=== PATIENT | female | born 1950 | race Caucasian/White ===

== ENCOUNTER → 2016-11-11 | Outpatient (REF) | payer MEDICARE, MEDICAID ==
[~2016-11-11] MED LIST: /AMIO20TA PO; /ESCI10TA; /ESCI10TA OR; /ESCI20TA PO; /ESOM40CA; /ESOM40CA OR; /INSULEV SUBQ; /IPRA3SP INH; /ONDA4TA OR; /TIOT18INH; ACET500C PO; ACET65TA; ACET65TA OR; ADV250INH INH; ALBU17IN INH; ALBU83IN; ALBU83IN IN; ALBU83IN INH; ALBUTEROL; AMILORIDE; AMILORIDE HCL PO; AMIT100T; AMIT10TA2 OR; AMIT50TA2 OR; AMLO10TA2 PO; ARIC10TA OR; ARIC5TAB OR; ASPI325T OR; ASPI32ECTA PO; ASPI81TA83 OR; ATIV0.5T OR; ATOR1TAB19 PO; ATOR40TA PO; ATROVENT; ATROVENT0.02%; BABY81CH; BACT2CRE TOP; BACT800T; BENA25TA4 PO; BUDESONIDE INH; CALC12502 OR; CALC1CAP31 PO; CALC1TAB30 PO; CALC250T PO; CALC600T21 PO; CALCCHW12 OR; CALCIUM/VIT D; CARDIZEM CD; CARTIA XT PO; CARV25TA PO; CEFD1CAP8 PO; CEFD300CAP PO; CEFT500T; CEFU12SS; CIPR500T4; CLEO300C OR; COLA100C PO; COLA100C2; COLA100C2 OR; COMMENT; CYPROHEPTADINE; DAILY-VITE PO; DARBEPOETIN SC; DEMA100T; DEMA100T OR; DEMA20TA; DIFL150T; DILT120C3; DILT180C3 OR; DOXY10CA PO; DRIS50002 PO; DULCOLAX PR; DUONSOL IN; DUONSOL INH; ECOT325T5; EPLERENONE; EPLERENONE PO; FERR325T OR; FLEEENE4 PR; FOLI1TAB OR; FOLI1TAB2 PO; FURO20TA2 PO; FURO40TA2 OR; HEPARIN SQ; HUMUINJ; HYDR50TA8; INSUH10VL INJ; INSUH10VL SC; INSUH10VL SQ; INSULANT; INSULANT SC; INSULIN LANTUS; INSULIN REG; INSULIN REGULAR; INSULIN SQ; IPRATROPIUM BROMIDE; JANUVIA OR; KEPP1000 PO; KEPP500T6 PO; KEPPRA; KEPPRA PO; LACT10SO8; LACT10SO8 OR; LANTINJ4 SC; LEVA250T PO; LEVA500T PO; LEVETIRACETAM PO; LEXAPRO OR; LIPI20TA; LIPI20TA OR; LOPR50TA OR; MAGN1TAB25 PO; METO-346 PO; METO25TA2; METO25TA74 PO; METO50TA4 OR; METOPROLOL PO; MILKSUS; MILKSUS OR; MULTIVIT PO; NAPR500T2 PO; NITR0.1S SL; NITR0.4S; NITR4TASL SL; NITRO10CA PO; NITROQUICK; NOVOINJ3 SC; NOVOLOG100 MG/ML SC; NOVOLOG100 MG/ML SQ; NYSTATIN; NYSTATIN ORAL; NYSTATIN TOP; OCEA0.654; OMEP40CA2 PO; OXYB5TA PO; OYSCO PO; PERC5TAB8; PERC5TAB8 OR; PERC7.5T8; PLAV75TA2; PLAV75TA2 OR; POTA1TAB14 PO; POTA20TA OR; POTA20TA2; POTA20TA2 OR; POTASSIUM CHLORIDE C; PRED10TA PO; PRED1TABL PO; PREDPOW10 PO; PREG100CA OR; PREG50CA OR; PREG50CA PO; PULM0.25 IN; RENA800T; ROXI1TAB2 PO; THERGRAN; TOPAMAX; TOPI100T OR; TOPI1TAB31 PO; TOPI200T OR; TOPI50TA; TOPI50TA OR; TOPI50TA4 PO; TOPIPOW3 PO; TORSEMIDE; TOUJ1.2I SC; TRAM50TA2 OR; TRAZ100T4 PO; TRAZ50TA4 PO; TYLE325T5 PO; VIBR100C OR; VIST50CA; VIT D 2000 PO; VITA50003 PO; VITA500046 PO; VITA500C OR; XOPENEX; ZARO2.5T; ZEBE5TAB; ZYLO100T; [UNRECOGNIZED DRUG - CODE] PO; [UNRECOGNIZED DRUG - OTHER]; [UNRECOGNIZED DRUG - OTHER] PO; amiodarone PO; aspirin PO; benadryl PO; ergocalciferol PO; lipitor PO; potassium PO; vicodin PO
[2016-11-11 16:36] LABS: ALBUMIN 3.3 GM/DL (3.2-5.2); ALBUMIN/GLOBULIN RATIO 1.03 (1.00-1.93); BILIRUBIN,TOTAL 0.3 MG/DL (0.2-1.0); CALCIUM LEVEL 8.5 MG/DL (8.8-10.2); CREATININE FOR GFR 2.18 MG/DL (0.55-1.02); GLOMERULAR FILTRATION RATE 24.1 (>45); POTASSIUM SERUM 3.2 MEQ/L (3.5-5.1); TOTAL PROTEIN 6.5 GM/DL (6.4-8.2)
[2016-11-11 17:11] LABS: MEAN CORPUSCULAR HGB CONC 31.8 g/dl (32.0-36.5); RED CELL DISTRIBUTION WIDTH 15.5 % (11.5-14.5)
== END ==
LOC: M SFHCSACK 11-09 10:23
PROVIDERS: ATTEND Physician Assistant
DX: D69.6 Thrombocytopenia, unspecified (principal); I10 Essential (primary) hypertension; E11.21 Type 2 diabetes mellitus with diabetic nephropathy; E55.9 Vitamin D deficiency, unspecified

== ENCOUNTER 2016-11-19 00:17 | Inpatient (IN) | payer MEDICARE, OTHER ==
[~2016-11-19] VITALS: Ht 154.9 cm; Wt 78.0 kg
[2016-11-19] VITALS (10 sets, daily range): BP systolic 130–148; BP diastolic 61–67; O2SAT 95–96
[~2016-11-19 00:17] MED LIST changes: -DOXY10CA PO
[2016-11-19] MEDS ORDERED: IPRATROPIUM 0.5MG/ALBUTEROL 2.5MG INH SOL UD 3ML (DUONEB)(J7620) As Ordered ONE ×2 (00:31→08:21)
[2016-11-19] MEDS ORDERED: ONDANSETRON 4MG/2ML VIAL (J2405) As Ordered ONE (00:49)
[2016-11-19] MEDS ORDERED: FUROSEMIDE 20 MG/2 ML VIAL (J1940) As Ordered ONE (00:56)
[2016-11-19] MEDS ORDERED: dexameTHASONE 4 MG/ML 1ML VIAL (J1100) As Ordered ONE ×2 (00:56→00:57)
[2016-11-19] MEDS ORDERED: NITROGLYCERIN 2% OINT 1 GM *U/D* PKT As Ordered ONE (00:56)
[2016-11-19] MEDS ORDERED: FUROSEMIDE 40 MG/4 ML VIAL (J1940) As Ordered ONE ×2 (00:57→09:23)
[2016-11-19 01:04] LABS: ABG BASE EXCESS -2.7 (-2.0-2.0); ABG DEVICE NASAL CANN; ABG PARTIAL PRESSURE CO2 57.4 mmHg (35.0-45.0); ABG PARTIAL PRESSURE O2 168.2 mmHg (75.0-100.0); ABG STANDARD HCO3 22.2 MEQ/L (22.0-26.0); ABG TOTAL CO2 26.8 MEQ/L (23.0-31.0); ABG pH (ARTERIAL) 7.257 UNITS (7.350-7.450)
[2016-11-19 01:20] LABS: BASO % 0.4 % (0.0-1.0); EOS # 0.1 K/mm3 (0.0-0.50); EOS % 2.1 % (0.0-3.0); LARGE UNSTAINED CELL # 0.2 K/mm3 (0.0-0.4); LARGE UNSTAINED CELL % 2.6 % (0.0-4.0); LYMPH # 0.7 K/mm3 (1.5-4.5); LYMPH % 11.1 % (24.0-44.0); MEAN CORPUSCULAR HEMOGLOBIN 27.2 pg (27.0-33.0); MEAN CORPUSCULAR HGB CONC 30.7 g/dl (32.0-36.5); MEAN CORPUSCULAR VOLUME 88.7 fl (80.0-96.0); MONO # 0.5 K/mm3 (0.0-0.8); NEUTROPHILS # 4.9 K/mm3 (1.8-7.7); NEUTROPHILS % 76.8 % (36.0-66.0); RED CELL DISTRIBUTION WIDTH 14.7 % (11.5-14.5); WHITE BLOOD COUNT 6.4 K/mm3 (4.0-10.0)
[2016-11-19 01:23] LABS: ANION GAP 7 MEQ/L (8-16); BLOOD UREA NITROGEN 36 MG/DL (7-18); CALCIUM LEVEL 8.7 MG/DL (8.8-10.2); CARBON DIOXIDE LEVEL 31 MEQ/L (21-32); CHLORIDE LEVEL 108 MEQ/L (98-107); CREATININE FOR GFR 2.42 MG/DL (0.55-1.02); GLOMERULAR FILTRATION RATE 21.4 (>45); GLUCOSE, FASTING 79 MG/DL (80-110); POTASSIUM SERUM 3.6 MEQ/L (3.5-5.1); SODIUM LEVEL 146 MEQ/L (136-145)
[2016-11-19 01:36] LABS: PLATELET COUNT, AUTOMATED 77 k/mm3 (150-450)
[2016-11-19] MEDS ORDERED: TRAZ100T4 PO (03:56)
[2016-11-19] MEDS ORDERED: GLUCAGON FOR INJ 1 MG VIAL (J1610) SC PRN (04:00)
[2016-11-19] MEDS ORDERED: GLUCOSE 4 GM CHEW TABLET PO PRN (04:00)
[2016-11-19] MEDS ORDERED: HEPARIN SOD (PORCINE) 5000 UNITS/ML VIAL SC SCH (04:00)
[2016-11-19] MEDS ORDERED: ACETAMINOPHEN TAB 650MG DOSE (2X325MG) PO PRN (04:00)
[2016-11-19] MEDS ORDERED: ONDANSETRON 4 MG TAB (S0181) PO PRN (04:00)
[2016-11-19] MEDS ORDERED: ONDANSETRON 4MG/2ML VIAL (J2405) IV PRN (04:00)
[2016-11-19] MEDS ORDERED: DEXTROSE 50% 50 ML SYRINGE IV PRN (04:00)
[2016-11-19] MEDS ORDERED: IPRATROPIUM 0.5MG/ALBUTEROL 2.5MG INH SOL UD 3ML (DUONEB)(J7620) NEB PRN (05:00)
[2016-11-19 05:12] LABS: ABG BASE EXCESS -1.4 (-2.0-2.0); ABG HCO3 27.7 MEQ/L (22.0-26.0); ABG PARTIAL PRESSURE O2 98.7 mmHg (75.0-100.0); ABG STANDARD HCO3 23.3 MEQ/L (22.0-26.0); ABG TOTAL CO2 29.9 MEQ/L (23.0-31.0)
[2016-11-19 05:15] LABS: ABG pH (ARTERIAL) 7.208 UNITS (7.350-7.450)
[2016-11-19 05:16] LABS: ABG PARTIAL PRESSURE CO2 71.3 mmHg (35.0-45.0)
--- NOTE | 2016-11-19 05:30 | HPEPDOC ---
General Date of Admission 11/19/16 Chief Complaint The patient is a 66-year-old female admitted with a reason for visit of Diff Breathing. History of Present Illness Tess Booker is a 66 year old female with a pertinent history of 3 vessel CABG, COPD, IDDM, stage 4 CKD, HTN, tobacco abuse, and BRANDON managed by 2L CPAP at night, presenting with progressively worsening shortness of breath over 1 week. 2 days ago, pt was seen at [place] ED because of shortness of breath on exertion and chest pressure. Pt reports getting IV furosemide and being discharged to home. Last night, the pt felt acute onset of dizziness and shortness of breath and was brought in by ambulance to [facility] ED. She can typically go to the bathroom or do the dishes without any dyspnea but is now experiencing dyspnea while speaking. She also has an associated productive cough over the last week that produces yellow phlegm. Pt also reports chest discomfort prior to calling the ambulance and describes it as a knot under the sternum that does not radiate. She vomited once last night and has not experienced N/V since. Pt has orthopnea. Pt denies any fever, chills, change in vision, h/a, dysuria, urinary frequency or urgency, or melena. ED course: After arrival to the ED, pt received Furosemide 60mg IV, ondansetron 4mg IV, nebulizer treatments, and Dexamethasone 15 mg. Pt reports feeling much better after ED treatment. Home Medications Scheduled (Evelyn Zhang) 300 Unit/Ml Inj 18 UNIT SC BID (Reported) Amlodipine Besylate (Amlodipine Besylate) 10 Mg Tab 20 MG PO QHS (Reported) Aspirin (Aspirin EC) 325 Mg Tabec 325 MG PO DAILY (Reported) Atorvastatin Calcium (Atorvastatin Calcium) 40 Mg Tab 40 MG PO DAILY (Reported ) Carvedilol (Carvedilol) 25 Mg Tab 25 MG PO BID (Reported) Ergocalciferol (Vitamin D) 50,000 Unit Cap 50,000 UNIT PO MTHLY (Reported) takes in the beginning of each month Folic Acid (Folic Acid) 1 Mg Tab 1 MG PO DAILY (Reported) Furosemide (Furosemide) 20 Mg Tab 20 MG PO BID (Reported) Insulin Aspart (Novolog) 100 U/Ml Inj 1 DOSE SC ACHS (Reported) PER HOME SLIDING SCALE Levetiracetam (Keppra) 1,000 Mg Tab 1,000 MG PO BID (Reported) Omeprazole (Omeprazole) 40 Mg Cap 40 MG PO DAILY (Reported) Oxybutynin Chloride (Oxybutynin Chloride) 5 Mg Tab 5 MG PO DAILY (Reported) Pregabalin (Lyrica) 50 Mg Cap 50 MG PO BID (Reported) Salmeterol/Fluticasone (Advair Diskus 250-50 Mcg/Dose) 14 Puff/Inhaler Aerp 1 PUFF INH BID (Reported) Trazodone HCl (Trazodone HCl) 100 Mg Tab 100 MG PO QHS (Reported) Scheduled PRN Albuterol Sulfate (Ventolin Hfa) 200 Puff/8 Gm Aers 2 PUFF INH Q4H PRN PRN SHORTNESS OF BREATH (Reported) Albuterol Sulfate (Albuterol Sulfate) 2.5 Mg/3 Ml Nebu 2.5 MG INH Q4H PRN PRN SOB/WHEEZING (Reported) Nitroglycerin (Nitrostat) 0.4 Mg Subl 0.4 MG SL NITRO PRN PRN ANGINA (Reported) Allergies Coded Allergies: Streptokinase (Unverified Allergy, Severe, BLOOD CLOTS, 01/20/16) Amiloride (Verified Allergy, Intermediate, RASH/GENERAL ITCHING, 01/28/13) RASH/GENERAL ITCHING Guaifenesin & Derivatives (Unverified Allergy, Intermediate, FACE SWELLING , 01/20/16) Shellfish Allergy (Verified Allergy, Intermediate, RASH, 01/28/13) Spironolactone (Unverified Allergy, Intermediate, RASH, 01/28/13) Vancomycin (Unverified Allergy, Intermediate, HIVES,SWELLING,RASH, 01/28/13) Gabapentin (Verified Adverse Reaction, Severe, SUICIDAL IDEATIONS, 01/28/13) Past Medical History Medical History 3 vessel CABG post NM 2011, COPD, IDDM, dyslipidemia, CKD stage 4, HTN, BRANDON Surgical History , Appendectomy, Tonsillectomy, CABG, Cardiac stents, hysterectomy, back fusion, carpal tunnel release on left, b/l ankle surgery, left hip surgery , left leg open reduction and internal fixation Family History Significant Family History: Noncontributory Social History * Smoker: current smoker (1/2PPD) Alcohol: denies Drugs: denies Recent Travel/Sick Contacts: Denies: Recent sick contacts, Recent travel Psychosocial History: No pertinent psych hx Review of Symptoms Constitutional: Reports: Chills (states she always gets chills), Night Sweats ( has had night sweats for 6mo-1year), Weakness, Denies: Fever Eyes: Reports: Vision change (blurry vision over the past month but no acute change), Denies: Pain ENT: Denies: Dysphagia, Head Aches Skin: Denies: Lesions, Rash Pulmonary: Reports: Cough (productive of yellow phelgm), Dyspnea Cardiovascular: Reports: Chest Pain, Lt Headedness, Orthopnea, Denies: Palpitations Gastrointestinal: Reports: Vomiting (Once last night), Denies: Abdominal Pain, Constipation, Diarrhea, Nausea Genitourinary: Denies: Dysuria, Frequency, Incontinence Psych: Reports: Mood Normal Physical Examination General Exam: Positive: Alert, Cooperative, Moderate Distress Eye Exam: Positive: Conjunctiva & lids normal, EOMI, PERRLA, Negative: Sclera icteric ENT Exam: Positive: Atraumatic, Mucous membr. moist/pink, Pharynx Normal Neck Exam: Positive: Supple, Negative: JVD, thyromegaly Chest Exam: Positive: Diminished, Other (Crackles heard throughout all lung pryor), Rhonchi, Wheezing Heart Exam: Positive: Normal S1, Normal S2, Rate Normal, Regular Rhythm, Negative: Murmurs, Rubs Abdomen Exam: Positive: Hepatospenomegaly (Liver edge palpated approx. 3 cm below ribs.), Normal bowel sounds, Soft, Negative: Mass, Tenderness Extremity Exam: Positive: Normal pulses, Negative: Clubbing, Cyanosis, Edema Skin Exam: Positive: Nl turgor and temperature Vital Signs BP 135/63, P 69 RR 22 97.6F 93% R/A Height (in): 61 Weight (kg): 63.5 Laboratory Data Labs 24H Laboratory Tests 2 11/19/16 00:31: Anion Gap 7L, B-Type Natriuretic Peptide 2210H, White Blood Count 6.4, Red Blood Count 4.09, Hemoglobin 11.1L, Hematocrit 36.3, Mean Corpuscular Volume 88.7, Mean Corpuscular Hemoglobin 27.2, Mean Corpuscular Hemoglobin Concent 30.7L, Red Cell Distribution Width 14.7H, Platelet Count 77L, Neutrophils (%) ( Auto) 76.8H, Lymphocytes (%) (Auto) 11.1L, Monocytes (%) (Auto) 7.0H, Eosinophils (%) (Auto) 2.1, Basophils (%) (Auto) 0.4, Neutrophils # (Auto) 4.9, Lymphocytes # (Auto) 0.7L, Monocytes # (Auto) 0.5, Eosinophils # (Auto) 0.1, Basophils # (Auto) 0.0, Blood Urea Nitrogen 36H, Creatinine 2.42H, Sodium Level 146H, Potassium Level 3.6, Chloride Level 108H, Carbon Dioxide Level 31, Calcium Level 8.7L, Total Creatine Kinase 91, Creatine Kinase MB 2.2, Creatine Kinase MB Relative Index 2.41, Glomerular Filtration Rate 21.4L, Lactic Acid Level 0.4, Large Unclassified Cells # 0.2, Large Unclassified Cells % 2.6, Troponin I < 0.02 11/19/16 00:45: Arterial Blood pH 7.257L, Arterial Blood Partial Pressure CO2 57.4H, Arterial Blood Partial Pressure O2 168.2H, Arterial Blood Total CO2 26.8, Arterial Blood HCO3 25.0, Arterial Blood Base Excess -2.7L, Arterial Blood Oxygen Saturation 99.0, Blood Gas Bicarbonate Standard 22.2, Oxygen Delivery Device NASAL AFSHAN CBC/BMP Laboratory Tests 11/19/16 00:31 Calcium Level 8.7 L, Total Creatine Kinase 91, Red Blood Count 4.09, Mean Corpuscular Volume 88.7, Mean Corpuscular Hemoglobin 27.2, Mean Corpuscular Hemoglobin Concent 30.7 L, Red Cell Distribution Width 14.7 H, Neutrophils (%) ( Auto) 76.8 H, Lymphocytes (%) (Auto) 11.1 L, Monocytes (%) (Auto) 7.0 H, Eosinophils (%) (Auto) 2.1, Basophils (%) (Auto) 0.4, Neutrophils # (Auto) 4.9, Lymphocytes # (Auto) 0.7 L, Monocytes # (Auto) 0.5, Eosinophils # (Auto) 0.1, Basophils # (Auto) 0.0 Microbiology Microbiology 11/19/16 Blood Culture, Received Pending (1) COPD exacerbation Status: Acute Assessment & Plan: Pt has dyspnea at rest, crackles throughout lung pryor, and chest discomfort. Pt has a CXR that shows bilateral interstitial infiltrates and Carlos B lines. Suspect COPD exacerbation is secondary to exacerbation of CHF. Although pt has a productive cough over the past week, it is less likely the etiology of her COPD exacerbation is due to infection because her WBC is not elevated and pt is currently afebrile. However, due to the pt's extensive history of COPD, we will start systemic steroids, nebulizer treatments, and levaquin. Although pt has stage 4 CKD, she is currently on 20mg furosemide PO BID at home. Will give furosemide 40mg IV BID. Will monitor BMP daily. Pt's O2 saturation dropped to 85% after she fell asleep despite having her home nasal CPAP machine on 15L of oxygen. Repeat ABG worsened, we will place her on BiPAP and we have already spoken to Dr. Muñoz who will manage. Plan to keep pt's O2 saturation between 88-92%. B/C is pending. Patient appears to be a mouth breather and will need a full face CPAP mask, as opposed to the nasal pillows she has been using. (2) Acute on chronic diastolic CHF (congestive heart failure) Status: Acute Assessment & Plan: Pt has an extensive cardiac history with 3 vessel CABG s/p NM in 2011, HTN, and IDDM, and is presenting with dyspnea at rest and chest discomfort for several days. Pt had a PAOLA last year which showed a LVEF of 50-55 %, but suggested potential diastolic heart failure and pulmonary HTN. Furthermore, there is evidence that her home CPAP has not been working as intended. This in combination with pt's current BNP of 2210 and physical exam findings is concerning for an acute exacerbation of CHF. At this time, we will get an ECG, trend cardiac markers Q8, diurese her with furosemide IV 40mg BID and reevaluate in the AM. Will also repeat an echocardiogram, last one performed December 2015. (3) Chronic kidney disease (CKD) stage G4/A1, severely decreased glomerular filtration rate (GFR) between 15-29 mL/min/1.73 square meter and albuminuria creatinine ratio less than 30 mg/g Status: Chronic Assessment & Plan: Pt's baseline creatinine is between 2-3. Pt is currently at 2.42. We are concerned about the potential effects of increasing her diuretic dose but feel it is necessary because of her severe dyspnea. Because we do not suspect she currently has an ASMITA as the pt's creatinine is well within her baseline, we will continue to monitor BMP in AM. It is possible creatinine will improve after diuresis due to improved hemodynamics. (4) Insulin dependent diabetes mellitus Status: Chronic Assessment & Plan: Pt reports home glucose readings of 100-127. Will place pt on sliding scale insulin. (5) Obstructive sleep apnea Status: Chronic Assessment & Plan: Pt brought in CPAP from home. Respiratory observed that pt' s home CPAP was not effective, as she is a mouth breather and has been using nasal pillows. O2 sat on home CPAP was only 85% and her ABG worsened. Will bipap patient and keep O2 saturation at 88-92%. (6) Thrombocytopenia Status: Chronic Assessment & Plan: Pt has a platelet count of 77 today. However, after reviewing the pt's laboratory history, it appears she is chronically thrombocytopenic. Will continue to monitor platelets daily and transfuse if count drops below 20. (7) Cirrhosis of liver Status: Chronic Assessment & Plan: continue current management (8) Gastroesophageal reflux disease Status: Chronic Assessment & Plan: Continue current PPI (9) History of seizures Status: Chronic Assessment & Plan: Continue current management (10) Dyslipidemia Status: Chronic Assessment & Plan: continue current management (11) DVT prophylaxis Status: Acute Assessment & Plan: she will receive TEDs and SEQs due to her low platelet count Plan / VTE VTE Prophylaxis Ordered?: Yes (TEDs & Seqs) GME ATTESTATION GME ATTESTATION My preceptor for this patient encounter was physically present in the building during the encounter and was fully available. As needed, all aspects of the patient interview, examination, medical decision making process, and medical care plan development were reviewed and approved by the preceptor. Preceptor is aware and concurs with the plan as stated in the body of this note and will attest to such by his/her cosignature. ATTENDING NOTE I, Lakeisha London, have seen and examined the above patient and agree with the assessment and plan as documented by Dr. Melo. The patient will be admitted as an inpatient on the service of Dr. Graham. CHRISTIANNE MELO DO Nov 19, 2016 04:41 LAKEISHA LONDON Nov 19, 2016 06:53
[2016-11-19] MEDS: methylPREDNISolone INJ 125 MG/2 ML VIAL (J2930) IV SCH ×3 (06:00→21:20)
[2016-11-19] MEDS ORDERED: LevoFLOXacin 500 MG in APPROPRIATE DILUENT 1 EA IV SCH (06:00)
[2016-11-19 06:27] LABS: ABG BASE EXCESS -2.8 (-2.0-2.0); ABG DEVICE NASAL CANN; ABG HCO3 26.1 MEQ/L (22.0-26.0); ABG PARTIAL PRESSURE O2 84.9 mmHg (75.0-100.0); ABG STANDARD HCO3 22.1 MEQ/L (22.0-26.0); ABG TOTAL CO2 28.1 MEQ/L (23.0-31.0)
[2016-11-19 06:30] LABS: ABG PARTIAL PRESSURE CO2 66.2 mmHg (35.0-45.0); ABG pH (ARTERIAL) 7.213 UNITS (7.350-7.450)
[2016-11-19] MEDS: HumaLOG INSULIN (NovoLOG) PER UNIT SC SCH ×4 (07:30→21:28)
[2016-11-19] MEDS ORDERED: LevoFLOXacin(LEVAQUIN)500 MG/100 ML BAG (J1956) As Ordered ONE (07:44)
[2016-11-19] MEDS ORDERED: methylPREDNISolone INJ 125 MG/2 ML VIAL (J2930) As Ordered ONE (07:45)
[2016-11-19] MEDS: IPRATROPIUM 0.5MG/ALBUTEROL 2.5MG INH SOL UD 3ML (DUONEB)(J7620) NEB SCH ×3 (08:51→20:00)
[2016-11-19] MEDS: ADVAIR DISKUS 250/50 INH PWD INH SCH ×2 (08:53→20:37)
[2016-11-19] MEDS: oxyBUTYnin 5 MG TAB PO SCH (09:00)
[2016-11-19] MEDS: CARVedilol 12.5 MG TAB PO SCH ×2 (09:00→21:22)
[2016-11-19] MEDS: LEVEMIR (INSULIN DETEMIR) 1 UNITS/0.01ML SC SCH ×2 (09:00→21:28)
[2016-11-19] MEDS: levETIRAcetam 250MG TABLET (KEPPRA) PO SCH ×2 (09:00→21:21)
[2016-11-19] MEDS: ASPIRIN ENTERIC 325 MG TAB PO SCH (09:00)
[2016-11-19] MEDS: PREGABALIN 50 MG CAP (LYRICA) PO SCH ×2 (09:00→22:13)
[2016-11-19] MEDS: OMEPRAZOLE 20 MG CAP PO SCH (09:00)
[2016-11-19] MEDS: FOLIC ACID 1 MG TAB PO SCH (09:00)
[2016-11-19] MEDS: FUROSEMIDE 40 MG/4 ML VIAL (J1940) IV SCH ×2 (09:00→17:00)
[2016-11-19] MEDS: ATORVASTATIN 20 MG TAB PO SCH (09:00)
[2016-11-19 10:15] LABS: ABG BASE EXCESS -4.2 (-2.0-2.0); ABG HCO3 23.3 MEQ/L (22.0-26.0); ABG PARTIAL PRESSURE O2 79.7 mmHg (75.0-100.0); ABG STANDARD HCO3 20.9 MEQ/L (22.0-26.0); ABG pH (ARTERIAL) 7.253 UNITS (7.350-7.450)
--- NOTE | 2016-11-19 11:37 | EDDOCDS ---
Physician Documentation [facility] Name: eTss Booker Age: 66 yrs Sex: Female : 1950 Arrival Date: 11/19/2016 Time: 00:17 Bed Admit Hold Private MD: Phyllis Mcgovern P Disposition: 11/19/16 02:20 Hospitalization ordered by aLkeisha London for Inpatient Admission. Preliminary diagnosis are Chronic combined systolic (congestive) and diastolic (congestive) heart failure, Chronic obstructive pulmonary disease with (acute) exacerbation. - Bed requested for M ICU. - Status is Inpatient Admission. kc3 - Condition is Stable. - Problem is chronic. - Symptoms have improved. Historical: - Allergies: GABAPENTIN; Spironolactone; Vancomycin; Streptokinase; Mucinex; - Home Meds: 1. Advair Diskus 250-50 mcg/dose Inhl dsdv 1 puff 2 times per day 2. albuterol sulfate 1.25 mg/3 mL Inhl nebu 3 mL 3-4 times daily 3. amlodipine 10 mg Oral tab 1 tab once daily 4. aspirin 325 mg Oral tab 1 tab once daily 5. atorvastatin 40 mg oral tab 1 tab once daily 6. calcium carbonate 650 mg calcium (1,625 mg) Oral tab daily 7. carvedilol 25 mg oral tab 1 tab 2 times per day 8. Drisdol 50,000 unit Oral cap 1 cap monthly 9. folic acid 1 mg Oral tab 1 tab once daily 10. Lasix 20 mg Oral tab 1 tab 2 times per day 11. levetiracetam 1,000 mg oral tab 1 tab every 12 hours 12. nitroglycerin 0.6 mg SL subl 1 tab every 5 minutes 13. Novolog 100 unit/mL Sub-Q soln sliding scale 14. omeprazole 40 mg Oral cpDR 1 cap once daily 15. oxybutynin chloride 5 mg Oral tab 1 tab daily 16. Toujeo SoloStar 300 unit/mL (1.5 mL) subcutaneous inpn 16 units BID 17. Prolia 60 mg/mL subcutaneous syrg 1 mL every 2 years 18. oxycodone 5 mg Oral tab 1 tab every 4 hours 19. trazodone 100 mg Oral tab three times a day 20. pregabalin 50 mg Oral cap 1 cap twice a day - PMHx: CAD; COPD; Diabetes - IDDM: controlled; Hypercholesterolemia; Hypertension; Kidney stones; DC; Renal Failure w/o Dialysis; Sleep Apnea w/ BiPap; vitreous hemorrhage; CHF; chronic kidney disease; - PSHx: triple bypass; ; Ankle Arthroplasty, Left; Appendectomy; Hysterectomy; Carpal Tunnel Repair- Bilateral; - Social history: Smoking status: Patient/guardian denies using alcohol, street drugs, No barriers to communication noted, The patient speaks fluent Beninese, states quit smoking yesterday. - Family history: Not pertinent. - : The pt / caregiver states he / she is not on anticoagulants. Home medication list is obtained from the patient. - Exposure Risk Screening:: None identified. Vital Signs: 11/19 00:38 BP 125 / 59; Pulse 70; Resp 22; Temp 97.6(O); Pulse Ox 98% on R/A; Weight 63.5 kg / jp6 139.99 lbs; Height 5 ft. 1 in. (154.94 cm); Pain 4/10; 00:45 BP 132 / 59 (auto/); jp6 00:46 Pulse 70 MON; Pulse Ox 96% ; jp6 01:00 BP 125 / 62 (auto/); jp6 01:01 Pulse 71 MON; Pulse Ox 100% ; jp6 01:15 BP 128 / 59 (auto/); jp6 01:16 Pulse 72 MON; Pulse Ox 100% ; jp6 01:30 BP 148 / 65 (auto/); jp6 01:31 Pulse 68 MON; Pulse Ox 100% ; jp6 01:47 BP 135 / 63 (auto/); jp6 01:47 Pulse 69 MON; Pulse Ox 93% ; jp6 02:00 BP 127 / 60 (auto/); jp6 02:01 Pulse 68 MON; Pulse Ox 93% ; jp6 02:15 BP 137 / 65 (auto/); jp6 02:16 Pulse 70 MON; Pulse Ox 93% ; jp6 02:30 BP 127 / 61 (auto/); jp6 02:31 Pulse 69 MON; Pulse Ox 93% ; jp6 02:45 BP 129 / 74 (auto/); jp6 02:46 Pulse 70 MON; Pulse Ox 91% ; jp6 03:00 BP 124 / 61 (auto/); jp6 03:01 Pulse 71 MON; Pulse Ox 91% ; jp6 03:15 BP 124 / 65 (auto/); jp6 03:16 Pulse 70 MON; Pulse Ox 92% ; jp6 03:30 BP 124 / 65 (auto/); jp6 03:31 Pulse 70 MON; Pulse Ox 86% ; jp6 03:45 BP 123 / 64 (auto/); jp6 03:46 Pulse 68 MON; Pulse Ox 88% ; jp6 03:53 Pulse 69 MON; Pulse Ox 98% ; jp6 03:58 Pulse 68 MON; Pulse Ox 98% ; jp6 04:00 BP 124 / 64 (auto/); jp6 04:01 Pulse 68 MON; Pulse Ox 99% ; jp6 04:15 BP 122 / 65 (auto/); jp6 04:16 Pulse 68 MON; Pulse Ox 99% ; jp6 04:30 BP 136 / 69 (auto/); jp6 04:31 Pulse 70 MON; Pulse Ox 99% ; jp6 04:45 BP 131 / 67 (auto/); jp6 04:46 Pulse 70 MON; Pulse Ox 99% ; jp6 05:00 BP 131 / 67 (auto/); jp6 05:01 Pulse 70 MON; Pulse Ox 99% ; jp6 05:15 BP 134 / 66 (auto/); jp6 05:16 Pulse 71 MON; Pulse Ox 98% ; jp6 05:30 BP 135 / 70 (auto/); jp6 05:31 Pulse 70 MON; Pulse Ox 96% ; jp6 05:45 BP 132 / 72 (auto/); jp6 05:46 Pulse 69 MON; Pulse Ox 94% ; jp6 06:00 BP 131 / 73 (auto/); jp6 06:01 Pulse 68 MON; Pulse Ox 93% ; jp6 06:15 BP 134 / 68 (auto/); jp6 06:16 Pulse 66 MON; Pulse Ox 95% ; jp6 06:26 Temp 97(T); jp6 06:30 BP 138 / 73 (auto/); jp6 06:31 Pulse 67 MON; Pulse Ox 94% ; jp6 06:45 BP 132 / 69 (auto/); jp6 06:46 Pulse 65 MON; Pulse Ox 94% ; jp6 07:00 BP 130 / 71 (auto/); kc3 07:00 Pulse 66 MON; Pulse Ox 94% ; kc3 07:15 BP 147 / 78 (auto/); kc3 07:16 Pulse 70 MON; Pulse Ox 97% ; kc3 07:30 BP 136 / 70 (auto/); kc3 07:31 Pulse 70 MON; Pulse Ox 93% ; kc3 07:45 BP 136 / 68 (auto/); kc3 07:45 Pulse 70 MON; Pulse Ox 93% ; kc3 08:00 BP 133 / 68 (auto/); kc3 08:00 Pulse 70 MON; Pulse Ox 95% ; kc3 08:15 BP 130 / 68 (auto/); kc3 08:15 Pulse 68 MON; Pulse Ox 96% ; kc3 08:30 BP 135 / 71 (auto/); kc3 08:30 Pulse 69 MON; Pulse Ox 96% ; kc3 08:45 BP 130 / 67 (auto/); kc3 08:45 Pulse 69 MON; Pulse Ox 95% ; kc3 09:00 BP 138 / 68 (auto/); kc3 09:01 Pulse 69 MON; Pulse Ox 96% ; kc3 09:15 BP 135 / 68 (auto/); kc3 09:16 Pulse 69 MON; Pulse Ox 94% ; kc3 09:30 BP 148 / 99 (auto/); kc3 09:31 Pulse 73 MON; Pulse Ox 95% ; kc3 09:45 BP 146 / 71 (auto/); kc3 09:45 Pulse 71 MON; Pulse Ox 93% ; kc3 10:00 BP 136 / 77 (auto/); kc3 10:00 Pulse 69 MON; Pulse Ox 94% ; kc3 10:15 BP 141 / 71 (auto/); kc3 10:15 Pulse 70 MON; Resp 22; Temp 99.4(TE); Pulse Ox 93% ; kc3 10:30 BP 143 / 70 (auto/); kc3 10:31 Pulse 72 MON; Pulse Ox 95% ; kc3 10:45 BP 157 / 76 (auto/); kc3 10:46 Pulse 74 MON; Pulse Ox 95% ; kc3 11:00 BP 146 / 70 (auto/); kc3 11:01 Pulse 70 MON; Pulse Ox 96% ; kc3 11:15 BP 128 / 59 (auto/); kc3 11:16 Pulse 74 MON; Pulse Ox 96% ; kc3 11:30 BP 146 / 70 (auto/); kc3 11:30 Pulse 69 MON; Resp 24; Temp 98.8(TE); Pulse Ox 98% ; kc3 00:38 Body Mass Index 26.45 (63.50 kg, 154.94 cm) jp6 10:15 pt on bipap kc3 11:30 pt on bipap kc3 MDM: 00:42 Call Respiratory ordered. cs11 00:42 -Blood Culture (Adults Only), peripheral from different site, or from device/port/PICC cs11 etc. if present ordered. 00:42 IV Saline Lock ordered. cs11 00:42 Dexamethasone 15 mg IV at bolus once ordered. cs11 00:42 Nitro-Bid Ointment 2 % 0.5 inches Transdermal once ordered. cs11 00:43 Furosemide 60 mg IVP once ordered. cs11 00:44 Chest, 1 View Ordered. EDMS 00:44 ECG WITH READING ER PHYS+CARDIAG ordered. EDMS 00:44 -Arterial Blood Gas Ordered. EDMS 00:44 Lactic Acid (Raines tube on ice) Ordered. EDMS 00:44 CBC with Diff Ordered. EDMS 00:44 MED Profile Ordered. EDMS 00:44 Cardiac Marker Panel Ordered. EDMS 00:44 BNP Ordered. EDMS 00:44 -Blood Culture Ordered. EDMS 00:54 Call Respiratory complete. jp6 00:54 Ondansetron 4 mg IVP once ordered. jp6 01:11 -Arterial Blood Gas Reviewed. cs11 01:16 -Blood Culture (Adults Only), peripheral from different site, or from device/port/PICC jp6 etc. if present complete. 01:26 MED Profile Reviewed. cs11 01:26 Lactic Acid (Raines tube on ice) Reviewed. cs11 01:26 Cardiac Marker Panel Reviewed. cs11 01:38 BED REQUEST+ADM ordered. EDMS 01:48 Financial registration complete. hs2 02:02 [facility] Payment Agreement was scanned into [employer] and attached to record. hs2 02:16 Albuterol-Ipratropium 1 neb Nebulizer every 20 minutes x3 ordered. cs11 02:16 Call Respiratory ordered. cs11 02:16 CBC with Diff Reviewed. cs11 02:16 BNP Reviewed. cs11 02:22 Call Respiratory complete. jlm 04:01 Admission / Observation Status ordered. EDMS 04:01 ECHOCARD,DOPPLER/COLOR FLOW ordered. EDMS 04:01 NO ADDED SALT DIET ordered. EDMS 04:01 CARDIAC MARKER PANEL Ordered. EDMS 04:01 CARDIAC MARKER PANEL Ordered. EDMS 04:01 CARDIAC MARKER PANEL Ordered. EDMS 04:02 ARTERIAL BLOOD GAS Ordered. EDMS 04:02 BIPAP INPATIENT ordered. EDMS 05:23 Admission / Observation Status ordered. EDMS 06:16 -Arterial Blood Gas Ordered. EDMS 07:45 ARTERIAL BLOOD GAS Ordered. EDMS 08:06 Written Provider Order was scanned into Le[employer] and attached to record. deg 08:09 Fingerstick Blood Sugar Ordered. EDMS 09:02 T-Sheet-- Draft Copy was scanned into Leik[employer] and attached to record. [facility] 10:32 MRSA SCREEN Ordered. EDMS Administered Medications: 00:35 Drug: Albuterol-Ipratropium 1 neb [ipratropium-albuterol 0.5 mg-3 mg(2.5 mg base)/3 mL jc3 nebulization soln (1 neb)] Route: Nebulizer; 00:45 Drug: Albuterol-Ipratropium 1 neb [ipratropium-albuterol 0.5 mg-3 mg(2.5 mg base)/3 mL jc3 nebulization soln (1 neb)] Route: Nebulizer; 00:54 Drug: Ondansetron 4 mg [ondansetron HCl 2 mg/mL intravenous solution (2 mL)] Route: jp6 IVP; Site: left forearm; 00:55 Drug: Albuterol-Ipratropium 1 neb [ipratropium-albuterol 0.5 mg-3 mg(2.5 mg base)/3 mL jc3 nebulization soln (1 neb)] Route: Nebulizer; 01:15 Drug: Furosemide 60 mg [furosemide 10 mg/mL injection solution (6 mL)] Route: IVP; jp6 Site: left forearm; 01:16 Drug: Dexamethasone 15 mg [dexamethasone 4 mg/mL injection solution] Route: IV; Rate: jp6 bolus; Site: left forearm; 01:16 Drug: Nitro-Bid 0.5 inches [Nitro-Bid 2 % transdermal ointment (0.5 inches)] Route: jp6 Transdermal; Site: anterior chest wall; Signatures: Dispatcher [employer] EDMS Sulma Cornell, Contact [employer] deg Cindy Llamas RN RN dls Schiff, Craig, DO DO cs11 Betsy Holliday, Contact [employer] jlHollie Smith,RN RN kc3 Luz Marina Concepcion, Reg Reg hs2 Suellen Bourgeois,RN RN jp6 Isa Ramesh Joseph jc3 The chart was reviewed and I authenticate all verbal orders and agree with the evaluation and treatment provided.Attachments: 02:02 [facility] Payment Agreement hs2 08:06 Written Provider Order deg 09:02 T-Sheet-- Draft Copy [facility] MTDD
--- NOTE | 2016-11-19 11:37 | EDDOCDS ---
Nurse's Notes [facility] Name: Tess Booker Age: 66 yrs Sex: Female : 1950 Arrival Date: 11/19/2016 Time: 00:17 Bed Admit Hold Private MD: Phyllis Mcgovern P Diagnosis: Chronic combined systolic (congestive) and diastolic (congestive) heart failure;Chronic obstructive pulmonary disease with (acute) exacerbation Presentation: 11/19 00:29 Presenting complaint: Patient states: Over the last 3 days breathing has gotten jp6 worse-,back pain and productive cough yellow sputum.Denies fever/chills. Adult Sepsis Screening: The patient does not have new or worsening altered mentation. Patient has a respiratory rate of greater than or equal to 22 (1 point). Systolic blood pressure is greater than 100. Patient has a qSOFA score of 1- Negative Sepsis Screen. Suicide/Homicide risk assessment- the patient denies having any suicidal and/or homicidal ideations and does not present with any other emotional, behavioral or mental health complaints. Status: Patient is not a cooler servicer or dependent. Transition of care: patient was not received from another setting of care. 00:29 Acuity: ANANTH Level 2 6 00:29 Method Of Arrival: Ambulance jp6 Triage Assessment: 00:38 General: Appears distressed, ill, uncomfortable, Behavior is appropriate for age, jp6 cooperative. Pain: Location: chest Pain currently is 4 out of 10 on a pain scale. Quality of pain is described as aching. The patient is triaged at the bedside. See Assessment in Nurses Notes section of ED record. Neurological: Level of Consciousness is awake, alert, Oriented to person, place, time. EENT: No deficits noted. Cardiovascular: Capillary refill < 3 seconds Rhythm is sinus rhythm. Respiratory: Onset: The symptoms/episode began/occurred 3 days, Airway is patent Respiratory effort is labored, shallow, Respiratory pattern is regular, Breath sounds are coarse inspiratory expiratory bilaterally. Breath sounds with rales Breath sounds with rhonchi. GI: No deficits noted. : No deficits noted. Derm: Skin is pink, warm & dry. Musculoskeletal: No deficits noted. Injury Description: No known injury. Historical: - Allergies: GABAPENTIN; Spironolactone; Vancomycin; Streptokinase; Mucinex; - Home Meds: 1. Advair Diskus 250-50 mcg/dose Inhl dsdv 1 puff 2 times per day 2. albuterol sulfate 1.25 mg/3 mL Inhl nebu 3 mL 3-4 times daily 3. amlodipine 10 mg Oral tab 1 tab once daily 4. aspirin 325 mg Oral tab 1 tab once daily 5. atorvastatin 40 mg oral tab 1 tab once daily 6. calcium carbonate 650 mg calcium (1,625 mg) Oral tab daily 7. carvedilol 25 mg oral tab 1 tab 2 times per day 8. Drisdol 50,000 unit Oral cap 1 cap monthly 9. folic acid 1 mg Oral tab 1 tab once daily 10. Lasix 20 mg Oral tab 1 tab 2 times per day 11. levetiracetam 1,000 mg oral tab 1 tab every 12 hours 12. nitroglycerin 0.6 mg SL subl 1 tab every 5 minutes 13. Novolog 100 unit/mL Sub-Q soln sliding scale 14. omeprazole 40 mg Oral cpDR 1 cap once daily 15. oxybutynin chloride 5 mg Oral tab 1 tab daily 16. Toujeo SoloStar 300 unit/mL (1.5 mL) subcutaneous inpn 16 units BID 17. Prolia 60 mg/mL subcutaneous syrg 1 mL every 2 years 18. oxycodone 5 mg Oral tab 1 tab every 4 hours 19. trazodone 100 mg Oral tab three times a day 20. pregabalin 50 mg Oral cap 1 cap twice a day - PMHx: CAD; COPD; Diabetes - IDDM: controlled; Hypercholesterolemia; Hypertension; Kidney stones; [place]; Renal Failure w/o Dialysis; Sleep Apnea w/ BiPap; vitreous hemorrhage; CHF; chronic kidney disease; - PSHx: triple bypass; ; Ankle Arthroplasty, Left; Appendectomy; Hysterectomy; Carpal Tunnel Repair- Bilateral; - Social history: Smoking status: Patient/guardian denies using alcohol, street drugs, No barriers to communication noted, The patient speaks fluent Martiniquais, states quit smoking yesterday. - Family history: Not pertinent. - : The pt / caregiver states he / she is not on anticoagulants. Home medication list is obtained from the patient. - Exposure Risk Screening:: None identified. Screenin:45 Screening information is obtained from the patient. Fall risk: At risk due to age. jp6 Assistance ADL's: requires no assistance with activities of daily living. Abuse/DV Screen: The patient / caregiver reports he/she is: not in a situation that causes fear, pain or injury. Nutritional screening: No deficits noted. Advance Directives: Currently, there is no health care proxy. There is an active DNR order but there is no copy available at this time. There is no living will. home support is adequate. Assessment: 00:45 General: see triage assessment. jp6 01:44 Reassessment: pt states breathing is a little better.. Cardiovascular: No deficits jp6 noted. Rhythm is regular. Respiratory: Airway is patent Respiratory effort is even, labored, Respiratory pattern is regular, symmetrical, Breath sounds are coarse Breath sounds with rhonchi inspiratory expiratory Breath sounds with wheezes. 01:44 Respiratory: Reports wears bipap w/ O2 at night. jp6 02:45 Reassessment: Patient denies pain at this time. General: Appears ill, Behavior is jp6 appropriate for age, cooperative, pleasant. Pain: Denies pain. Neurological: No deficits noted. Level of Consciousness is awake, alert, Oriented to person, place, time. Cardiovascular: No deficits noted. Rhythm is regular. Respiratory: Airway is patent Respiratory effort is even, unlabored. GI: No deficits noted. : No deficits noted. Derm: Skin is pink, warm & dry. Musculoskeletal: No deficits noted. 03:57 Reassessment: Patient appears in no apparent distress at this time. General: Appears in jp6 no apparent distress, to be sleeping. Behavior is appropriate for age, cooperative. Pain: Denies pain. Neurological: No deficits noted. Level of Consciousness is obeys commands, Oriented to person, place, time. EENT: No deficits noted. Cardiovascular: No deficits noted. Rhythm is sinus rhythm No ectopy. Respiratory: Airway is patent Respiratory effort is even, unlabored, Respiratory pattern is regular, symmetrical, pt has a history of sleep apnea-sats dropped into 70's with cpap on. Respiratory in and put non rebreather back on and sat's came up to 98%. GI: No deficits noted. : No deficits noted. Derm: Skin is pink, warm & dry. Musculoskeletal: No deficits noted. 05:01 Reassessment: Patient appears in no apparent distress at this time. Patient denies pain jp6 at this time. Neurological: No deficits noted. Level of Consciousness is awake, alert, Oriented to person, place, time. Cardiovascular: No deficits noted. Rhythm is regular. Respiratory: Airway is patent Respiratory effort is even, unlabored. Derm: Skin is pink, warm & dry. 05:58 Reassessment: Patient appears in no apparent distress at this time. pt is sleeping jp6 comfortably with bipap on. VS are stable at 132/72 HR-68 O2 sat-94%.. 07:15 General: First assessment of this patient. Patient unable to answer questions at this hs1 time. Patient vital signs are stable. MAR received at this time and medications administered.. Pain: Unable to use pain scale. patient not able to wake long enough for conversation at this time. Patient appears extremely fatigued. Respiratory: Airway is patent Patient on BiPAP at present. Oxygen Sats maintained and patient is being monitored by respiratory. Derm: Skin is pink, warm & dry. 07:45 Reassessment: Patient appears in no apparent distress at this time. no change in hs1 patient status. Santos HEIN aware of FS and order received to hold insulin at present. Order also received to hold PO medications until patient is more awake. . 08:33 General: Appears in no apparent distress, Patient appears to be sleeping at present, hs1 however continues to be not wakeful for long periods of time for conversation. Pt extremely fatigued. . 09:35 General: Appears ill, Behavior is appropriate for age, cooperative, drowsy. kc3 Neurological: Level of Consciousness is lethargic, Oriented to person, place, time, Pt wakes to name but is not wakeful for long periods of time. Pt almost immediately falls back asleep. . Cardiovascular: Rhythm is sinus rhythm. Respiratory: Airway is patent Respiratory effort is even, unlabored, Pt remains on bipap machine. Oxygen sats maintained and patient is being monitored by respiratory. Derm: Skin is pink, warm & dry. 10:20 General: Appears ill, Behavior is appropriate for age, cooperative, drowsy. kc3 Neurological: Level of Consciousness is lethargic, Pt continues to wake to name but does not maintain wakefulness for any length of time. Pt assisted to comfortable position in bed. . Cardiovascular: Rhythm is sinus rhythm No ectopy. Respiratory: Respiratory effort is even, unlabored, Bi-pap machine in place with respiratory monitoring. Derm: Skin is pink, warm & dry. 11:30 General: Appears ill, Behavior is appropriate for age, cooperative, drowsy. General: Pt kc3 assisted with bedpan and back to comfortable position in bed. . Pain: Location: back. Neurological: Level of Consciousness is awake, lethargic, Oriented to person, place. Cardiovascular: Rhythm is sinus rhythm. Respiratory: Airway is patent Respiratory effort is even, unlabored, Bipap in place. Pt maintaining oxygen sats. Derm: Skin is pink, warm & dry. Vital Signs: 00:38 BP 125 / 59; Pulse 70; Resp 22; Temp 97.6(O); Pulse Ox 98% on R/A; Weight 63.5 kg; jp6 Height 5 ft. 1 in. (154.94 cm); Pain 4/10; 00:45 BP 132 / 59 (auto/); jp6 00:46 Pulse 70 MON; Pulse Ox 96% ; jp6 01:00 BP 125 / 62 (auto/); jp6 01:01 Pulse 71 MON; Pulse Ox 100% ; jp6 01:15 BP 128 / 59 (auto/); jp6 01:16 Pulse 72 MON; Pulse Ox 100% ; jp6 01:30 BP 148 / 65 (auto/); jp6 01:31 Pulse 68 MON; Pulse Ox 100% ; jp6 01:47 BP 135 / 63 (auto/); jp6 01:47 Pulse 69 MON; Pulse Ox 93% ; jp6 02:00 BP 127 / 60 (auto/); jp6 02:01 Pulse 68 MON; Pulse Ox 93% ; jp6 02:15 BP 137 / 65 (auto/); jp6 02:16 Pulse 70 MON; Pulse Ox 93% ; jp6 02:30 BP 127 / 61 (auto/); jp6 02:31 Pulse 69 MON; Pulse Ox 93% ; jp6 02:45 BP 129 / 74 (auto/); jp6 02:46 Pulse 70 MON; Pulse Ox 91% ; jp6 03:00 BP 124 / 61 (auto/); jp6 03:01 Pulse 71 MON; Pulse Ox 91% ; jp6 03:15 BP 124 / 65 (auto/); jp6 03:16 Pulse 70 MON; Pulse Ox 92% ; jp6 03:30 BP 124 / 65 (auto/); jp6 03:31 Pulse 70 MON; Pulse Ox 86% ; jp6 03:45 BP 123 / 64 (auto/); jp6 03:46 Pulse 68 MON; Pulse Ox 88% ; jp6 03:53 Pulse 69 MON; Pulse Ox 98% ; jp6 03:58 Pulse 68 MON; Pulse Ox 98% ; jp6 04:00 BP 124 / 64 (auto/); jp6 04:01 Pulse 68 MON; Pulse Ox 99% ; jp6 04:15 BP 122 / 65 (auto/); jp6 04:16 Pulse 68 MON; Pulse Ox 99% ; jp6 04:30 BP 136 / 69 (auto/); jp6 04:31 Pulse 70 MON; Pulse Ox 99% ; jp6 04:45 BP 131 / 67 (auto/); jp6 04:46 Pulse 70 MON; Pulse Ox 99% ; jp6 05:00 BP 131 / 67 (auto/); jp6 05:01 Pulse 70 MON; Pulse Ox 99% ; jp6 05:15 BP 134 / 66 (auto/); jp6 05:16 Pulse 71 MON; Pulse Ox 98% ; jp6 05:30 BP 135 / 70 (auto/); jp6 05:31 Pulse 70 MON; Pulse Ox 96% ; jp6 05:45 BP 132 / 72 (auto/); jp6 05:46 Pulse 69 MON; Pulse Ox 94% ; jp6 06:00 BP 131 / 73 (auto/); jp6 06:01 Pulse 68 MON; Pulse Ox 93% ; jp6 06:15 BP 134 / 68 (auto/); jp6 06:16 Pulse 66 MON; Pulse Ox 95% ; jp6 06:26 Temp 97(T); jp6 06:30 BP 138 / 73 (auto/); jp6 06:31 Pulse 67 MON; Pulse Ox 94% ; jp6 06:45 BP 132 / 69 (auto/); jp6 06:46 Pulse 65 MON; Pulse Ox 94% ; jp6 07:00 BP 130 / 71 (auto/); kc3 07:00 Pulse 66 MON; Pulse Ox 94% ; kc3 07:15 BP 147 / 78 (auto/); kc3 07:16 Pulse 70 MON; Pulse Ox 97% ; kc3 07:30 BP 136 / 70 (auto/); kc3 07:31 Pulse 70 MON; Pulse Ox 93% ; kc3 07:45 BP 136 / 68 (auto/); kc3 07:45 Pulse 70 MON; Pulse Ox 93% ; kc3 08:00 BP 133 / 68 (auto/); kc3 08:00 Pulse 70 MON; Pulse Ox 95% ; kc3 08:15 BP 130 / 68 (auto/); kc3 08:15 Pulse 68 MON; Pulse Ox 96% ; kc3 08:30 BP 135 / 71 (auto/); kc3 08:30 Pulse 69 MON; Pulse Ox 96% ; kc3 08:45 BP 130 / 67 (auto/); kc3 08:45 Pulse 69 MON; Pulse Ox 95% ; kc3 09:00 BP 138 / 68 (auto/); kc3 09:01 Pulse 69 MON; Pulse Ox 96% ; kc3 09:15 BP 135 / 68 (auto/); kc3 09:16 Pulse 69 MON; Pulse Ox 94% ; kc3 09:30 BP 148 / 99 (auto/); kc3 09:31 Pulse 73 MON; Pulse Ox 95% ; kc3 09:45 BP 146 / 71 (auto/); kc3 09:45 Pulse 71 MON; Pulse Ox 93% ; kc3 10:00 BP 136 / 77 (auto/); kc3 10:00 Pulse 69 MON; Pulse Ox 94% ; kc3 10:15 BP 141 / 71 (auto/); kc3 10:15 Pulse 70 MON; Resp 22; Temp 99.4(TE); Pulse Ox 93% ; kc3 10:30 BP 143 / 70 (auto/); kc3 10:31 Pulse 72 MON; Pulse Ox 95% ; kc3 10:45 BP 157 / 76 (auto/); kc3 10:46 Pulse 74 MON; Pulse Ox 95% ; kc3 11:00 BP 146 / 70 (auto/); kc3 11:01 Pulse 70 MON; Pulse Ox 96% ; kc3 11:15 BP 128 / 59 (auto/); kc3 11:16 Pulse 74 MON; Pulse Ox 96% ; kc3 11:30 BP 146 / 70 (auto/); kc3 11:30 Pulse 69 MON; Resp 24; Temp 98.8(TE); Pulse Ox 98% ; kc3 00:38 Body Mass Index 26.45 (63.50 kg, 154.94 cm) jp6 10:15 pt on bipap kc3 11:30 pt on bipap kc3 Vitals: 00:38 Log In Time N/A - ambulance arrival. jp6 ED Course: 00:18 Patient visited by Betsy Holliday, Flavorer. jlm 00:18 Phyllis Mcgovern is Private Physician. jlm 00:18 Smooth Nielsen DO is Attending Physician. cs11 00:18 Patient visited by Smooth Nielsen DO. cs11 00:18 [facility]29 Suellen Bourgeois,RN is Primary Nurse. jp6 00:31 Triage Initiated jp6 00:45 The patient / caregiver is instructed regarding the plan of care and ED course. Cardiac jp6 monitor on. Pulse ox on. NIBP on. 00:45 Maintain field IV. Dressing intact. Good blood return noted. Site clean & dry. Gauge & jp6 site: 18 gauge left forearm. IV is patent, is intact, is free of redness or swelling. No procedures done that require assistance. Labs/Blood culture drawn. 00:47 -Arterial Blood Gas Sent. jc3 00:47 O2 via non-rebreather \T\ 15L/min. jp6 01:05 Patient visited by Vini King PCA. jmv 01:05 EKG done. (by ED staff). Reviewed by Smooth Nielsen DO. jmv 01:16 -Blood Culture Sent. jp6 01:47 O2 via nasal cannula \T\ 4L/min. jp6 02:02 [facility] Payment Agreement was scanned into [email or web address] and attached to record. hs2 02:10 Patient visited by Suellen Bourgeois RN. jp6 02:20 Lakeisha London is Hospitalizing Provider. cs11 03:00 Patient placed on CPAP sat's not staying up on Cpap. jp6 05:09 ARTERIAL BLOOD GAS Sent. jc3 06:20 -Arterial Blood Gas Sent. jc3 06:26 BIPAP: Full face fask. jp6 06:37 Patient moved to Admit Hold kmg1 08:06 Written Provider Order was scanned into [email or web address] and attached to record. deg 08:27 Primary Nurse role handed off by Suellen Bourgeois,RN jjr 09:02 T-Sheet-- Draft Copy was scanned into [email or web address] and attached to record. seh Administered Medications: 00:35 Drug: Albuterol-Ipratropium 1 neb [ipratropium-albuterol 0.5 mg-3 mg(2.5 mg base)/3 mL jc3 nebulization soln (1 neb)] Route: Nebulizer; 00:45 Drug: Albuterol-Ipratropium 1 neb [ipratropium-albuterol 0.5 mg-3 mg(2.5 mg base)/3 mL jc3 nebulization soln (1 neb)] Route: Nebulizer; 00:54 Drug: Ondansetron 4 mg [ondansetron HCl 2 mg/mL intravenous solution (2 mL)] Route: jp6 IVP; Site: left forearm; 00:55 Drug: Albuterol-Ipratropium 1 neb [ipratropium-albuterol 0.5 mg-3 mg(2.5 mg base)/3 mL jc3 nebulization soln (1 neb)] Route: Nebulizer; 01:15 Drug: Furosemide 60 mg [furosemide 10 mg/mL injection solution (6 mL)] Route: IVP; jp6 Site: left forearm; 01:16 Drug: Dexamethasone 15 mg [dexamethasone 4 mg/mL injection solution] Route: IV; Rate: jp6 bolus; Site: left forearm; 01:16 Drug: Nitro-Bid 0.5 inches [Nitro-Bid 2 % transdermal ointment (0.5 inches)] Route: jp6 Transdermal; Site: anterior chest wall; Output: 06:26 Urine: 0.00ml; Total: 0.00ml. jp6 RT: 00:35 Initial Med Neb Given as ordered. O2 via non-rebreather \T\ 15L/min. Respiratory: Airway jc3 is patent Respiratory effort is labored, Use of accessory muscles noted. Respiratory pattern is tachypnea Breath sounds are diminished bilaterally. Breath sounds with wheezes at expiration. 00:41 ABG's drawn from right radial artery pressure held for 5 minutes no bleeding noted jc3 pressure bandage applied specimen sent pt. tolerated well. 00:54 Subsequent Med Neb Given as ordered Patient tolerated procedure well without adverse jc3 effect. O2 via Pre ABG, Patient on Room Air. SpO2 - 97%. Oxygen is room air. 00:59 Subsequent Med Neb Given as ordered Patient tolerated procedure well without adverse jc3 effect. Respiratory: Breath sounds are coarse Breath sounds are diminished bilaterally. Breath sounds with wheezes at expiration. 03:49 O2 via non-rebreather \T\ 15L/min. jc3 03:49 O2 via Patient placed on her own CPAP with O2. SpO2 would not go above 86% with 15L O2 jc3 inline. Put patient on Non-rebreather. 05:09 ABG's drawn from right brachial artery pressure held for 5 minutes no bleeding noted jc3 pressure bandage applied specimen sent pt. tolerated well. O2 via non-rebreather \T\ 15L/min. 05:11 O2 via Venturi mask \T\ 15L/min - 50%. jc3 05:32 BIPAP: Inspiratory Pressure: 16, Expiratory Pressure: 8, Backup Rate: 8, FiO2: 40%, jc3 Full face fask. 06:20 ABG's drawn from left radial artery pressure held for 5 minutes no bleeding noted jc3 pressure bandage applied specimen sent pt. tolerated well. Order Results: Lab Order: -Arterial Blood Gas; SPEC'M 11/19/16 00:45 Test: ABG pH (ARTERIAL); Value: 7.257; Range: 7.350-7.450; Abnormal: Below low normal; Units: UNITS; Status: F Test: ABG PARTIAL PRESSURE CO2; Value: 57.4; Range: 35.0-45.0; Abnormal: Above high normal; Units: mmHg; Status: F Test: ABG PARTIAL PRESSURE O2; Value: 168.2; Range: 75.0-100.0; Abnormal: Above high normal; Units: mmHg; Status: F Test: ABG TOTAL CO2; Value: 26.8; Range: 23.0-31.0; Units: MEQ/L; Status: F Test: ABG HCO3; Value: 25.0; Range: 22.0-26.0; Units: MEQ/L; Status: F Test: ABG BASE EXCESS; Value: -2.7; Range: -2.0-2.0; Abnormal: Below low normal; Status: F Test: ABG STANDARD HCO3; Value: 22.2; Range: 22.0-26.0; Units: MEQ/L; Status: F Test: ABG O2 SATURATION; Value: 99.0; Range: 95.0-99.0; Units: %; Status: F Test: ABG DEVICE; Value: NASAL AFSHAN; Status: F Lab Order: Lactic Acid (Raines tube on ice); SPEC'M 11/19/16 00:31 Test: LACTIC ACID LEVEL, LACTATE; Value: 0.4; Range: 0.4-2.0; Units: MMOL/L; Status: F Lab Order: CBC with Diff; SPEC'M 11/19/16 00:31 Test: WHITE BLOOD COUNT; Value: 6.4; Range: 4.0-10.0; Units: K/mm3; Status: F Test: RED BLOOD COUNT; Value: 4.09; Range: 4.00-5.40; Units: M/mm3; Status: F Test: HEMOGLOBIN; Value: 11.1; Range: 12.0-16.0; Abnormal: Below low normal; Units: g/dl; Status: F Test: HEMATOCRIT; Value: 36.3; Range: 36.0-47.0; Units: %; Status: F Test: MEAN CORPUSCULAR VOLUME; Value: 88.7; Range: 80.0-96.0; Units: fl; Status: F Test: MEAN CORPUSCULAR HEMOGLOBIN; Value: 27.2; Range: 27.0-33.0; Units: pg; Status: F Test: MEAN CORPUSCULAR HGB CONC; Value: 30.7; Range: 32.0-36.5; Abnormal: Below low normal; Units: g/dl; Status: F Test: RED CELL DISTRIBUTION WIDTH; Value: 14.7; Range: 11.5-14.5; Abnormal: Above high normal; Units: %; Status: F Test: PLATELET COUNT, AUTOMATED; Value: 77; Range: 150-450; Abnormal: Below low normal; Units: k/mm3; Status: F Test: NEUTROPHILS %; Value: 76.8; Range: 36.0-66.0; Abnormal: Above high normal; Units: %; Status: F Test: LYMPH %; Value: 11.1; Range: 24.0-44.0; Abnormal: Below low normal; Units: %; Status: F Test: MONO %; Value: 7.0; Range: 0.0-5.0; Abnormal: Above high normal; Units: %; Status: F Test: EOS %; Value: 2.1; Range: 0.0-3.0; Units: %; Status: F Test: BASO %; Value: 0.4; Range: 0.0-1.0; Units: %; Status: F Test: LARGE UNSTAINED CELL %; Value: 2.6; Range: 0.0-4.0; Units: %; Status: F Test: NEUTROPHILS #; Value: 4.9; Range: 1.8-7.7; Units: K/mm3; Status: F Test: LYMPH #; Value: 0.7; Range: 1.5-4.5; Abnormal: Below low normal; Units: K/mm3; Status: F Test: MONO #; Value: 0.5; Range: 0.0-0.8; Units: K/mm3; Status: F Test: EOS #; Value: 0.1; Range: 0.0-0.50; Units: K/mm3; Status: F Test: BASO #; Value: 0.0; Range: 0.0-0.2; Units: K/mm3; Status: F Test: LARGE UNSTAINED CELL #; Value: 0.2; Range: 0.0-0.4; Units: K/mm3; Status: F Lab Order: MED Profile; [facility] 11/19/16 00:31 Test: GLUCOSE, FASTING; Value: 79; Range: 80-110; Abnormal: Below low normal; Units: MG/DL; Status: F Test: BLOOD UREA NITROGEN; Value: 36; Range: 7-18; Abnormal: Above high normal; Units: MG/DL; Status: F Test: CREATININE FOR GFR; Value: 2.42; Range: 0.55-1.02; Abnormal: Above high normal; Units: MG/DL; Status: F Test: GLOMERULAR FILTRATION RATE; Value: 21.4; Range: >45; Abnormal: Below low normal; Status: F Test: SODIUM LEVEL; Value: 146; Range: 136-145; Abnormal: Above high normal; Units: MEQ/L; Status: F Test: POTASSIUM SERUM; Value: 3.6; Range: 3.5-5.1; Units: MEQ/L; Status: F Test: CHLORIDE LEVEL; Value: 108; Range: 98-107; Abnormal: Above high normal; Units: MEQ/L; Status: F Test: CARBON DIOXIDE LEVEL; Value: 31; Range: 21-32; Units: MEQ/L; Status: F Test: ANION GAP; Value: 7; Range: 8-16; Abnormal: Below low normal; Units: MEQ/L; Status: F Test: CALCIUM LEVEL; Value: 8.7; Range: 8.8-10.2; Abnormal: Below low normal; Units: MG/DL; Status: F Test Note: ; Units are mL/min/1.73 m2 Chronic Kidney Disease Staging per NKF: Stage I & II GFR >=60 Normal to Mildly Decreased Stage III GFR 30-59 Moderately Decreased Stage IV GFR 15-29 Severely Decreased Stage V GFR <15 Very Little GFR Left ESRD GFR <15 on TELEPHONE STATION REPAIRER Lab Order: Cardiac Marker Panel; SPEC' 11/19/16 00:31 Test: CPK CREATINE PHOSPHOKINASE; Value: 91; Range: 26-192; Units: U/L; Status: F Test: CK-MB VALUE MASS; Value: 2.2; Range: 0.0-3.6; Units: NG/ML; Status: F Test: MB/CK RELATIVE INDEX; Value: 2.41; Range: < OR =4; Status: F Test: TROPONIN I; Value: < 0.02; Range: < 0.10; Units: NG/ML; Status: F Test Note: ; DIAGNOSIS CRITERIA MMB ng/ml Relative Index (RI) NON-AMI < or = 5 N/A RAINES ZONE > 5 < or = 4 AMI > 5 > 4 Lab Order: BNP; [facility]' 11/19/16 00:31 Test: BRAIN NATRIURETIC PEPTIDE; Value: 2210; Range: <100; Abnormal: Above high normal; Units: PG/ML; Status: F Lab Order: CARDIAC MARKER PANEL; SPEC' 11/19/16 06:16 Test: CPK CREATINE PHOSPHOKINASE; Value: 76; Range: 26-192; Units: U/L; Status: F Test: CK-MB VALUE MASS; Value: 1.7; Range: 0.0-3.6; Units: NG/ML; Status: F Test: MB/CK RELATIVE INDEX; Value: 2.23; Range: < OR =4; Status: F Test: TROPONIN I; Value: < 0.02; Range: < 0.10; Units: NG/ML; Status: F Test Note: ; DIAGNOSIS CRITERIA MMB ng/ml Relative Index (RI) NON-AMI < or = 5 N/A RAINES ZONE > 5 < or = 4 AMI > 5 > 4 Lab Order: ARTERIAL BLOOD GAS; [facility]' 11/19/16 04:55 Test: ABG pH (ARTERIAL); Value: 7.208; Range: 7.350-7.450; Abnormal: Critical Low; Units: UNITS; Status: F Test: ABG PARTIAL PRESSURE CO2; Value: 71.3; Range: 35.0-45.0; Abnormal: Above upper panic limits; Units: mmHg; Status: F Test: ABG PARTIAL PRESSURE O2; Value: 98.7; Range: 75.0-100.0; Units: mmHg; Status: F Test: ABG TOTAL CO2; Value: 29.9; Range: 23.0-31.0; Units: MEQ/L; Status: F Test: ABG HCO3; Value: 27.7; Range: 22.0-26.0; Abnormal: Above high normal; Units: MEQ/L; Status: F Test: ABG BASE EXCESS; Value: -1.4; Range: -2.0-2.0; Status: F Test: ABG STANDARD HCO3; Value: 23.3; Range: 22.0-26.0; Units: MEQ/L; Status: F Test: ABG O2 SATURATION; Value: 96.5; Range: 95.0-99.0; Units: %; Status: F Lab Order: -Arterial Blood Gas; [facility]' 11/19/16 06:20 Test: ABG pH (ARTERIAL); Value: 7.213; Range: 7.350-7.450; Abnormal: Critical Low; Units: UNITS; Status: F Test: ABG PARTIAL PRESSURE CO2; Value: 66.2; Range: 35.0-45.0; Abnormal: Above upper panic limits; Units: mmHg; Status: F Test: ABG PARTIAL PRESSURE O2; Value: 84.9; Range: 75.0-100.0; Units: mmHg; Status: F Test: ABG TOTAL CO2; Value: 28.1; Range: 23.0-31.0; Units: MEQ/L; Status: F Test: ABG HCO3; Value: 26.1; Range: 22.0-26.0; Abnormal: Above high normal; Units: MEQ/L; Status: F Test: ABG BASE EXCESS; Value: -2.8; Range: -2.0-2.0; Abnormal: Below low normal; Status: F Test: ABG STANDARD HCO3; Value: 22.1; Range: 22.0-26.0; Units: MEQ/L; Status: F Test: ABG O2 SATURATION; Value: 94.8; Range: 95.0-99.0; Abnormal: Below low normal; Units: %; Status: F Test: ABG DEVICE; Value: NASAL AFSHAN; Status: F Lab Order: ARTERIAL BLOOD GAS; SPEC'M 11/19/16 10:02 Test: ABG pH (ARTERIAL); Value: 7.253; Range: 7.350-7.450; Abnormal: Below low normal; Units: UNITS; Status: F Test: ABG PARTIAL PRESSURE CO2; Value: 54.0; Range: 35.0-45.0; Abnormal: Above high normal; Units: mmHg; Status: F Test: ABG PARTIAL PRESSURE O2; Value: 79.7; Range: 75.0-100.0; Units: mmHg; Status: F Test: ABG TOTAL CO2; Value: 25.0; Range: 23.0-31.0; Units: MEQ/L; Status: F Test: ABG HCO3; Value: 23.3; Range: 22.0-26.0; Units: MEQ/L; Status: F Test: ABG BASE EXCESS; Value: -4.2; Range: -2.0-2.0; Abnormal: Below low normal; Status: F Test: ABG STANDARD HCO3; Value: 20.9; Range: 22.0-26.0; Abnormal: Below low normal; Units: MEQ/L; Status: F Test: ABG O2 SATURATION; Value: 94.8; Range: 95.0-99.0; Abnormal: Below low normal; Units: %; Status: F Lab Order: Fingerstick Blood Sugar; SPEC'M 11/19/16 07:50 Test: BEDSIDE GLUCOSE; Value: 125; Range: 80-115; Abnormal: Above high normal; Units: MG/DL; Status: F Test Note: ; Insulin Coverage Ord RN Notified Outcome: 02:20 Decision to Hospitalize by Provider. [email or web address] 10:24 No special radiology studies were completed. kc3 11:32 Discharge Assessment: patient administered narcotics - no. The following High Risk 3 Discharge criteria are identified: None. Admitted to ICU accompanied by nurse, accompanied by tech, via stretcher, with oxygen, on monitor, with chart. critical. Admission hand-off: Report called to Bar STUDENT FINANCIAL AID MANAGER. Property :Personal belongings accompany Pt. 11:35 Patient left the ED. 3 Signatures: Sulma Cornell, Flavorer Unit deg Vielka Briseno, RN RN kmg1 Suellen Newton, RN RN Scot Cornelius jc3 Malina Patterson, RN RN hs1 Smooth Nielsen, DO cs11 Betsy Holliday, Flavorer Unit jlHollie Smith,RN RN kc3 Luz Marina Concepcion, Reg Reg hs2 Suellen Bourgeois,RN RN jp6 Isa Ramesh Jose, DENIA FREELANCE DIGITAL PROJECT MANAGER jmv MTDIesha
[2016-11-19 18:11] LABS: ABG BASE EXCESS -0.9 (-2.0-2.0); ABG HCO3 25.9 MEQ/L (22.0-26.0); ABG PARTIAL PRESSURE CO2 53.5 mmHg (35.0-45.0); ABG PARTIAL PRESSURE O2 76.3 mmHg (75.0-100.0); ABG STANDARD HCO3 23.7 MEQ/L (22.0-26.0); ABG TOTAL CO2 27.6 MEQ/L (23.0-31.0); ABG pH (ARTERIAL) 7.303 UNITS (7.350-7.450)
[2016-11-19] MEDS ORDERED: traZODone 100 MG TAB PO SCH (21:00)
[2016-11-19] MEDS: amLODIPine 10 MG TAB PO SCH (21:21)
[2016-11-20] VITALS (14 sets, daily range): BP systolic 139–151; BP diastolic 67–72; O2SAT 91–97
[2016-11-20] MEDS: IPRATROPIUM 0.5MG/ALBUTEROL 2.5MG INH SOL UD 3ML (DUONEB)(J7620) NEB SCH ×4 (01:07→20:00)
[2016-11-20 05:09] LABS: CALCIUM LEVEL 8.1 MG/DL (8.8-10.2); CREATININE FOR GFR 2.89 MG/DL (0.55-1.02); GLOMERULAR FILTRATION RATE 17.4 (>45); MAGNESIUM LEVEL 2.1 MG/DL (1.8-2.4); POTASSIUM SERUM 4.3 MEQ/L (3.5-5.1)
[2016-11-20 05:28] LABS: BASO % 0.8 % (0.0-1.0); EOS % 0.3 % (0.0-3.0); LARGE UNSTAINED CELL % 1.3 % (0.0-4.0); LYMPH # 0.4 K/mm3 (1.5-4.5); LYMPH % 10.5 % (24.0-44.0); MEAN CORPUSCULAR HEMOGLOBIN 26.9 pg (27.0-33.0); MEAN CORPUSCULAR HGB CONC 30.9 g/dl (32.0-36.5); MEAN CORPUSCULAR VOLUME 87.1 fl (80.0-96.0); MONO # 0.2 K/mm3 (0.0-0.8); MONO % 5.4 % (0.0-5.0); NEUTROPHILS # 2.6 K/mm3 (1.8-7.7); NEUTROPHILS % 81.8 % (36.0-66.0); RED CELL DISTRIBUTION WIDTH 15.6 % (11.5-14.5); WHITE BLOOD COUNT 3.2 K/mm3 (4.0-10.0)
[2016-11-20 05:35] LABS: PLATELET COUNT, AUTOMATED 67 k/mm3 (150-450)
[2016-11-20] MEDS: methylPREDNISolone INJ 125 MG/2 ML VIAL (J2930) IV SCH (05:45)
[2016-11-20 05:50] LABS: ABG BASE EXCESS -0.7 (-2.0-2.0); ABG HCO3 25.8 MEQ/L (22.0-26.0); ABG PARTIAL PRESSURE CO2 51.2 mmHg (35.0-45.0); ABG PARTIAL PRESSURE O2 92.6 mmHg (75.0-100.0); ABG STANDARD HCO3 23.9 MEQ/L (22.0-26.0); ABG TOTAL CO2 27.4 MEQ/L (23.0-31.0); ABG pH (ARTERIAL) 7.321 UNITS (7.350-7.450)
[2016-11-20] MEDS: HumaLOG INSULIN (NovoLOG) PER UNIT SC SCH ×4 (07:30→20:13)
[2016-11-20] MEDS: ADVAIR DISKUS 250/50 INH PWD INH SCH ×2 (07:56→20:24)
[2016-11-20] MEDS: CARVedilol 12.5 MG TAB PO SCH ×2 (09:00→20:12)
[2016-11-20] MEDS: ATORVASTATIN 20 MG TAB PO SCH (09:00)
[2016-11-20] MEDS: ASPIRIN ENTERIC 325 MG TAB PO SCH (09:00)
[2016-11-20] MEDS: FUROSEMIDE 20 MG TAB PO SCH ×3 (09:00→20:30)
[2016-11-20] MEDS: predniSONE 20 MG TAB PO SCH (09:00)
[2016-11-20] MEDS: oxyBUTYnin 5 MG TAB PO SCH (09:00)
[2016-11-20] MEDS: LEVEMIR (INSULIN DETEMIR) 1 UNITS/0.01ML SC SCH ×2 (09:00→20:13)
[2016-11-20] MEDS: FOLIC ACID 1 MG TAB PO SCH (09:00)
[2016-11-20] MEDS: PREGABALIN 50 MG CAP (LYRICA) PO SCH ×2 (09:00→20:12)
[2016-11-20] MEDS: OMEPRAZOLE 20 MG CAP PO SCH (09:00)
[2016-11-20] MEDS: levETIRAcetam 250MG TABLET (KEPPRA) PO SCH ×2 (09:00→20:10)
--- NOTE | 2016-11-20 11:05 | IPNPDOC ---
Assessment/Plan Date Seen The patient was seen on 11/20/16. Problems Problems: (1) Acute on chronic diastolic CHF (congestive heart failure) Status: Acute Problem Text: Pt has an extensive cardiac history with 3 vessel CABG s/p [place] in 2011 [place] last year revealed a LVEF of 50-55%, with diastolic heart failure and pulmonary HTN. Cont ASA, Coreg, Statin Repeat echocardiogram pending IV Lasix transitioned to PO Lasix Patient states that her respiratory status has improved Daily weights Strict I/O's Will continue to monitor (2) COPD exacerbation Status: Acute Problem Text: ABG noted to be improved since admission She has been receiving BiPAP therapy overnight Cont Advair, Nebs Steroids transitioned to PO Prednisone Will continue to monitor respiratory status (3) Chronic kidney disease (CKD) stage G4/A1, severely decreased glomerular filtration rate (GFR) between 15-29 mL/min/1.73 square meter and albuminuria creatinine ratio less than 30 mg/g Status: Chronic Response to Treatment: Stable Problem Text: Pt's baseline creatinine is between 2-3. Cont Lasix therapy as prescribed (4) Insulin dependent diabetes mellitus Status: Chronic Problem Text: Cont current Insulin regimen (5) Obstructive sleep apnea Status: Chronic Problem Text: Pt on CPAP at home. She has been requiring BiPAP therapy here for hypercarbic respiratory failure 2/ 2 CHF exacerbation (6) Thrombocytopenia Status: Chronic Problem Text: It appears she is chronically thrombocytopenic. Will continue to monitor platelets daily and transfuse if count drops below 20. (7) Cirrhosis of liver Status: Chronic Problem Text: continue current management (8) Gastroesophageal reflux disease Status: Chronic Problem Text: Continue current PPI (9) History of seizures Status: Chronic Problem Text: Continue current management (10) Dyslipidemia Status: Chronic Problem Text: continue current management (11) DVT prophylaxis Status: Acute Problem Text: she will receive TEDs and SEQs due to her low platelet count Plan / VTE VTE Prophylaxis Ordered?: Yes (TEDs & Seqs) Subjective Review of Systems CC/HPI The patient is a 66-year-old female admitted with a reason for visit of A/C Resp Failure; A On C Diastolic Chf. General: Denies: Chills, Night Sweats Constitutional: Denies: Chills, Fever Eyes: Denies: Pain, Vision change ENT: Denies: Ear Pain, Head Aches Skin: Denies: Lesions, Rash Pulmonary: Reports: Cough, Dyspnea Cardiovascular: Denies: Chest Pain, Palpitations Gastrointestinal: Denies: Nausea, Vomiting Genitourinary: Denies: Dysuria, Frequency Hematologic: Denies: Bleeding Excessively, Bruising Objective Physical Examination General Exam: Positive: Alert, Cooperative, Moderate Distress Eye Exam: Positive: Conjunctiva & lids normal, EOMI, PERRLA, Negative: Sclera icteric ENT Exam: Positive: Atraumatic, Mucous membr. moist/pink, Pharynx Normal Neck Exam: Positive: Supple, Negative: JVD, thyromegaly Chest Exam: Positive: Diminished, Other (Crackles heard throughout all lung pryor), Rhonchi, Wheezing Heart Exam: Positive: Normal S1, Normal S2, Rate Normal, Regular Rhythm, Negative: Murmurs, Rubs Abdomen Exam: Positive: Hepatospenomegaly (Liver edge palpated approx. 3 cm below ribs.), Normal bowel sounds, Soft, Negative: Mass, Tenderness Extremity Exam: Positive: Normal pulses, Negative: Clubbing, Cyanosis, Edema Skin Exam: Positive: Nl turgor and temperature Vital Signs/I&O Vital Signs Date Time Temp Pulse Resp B/P Pulse Ox O2 Delivery O2 Flow Rate FiO2 11/20/16 09:00 69 11/20/16 08:00 BIPAP/CPAP 40 11/20/16 06:00 21 141/71 97 11/20/16 04:00 96.9 11/19/16 21:00 5.0 I&O- Last 24 Hours up to 6 AM 11/20/16 06:00 Intake Total 420 ml Output Total 525 ml Balance -105 ml Laboratory Data Labs 24H Laboratory Tests 2 11/19/16 14:12: Creatine Kinase MB 1.3, Creatine Kinase MB Relative Index 1.96, Total Creatine Kinase 66, Troponin I < 0.02 11/19/16 17:32: Bedside Glucose (Misc Panel) 322H 11/19/16 17:56: Arterial Blood pH 7.303L, Arterial Blood Partial Pressure CO2 53.5H, Arterial Blood Partial Pressure O2 76.3, Arterial Blood Total CO2 27.6, Arterial Blood HCO3 25.9, Arterial Blood Base Excess -0.9, Arterial Blood Oxygen Saturation 94.2L, Blood Gas Bicarbonate Standard 23.7 11/19/16 20:21: Bedside Glucose (Misc Panel) 327H 11/19/16 21:55: Creatine Kinase MB 1.4, Creatine Kinase MB Relative Index 2.41, Total Creatine Kinase 58, Troponin I < 0.02 11/20/16 04:16: Anion Gap 6L, White Blood Count 3.2L, Red Blood Count 3.69L, Hemoglobin 9.9L, Hematocrit 32.1L, Mean Corpuscular Volume 87.1, Mean Corpuscular Hemoglobin 26.9L, Mean Corpuscular Hemoglobin Concent 30.9L, Red Cell Distribution Width 15.6H, Platelet Count 67L, Neutrophils (%) (Auto) 81.8H, Lymphocytes (%) (Auto) 10.5L, Monocytes (%) (Auto) 5.4H, Eosinophils (%) (Auto) 0.3, Basophils (%) ( Auto) 0.8, Neutrophils # (Auto) 2.6, Lymphocytes # (Auto) 0.4L, Monocytes # ( Auto) 0.2, Eosinophils # (Auto) 0.0, Basophils # (Auto) 0.0, Blood Urea Nitrogen 53H, Creatinine 2.89H, Sodium Level 137#, Potassium Level 4.3, Chloride Level 100, Carbon Dioxide Level 31, Calcium Level 8.1L, Glomerular Filtration Rate 17.4L, Large Unclassified Cells # 0.0, Large Unclassified Cells % 1.3, Magnesium Level 2.1 11/20/16 05:37: Arterial Blood pH 7.321L, Arterial Blood Partial Pressure CO2 51.2H, Arterial Blood Partial Pressure O2 92.6, Arterial Blood Total CO2 27.4, Arterial Blood HCO3 25.8, Arterial Blood Base Excess -0.7, Arterial Blood Oxygen Saturation 96.6, Blood Gas Bicarbonate Standard 23.9 CBC/BMP Laboratory Tests 11/20/16 04:16 Calcium Level 8.1 L, Red Blood Count 3.69 L, Mean Corpuscular Volume 87.1, Mean Corpuscular Hemoglobin 26.9 L, Mean Corpuscular Hemoglobin Concent 30.9 L, Red Cell Distribution Width 15.6 H, Neutrophils (%) (Auto) 81.8 H, Lymphocytes (%) ( Auto) 10.5 L, Monocytes (%) (Auto) 5.4 H, Eosinophils (%) (Auto) 0.3, Basophils (%) (Auto) 0.8, Neutrophils # (Auto) 2.6, Lymphocytes # (Auto) 0.4 L, Monocytes # (Auto) 0.2, Eosinophils # (Auto) 0.0, Basophils # (Auto) 0.0 FSBS Laboratory Tests Test 11/19/16 17:32 11/19/16 20:21 Range/Units Bedside Glucose (Misc Panel) 322 327 80-115 MG/DL Microbiology Microbiology 11/19/16 Blood Culture - Preliminary, Resulted No growth after 24 hours . All specim... 11/19/16 MRSA Screen - Final, Complete Staph.aureus Methicillin Resis MAURILIO LOPEZ MD Nov 20, 2016 11:05
--- NOTE | 2016-11-20 15:32 | ECGEPIP ---
Stationary ECG Study [facility] - ED Test Date: 2016-11-19 Pat Name: KYARA JEAN Department: Room: [place] [address] Gender: F Lopper: abdoul : 1950 Requested By: MANDEEP GUTIERRES Order Number: [id number] Reading MD: Isa Delarosa Measurements Intervals [place] Rate: 69 P: 38 DC: 162 QRS: 15 QRSD: 125 T: 128 QT: 445 QTc: 477 Interpretive Statements SINUS RHYTHM WITH OCCASIONAL VENTRICULAR PREMATURE COMPLEXES LATERAL MYOCARDIAL INFARCTION, OF INDETERMINATE AGE INFERIOR MYOCARDIAL INFARCTION, PROBABLY OLD SIMILAR 09/03/16 Electronically Signed On 11-20-2016 15:32:14 EST by Isa Delarosa
[2016-11-20] MEDS: PERCOCET 5MG/325MG TAB PO PRN (19:26)
[2016-11-20] MEDS: amLODIPine 10 MG TAB PO SCH (20:11)
[2016-11-21] VITALS (8 sets, daily range): BP systolic 145–166; BP diastolic 65–72; O2SAT 98
[2016-11-21] MEDS: IPRATROPIUM 0.5MG/ALBUTEROL 2.5MG INH SOL UD 3ML (DUONEB)(J7620) NEB SCH ×4 (01:44→20:00)
[2016-11-21] MEDS ORDERED: LevoFLOXacin 250 MG in APPROPRIATE DILUENT 1 EA IV SCH (05:00)
[2016-11-21 05:01] LABS: LARGE UNSTAINED CELL # 0.1 K/mm3 (0.0-0.4); LARGE UNSTAINED CELL % 1.9 % (0.0-4.0); LYMPH # 0.5 K/mm3 (1.5-4.5); LYMPH % 9.8 % (24.0-44.0); MEAN CORPUSCULAR HEMOGLOBIN 26.9 pg (27.0-33.0); MEAN CORPUSCULAR HGB CONC 31.1 g/dl (32.0-36.5); MEAN CORPUSCULAR VOLUME 86.5 fl (80.0-96.0); MONO # 0.3 K/mm3 (0.0-0.8); MONO % 6.6 % (0.0-5.0); NEUTROPHILS # 4.2 K/mm3 (1.8-7.7); NEUTROPHILS % 81.7 % (36.0-66.0); RED CELL DISTRIBUTION WIDTH 14.6 % (11.5-14.5); WHITE BLOOD COUNT 5.2 K/mm3 (4.0-10.0)
[2016-11-21 05:07] LABS: PLATELET COUNT, AUTOMATED 81 k/mm3 (150-450)
[2016-11-21 05:15] LABS: CALCIUM LEVEL 8.3 MG/DL (8.8-10.2); CREATININE FOR GFR 2.8 MG/DL (0.55-1.02); GLOMERULAR FILTRATION RATE 18.1 (>45); MAGNESIUM LEVEL 2.2 MG/DL (1.8-2.4); POTASSIUM SERUM 3.8 MEQ/L (3.5-5.1)
[2016-11-21] MEDS ORDERED: diphenhydrAMINE 25 MG CAP PO PRN (06:00)
[2016-11-21] MEDS: ADVAIR DISKUS 250/50 INH PWD INH SCH ×2 (07:39→20:36)
[2016-11-21] MEDS: HumaLOG INSULIN (NovoLOG) PER UNIT SC SCH ×4 (07:47→20:42)
[2016-11-21] MEDS: levETIRAcetam 250MG TABLET (KEPPRA) PO SCH ×2 (08:27→20:40)
[2016-11-21] MEDS: PREGABALIN 50 MG CAP (LYRICA) PO SCH ×2 (08:27→20:40)
[2016-11-21] MEDS: ASPIRIN ENTERIC 325 MG TAB PO SCH (08:27)
[2016-11-21] MEDS: OMEPRAZOLE 20 MG CAP PO SCH (08:28)
[2016-11-21] MEDS: ATORVASTATIN 20 MG TAB PO SCH (08:28)
[2016-11-21] MEDS: FUROSEMIDE 20 MG TAB PO SCH (08:28)
[2016-11-21] MEDS: predniSONE 20 MG TAB PO SCH (08:28)
[2016-11-21] MEDS: FOLIC ACID 1 MG TAB PO SCH (08:28)
[2016-11-21] MEDS: CARVedilol 12.5 MG TAB PO SCH ×2 (08:29→20:41)
--- NOTE | 2016-11-21 08:29 | REP ---
Portable chest, 11/19/2016, 12:57 a.m., single frontal view, patient sitting: Comparison is 09/03/2016. Sternotomy wires and cardiomegaly are again noted, unchanged. The lung pryor are clear. The komal, mediastinum, and bony thorax are unremarkable. Impression: Chronic cardiomegaly. No acute cardiopulmonary findings. Signed by Javed Galvez MD 11/19/2016 08:06 A
[2016-11-21] MEDS: LEVEMIR (INSULIN DETEMIR) 1 UNITS/0.01ML SC SCH ×2 (08:30→20:42)
--- NOTE | 2016-11-21 08:33 | ECHO ---
DATE OF PROCEDURE: 11/19/2016 DATE OF : 1950 AGE: 66 REFERRING PROVIDER: Dr. Lakeisha London. PATIENT LOCATION: Room 3204. REASON FOR ECHOCARDIOGRAM: Shortness of breath. 2D MEASUREMENTS: IVS: 1.0 cm LV: cm LVPW: 1.0 cm LA: 5.2 cm Aorta: 3.3 cm IVC: 2.0 cm DOPPLER MEASUREMENTS: Mitral E: 1.7 Mitral A: 1.9 Ratio less than 1.0. Maximum tricuspid valve velocity: 3.0 m/s 2D COMMENTS: 1. Normal left ventricular size and systolic function. Subjectively, left ventricular wall thickness appeared to be normal. The estimated global left ventricular systolic ejection fraction is 60% to 65%. 2. Moderately enlarged left atrium. Normal right atrium and right ventricle. 3. The atrial septum appeared to be normal without evidence of defect or shunt. 4. Normal aortic root. 5. Trace pericardial effusion noted, no evidence of cardiac tamponade. 6. Mildly calcified aortic valve with normal leaflet excursion. Mildly calcified mitral annulus with normal anterior mitral valve leaflet motion. Normal tricuspid valve. The pulmonic valve and proximal pulmonary artery branches were not well visualized. DOPPLER: It detects moderate to severe mitral regurgitation and mild to moderate tricuspid regurgitation. The calculated pulmonary artery systolic pressure varies between 40 to 50 mmHg. Abnormal relaxation pattern was noted across the mitral valve leaflets as well as the mitral valve annulus consistent with grade 1 left ventricular diastolic dysfunction. IMPRESSION: 1. Normal global left ventricular systolic function. There are some features of left ventricular diastolic dysfunction, grade 1. 2. Aortic valve sclerosis without stenosis or aortic regurgitation. 3. Moderately enlarged left atrium with mitral annulus calcification and moderate to severe mitral regurgitation. 4. Mild to moderate tricuspid regurgitation with moderate pulmonary hypertension. The right heart chambers, however, appear to be normal. 5. Trace pericardial effusion noted, no evidence of cardiac tamponade.
[2016-11-21] MEDS ORDERED: guaiFENesin ER 600 MG TAB PO SCH (09:00)
[2016-11-21] MEDS: DOXYCYCLINE HYCLATE 100 MG TAB PO SCH ×2 (09:52→20:41)
[2016-11-21] MEDS: oxyBUTYnin 5 MG TAB PO SCH (09:52)
[2016-11-21] MEDS: PERCOCET 5MG/325MG TAB PO PRN (10:48)
--- NOTE | 2016-11-21 11:44 | IPNPDOC ---
Assessment/Plan Date Seen The patient was seen on 11/21/16. Problems Problems: (1) Acute on chronic diastolic CHF (congestive heart failure) Status: Acute Response to Treatment: Improving Problem Text: Pt has an extensive cardiac history with 3 vessel CABG s/p ID in 2011 [place] last year revealed a LVEF of 50-55%, with diastolic heart failure and pulmonary HTN. Cont ASA, Coreg, Statin Repeat echocardiogram notable for preserved EF, Stage 1 DD, mod-severe MR, mod pulm htn IV Lasix transitioned to PO Lasix Patient states that her respiratory status has improved Daily weights Strict I/O's Will continue to monitor (2) COPD exacerbation Status: Acute Response to Treatment: Improving Problem Text: ABG noted to be improved since admission She has been receiving BiPAP therapy overnight Cont Advair, Nebs Steroids transitioned to PO Prednisone Will continue to monitor respiratory status Pulmonary on board BiPAP therapy as per Pulmonary (3) Chronic kidney disease (CKD) stage G4/A1, severely decreased glomerular filtration rate (GFR) between 15-29 mL/min/1.73 square meter and albuminuria creatinine ratio less than 30 mg/g Status: Chronic Response to Treatment: Stable Problem Text: Pt's baseline creatinine is between 2-3. Cont Lasix therapy as prescribed (4) Insulin dependent diabetes mellitus Status: Chronic Problem Text: Cont current Insulin regimen (5) Obstructive sleep apnea Status: Chronic Problem Text: Pt on CPAP at home. She has been requiring BiPAP therapy here for hypercarbic respiratory failure 2/ 2 CHF exacerbation (6) Thrombocytopenia Status: Chronic Problem Text: It appears she is chronically thrombocytopenic. Will continue to monitor platelets daily and transfuse if count drops below 20. (7) Cirrhosis of liver Status: Chronic Problem Text: continue current management (8) Gastroesophageal reflux disease Status: Chronic Problem Text: Continue current PPI (9) History of seizures Status: Chronic Problem Text: Continue current management (10) Dyslipidemia Status: Chronic Problem Text: continue current management (11) DVT prophylaxis Status: Acute Problem Text: she will receive TEDs and SEQs due to her low platelet count Plan / VTE VTE Prophylaxis Ordered?: Yes (TEDs & Seqs) Disposition Pending Clinical Improvement. PT eval. Will continue to down titrate oxygen requirement as tolerated, optimize respiratory status Subjective Review of Systems CC/HPI The patient is a 66-year-old female admitted with a reason for visit of A/C Resp Failure; A On C Diastolic Chf. General: Denies: Chills, Night Sweats Constitutional: Denies: Chills, Fever Eyes: Denies: Pain, Vision change ENT: Denies: Ear Pain, Head Aches Skin: Denies: Lesions, Rash Pulmonary: Reports: Cough, Dyspnea Cardiovascular: Denies: Chest Pain, Palpitations Gastrointestinal: Denies: Nausea, Vomiting Hematologic: Denies: Bleeding Excessively, Bruising Musculoskeletal: Denies: Back Pain, Neck Pain Objective Physical Examination General Exam: Positive: Alert, Cooperative, Moderate Distress Eye Exam: Positive: Conjunctiva & lids normal, EOMI, PERRLA, Negative: Sclera icteric ENT Exam: Positive: Atraumatic, Mucous membr. moist/pink, Pharynx Normal Neck Exam: Positive: Supple, Negative: JVD, thyromegaly Chest Exam: Positive: Diminished, Other (Crackles heard throughout all lung pryor), Rhonchi, Wheezing Heart Exam: Positive: Normal S1, Normal S2, Rate Normal, Regular Rhythm, Negative: Murmurs, Rubs Abdomen Exam: Positive: Hepatospenomegaly (Liver edge palpated approx. 3 cm below ribs.), Normal bowel sounds, Soft, Negative: Mass, Tenderness Extremity Exam: Positive: Normal pulses, Negative: Clubbing, Cyanosis, Edema Skin Exam: Positive: Nl turgor and temperature Vital Signs/I&O Vital Signs Date Time Temp Pulse Resp B/P Pulse Ox O2 Delivery O2 Flow Rate FiO2 11/21/16 10:48 25 93 11/21/16 08:29 149/70 11/21/16 08:00 96.3 65 Nasal Cannula 2.0 11/21/16 04:37 40 I&O- Last 24 Hours up to 6 AM 11/21/16 06:00 Intake Total 1960 ml Output Total 1725 ml Balance 235 ml Laboratory Data Labs 24H Laboratory Tests 2 11/20/16 12:18: Bedside Glucose (Misc Panel) 355H 11/20/16 17:30: Bedside Glucose (Misc Panel) 170H 11/20/16 20:05: Bedside Glucose (Misc Panel) 201H 11/21/16 04:21: Anion Gap 7L, White Blood Count 5.2, Red Blood Count 3.85L, Hemoglobin 10.3L, Hematocrit 33.3L, Mean Corpuscular Volume 86.5, Mean Corpuscular Hemoglobin 26.9L, Mean Corpuscular Hemoglobin Concent 31.1L, Red Cell Distribution Width 14.6H, Platelet Count 81L, Neutrophils (%) (Auto) 81.7H, Lymphocytes (%) (Auto) 9.8L, Monocytes (%) (Auto) 6.6H, Eosinophils (%) (Auto) 0.0, Basophils (%) (Auto ) 0.0, Neutrophils # (Auto) 4.2, Lymphocytes # (Auto) 0.5L, Monocytes # (Auto) 0.3, Eosinophils # (Auto) 0.0, Basophils # (Auto) 0.0, Blood Urea Nitrogen 73H, Creatinine 2.80H, Sodium Level 140, Potassium Level 3.8, Chloride Level 103, Carbon Dioxide Level 30, Calcium Level 8.3L, Glomerular Filtration Rate 18.1L, Large Unclassified Cells # 0.1, Large Unclassified Cells % 1.9, Magnesium Level 2.2 11/21/16 07:20: Bedside Glucose (Misc Panel) 178H CBC/BMP Laboratory Tests 11/21/16 04:21 Calcium Level 8.3 L, Red Blood Count 3.85 L, Mean Corpuscular Volume 86.5, Mean Corpuscular Hemoglobin 26.9 L, Mean Corpuscular Hemoglobin Concent 31.1 L, Red Cell Distribution Width 14.6 H, Neutrophils (%) (Auto) 81.7 H, Lymphocytes (%) ( Auto) 9.8 L, Monocytes (%) (Auto) 6.6 H, Eosinophils (%) (Auto) 0.0, Basophils ( %) (Auto) 0.0, Neutrophils # (Auto) 4.2, Lymphocytes # (Auto) 0.5 L, Monocytes # (Auto) 0.3, Eosinophils # (Auto) 0.0, Basophils # (Auto) 0.0 FSBS Laboratory Tests Test 11/20/16 12:18 11/20/16 17:30 11/20/16 20:05 11/21/16 07:20 Range/Units Bedside Glucose (Misc Panel) 355 170 201 178 80-115 MG/DL Microbiology Microbiology 11/19/16 Blood Culture - Preliminary, Resulted No Growth after 48 hours. All Specime... 11/19/16 MRSA Screen - Final, Complete Staph.aureus Methicillin Resis MAURILIO LOPEZ MD Nov 21, 2016 11:44
--- NOTE | 2016-11-21 12:36 | EDDOCDS ---
Nurse's Notes [facility] Name: Tess Booker Age: 66 yrs Sex: Female : 1950 Arrival Date: 11/19/2016 Time: 00:17 Bed Admit Hold Private MD: Phyllis Mcgovern P Diagnosis: Chronic combined systolic (congestive) and diastolic (congestive) heart failure;Chronic obstructive pulmonary disease with (acute) exacerbation Presentation: 11/19 00:29 Presenting complaint: Patient states: Over the last 3 days breathing has gotten jp6 worse-,back pain and productive cough yellow sputum.Denies fever/chills. Adult Sepsis Screening: The patient does not have new or worsening altered mentation. Patient has a respiratory rate of greater than or equal to 22 (1 point). Systolic blood pressure is greater than 100. Patient has a qSOFA score of 1- Negative Sepsis Screen. Suicide/Homicide risk assessment- the patient denies having any suicidal and/or homicidal ideations and does not present with any other emotional, behavioral or mental health complaints. Status: Patient is not a branch sales and service representative or dependent. Transition of care: patient was not received from another setting of care. 00:29 Acuity: ANANTH Level 2 6 00:29 Method Of Arrival: Ambulance jp6 Triage Assessment: 00:38 General: Appears distressed, ill, uncomfortable, Behavior is appropriate for age, jp6 cooperative. Pain: Location: chest Pain currently is 4 out of 10 on a pain scale. Quality of pain is described as aching. The patient is triaged at the bedside. See Assessment in Nurses Notes section of ED record. Neurological: Level of Consciousness is awake, alert, Oriented to person, place, time. EENT: No deficits noted. Cardiovascular: Capillary refill < 3 seconds Rhythm is sinus rhythm. Respiratory: Onset: The symptoms/episode began/occurred 3 days, Airway is patent Respiratory effort is labored, shallow, Respiratory pattern is regular, Breath sounds are coarse inspiratory expiratory bilaterally. Breath sounds with rales Breath sounds with rhonchi. GI: No deficits noted. : No deficits noted. Derm: Skin is pink, warm & dry. Musculoskeletal: No deficits noted. Injury Description: No known injury. Historical: - Allergies: GABAPENTIN; Spironolactone; Vancomycin; Streptokinase; Mucinex; - Home Meds: 1. Advair Diskus 250-50 mcg/dose Inhl dsdv 1 puff 2 times per day 2. albuterol sulfate 1.25 mg/3 mL Inhl nebu 3 mL 3-4 times daily 3. amlodipine 10 mg Oral tab 1 tab once daily 4. aspirin 325 mg Oral tab 1 tab once daily 5. atorvastatin 40 mg oral tab 1 tab once daily 6. calcium carbonate 650 mg calcium (1,625 mg) Oral tab daily 7. carvedilol 25 mg oral tab 1 tab 2 times per day 8. Drisdol 50,000 unit Oral cap 1 cap monthly 9. folic acid 1 mg Oral tab 1 tab once daily 10. Lasix 20 mg Oral tab 1 tab 2 times per day 11. levetiracetam 1,000 mg oral tab 1 tab every 12 hours 12. nitroglycerin 0.6 mg SL subl 1 tab every 5 minutes 13. Novolog 100 unit/mL Sub-Q soln sliding scale 14. omeprazole 40 mg Oral cpDR 1 cap once daily 15. oxybutynin chloride 5 mg Oral tab 1 tab daily 16. Toujeo SoloStar 300 unit/mL (1.5 mL) subcutaneous inpn 16 units BID 17. Prolia 60 mg/mL subcutaneous syrg 1 mL every 2 years 18. oxycodone 5 mg Oral tab 1 tab every 4 hours 19. trazodone 100 mg Oral tab three times a day 20. pregabalin 50 mg Oral cap 1 cap twice a day - PMHx: CAD; COPD; Diabetes - IDDM: controlled; Hypercholesterolemia; Hypertension; Kidney stones; [place]; Renal Failure w/o Dialysis; Sleep Apnea w/ BiPap; vitreous hemorrhage; CHF; chronic kidney disease; - PSHx: triple bypass; ; Ankle Arthroplasty, Left; Appendectomy; Hysterectomy; Carpal Tunnel Repair- Bilateral; - Social history: Smoking status: Patient/guardian denies using alcohol, street drugs, No barriers to communication noted, The patient speaks fluent Wallisian, states quit smoking yesterday. - Family history: Not pertinent. - : The pt / caregiver states he / she is not on anticoagulants. Home medication list is obtained from the patient. - Exposure Risk Screening:: None identified. Screenin:45 Screening information is obtained from the patient. Fall risk: At risk due to age. jp6 Assistance ADL's: requires no assistance with activities of daily living. Abuse/DV Screen: The patient / caregiver reports he/she is: not in a situation that causes fear, pain or injury. Nutritional screening: No deficits noted. Advance Directives: Currently, there is no health care proxy. There is an active DNR order but there is no copy available at this time. There is no living will. home support is adequate. Assessment: 00:45 General: see triage assessment. jp6 01:44 Reassessment: pt states breathing is a little better.. Cardiovascular: No deficits jp6 noted. Rhythm is regular. Respiratory: Airway is patent Respiratory effort is even, labored, Respiratory pattern is regular, symmetrical, Breath sounds are coarse Breath sounds with rhonchi inspiratory expiratory Breath sounds with wheezes. 01:44 Respiratory: Reports wears bipap w/ O2 at night. jp6 02:45 Reassessment: Patient denies pain at this time. General: Appears ill, Behavior is jp6 appropriate for age, cooperative, pleasant. Pain: Denies pain. Neurological: No deficits noted. Level of Consciousness is awake, alert, Oriented to person, place, time. Cardiovascular: No deficits noted. Rhythm is regular. Respiratory: Airway is patent Respiratory effort is even, unlabored. GI: No deficits noted. : No deficits noted. Derm: Skin is pink, warm & dry. Musculoskeletal: No deficits noted. 03:57 Reassessment: Patient appears in no apparent distress at this time. General: Appears in jp6 no apparent distress, to be sleeping. Behavior is appropriate for age, cooperative. Pain: Denies pain. Neurological: No deficits noted. Level of Consciousness is obeys commands, Oriented to person, place, time. EENT: No deficits noted. Cardiovascular: No deficits noted. Rhythm is sinus rhythm No ectopy. Respiratory: Airway is patent Respiratory effort is even, unlabored, Respiratory pattern is regular, symmetrical, pt has a history of sleep apnea-sats dropped into 70's with cpap on. Respiratory in and put non rebreather back on and sat's came up to 98%. GI: No deficits noted. : No deficits noted. Derm: Skin is pink, warm & dry. Musculoskeletal: No deficits noted. 05:01 Reassessment: Patient appears in no apparent distress at this time. Patient denies pain jp6 at this time. Neurological: No deficits noted. Level of Consciousness is awake, alert, Oriented to person, place, time. Cardiovascular: No deficits noted. Rhythm is regular. Respiratory: Airway is patent Respiratory effort is even, unlabored. Derm: Skin is pink, warm & dry. 05:58 Reassessment: Patient appears in no apparent distress at this time. pt is sleeping jp6 comfortably with bipap on. VS are stable at 132/72 HR-68 O2 sat-94%.. 07:15 General: First assessment of this patient. Patient unable to answer questions at this hs1 time. Patient vital signs are stable. MAR received at this time and medications administered.. Pain: Unable to use pain scale. patient not able to wake long enough for conversation at this time. Patient appears extremely fatigued. Respiratory: Airway is patent Patient on BiPAP at present. Oxygen Sats maintained and patient is being monitored by respiratory. Derm: Skin is pink, warm & dry. 07:45 Reassessment: Patient appears in no apparent distress at this time. no change in hs1 patient status. Santos HEIN aware of FS and order received to hold insulin at present. Order also received to hold PO medications until patient is more awake. . 08:33 General: Appears in no apparent distress, Patient appears to be sleeping at present, hs1 however continues to be not wakeful for long periods of time for conversation. Pt extremely fatigued. . 09:35 General: Appears ill, Behavior is appropriate for age, cooperative, drowsy. kc3 Neurological: Level of Consciousness is lethargic, Oriented to person, place, time, Pt wakes to name but is not wakeful for long periods of time. Pt almost immediately falls back asleep. . Cardiovascular: Rhythm is sinus rhythm. Respiratory: Airway is patent Respiratory effort is even, unlabored, Pt remains on bipap machine. Oxygen sats maintained and patient is being monitored by respiratory. Derm: Skin is pink, warm & dry. 10:20 General: Appears ill, Behavior is appropriate for age, cooperative, drowsy. kc3 Neurological: Level of Consciousness is lethargic, Pt continues to wake to name but does not maintain wakefulness for any length of time. Pt assisted to comfortable position in bed. . Cardiovascular: Rhythm is sinus rhythm No ectopy. Respiratory: Respiratory effort is even, unlabored, Bi-pap machine in place with respiratory monitoring. Derm: Skin is pink, warm & dry. 11:30 General: Appears ill, Behavior is appropriate for age, cooperative, drowsy. General: Pt kc3 assisted with bedpan and back to comfortable position in bed. . Pain: Location: back. Neurological: Level of Consciousness is awake, lethargic, Oriented to person, place. Cardiovascular: Rhythm is sinus rhythm. Respiratory: Airway is patent Respiratory effort is even, unlabored, Bipap in place. Pt maintaining oxygen sats. Derm: Skin is pink, warm & dry. Vital Signs: 00:38 BP 125 / 59; Pulse 70; Resp 22; Temp 97.6(O); Pulse Ox 98% on R/A; Weight 63.5 kg; jp6 Height 5 ft. 1 in. (154.94 cm); Pain 4/10; 00:45 BP 132 / 59 (auto/); jp6 00:46 Pulse 70 MON; Pulse Ox 96% ; jp6 01:00 BP 125 / 62 (auto/); jp6 01:01 Pulse 71 MON; Pulse Ox 100% ; jp6 01:15 BP 128 / 59 (auto/); jp6 01:16 Pulse 72 MON; Pulse Ox 100% ; jp6 01:30 BP 148 / 65 (auto/); jp6 01:31 Pulse 68 MON; Pulse Ox 100% ; jp6 01:47 BP 135 / 63 (auto/); jp6 01:47 Pulse 69 MON; Pulse Ox 93% ; jp6 02:00 BP 127 / 60 (auto/); jp6 02:01 Pulse 68 MON; Pulse Ox 93% ; jp6 02:15 BP 137 / 65 (auto/); jp6 02:16 Pulse 70 MON; Pulse Ox 93% ; jp6 02:30 BP 127 / 61 (auto/); jp6 02:31 Pulse 69 MON; Pulse Ox 93% ; jp6 02:45 BP 129 / 74 (auto/); jp6 02:46 Pulse 70 MON; Pulse Ox 91% ; jp6 03:00 BP 124 / 61 (auto/); jp6 03:01 Pulse 71 MON; Pulse Ox 91% ; jp6 03:15 BP 124 / 65 (auto/); jp6 03:16 Pulse 70 MON; Pulse Ox 92% ; jp6 03:30 BP 124 / 65 (auto/); jp6 03:31 Pulse 70 MON; Pulse Ox 86% ; jp6 03:45 BP 123 / 64 (auto/); jp6 03:46 Pulse 68 MON; Pulse Ox 88% ; jp6 03:53 Pulse 69 MON; Pulse Ox 98% ; jp6 03:58 Pulse 68 MON; Pulse Ox 98% ; jp6 04:00 BP 124 / 64 (auto/); jp6 04:01 Pulse 68 MON; Pulse Ox 99% ; jp6 04:15 BP 122 / 65 (auto/); jp6 04:16 Pulse 68 MON; Pulse Ox 99% ; jp6 04:30 BP 136 / 69 (auto/); jp6 04:31 Pulse 70 MON; Pulse Ox 99% ; jp6 04:45 BP 131 / 67 (auto/); jp6 04:46 Pulse 70 MON; Pulse Ox 99% ; jp6 05:00 BP 131 / 67 (auto/); jp6 05:01 Pulse 70 MON; Pulse Ox 99% ; jp6 05:15 BP 134 / 66 (auto/); jp6 05:16 Pulse 71 MON; Pulse Ox 98% ; jp6 05:30 BP 135 / 70 (auto/); jp6 05:31 Pulse 70 MON; Pulse Ox 96% ; jp6 05:45 BP 132 / 72 (auto/); jp6 05:46 Pulse 69 MON; Pulse Ox 94% ; jp6 06:00 BP 131 / 73 (auto/); jp6 06:01 Pulse 68 MON; Pulse Ox 93% ; jp6 06:15 BP 134 / 68 (auto/); jp6 06:16 Pulse 66 MON; Pulse Ox 95% ; jp6 06:26 Temp 97(T); jp6 06:30 BP 138 / 73 (auto/); jp6 06:31 Pulse 67 MON; Pulse Ox 94% ; jp6 06:45 BP 132 / 69 (auto/); jp6 06:46 Pulse 65 MON; Pulse Ox 94% ; jp6 07:00 BP 130 / 71 (auto/); kc3 07:00 Pulse 66 MON; Pulse Ox 94% ; kc3 07:15 BP 147 / 78 (auto/); kc3 07:16 Pulse 70 MON; Pulse Ox 97% ; kc3 07:30 BP 136 / 70 (auto/); kc3 07:31 Pulse 70 MON; Pulse Ox 93% ; kc3 07:45 BP 136 / 68 (auto/); kc3 07:45 Pulse 70 MON; Pulse Ox 93% ; kc3 08:00 BP 133 / 68 (auto/); kc3 08:00 Pulse 70 MON; Pulse Ox 95% ; kc3 08:15 BP 130 / 68 (auto/); kc3 08:15 Pulse 68 MON; Pulse Ox 96% ; kc3 08:30 BP 135 / 71 (auto/); kc3 08:30 Pulse 69 MON; Pulse Ox 96% ; kc3 08:45 BP 130 / 67 (auto/); kc3 08:45 Pulse 69 MON; Pulse Ox 95% ; kc3 09:00 BP 138 / 68 (auto/); kc3 09:01 Pulse 69 MON; Pulse Ox 96% ; kc3 09:15 BP 135 / 68 (auto/); kc3 09:16 Pulse 69 MON; Pulse Ox 94% ; kc3 09:30 BP 148 / 99 (auto/); kc3 09:31 Pulse 73 MON; Pulse Ox 95% ; kc3 09:45 BP 146 / 71 (auto/); kc3 09:45 Pulse 71 MON; Pulse Ox 93% ; kc3 10:00 BP 136 / 77 (auto/); kc3 10:00 Pulse 69 MON; Pulse Ox 94% ; kc3 10:15 BP 141 / 71 (auto/); kc3 10:15 Pulse 70 MON; Resp 22; Temp 99.4(TE); Pulse Ox 93% ; kc3 10:30 BP 143 / 70 (auto/); kc3 10:31 Pulse 72 MON; Pulse Ox 95% ; kc3 10:45 BP 157 / 76 (auto/); kc3 10:46 Pulse 74 MON; Pulse Ox 95% ; kc3 11:00 BP 146 / 70 (auto/); kc3 11:01 Pulse 70 MON; Pulse Ox 96% ; kc3 11:15 BP 128 / 59 (auto/); kc3 11:16 Pulse 74 MON; Pulse Ox 96% ; kc3 11:30 BP 146 / 70 (auto/); kc3 11:30 Pulse 69 MON; Resp 24; Temp 98.8(TE); Pulse Ox 98% ; kc3 00:38 Body Mass Index 26.45 (63.50 kg, 154.94 cm) jp6 10:15 pt on bipap kc3 11:30 pt on bipap kc3 Vitals: 00:38 Log In Time N/A - ambulance arrival. jp6 ED Course: 00:18 Patient visited by Betsy Holliday, Slitter Scorer. jlm 00:18 Phyllis Mcgovern is Private Physician. jlm 00:18 Smooth Nielsen DO is Attending Physician. cs11 00:18 Patient visited by Smooth Nielsen DO. cs11 00:18 Patient moved to [facility] 00:29 Suellen Bourgeois,RN is Primary Nurse. jp6 00:31 Triage Initiated jp6 00:45 The patient / caregiver is instructed regarding the plan of care and ED course. Cardiac jp6 monitor on. Pulse ox on. NIBP on. 00:45 Maintain field IV. Dressing intact. Good blood return noted. Site clean & dry. Gauge & jp6 site: 18 gauge left forearm. IV is patent, is intact, is free of redness or swelling. No procedures done that require assistance. Labs/Blood culture drawn. 00:47 -Arterial Blood Gas Sent. jc3 00:47 O2 via non-rebreather \T\ 15L/min. jp6 01:05 Patient visited by Vini King PCA. jmv 01:05 EKG done. (by ED staff). Reviewed by Smooth Nielsen DO. jmv 01:16 -Blood Culture Sent. jp6 01:47 O2 via nasal cannula \T\ 4L/min. jp6 02:02 [facility] Payment Agreement was scanned into [employer] and attached to record. hs2 02:10 Patient visited by Suellen Bourgeois RN. jp6 02:20 Lakeisha London is Hospitalizing Provider. cs11 03:00 Patient placed on CPAP sat's not staying up on Cpap. jp6 05:09 ARTERIAL BLOOD GAS Sent. jc3 06:20 -Arterial Blood Gas Sent. jc3 06:26 BIPAP: Full face fask. jp6 06:37 Patient moved to Admit Hold kmg1 08:06 Written Provider Order was scanned into TipRanks and attached to record. deg 08:27 Primary Nurse role handed off by Suellne Bourgeois,RN jjr 09:02 T-Sheet-- Draft Copy was scanned into TipRanks and attached to record. [facility] 11/20 17:42 ECG/EKG was scanned into [employer]anks and attached to record. kf3 Administered Medications: 11/19 00:35 Drug: Albuterol-Ipratropium 1 neb [ipratropium-albuterol 0.5 mg-3 mg(2.5 mg base)/3 mL jc3 nebulization soln (1 neb)] Route: Nebulizer; 00:45 Drug: Albuterol-Ipratropium 1 neb [ipratropium-albuterol 0.5 mg-3 mg(2.5 mg base)/3 mL jc3 nebulization soln (1 neb)] Route: Nebulizer; 00:54 Drug: Ondansetron 4 mg [ondansetron HCl 2 mg/mL intravenous solution (2 mL)] Route: jp6 IVP; Site: left forearm; 00:55 Drug: Albuterol-Ipratropium 1 neb [ipratropium-albuterol 0.5 mg-3 mg(2.5 mg base)/3 mL jc3 nebulization soln (1 neb)] Route: Nebulizer; 01:15 Drug: Furosemide 60 mg [furosemide 10 mg/mL injection solution (6 mL)] Route: IVP; jp6 Site: left forearm; 01:16 Drug: Dexamethasone 15 mg [dexamethasone 4 mg/mL injection solution] Route: IV; Rate: jp6 bolus; Site: left forearm; 01:16 Drug: Nitro-Bid 0.5 inches [Nitro-Bid 2 % transdermal ointment (0.5 inches)] Route: jp6 Transdermal; Site: anterior chest wall; Output: 06:26 Urine: 0.00ml; Total: 0.00ml. jp6 RT: 00:35 Initial Med Neb Given as ordered. O2 via non-rebreather \T\ 15L/min. Respiratory: Airway jc3 is patent Respiratory effort is labored, Use of accessory muscles noted. Respiratory pattern is tachypnea Breath sounds are diminished bilaterally. Breath sounds with wheezes at expiration. 00:41 ABG's drawn from right radial artery pressure held for 5 minutes no bleeding noted jc3 pressure bandage applied specimen sent pt. tolerated well. 00:54 Subsequent Med Neb Given as ordered Patient tolerated procedure well without adverse jc3 effect. O2 via Pre ABG, Patient on Room Air. SpO2 - 97%. Oxygen is room air. 00:59 Subsequent Med Neb Given as ordered Patient tolerated procedure well without adverse jc3 effect. Respiratory: Breath sounds are coarse Breath sounds are diminished bilaterally. Breath sounds with wheezes at expiration. 03:49 O2 via non-rebreather \T\ 15L/min. jc3 03:49 O2 via Patient placed on her own CPAP with O2. SpO2 would not go above 86% with 15L O2 jc3 inline. Put patient on Non-rebreather. 05:09 ABG's drawn from right brachial artery pressure held for 5 minutes no bleeding noted jc3 pressure bandage applied specimen sent pt. tolerated well. O2 via non-rebreather \T\ 15L/min. 05:11 O2 via Venturi mask \T\ 15L/min - 50%. jc3 05:32 BIPAP: Inspiratory Pressure: 16, Expiratory Pressure: 8, Backup Rate: 8, FiO2: 40%, jc3 Full face fask. 06:20 ABG's drawn from left radial artery pressure held for 5 minutes no bleeding noted jc3 pressure bandage applied specimen sent pt. tolerated well. Order Results: Lab Order: -Arterial Blood Gas; SPEC'M 11/19/16 00:45 Test: ABG pH (ARTERIAL); Value: 7.257; Range: 7.350-7.450; Abnormal: Below low normal; Units: UNITS; Status: F Test: ABG PARTIAL PRESSURE CO2; Value: 57.4; Range: 35.0-45.0; Abnormal: Above high normal; Units: mmHg; Status: F Test: ABG PARTIAL PRESSURE O2; Value: 168.2; Range: 75.0-100.0; Abnormal: Above high normal; Units: mmHg; Status: F Test: ABG TOTAL CO2; Value: 26.8; Range: 23.0-31.0; Units: MEQ/L; Status: F Test: ABG HCO3; Value: 25.0; Range: 22.0-26.0; Units: MEQ/L; Status: F Test: ABG BASE EXCESS; Value: -2.7; Range: -2.0-2.0; Abnormal: Below low normal; Status: F Test: ABG STANDARD HCO3; Value: 22.2; Range: 22.0-26.0; Units: MEQ/L; Status: F Test: ABG O2 SATURATION; Value: 99.0; Range: 95.0-99.0; Units: %; Status: F Test: ABG DEVICE; Value: NASAL AFSHAN; Status: F Lab Order: Lactic Acid (Raines tube on ice); SPEC'M 11/19/16 00:31 Test: LACTIC ACID LEVEL, LACTATE; Value: 0.4; Range: 0.4-2.0; Units: MMOL/L; Status: F Lab Order: CBC with Diff; SPEC11/19/16 00:31 Test: WHITE BLOOD COUNT; Value: 6.4; Range: 4.0-10.0; Units: K/mm3; Status: F Test: RED BLOOD COUNT; Value: 4.09; Range: 4.00-5.40; Units: M/mm3; Status: F Test: HEMOGLOBIN; Value: 11.1; Range: 12.0-16.0; Abnormal: Below low normal; Units: g/dl; Status: F Test: HEMATOCRIT; Value: 36.3; Range: 36.0-47.0; Units: %; Status: F Test: MEAN CORPUSCULAR VOLUME; Value: 88.7; Range: 80.0-96.0; Units: fl; Status: F Test: MEAN CORPUSCULAR HEMOGLOBIN; Value: 27.2; Range: 27.0-33.0; Units: pg; Status: F Test: MEAN CORPUSCULAR HGB CONC; Value: 30.7; Range: 32.0-36.5; Abnormal: Below low normal; Units: g/dl; Status: F Test: RED CELL DISTRIBUTION WIDTH; Value: 14.7; Range: 11.5-14.5; Abnormal: Above high normal; Units: %; Status: F Test: PLATELET COUNT, AUTOMATED; Value: 77; Range: 150-450; Abnormal: Below low normal; Units: k/mm3; Status: F Test: NEUTROPHILS %; Value: 76.8; Range: 36.0-66.0; Abnormal: Above high normal; Units: %; Status: F Test: LYMPH %; Value: 11.1; Range: 24.0-44.0; Abnormal: Below low normal; Units: %; Status: F Test: MONO %; Value: 7.0; Range: 0.0-5.0; Abnormal: Above high normal; Units: %; Status: F Test: EOS %; Value: 2.1; Range: 0.0-3.0; Units: %; Status: F Test: BASO %; Value: 0.4; Range: 0.0-1.0; Units: %; Status: F Test: LARGE UNSTAINED CELL %; Value: 2.6; Range: 0.0-4.0; Units: %; Status: F Test: NEUTROPHILS #; Value: 4.9; Range: 1.8-7.7; Units: K/mm3; Status: F Test: LYMPH #; Value: 0.7; Range: 1.5-4.5; Abnormal: Below low normal; Units: K/mm3; Status: F Test: MONO #; Value: 0.5; Range: 0.0-0.8; Units: K/mm3; Status: F Test: EOS #; Value: 0.1; Range: 0.0-0.50; Units: K/mm3; Status: F Test: BASO #; Value: 0.0; Range: 0.0-0.2; Units: K/mm3; Status: F Test: LARGE UNSTAINED CELL #; Value: 0.2; Range: 0.0-0.4; Units: K/mm3; Status: F Lab Order: [facility] Profile; [facility]'M 11/19/16 00:31 Test: GLUCOSE, FASTING; Value: 79; Range: 80-110; Abnormal: Below low normal; Units: MG/DL; Status: F Test: BLOOD UREA NITROGEN; Value: 36; Range: 7-18; Abnormal: Above high normal; Units: MG/DL; Status: F Test: CREATININE FOR GFR; Value: 2.42; Range: 0.55-1.02; Abnormal: Above high normal; Units: MG/DL; Status: F Test: GLOMERULAR FILTRATION RATE; Value: 21.4; Range: >45; Abnormal: Below low normal; Status: F Test: SODIUM LEVEL; Value: 146; Range: 136-145; Abnormal: Above high normal; Units: MEQ/L; Status: F Test: POTASSIUM SERUM; Value: 3.6; Range: 3.5-5.1; Units: MEQ/L; Status: F Test: CHLORIDE LEVEL; Value: 108; Range: 98-107; Abnormal: Above high normal; Units: MEQ/L; Status: F Test: CARBON DIOXIDE LEVEL; Value: 31; Range: 21-32; Units: MEQ/L; Status: F Test: ANION GAP; Value: 7; Range: 8-16; Abnormal: Below low normal; Units: MEQ/L; Status: F Test: CALCIUM LEVEL; Value: 8.7; Range: 8.8-10.2; Abnormal: Below low normal; Units: MG/DL; Status: F Test Note: ; Units are mL/min/1.73 m2 Chronic Kidney Disease Staging per NKF: Stage I & II GFR >=60 Normal to Mildly Decreased Stage III GFR 30-59 Moderately Decreased Stage IV GFR 15-29 Severely Decreased Stage V GFR <15 Very Little GFR Left ESRD GFR <15 on DRAFTER [employer]LECT[employer] Lab Order: Cardiac Marker Panel; [facility] 11/19/16 00:31 Test: CPK CREATINE PHOSPHOKINASE; Value: 91; Range: 26-192; Units: U/L; Status: F Test: CK-MB VALUE MASS; Value: 2.2; Range: 0.0-3.6; Units: NG/ML; Status: F Test: MB/CK RELATIVE INDEX; Value: 2.41; Range: < OR =4; Status: F Test: TROPONIN I; Value: < 0.02; Range: < 0.10; Units: NG/ML; Status: F Test Note: ; DIAGNOSIS CRITERIA MMB ng/ml Relative Index (RI) NON-AMI < or = 5 N/A RAINES ZONE > 5 < or = 4 AMI > 5 > 4 Lab Order: BNP; [facility]:31 Test: BRAIN NATRIURETIC PEPTIDE; Value: 2210; Range: <100; Abnormal: Above high normal; Units: PG/ML; Status: F Lab Order: CARDIAC MARKER PANEL; [facility] 11/19/16 06:16 Test: CPK CREATINE PHOSPHOKINASE; Value: 76; Range: 26-192; Units: U/L; Status: F Test: CK-MB VALUE MASS; Value: 1.7; Range: 0.0-3.6; Units: NG/ML; Status: F Test: MB/CK RELATIVE INDEX; Value: 2.23; Range: < OR =4; Status: F Test: TROPONIN I; Value: < 0.02; Range: < 0.10; Units: NG/ML; Status: F Test Note: ; DIAGNOSIS CRITERIA MMB ng/ml Relative Index (RI) NON-AMI < or = 5 N/A RAINES ZONE > 5 < or = 4 AMI > 5 > 4 Lab Order: ARTERIAL BLOOD GAS; [facility]' 11/19/16 04:55 Test: ABG pH (ARTERIAL); Value: 7.208; Range: 7.350-7.450; Abnormal: Critical Low; Units: UNITS; Status: F Test: ABG PARTIAL PRESSURE CO2; Value: 71.3; Range: 35.0-45.0; Abnormal: Above upper panic limits; Units: mmHg; Status: F Test: ABG PARTIAL PRESSURE O2; Value: 98.7; Range: 75.0-100.0; Units: mmHg; Status: F Test: ABG TOTAL CO2; Value: 29.9; Range: 23.0-31.0; Units: MEQ/L; Status: F Test: ABG HCO3; Value: 27.7; Range: 22.0-26.0; Abnormal: Above high normal; Units: MEQ/L; Status: F Test: ABG BASE EXCESS; Value: -1.4; Range: -2.0-2.0; Status: F Test: ABG STANDARD HCO3; Value: 23.3; Range: 22.0-26.0; Units: MEQ/L; Status: F Test: ABG O2 SATURATION; Value: 96.5; Range: 95.0-99.0; Units: %; Status: F Lab Order: -Arterial Blood Gas; [facility]' 11/19/16 06:20 Test: ABG pH (ARTERIAL); Value: 7.213; Range: 7.350-7.450; Abnormal: Critical Low; Units: UNITS; Status: F Test: ABG PARTIAL PRESSURE CO2; Value: 66.2; Range: 35.0-45.0; Abnormal: Above upper panic limits; Units: mmHg; Status: F Test: ABG PARTIAL PRESSURE O2; Value: 84.9; Range: 75.0-100.0; Units: mmHg; Status: F Test: ABG TOTAL CO2; Value: 28.1; Range: 23.0-31.0; Units: MEQ/L; Status: F Test: ABG HCO3; Value: 26.1; Range: 22.0-26.0; Abnormal: Above high normal; Units: MEQ/L; Status: F Test: ABG BASE EXCESS; Value: -2.8; Range: -2.0-2.0; Abnormal: Below low normal; Status: F Test: ABG STANDARD HCO3; Value: 22.1; Range: 22.0-26.0; Units: MEQ/L; Status: F Test: ABG O2 SATURATION; Value: 94.8; Range: 95.0-99.0; Abnormal: Below low normal; Units: %; Status: F Test: ABG DEVICE; Value: NASAL AFSHAN; Status: F Lab Order: ARTERIAL BLOOD GAS; SPEC'11/19/16 10:02 Test: ABG pH (ARTERIAL); Value: 7.253; Range: 7.350-7.450; Abnormal: Below low normal; Units: UNITS; Status: F Test: ABG PARTIAL PRESSURE CO2; Value: 54.0; Range: 35.0-45.0; Abnormal: Above high normal; Units: mmHg; Status: F Test: ABG PARTIAL PRESSURE O2; Value: 79.7; Range: 75.0-100.0; Units: mmHg; Status: F Test: ABG TOTAL CO2; Value: 25.0; Range: 23.0-31.0; Units: MEQ/L; Status: F Test: ABG HCO3; Value: 23.3; Range: 22.0-26.0; Units: MEQ/L; Status: F Test: ABG BASE EXCESS; Value: -4.2; Range: -2.0-2.0; Abnormal: Below low normal; Status: F Test: ABG STANDARD HCO3; Value: 20.9; Range: 22.0-26.0; Abnormal: Below low normal; Units: MEQ/L; Status: F Test: ABG O2 SATURATION; Value: 94.8; Range: 95.0-99.0; Abnormal: Below low normal; Units: %; Status: F Lab Order: Fingerstick Blood Sugar; SPEC'11/19/16 07:50 Test: BEDSIDE GLUCOSE; Value: 125; Range: 80-115; Abnormal: Above high normal; Units: MG/DL; Status: F Test Note: ; Insulin Coverage Ord RN Notified Outcome: 02:20 Decision to Hospitalize by Provider. cs11 10:24 No special radiology studies were completed. 3 11:32 Discharge Assessment: patient administered narcotics - no. The following High Risk [facility] Discharge criteria are identified: None. Admitted to ICU accompanied by nurse, accompanied by tech, via stretcher, with oxygen, on monitor, with chart. critical. Admission hand-off: Report called to Bar, HIGH SCHOOL ACADEMIC COACH. Property :Personal belongings accompany Pt. 11:35 Patient left the ED. [facility] Signatures: Sulma Cornell, Slitter Scorer Unit deg Vielka Briseno, RN RN kmg1 Odell Degroot, Reg Reg kf3 Suellen Newton, RN RN Scot Cornelius jc3 Malina Patterson, BR[place]ON RN hs1 Smooth Nielsen, DO DO cs11 Betsy Holliday, Slitter Scorer Unit Hollie Balderrama,RN RN kc3 Luz Marina Concepcion, Reg Reg hs2 Suellen Bourgeois,RN RN jp6 Isa Ramesh Jose, DENIA FOOD SAFETY SCIENTIST jmv Chart Complete MTDD
--- NOTE | 2016-11-21 12:36 | EDDOCDS ---
Physician Documentation [facility] Name: Tess Booker Age: 66 yrs Sex: Female : 1950 Arrival Date: 11/19/2016 Time: 00:17 Bed Admit Hold Private MD: Phyllis Mcgovern P Disposition: 11/19/16 02:20 Hospitalization ordered by Lakeisha London for Inpatient Admission. Preliminary diagnosis are Chronic combined systolic (congestive) and diastolic (congestive) heart failure, Chronic obstructive pulmonary disease with (acute) exacerbation. - Bed requested for M ICU. - Status is Inpatient Admission. kc3 - Condition is Stable. - Problem is chronic. - Symptoms have improved. Historical: - Allergies: GABAPENTIN; Spironolactone; Vancomycin; Streptokinase; Mucinex; - Home Meds: 1. Advair Diskus 250-50 mcg/dose Inhl dsdv 1 puff 2 times per day 2. albuterol sulfate 1.25 mg/3 mL Inhl nebu 3 mL 3-4 times daily 3. amlodipine 10 mg Oral tab 1 tab once daily 4. aspirin 325 mg Oral tab 1 tab once daily 5. atorvastatin 40 mg oral tab 1 tab once daily 6. calcium carbonate 650 mg calcium (1,625 mg) Oral tab daily 7. carvedilol 25 mg oral tab 1 tab 2 times per day 8. Drisdol 50,000 unit Oral cap 1 cap monthly 9. folic acid 1 mg Oral tab 1 tab once daily 10. Lasix 20 mg Oral tab 1 tab 2 times per day 11. levetiracetam 1,000 mg oral tab 1 tab every 12 hours 12. nitroglycerin 0.6 mg SL subl 1 tab every 5 minutes 13. Novolog 100 unit/mL Sub-Q soln sliding scale 14. omeprazole 40 mg Oral cpDR 1 cap once daily 15. oxybutynin chloride 5 mg Oral tab 1 tab daily 16. Toujeo SoloStar 300 unit/mL (1.5 mL) subcutaneous inpn 16 units BID 17. Prolia 60 mg/mL subcutaneous syrg 1 mL every 2 years 18. oxycodone 5 mg Oral tab 1 tab every 4 hours 19. trazodone 100 mg Oral tab three times a day 20. pregabalin 50 mg Oral cap 1 cap twice a day - PMHx: CAD; COPD; Diabetes - IDDM: controlled; Hypercholesterolemia; Hypertension; Kidney stones; IN; Renal Failure w/o Dialysis; Sleep Apnea w/ BiPap; vitreous hemorrhage; CHF; chronic kidney disease; - PSHx: triple bypass; ; Ankle Arthroplasty, Left; Appendectomy; Hysterectomy; Carpal Tunnel Repair- Bilateral; - Social history: Smoking status: Patient/guardian denies using alcohol, street drugs, No barriers to communication noted, The patient speaks fluent Bel[place]an, states quit smoking yesterday. - Family history: Not pertinent. - : The pt / caregiver states he / she is not on anticoagulants. Home medication list is obtained from the patient. - Exposure Risk Screening:: None identified. Vital Signs: 11/19 00:38 BP 125 / 59; Pulse 70; Resp 22; Temp 97.6(O); Pulse Ox 98% on R/A; Weight 63.5 kg / jp6 139.99 lbs; Height 5 ft. 1 in. (154.94 cm); Pain 4/10; 00:45 BP 132 / 59 (auto/); jp6 00:46 Pulse 70 MON; Pulse Ox 96% ; jp6 01:00 BP 125 / 62 (auto/); jp6 01:01 Pulse 71 MON; Pulse Ox 100% ; jp6 01:15 BP 128 / 59 (auto/); jp6 01:16 Pulse 72 MON; Pulse Ox 100% ; jp6 01:30 BP 148 / 65 (auto/); jp6 01:31 Pulse 68 MON; Pulse Ox 100% ; jp6 01:47 BP 135 / 63 (auto/); jp6 01:47 Pulse 69 MON; Pulse Ox 93% ; jp6 02:00 BP 127 / 60 (auto/); jp6 02:01 Pulse 68 MON; Pulse Ox 93% ; jp6 02:15 BP 137 / 65 (auto/); jp6 02:16 Pulse 70 MON; Pulse Ox 93% ; jp6 02:30 BP 127 / 61 (auto/); jp6 02:31 Pulse 69 MON; Pulse Ox 93% ; jp6 02:45 BP 129 / 74 (auto/); jp6 02:46 Pulse 70 MON; Pulse Ox 91% ; jp6 03:00 BP 124 / 61 (auto/); jp6 03:01 Pulse 71 MON; Pulse Ox 91% ; jp6 03:15 BP 124 / 65 (auto/); jp6 03:16 Pulse 70 MON; Pulse Ox 92% ; jp6 03:30 BP 124 / 65 (auto/); jp6 03:31 Pulse 70 MON; Pulse Ox 86% ; jp6 03:45 BP 123 / 64 (auto/); jp6 03:46 Pulse 68 MON; Pulse Ox 88% ; jp6 03:53 Pulse 69 MON; Pulse Ox 98% ; jp6 03:58 Pulse 68 MON; Pulse Ox 98% ; jp6 04:00 BP 124 / 64 (auto/); jp6 04:01 Pulse 68 MON; Pulse Ox 99% ; jp6 04:15 BP 122 / 65 (auto/); jp6 04:16 Pulse 68 MON; Pulse Ox 99% ; jp6 04:30 BP 136 / 69 (auto/); jp6 04:31 Pulse 70 MON; Pulse Ox 99% ; jp6 04:45 BP 131 / 67 (auto/); jp6 04:46 Pulse 70 MON; Pulse Ox 99% ; jp6 05:00 BP 131 / 67 (auto/); jp6 05:01 Pulse 70 MON; Pulse Ox 99% ; jp6 05:15 BP 134 / 66 (auto/); jp6 05:16 Pulse 71 MON; Pulse Ox 98% ; jp6 05:30 BP 135 / 70 (auto/); jp6 05:31 Pulse 70 MON; Pulse Ox 96% ; jp6 05:45 BP 132 / 72 (auto/); jp6 05:46 Pulse 69 MON; Pulse Ox 94% ; jp6 06:00 BP 131 / 73 (auto/); jp6 06:01 Pulse 68 MON; Pulse Ox 93% ; jp6 06:15 BP 134 / 68 (auto/); jp6 06:16 Pulse 66 MON; Pulse Ox 95% ; jp6 06:26 Temp 97(T); jp6 06:30 BP 138 / 73 (auto/); jp6 06:31 Pulse 67 MON; Pulse Ox 94% ; jp6 06:45 BP 132 / 69 (auto/); jp6 06:46 Pulse 65 MON; Pulse Ox 94% ; jp6 07:00 BP 130 / 71 (auto/); kc3 07:00 Pulse 66 MON; Pulse Ox 94% ; kc3 07:15 BP 147 / 78 (auto/); kc3 07:16 Pulse 70 MON; Pulse Ox 97% ; kc3 07:30 BP 136 / 70 (auto/); kc3 07:31 Pulse 70 MON; Pulse Ox 93% ; kc3 07:45 BP 136 / 68 (auto/); kc3 07:45 Pulse 70 MON; Pulse Ox 93% ; kc3 08:00 BP 133 / 68 (auto/); kc3 08:00 Pulse 70 MON; Pulse Ox 95% ; kc3 08:15 BP 130 / 68 (auto/); kc3 08:15 Pulse 68 MON; Pulse Ox 96% ; kc3 08:30 BP 135 / 71 (auto/); kc3 08:30 Pulse 69 MON; Pulse Ox 96% ; kc3 08:45 BP 130 / 67 (auto/); kc3 08:45 Pulse 69 MON; Pulse Ox 95% ; kc3 09:00 BP 138 / 68 (auto/); kc3 09:01 Pulse 69 MON; Pulse Ox 96% ; kc3 09:15 BP 135 / 68 (auto/); kc3 09:16 Pulse 69 MON; Pulse Ox 94% ; kc3 09:30 BP 148 / 99 (auto/); kc3 09:31 Pulse 73 MON; Pulse Ox 95% ; kc3 09:45 BP 146 / 71 (auto/); kc3 09:45 Pulse 71 MON; Pulse Ox 93% ; kc3 10:00 BP 136 / 77 (auto/); kc3 10:00 Pulse 69 MON; Pulse Ox 94% ; kc3 10:15 BP 141 / 71 (auto/); kc3 10:15 Pulse 70 MON; Resp 22; Temp 99.4(TE); Pulse Ox 93% ; kc3 10:30 BP 143 / 70 (auto/); kc3 10:31 Pulse 72 MON; Pulse Ox 95% ; kc3 10:45 BP 157 / 76 (auto/); kc3 10:46 Pulse 74 MON; Pulse Ox 95% ; kc3 11:00 BP 146 / 70 (auto/); kc3 11:01 Pulse 70 MON; Pulse Ox 96% ; kc3 11:15 BP 128 / 59 (auto/); kc3 11:16 Pulse 74 MON; Pulse Ox 96% ; kc3 11:30 BP 146 / 70 (auto/); kc3 11:30 Pulse 69 MON; Resp 24; Temp 98.8(TE); Pulse Ox 98% ; kc3 00:38 Body Mass Index 26.45 (63.50 kg, 154.94 cm) jp6 10:15 pt on bipap kc3 11:30 pt on bipap kc3 MDM: 00:42 Call Respiratory ordered. cs11 00:42 -Blood Culture (Adults Only), peripheral from different site, or from device/port/PICC cs11 etc. if present ordered. 00:42 IV Saline Lock ordered. cs11 00:42 Dexamethasone 15 mg IV at bolus once ordered. cs11 00:42 Nitro-Bid Ointment 2 % 0.5 inches Transdermal once ordered. cs11 00:43 Furosemide 60 mg IVP once ordered. cs11 00:44 Chest, 1 View Ordered. EDMS 00:44 ECG WITH READING ER PHYS+CARDIAG ordered. EDMS 00:44 -Arterial Blood Gas Ordered. EDMS 00:44 Lactic Acid (Raines tube on ice) Ordered. EDMS 00:44 CBC with Diff Ordered. EDMS 00:44 MED Profile Ordered. EDMS 00:44 Cardiac Marker Panel Ordered. EDMS 00:44 BNP Ordered. EDMS 00:44 -Blood Culture Ordered. EDMS 00:54 Call Respiratory complete. jp6 00:54 Ondansetron 4 mg IVP once ordered. jp6 01:11 -Arterial Blood Gas Reviewed. cs11 01:16 -Blood Culture (Adults Only), peripheral from different site, or from device/port/PICC jp6 etc. if present complete. 01:26 MED Profile Reviewed. cs11 01:26 Lactic Acid (Raines tube on ice) Reviewed. cs11 01:26 Cardiac Marker Panel Reviewed. cs11 01:38 BED REQUEST+ADM ordered. EDMS 01:48 Financial registration complete. hs2 02:02 [facility] Payment Agreement was scanned into [employer] and attached to record. hs2 02:16 Albuterol-Ipratropium 1 neb Nebulizer every 20 minutes x3 ordered. cs11 02:16 Call Respiratory ordered. cs11 02:16 CBC with Diff Reviewed. cs11 02:16 BNP Reviewed. cs11 02:22 Call Respiratory complete. jlm 04:01 Admission / Observation Status ordered. EDMS 04:01 ECHOCARD,DOPPLER/COLOR FLOW ordered. EDMS 04:01 NO ADDED SALT DIET ordered. EDMS 04:01 CARDIAC MARKER PANEL Ordered. EDMS 04:01 CARDIAC MARKER PANEL Ordered. EDMS 04:01 CARDIAC MARKER PANEL Ordered. EDMS 04:02 ARTERIAL BLOOD GAS Ordered. EDMS 04:02 BIPAP INPATIENT ordered. EDMS 05:23 Admission / Observation Status ordered. EDMS 06:16 -Arterial Blood Gas Ordered. EDMS 07:45 ARTERIAL BLOOD GAS Ordered. EDMS 08:06 Written Provider Order was scanned into [employer] and attached to record. deg 08:09 Fingerstick Blood Sugar Ordered. EDMS 09:02 T-Sheet-- Draft Copy was scanned into [employer] and attached to record. se 10:32 MRSA SCREEN Ordered. EDMS 11/20 17:42 ECG/EKG was scanned into [employer] and attached to record. kf3 Administered Medications: 11/19 00:35 Drug: Albuterol-Ipratropium 1 neb [ipratropium-albuterol 0.5 mg-3 mg(2.5 mg base)/3 mL jc3 nebulization soln (1 neb)] Route: Nebulizer; 00:45 Drug: Albuterol-Ipratropium 1 neb [ipratropium-albuterol 0.5 mg-3 mg(2.5 mg base)/3 mL jc3 nebulization soln (1 neb)] Route: Nebulizer; 00:54 Drug: Ondansetron 4 mg [ondansetron HCl 2 mg/mL intravenous solution (2 mL)] Route: jp6 IVP; Site: left forearm; 00:55 Drug: Albuterol-Ipratropium 1 neb [ipratropium-albuterol 0.5 mg-3 mg(2.5 mg base)/3 mL jc3 nebulization soln (1 neb)] Route: Nebulizer; 01:15 Drug: Furosemide 60 mg [furosemide 10 mg/mL injection solution (6 mL)] Route: IVP; jp6 Site: left forearm; 01:16 Drug: Dexamethasone 15 mg [dexamethasone 4 mg/mL injection solution] Route: IV; Rate: jp6 bolus; Site: left forearm; 01:16 Drug: Nitro-Bid 0.5 inches [Nitro-Bid 2 % transdermal ointment (0.5 inches)] Route: jp6 Transdermal; Site: anterior chest wall; Signatures: Dispatcher [employer] EDMS Sulma Cornell, Business Objects Developer Unit deg Cindy Llamas RN RN dls Odell Degroot, Reg Reg kf3 Smooth Nielsen, DO cs11 Betsy Holliday, Business Objects Developer Unit jlm Hollie De La Cruz,BR[place]ON RN kc3 Luz Marina Concepcion, Reg Reg hs2 Suellen Bourgeois RN RN jp6 Isa Ramesh Joseph 3 The chart was reviewed and I authenticate all verbal orders and agree with the evaluation and treatment provided.Attachments: 02:02 [facility] Payment Agreement hs2 08:06 Written Provider Order deg 09:02 T-Sheet-- Draft Copy [facility] 11/20 17:42 ECG/EKG kf3 Chart Complete MTDD
[2016-11-21] MEDS: NYSTATIN 100,000 UNITS/GM TOPICAL PWD 15 GM TOP SCH (20:39)
[2016-11-21] MEDS: amLODIPine 10 MG TAB PO SCH (20:41)
[2016-11-22] VITALS (8 sets, daily range): BP systolic 141–166; BP diastolic 66–77; O2SAT 96
[2016-11-22] MEDS: IPRATROPIUM 0.5MG/ALBUTEROL 2.5MG INH SOL UD 3ML (DUONEB)(J7620) NEB SCH ×4 (02:31→20:00)
[2016-11-22 05:26] LABS: CALCIUM LEVEL 8.1 MG/DL (8.8-10.2); CREATININE FOR GFR 2.61 MG/DL (0.55-1.02); GLOMERULAR FILTRATION RATE 19.6 (>45); MAGNESIUM LEVEL 2.2 MG/DL (1.8-2.4); POTASSIUM SERUM 3.6 MEQ/L (3.5-5.1)
[2016-11-22 05:29] LABS: BASO % 0.7 % (0.0-1.0); EOS % 0.2 % (0.0-3.0); LARGE UNSTAINED CELL # 0.1 K/mm3 (0.0-0.4); LARGE UNSTAINED CELL % 1.7 % (0.0-4.0); LYMPH # 0.7 K/mm3 (1.5-4.5); LYMPH % 12.8 % (24.0-44.0); MEAN CORPUSCULAR HEMOGLOBIN 26.7 pg (27.0-33.0); MEAN CORPUSCULAR VOLUME 86.2 fl (80.0-96.0); MONO # 0.3 K/mm3 (0.0-0.8); MONO % 6.8 % (0.0-5.0); NEUTROPHILS # 3.7 K/mm3 (1.8-7.7); NEUTROPHILS % 77.8 % (36.0-66.0); RED CELL DISTRIBUTION WIDTH 15.8 % (11.5-14.5); WHITE BLOOD COUNT 4.8 K/mm3 (4.0-10.0)
[2016-11-22 05:39] LABS: PLATELET COUNT, AUTOMATED 87 k/mm3 (150-450)
[2016-11-22] MEDS: ADVAIR DISKUS 250/50 INH PWD INH SCH ×2 (08:49→20:40)
[2016-11-22] MEDS: HumaLOG INSULIN (NovoLOG) PER UNIT SC SCH ×4 (09:13→20:46)
[2016-11-22] MEDS: LEVEMIR (INSULIN DETEMIR) 1 UNITS/0.01ML SC SCH ×2 (09:24→20:45)
[2016-11-22] MEDS: levETIRAcetam 250MG TABLET (KEPPRA) PO SCH ×2 (09:24→20:46)
[2016-11-22] MEDS: ATORVASTATIN 20 MG TAB PO SCH (09:24)
[2016-11-22] MEDS: FOLIC ACID 1 MG TAB PO SCH (09:25)
[2016-11-22] MEDS: predniSONE 20 MG TAB PO SCH (09:25)
[2016-11-22] MEDS: oxyBUTYnin 5 MG TAB PO SCH (09:25)
[2016-11-22] MEDS: ASPIRIN ENTERIC 325 MG TAB PO SCH (09:25)
[2016-11-22] MEDS: OMEPRAZOLE 20 MG CAP PO SCH (09:25)
[2016-11-22] MEDS: DOXYCYCLINE HYCLATE 100 MG TAB PO SCH ×2 (09:26→20:47)
[2016-11-22] MEDS: FUROSEMIDE 20 MG TAB PO SCH (09:26)
[2016-11-22] MEDS: PREGABALIN 50 MG CAP (LYRICA) PO SCH ×2 (09:26→20:47)
[2016-11-22] MEDS: CARVedilol 12.5 MG TAB PO SCH ×2 (09:27→20:47)
[2016-11-22] MEDS: PERCOCET 5MG/325MG TAB PO PRN (09:27)
[2016-11-22] MEDS: NYSTATIN 100,000 UNITS/GM TOPICAL PWD 15 GM TOP SCH ×2 (09:28→20:47)
--- NOTE | 2016-11-22 12:21 | IPN ---
DATE OF SERVICE: 11/22/2016 A 66-year-old female seen at bedside. No overnight issues reported. She continues use the table top bilevel positive airway pressure (BiPAP) and feels her breathing is minimally improved today. She has a nonproductive cough. No fevers, chills. No nausea or vomiting. OBJECTIVE: Temperature 97.2, pulse 64, respiratory rate is 22, blood pressure 155/75, SpO2 98% on 2 liters. HEENT: Head is atraumatic, normocephalic. Eyes: Pupils equal, round, reactive to light and accommodation. Throat clear. Mucous membranes moist. NECK: Unable to determine jugular venous distention (JVD) due to body habitus. LUNGS: Crackles throughout. Expiratory wheeze noted. Decreased bibasilar breath sounds. HEART: Regular rate and rhythm. ABDOMEN: Obese, soft. EXTREMITIES: Some mild edema. No calf tenderness. LABORATORY DATA: White count 4.8, hemoglobin 10.3 and platelets 87,000. Sodium 142, potassium 3.6, chloride 104, bicarbonate 30, anion gap 8, BUN is 2.61, glucose 184, magnesium 2.2. ASSESSMENT AND PLAN: 1. Acute on chronic diastolic congestive heart failure with extensive cardiac history. Three-vessel disease status post coronary artery bypass graft (CABG) procedure in 2011 after an myocardial infarction (GA). Last transesophageal echocardiogram (PAOLA) showed a left ventricular ejection fraction (LVEF) of 50%-55% with diastolic failure and pulmonary hypertension. I did request Dr. Velázquez to see the patient on consult to be sure that we have her maximized with diuretic. She continues with daily weights, strict intake and output (I and O) and Lasix daily. Continue aspirin, Coreg and statin. 2. History of obstructive sleep apnea (BRANDON). Appreciate Dr. Muñoz's assistance with her bilevel positive airway pressure (BiPAP) therapy. She is currently on her home setting and we will go ahead and plan on downgrading her to progressive care unit (PCU). 3. Chronic kidney disease (CKD) stage IV. Creatinine appears to be at baseline. I will continue Lasix. 4. Insulin-dependent diabetes. Chronic. Will continue with insulin regimen, fingersticks before meals and at bedtime and sliding-scale coverage. 5. Thrombocytopenia. This is chronic in nature. We will monitor her platelets. Will continue with thromboembolitic deterrents (TEDs) and sequentials in place of heparin products for deep venous thrombosis (DVT) prophylaxis. 6. History of cirrhosis. This is chronic. Continue with current management. She does not shown any signs of bleeding. No signs of metabolic cephalopathy 7. Gastroesophageal reflux disease (GERD). Stable on proton pump inhibitor (PPI). 8. History of seizures. Chronic. Continue current medications. 9. Dyslipidemia. Continue statin therapy. 10. Deep venous thrombosis (DVT) prophylaxis. Thromboembolitic deterrents (TEDs) and sequentials. HISTORY Seizures chronic continue current meds. 11. Venous thromboembolism (VTE) prophylaxis. Thromboembolitic deterrents (TEDs) and sequentials. DISPOSITION: Continue with physical therapy. We will continue to try to titrate her oxygen requirements down. Appreciate Dr. Muñoz's input and request that Dr. Velázquez to see the patient regarding her congestive heart failure as well as volume status.
[2016-11-22] MEDS ORDERED: FUROSEMIDE 40 MG/4 ML VIAL (J1940) IV ONE (20:00)
[2016-11-22] MEDS: amLODIPine 10 MG TAB PO SCH (20:47)
[2016-11-23] VITALS (8 sets, daily range): BP systolic 159–167; BP diastolic 68–76; O2SAT 94–96
[2016-11-23] MEDS: IPRATROPIUM 0.5MG/ALBUTEROL 2.5MG INH SOL UD 3ML (DUONEB)(J7620) NEB SCH ×4 (02:11→20:00)
[2016-11-23 05:31] LABS: EOS % 0.2 % (0.0-3.0); LARGE UNSTAINED CELL # 0.1 K/mm3 (0.0-0.4); LARGE UNSTAINED CELL % 1.8 % (0.0-4.0); LYMPH # 0.4 K/mm3 (1.5-4.5); LYMPH % 11.8 % (24.0-44.0); MEAN CORPUSCULAR HGB CONC 30.8 g/dl (32.0-36.5); MEAN CORPUSCULAR VOLUME 87.5 fl (80.0-96.0); MONO # 0.3 K/mm3 (0.0-0.8); MONO % 7.2 % (0.0-5.0); NEUTROPHILS # 2.8 K/mm3 (1.8-7.7); RED CELL DISTRIBUTION WIDTH 14.4 % (11.5-14.5); WHITE BLOOD COUNT 3.5 K/mm3 (4.0-10.0)
[2016-11-23 05:33] LABS: PLATELET COUNT, AUTOMATED 82 k/mm3 (150-450)
[2016-11-23 05:42] LABS: CALCIUM LEVEL 7.9 MG/DL (8.8-10.2); CREATININE FOR GFR 2.53 MG/DL (0.55-1.02); GLOMERULAR FILTRATION RATE 20.3 (>45); MAGNESIUM LEVEL 1.9 MG/DL (1.8-2.4); POTASSIUM SERUM 3.2 MEQ/L (3.5-5.1)
[2016-11-23] MEDS ORDERED: FUROSEMIDE 100 MG/10 ML VIAL (J1940) IV ONE (07:45)
[2016-11-23] MEDS ORDERED: POTASSIUM CHLORIDE 10 MEQ SR TABLET PO ONE (07:45)
--- NOTE | 2016-11-23 08:14 | IPN ---
DATE: 11/23/2016 Mrs. Booker had a relatively uneventful night. She tells me that she was able to sleep without major difficulty with her CPAP on. This morning, she still feels she is short of breath even at rest, but she feels that overall there has been improvement. Blood pressure 167/76. Heart rate is in 60s and 70s sinus rhythm. She does have episodes of frequent ventricular ectopy, including brief runs of idioventricular rhythm. Saturation is in the mid 90s on 30% FiO2 on her BiPAP. Her jugular venous pulse (JVP) is very difficult to administrative judge. It does not appear grossly elevated on my exam, but in people with lung disease, it is often challenging. Lungs sound though remarkably clear. I do not appreciate any crackle, wheezing or rhonchi. Air movement is fair. Heart exam regular rhythm, somewhat muffled heart sounds. I do not appreciate any gallop, rub or murmur. Abdomen is soft. No shifting dullness. There is no significant peripheral edema. Neurologically, she is intact. LABORATORY DATA: Basic metabolic panel: Potassium 3.2, BUN 81, creatinine 2.5 for GFR of 20, and glucose 375. CBC reveals hemoglobin of 10.2 hematocrit 33 and platelet count is 82,000. ASSESSMENT AND PLAN: Mrs. Booker is a 66-year-old lady who came in with respiratory failure. Even though I do not see truly convincing evidence for volume overload by physical exam, by history and by chest x-ray, it most likely does have a strong component of congestive heart failure. Management is further complicated by underlying stage IV renal insufficiency. Yesterday after receiving single high dose of furosemide, she developed negative balance and I am going to give her an additional dose today. Simultaneously her renal function stayed about the same or actually slightly improved. We will have to reevaluate her on a daily basis in this respect. Potassium will be supplemented. Otherwise, her remaining issues have been stable. The ventricular ectopy should not be surprising in this situation.
[2016-11-23] MEDS: HumaLOG INSULIN (NovoLOG) PER UNIT SC SCH ×4 (08:28→21:15)
[2016-11-23] MEDS: ADVAIR DISKUS 250/50 INH PWD INH SCH ×2 (08:48→20:52)
[2016-11-23] MEDS: PREGABALIN 50 MG CAP (LYRICA) PO SCH ×2 (09:00→21:05)
[2016-11-23] MEDS: NYSTATIN 100,000 UNITS/GM TOPICAL PWD 15 GM TOP SCH ×2 (09:19→21:05)
[2016-11-23] MEDS: ATORVASTATIN 20 MG TAB PO SCH (09:19)
[2016-11-23] MEDS: oxyBUTYnin 5 MG TAB PO SCH (09:20)
[2016-11-23] MEDS: ASPIRIN ENTERIC 325 MG TAB PO SCH (09:20)
[2016-11-23] MEDS: OMEPRAZOLE 20 MG CAP PO SCH (09:20)
[2016-11-23] MEDS: FOLIC ACID 1 MG TAB PO SCH (09:20)
[2016-11-23] MEDS: DOXYCYCLINE HYCLATE 100 MG TAB PO SCH ×2 (09:20→21:05)
[2016-11-23] MEDS: predniSONE 20 MG TAB PO SCH (09:20)
[2016-11-23] MEDS: CARVedilol 12.5 MG TAB PO SCH ×2 (09:21→21:06)
[2016-11-23] MEDS: levETIRAcetam 250MG TABLET (KEPPRA) PO SCH ×2 (09:21→21:06)
[2016-11-23] MEDS: LEVEMIR (INSULIN DETEMIR) 1 UNITS/0.01ML SC SCH ×2 (09:22→21:04)
[2016-11-23] MEDS: amLODIPine 10 MG TAB PO SCH (21:06)
[2016-11-24] VITALS: BP 161/72
[2016-11-24] MEDS: IPRATROPIUM 0.5MG/ALBUTEROL 2.5MG INH SOL UD 3ML (DUONEB)(J7620) NEB SCH ×4 (01:53→20:00)
[2016-11-24 05:15] LABS: BASO % 0.2 % (0.0-1.0); EOS % 0.2 % (0.0-3.0); LARGE UNSTAINED CELL # 0.1 K/mm3 (0.0-0.4); LARGE UNSTAINED CELL % 1.8 % (0.0-4.0); LYMPH # 0.5 K/mm3 (1.5-4.5); LYMPH % 11.9 % (24.0-44.0); MEAN CORPUSCULAR HEMOGLOBIN 26.4 pg (27.0-33.0); MEAN CORPUSCULAR HGB CONC 30.8 g/dl (32.0-36.5); MEAN CORPUSCULAR VOLUME 85.6 fl (80.0-96.0); MONO # 0.2 K/mm3 (0.0-0.8); MONO % 5.4 % (0.0-5.0); NEUTROPHILS # 3.4 K/mm3 (1.8-7.7); NEUTROPHILS % 80.5 % (36.0-66.0); RED CELL DISTRIBUTION WIDTH 14.5 % (11.5-14.5); WHITE BLOOD COUNT 4.2 K/mm3 (4.0-10.0)
[2016-11-24 05:16] LABS: PLATELET COUNT, AUTOMATED 88 k/mm3 (150-450)
[2016-11-24 05:20] LABS: CALCIUM LEVEL 8.3 MG/DL (8.8-10.2); CREATININE FOR GFR 2.43 MG/DL (0.55-1.02); GLOMERULAR FILTRATION RATE 21.3 (>45); POTASSIUM SERUM 3.2 MEQ/L (3.5-5.1)
[2016-11-24 08:00] VITALS: BP 128/61
[2016-11-24] MEDS: ADVAIR DISKUS 250/50 INH PWD INH SCH ×2 (08:04→20:09)
[2016-11-24] MEDS: HumaLOG INSULIN (NovoLOG) PER UNIT SC SCH ×4 (08:28→21:00)
[2016-11-24] MEDS: PREGABALIN 50 MG CAP (LYRICA) PO SCH ×2 (09:00→21:00)
[2016-11-24] MEDS: LEVEMIR (INSULIN DETEMIR) 1 UNITS/0.01ML SC SCH ×2 (09:02→21:24)
[2016-11-24] MEDS: OMEPRAZOLE 20 MG CAP PO SCH (09:02)
[2016-11-24] MEDS: levETIRAcetam 250MG TABLET (KEPPRA) PO SCH ×2 (09:02→21:22)
[2016-11-24] MEDS: DOXYCYCLINE HYCLATE 100 MG TAB PO SCH ×2 (09:03→21:23)
[2016-11-24] MEDS: ATORVASTATIN 20 MG TAB PO SCH (09:03)
[2016-11-24] MEDS: CARVedilol 12.5 MG TAB PO SCH ×2 (09:04→21:23)
[2016-11-24] MEDS: ASPIRIN ENTERIC 325 MG TAB PO SCH (09:04)
[2016-11-24] MEDS: predniSONE 20 MG TAB PO SCH (09:04)
[2016-11-24] MEDS: FOLIC ACID 1 MG TAB PO SCH (09:04)
[2016-11-24] MEDS: oxyBUTYnin 5 MG TAB PO SCH (09:04)
[2016-11-24] MEDS: NYSTATIN 100,000 UNITS/GM TOPICAL PWD 15 GM TOP SCH ×2 (09:05→21:26)
--- NOTE | 2016-11-24 09:46 | IPNPDOC ---
[facility] Cardiology Progress Note Date of Service/Time The patient was seen on 11/24/16 at 09:24. Cardiology Progress Note SUBJECTIVE: The patient states that she feels better today, she had just taken her CPAP off and was resting comfortably in bed, sitting upright and watching television. She denied any CP, SOB or palpitations. OBJECTIVE: 66 y/o female of stated age sitting upright in her hospital bed, non distressed and non labored. Comfortable, watching television. PHYSICAL EXAMINATION: VITAL SIGNS: Please see below. GENERAL APPEARANCE: Patient appears comfortable, not labored, resting in bed sitting upright. HEENT: NCAT, EOMI, nares patent bilaterally, tongue midline, moist mucous membranes. LUNGS: Improved breath sounds bilaterally, no crackles, rales, rhonchi appreciated. Good air expansion bilaterally HEART: Normal S1, S2, no murmurs, rubs, gallops appreciated with rate in the 60s to 70s. ABDOMEN: Soft and nondistended SKIN: Intact EXTREMITIES: No clubbing, cyanosis, edema NEUROLOGICAL: No focal deficits appreciated PSYCHIATRIC: Affect is appropriate LABORATORY WORK: Please see below. ASSESSMENT AND PLAN: Miss Booker seems to be doing well this morning, she had no active complaints and stated that she was not short of breath. She denied chest pain or palpitations. When examined at bedside this morning she was off of her CPAP therapy which had just been removed and she seemed to be tolerating this well. She was able to converse with us without shortness of breath. She states that she feels that she is back to her baseline level of health. Her creatinine went from 2.53 down to 2.43, will administer another 120 mg of Lasix today, note that she was -875 mL over the past 24 hours. We will give diuretic therapy after supplementing her potassium which was 3.2 today. She has a follow-up appointment with nephrology next week. On physical exam her lungs sounded clear , no crackles were appreciated, she also did not have appreciable JVD. No further recommendations at this time Vital Signs/I&O VS/I&O Vital Signs Date Time Temp Pulse Resp B/P Pulse Ox O2 Delivery O2 Flow Rate FiO2 11/24/16 09:04 62 128/61 11/24/16 04:00 BIPAP/CPAP 2.0 11/24/16 00:00 98.0 20 95 11/23/16 06:16 30 I&O- Last 24 Hours up to 6 AM 11/24/16 06:00 Intake Total 720 ml Output Total 2150 ml Balance -1430 ml Laboratory Data 24H LABS Laboratory Tests 2 11/23/16 11:37: Bedside Glucose (Misc Panel) 251H 11/23/16 17:29: Bedside Glucose (Misc Panel) 242H 11/23/16 21:03: Bedside Glucose (Misc Panel) 356H 11/24/16 04:56: Anion Gap 8, White Blood Count 4.2, Red Blood Count 4.07, Hemoglobin 10.7L, Hematocrit 34.9L, Mean Corpuscular Volume 85.6, Mean Corpuscular Hemoglobin 26.4L, Mean Corpuscular Hemoglobin Concent 30.8L, Red Cell Distribution Width 14.5, Platelet Count 88L, Neutrophils (%) (Auto) 80.5H, Lymphocytes (%) (Auto) 11.9L, Monocytes (%) (Auto) 5.4H, Eosinophils (%) (Auto) 0.2, Basophils (%) ( Auto) 0.2, Neutrophils # (Auto) 3.4, Lymphocytes # (Auto) 0.5L, Monocytes # ( Auto) 0.2, Eosinophils # (Auto) 0.0, Basophils # (Auto) 0.0, Blood Urea Nitrogen 81H, Creatinine 2.43H, Sodium Level 140, Potassium Level 3.2L, Chloride Level 102, Carbon Dioxide Level 30, Calcium Level 8.3L, Glomerular Filtration Rate 21.3L, Large Unclassified Cells # 0.1, Large Unclassified Cells % 1.8, Magnesium Level 2.0 CBC/BMP Laboratory Tests 11/24/16 04:56 Calcium Level 8.3 L, Red Blood Count 4.07, Mean Corpuscular Volume 85.6, Mean Corpuscular Hemoglobin 26.4 L, Mean Corpuscular Hemoglobin Concent 30.8 L, Red Cell Distribution Width 14.5, Neutrophils (%) (Auto) 80.5 H, Lymphocytes (%) ( Auto) 11.9 L, Monocytes (%) (Auto) 5.4 H, Eosinophils (%) (Auto) 0.2, Basophils (%) (Auto) 0.2, Neutrophils # (Auto) 3.4, Lymphocytes # (Auto) 0.5 L, Monocytes # (Auto) 0.2, Eosinophils # (Auto) 0.0, Basophils # (Auto) 0.0 FSBS Laboratory Tests Test 11/23/16 11:37 11/23/16 17:29 11/23/16 21:03 Range/Units Bedside Glucose (Misc Panel) 251 242 356 80-115 MG/DL Microbiology Microbiology 11/19/16 Blood Culture - Final, Complete NO GROWTH AFTER 5 DAYS 11/19/16 MRSA Screen - Final, Complete Staph.aureus Methicillin Resis GME ATTESTATION GME ATTESTATION My preceptor for this patient encounter was physically present in the building during the encounter and was fully available. As needed, all aspects of the patient interview, examination, medical decision making process, and medical care plan development were reviewed and approved by the preceptor. Preceptor is aware and concurs with the plan as stated in the body of this note and will attest to such by his/her cosignature. SHANNAN ROA DO Nov 24, 2016 09:45
[2016-11-24] MEDS ORDERED: POTASSIUM CHLORIDE 10 MEQ SR TABLET PO ONE ×2 (10:00→14:00)
[2016-11-24] MEDS ORDERED: FUROSEMIDE 40 MG/4 ML VIAL (J1940) IV ONE (11:45)
[2016-11-24 12:00] VITALS: BP 147/70
--- NOTE | 2016-11-24 14:17 | IPN ---
DATE: 11/23/2016 66-year-old female seen at bedside. No overnight issues. Feels like she is breathing slightly better today and will try to wean her on her oxygen requirements. OBJECTIVE: Temperature is 96.2, pulse 71, respiratory rate 22, blood pressure 164/68, sPO2 is 91% on 2 liters nasal cannula. General: The patient appears in no acute distress. She is alert. HEENT is atraumatic, normocephalic. Eyes: Pupils equal, round, reactive to light and accommodation. Jugular venous distention difficult to estimate due to body habitus. Lungs: Diminished bibasilar breath sounds. No wheeze. No crackles. Heart: Regular rate and rhythm. Abdomen is obese, soft. Extremities: Some mild edema distally. No calf tenderness. LABORATORY DATA: White count is 3.5, hemoglobin 10.2, platelets are 82,000. Sodium 140, potassium 3.2, which we will supplement, chloride 101, bicarb 29, anion gap 10, BUN is 81, creatinine 2.53, glucose is 375, magnesium 1.9. ASSESSMENT/PLAN: 1. Acute on chronic diastolic congestive heart failure with extensive cardiac history. Appreciate Dr. Velázquez's assistance with maximizing diuretics. She does have a previous echo with an LV ejection fraction of 50 to 55%. We will plan on continuing with aspirin, Coreg statin and again appreciate Dr. Velázquez's assistance with the diuretics. Continue with daily weights, strict Is and Os. 2. History of obstructive sleep apnea (BRANDON). She does use bilevel positive airway pressure at night. Will continue to monitor. 3. Chronic kidney disease (CKD), stage IV: Creatinine at baseline. Continue Lasix. 4. Diabetes insulin dependent: Continue with fingersticks in the morning and at bedtime sliding scale coverage as well as consistent carbohydrate diet. 5. Thrombocytopenia, stable. Will monitor platelets. Continue with TEDS and sequentials for deep venous thrombosis prophylaxis. 6. History of cirrhosis: No change in current management. No signs of metabolic encephalopathy 7. Gastroesophageal reflux disease: Stable on proton pump inhibitor (PPI). 8. History of seizures chronic: Continue current medicines. 9. Dyslipidemia. Continue statin. 10. Deep venous thrombosis: TEDS and SCDs. DISPOSITION: Will continue with physical therapy. Try to titrate her oxygen requirements. Appreciate Dr. Velázquez's input.
--- NOTE | 2016-11-24 14:53 | IPN ---
DATE: 11/24/2016 66-year-old female seen at bedside resting comfortably. She is visiting with her family. She feels that her breathing is much improved and states that Dr. Velázquez is anticipating that we will be ready to discharge her tomorrow. She has diuresed well. No chest pain. No productive sputum cough. No nausea or vomiting. OBJECTIVE: Temperature is 98.0, pulse 61, respiratory rate is 18, blood pressure 147/70, SpO2 is 94% on 2 liters. GENERAL: The patient appears to be in no acute distress, is alert and oriented. HEENT: Head is atraumatic, normocephalic. Eyes pupils equal, round and reactive to light and accommodation. Throat clear. LUNGS: Diminished bibasilar breath sounds, occasional wheeze clears with cough. HEART: Regular rate and rhythm. ABDOMEN: Soft, obese. EXTREMITIES: No edema. No calf tenderness. LABORATORY DATA: White count is 140, potassium 3.2, which was supplemented by cardiology today. Chloride is 102, bicarb 30, anion gap 8, BUN is 81, creatinine 2.43, glucose is 253. ASSESSMENT/PLAN: 1. Acute on chronic diastolic congestive heart failure with an EF 50-55%. She is diuresing well. Appreciate Dr. Velázquez's input. Will continue with aspirin, Coreg and statin. Will anticipate discharging her tomorrow if she continues to do well. 2. History of obstructive sleep apnea. She has home BiPAP and doing well. 3. Chronic kidney disease, stage IV. Appears to be at baseline. 4. Insulin. Continue with insulin regimen. Fingersticks before meals and at bedtime. 5. Thrombocytopenia as previously indicated. Will continue to follow her platelets. They do appear to be stable. 6. Cirrhosis. Chronic. Continue with current management. 7. Gastroesophageal reflux disease (GERD). Stable on proton pump inhibitor (PPI). 8. History of seizures. No change in medications. 9. Dyslipidemia. Continue statin therapy. 10. Deep vein thrombosis (DVT) prophylaxis. Continue with thromboembolic deterrent stockings (TEDS) and sequential compression devices (SCD). DISPOSITION: Will anticipate home discharge tomorrow. Will work with patient and family services (PFS) to see if there are any barriers to her discharge. WARNER
[2016-11-24 16:00] VITALS: BP 146/70
[2016-11-24 20:00] VITALS: BP 152/81
[2016-11-24] MEDS: amLODIPine 10 MG TAB PO SCH (21:23)
[2016-11-25] VITALS: BP 169/80
[2016-11-25] MEDS: IPRATROPIUM 0.5MG/ALBUTEROL 2.5MG INH SOL UD 3ML (DUONEB)(J7620) NEB SCH ×2 (02:00→07:57)
[2016-11-25 04:00] VITALS: BP 147/71
[2016-11-25 05:20] LABS: BASO % 0.1 % (0.0-1.0); EOS % 0.1 % (0.0-3.0); LARGE UNSTAINED CELL # 0.1 K/mm3 (0.0-0.4); LARGE UNSTAINED CELL % 2.1 % (0.0-4.0); LYMPH # 0.5 K/mm3 (1.5-4.5); LYMPH % 14.3 % (24.0-44.0); MEAN CORPUSCULAR HEMOGLOBIN 26.6 pg (27.0-33.0); MEAN CORPUSCULAR HGB CONC 31.3 g/dl (32.0-36.5); MEAN CORPUSCULAR VOLUME 84.9 fl (80.0-96.0); MONO # 0.2 K/mm3 (0.0-0.8); MONO % 6.6 % (0.0-5.0); NEUTROPHILS # 2.7 K/mm3 (1.8-7.7); NEUTROPHILS % 76.8 % (36.0-66.0); RED CELL DISTRIBUTION WIDTH 14.7 % (11.5-14.5); WHITE BLOOD COUNT 3.5 K/mm3 (4.0-10.0)
[2016-11-25 05:22] LABS: PLATELET COUNT, AUTOMATED 94 k/mm3 (150-450)
[2016-11-25 05:26] LABS: CALCIUM LEVEL 8.8 MG/DL (8.8-10.2); CREATININE FOR GFR 2.34 MG/DL (0.55-1.02); GLOMERULAR FILTRATION RATE 22.2 (>45); MAGNESIUM LEVEL 1.9 MG/DL (1.8-2.4); POTASSIUM SERUM 3.7 MEQ/L (3.5-5.1)
[2016-11-25] MEDS: HumaLOG INSULIN (NovoLOG) PER UNIT SC SCH (07:37)
[2016-11-25] MEDS ORDERED: DOXY10CA PO (07:50)
[2016-11-25] MEDS: ADVAIR DISKUS 250/50 INH PWD INH SCH (07:57)
[2016-11-25 08:00] VITALS: BP 137/61
--- NOTE | 2016-11-25 08:11 | IPN ---
DATE: 11/25/2016 Mrs. Booker tells me that she is feeling much better and she would like to go home. She slept well with her BiPap. She was able to ambulate around intensive care unit (ICU) in her room and also outside of the room without difficulty with the help of her walker. She tells me that she feels much better compared to prior to coming to the hospital. Vital signs: Blood pressure 147/71, heart rate is in 60s. Saturation is in the mid 90s on room air. Fluid balance yesterday was documented about half a liter negative. Weight is not documented as yet this morning. She is alert and oriented and appropriate. Her jugular venous pressure does not appear elevated on my exam. Lungs are clear to auscultation with much improved air movement. Heart exam reveals regular rhythm. I do not appreciate any gallop. There is faint murmur at the base. Abdomen is soft. No tenderness. No peripheral edema. Neurologically, she is intact. LABORATORY: Hemoglobin 11, hematocrit 35, platelet count 94,000. Basic metabolic panel: Potassium 3.7, BUN 86, creatinine 2.3 for GFR 22 and glucose 227. ASSESSMENT/PLAN: Mrs. Booker is a 66-year-old female who came with respiratory failure that was principally a consequence of acute on chronic diastolic congestive heart failure in the setting of stage IV renal insufficiency and underlying liver cirrhosis. She did improve with use of noninvasive supportive ventilation and diuresis. At this point, I believe she can be discharged home in accordance with her desires. She was at her baseline on 80 mg of torsemide administered in a twice a day fashion. I believe that she needs a little more diuretics going home, and I would probably give her 100 mg of torsemide daily with supplemental potassium 40 mEq daily. I had a discussion with her about necessity to stay away from salt as much as possible, and she tells me that she will obtain a scale and will weigh herself on a daily basis. 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
[2016-11-25] MEDS: oxyBUTYnin 5 MG TAB PO SCH (09:11)
[2016-11-25] MEDS: OMEPRAZOLE 20 MG CAP PO SCH (09:11)
[2016-11-25] MEDS: LEVEMIR (INSULIN DETEMIR) 1 UNITS/0.01ML SC SCH (09:11)
[2016-11-25] MEDS: DOXYCYCLINE HYCLATE 100 MG TAB PO SCH (09:11)
[2016-11-25 09:12] VITALS: BP 137/61
[2016-11-25] MEDS: PREGABALIN 50 MG CAP (LYRICA) PO SCH (09:12)
[2016-11-25] MEDS: ATORVASTATIN 20 MG TAB PO SCH (09:12)
[2016-11-25] MEDS: predniSONE 20 MG TAB PO SCH (09:12)
[2016-11-25] MEDS: ASPIRIN ENTERIC 325 MG TAB PO SCH (09:12)
[2016-11-25] MEDS: CARVedilol 12.5 MG TAB PO SCH (09:12)
[2016-11-25] MEDS: FOLIC ACID 1 MG TAB PO SCH (09:12)
[2016-11-25] MEDS: NYSTATIN 100,000 UNITS/GM TOPICAL PWD 15 GM TOP SCH (09:13)
[2016-11-25] MEDS: levETIRAcetam 250MG TABLET (KEPPRA) PO SCH (09:13)
--- NOTE | 2016-11-25 10:18 | DSES ---
DATE OF ADMISSION: 11/19/2016 DATE OF DISCHARGE: 11/25/2016 PRIMARY CARE PROVIDER: Lakeisha Pinto NP CONSULTANTS. Dr. Velázquez PROCEDURES PERFORMED: COMPLICATIONS: None. ADMISSION/DISCHARGE DIAGNOSES: 1. Acute shortness of breath with Acute Hypercarbnic Respiratory Failure on admission. 2. Acute on chronic diastolic heart failure with decompensation 3. Chronic obstructive pulmonary disease (COPD) exacerbation. 4. Chronic kidney disease (CKD) stage IV, at baseline. 5. Diabetes. 6. Obstructive sleep apnea. 7. Chronic thrombocytopenia. 8. Liver cirrhosis. 9. Gastroesophageal reflux disease (GERD). 10. History of seizures. BRIEF HOSPITAL COURSE: Ms. Booker is a pleasant, 66-year-old female who presented to the emergency department on 11/11/2016 with increasing difficulty with breathing, increasing shortness of breath for approximately a week. Had been seen at [place] emergency department with increasing chest pressure and dyspnea on exertion. Was given a dose of Lasix. [place] that she was safe to discharge home. However, she had deteriorated at home during the night and brought to the emergency department by ambulance. She did have a one-time episode of vomiting in the emergency department. While there, she had respiratory rate of 29, SPO2 in the 70's and abg showed pH 7.208 with pCO2 71.3; indicating acute hypercarbnic respiratory failure. Also, she was felt to be volume overloaded as well as COPD exacerbation. Was given Lasix, Zofran, nebulizer treatment, started on dexamethasone and did feel somewhat better, but felt that she would be better admitted and further evaluated by the hospitalist group. Her labs did indicate a brain natriuretic peptide (BNP) of greater than 2000. White count was 6.4. Chemistry showed a sodium 146, potassium 3.6, chloride 108, bicarbonate 31. Her BUN was 36, creatinine 2.42. At any rate, she was admitted to the intensive care unit (ICU). She did require some bilevel positive airway pressure (BiPAP) for assistance, further aggressive diuresis and Dr. Muñoz was consulted briefly , who did not feel that she needed any further pulmonary intervention. She is on BiPAP at home. What was required in the ICU matched her home settings for BiPAP , and Dr. Velázquez was consulted and felt that the patient needed to be diuresed further to assist with her exacerbation of her CHF. At any rate, she did gradually improve. On day of discharge, she was felt to be back to her baseline and appropriate for home discharge with close followup with her primary care provider. For further information regarding intake, physical, labs, diagnostics , please refer to the history and physical and refer to Dr. Velázquez and Dr. Muñoz' s consult notes. PHYSICAL EXAMINATION: Today, temperature is 90.2, pulse 61, respiratory rate is 20, blood pressure (BP ) is 137/61, SpO2 is 90% on room air. HEENT: Unremarkable. Unable to determine jugular venous distention (JVD) due to body habitus. Lungs: Diminished bibasilar breath sounds, occasional wheeze clears with cough. Heart: Regular rate and rhythm. Abdomen is soft, obese, nontender. Extremities: No edema. No calf tenderness. LABORATORY DATA: White count 3.5, hemoglobin is 11, platelets are 94,000. Sodium is 141, potassium 3.7, chloride 104, bicarbonate 29, anion gap 8, BUN is 86, creatinine 2.34, glucose is 227, calcium 8.8, and magnesium 1.9. Discharge condition is good. DISPOSITION: Discharge to home with appropriate followup. [facility] was placed. DISCHARGE MEDICATIONS: - doxycycline 100 mg twice a day - albuterol inhaler as directed - albuterol nebulizer as directed - Norvasc 10 mg daily - aspirin 325 mg daily - Lipitor 40 mg daily - Carvedilol 25 mg twice a day - vitamin D 50,000 units monthly - folic acid 1 mg daily - Lasix 20 mg twice a day - NovoLog sliding scale before meals and nightly Keppra 1000 mg twice a day - sublingual nitroglycerin 0.4 mg sublingually every 5 minutes as needed - omeprazole 40 mg daily - oxybutynin 5 mg daily - Lyrica 50 mg twice a day - Advair Diskus 250/50 inhaler one inhalation twice a day - Toujeo SoloStar 18 units twice a day - trazodone 100 mg nightly DISCHARGE INSTRUCTIONS: Discharged home. Followup with Lakeisha Pinto NP in a week. Activity as tolerated. Consistent carbohydrate diet. 1800 mL fluid restriction. She is encouraged to return the emergency department if symptoms should worsen or progress. She voices understanding. Discharge took 35 minutes. WARNER
== END 2016-11-25 11:21 | disposition home health service (06) | DRG 291 ==
LOC: M ED 00:17 → M ED INP 03:54 → M ICU 11:40
PROVIDERS: ADMIT Hospitalist; ATTEND Internal Medicine
PROC: 5A09457 Assistance with Respiratory Ventilation, 24-96 Consecutive Hours, Continuous Positive Airway Pressure (ICD-10-PCS; principal; 2016-11-19)
DX: I13.0 Hypertensive heart and chronic kidney disease with heart failure and stage 1 through stage 4 chronic kidney disease, or unspecified chronic kidney disease (principal); I50.33 Acute on chronic diastolic (congestive) heart failure; J96.02 Acute respiratory failure with hypercapnia; N18.4 Chronic kidney disease, stage 4 (severe); J44.1 Chronic obstructive pulmonary disease with (acute) exacerbation; E11.9 Type 2 diabetes mellitus without complications; G47.33 Obstructive sleep apnea (adult) (pediatric); K21.9 Gastro-esophageal reflux disease without esophagitis; D69.6 Thrombocytopenia, unspecified; F17.210 Nicotine dependence, cigarettes, uncomplicated; E78.5 Hyperlipidemia, unspecified; K74.60 Unspecified cirrhosis of liver; Z79.4 Long term (current) use of insulin; Z79.899 Other long term (current) drug therapy; Z98.61 Coronary angioplasty status; Z99.89 Dependence on other enabling machines and devices; Z91.013 Allergy to seafood; Z88.8 Allergy status to other drugs, medicaments and biological substances; Z88.1 Allergy status to other antibiotic agents; I25.2 Old myocardial infarction; Z90.710 Acquired absence of both cervix and uterus

== ENCOUNTER → 2016-12-02 | Outpatient (REF) | payer MEDICARE, OTHER, MEDICAID ==
[~2016-12-02] MED LIST changes: +AMMO12CR4 TOP; +AUGM875T27 PO; +DOXY-278 PO; +DOXY10CA PO; +POTA10CA PO; +PRED10TA FT; +TORS100T PO
[2016-12-02 16:33] LABS: CALCIUM LEVEL 8.7 MG/DL (8.8-10.2); CREATININE FOR GFR 2.36 MG/DL (0.55-1.02); POTASSIUM SERUM 3.9 MEQ/L (3.5-5.1)
== END ==
LOC: M LABDRWSH 15:33
PROVIDERS: ATTEND Internal Medicine Cardiovascular Disease
DX: I50.9 Heart failure, unspecified (principal)

== ENCOUNTER 2016-12-20 12:59 | Inpatient (IN) | payer OTHER, MEDICAID ==
[~2016-12-20] VITALS: Ht 154.9 cm; Wt 77.8 kg
[~2016-12-20 12:59] MED LIST changes: -AMMO12CR4 TOP; -AUGM875T27 PO; -DOXY-278 PO; -POTA10CA PO; -PRED10TA FT; -TORS100T PO
[2016-12-20] MEDS: IPRATROPIUM 0.5MG/ALBUTEROL 2.5MG INH SOL UD 3ML (DUONEB)(J7620) NEB PRN ×2 (13:58→14:24)
[2016-12-20] MEDS ORDERED: methylPREDNISolone INJ 125 MG/2 ML VIAL (J2930) IV ONE (14:00)
[2016-12-20 14:57] LABS: DIFF SLIDE NUMBER 265; MEAN CORPUSCULAR HEMOGLOBIN 26.5 pg (27.0-33.0); MEAN CORPUSCULAR HGB CONC 30.7 g/dl (32.0-36.5); MEAN CORPUSCULAR VOLUME 86.3 fl (80.0-96.0); RED CELL DISTRIBUTION WIDTH 15.4 % (11.5-14.5); WHITE BLOOD COUNT 4.8 K/mm3 (4.0-10.0)
--- NOTE | 2016-12-20 15:13 | REP ---
REASON: Dyspnea and cough. COMPARISON: Multiple, the latest 11/19/2016, a portable exam. The technique utilized in obtaining the radiograph has magnified the cardiac silhouette and accentuated the interstitial markings. The cardiomediastinal silhouette is unchanged. There is mild cardiomegaly. Note is again made of a previous median sternotomy. No acute patchy parenchymal opacities or pleural effusions have developed. There is no significant change of the appearance of the lung pryor. There is no change in the osseous structures. IMPRESSION: Stable appearing chronic changes without evidence of acute cardiopulmonary disease. Signed by Jacob Wihlelm DO 12/20/2016 03:49 P
[2016-12-20 15:16] LABS: PLATELET COUNT, AUTOMATED 79 k/mm3 (150-450)
[2016-12-20 15:21] LABS: HYPOCHROMASIA 1+
[2016-12-20 15:43] LABS: ANION GAP 8 MEQ/L (8-16); BLOOD UREA NITROGEN 38 MG/DL (7-18); CALCIUM LEVEL 8.5 MG/DL (8.8-10.2); CARBON DIOXIDE LEVEL 26 MEQ/L (21-32); CHLORIDE LEVEL 108 MEQ/L (98-107); CREATININE FOR GFR 2.53 MG/DL (0.55-1.02); GLOMERULAR FILTRATION RATE 20.3 (>45); GLUCOSE, FASTING 201 MG/DL (80-110); POTASSIUM SERUM 4.5 MEQ/L (3.5-5.1); SODIUM LEVEL 142 MEQ/L (136-145)
[2016-12-20] MEDS ORDERED: FUROSEMIDE 20 MG/2 ML VIAL (J1940) IV ONE (16:15)
[2016-12-20] MEDS ORDERED: DOXYCYCLINE HYCLATE 100 MG in D5W MINI-BAG PLUS 100 ML IV ONE (16:15)
[2016-12-20] MEDS ORDERED: ONDANSETRON 4MG/2ML VIAL (J2405) IV PRN (17:15)
[2016-12-20] MEDS ORDERED: ACETAMINOPHEN TAB 650MG DOSE (2X325MG) PO PRN (17:15)
[2016-12-20] MEDS ORDERED: TORS100T PO (17:24)
[2016-12-20] MEDS ORDERED: POTA10CA PO (17:24)
[2016-12-20] MEDS ORDERED: TOPI50TA4 PO (17:24)
[2016-12-20] MEDS ORDERED: AMMO12CR4 TOP (17:24)
[2016-12-20 17:27] LABS: ABG BASE EXCESS -2.1 (-2.0-2.0); ABG HCO3 24.6 MEQ/L (22.0-26.0); ABG PARTIAL PRESSURE CO2 50.7 mmHg (35.0-45.0); ABG PARTIAL PRESSURE O2 70.7 mmHg (75.0-100.0); ABG STANDARD HCO3 22.6 MEQ/L (22.0-26.0); ABG TOTAL CO2 26.2 MEQ/L (23.0-31.0); ABG pH (ARTERIAL) 7.304 UNITS (7.350-7.450)
[2016-12-20] MEDS ORDERED: ALBUTEROL SULFATE 2.5 MG/0.5 ML INH NEB SOLN INH PRN (17:30)
[2016-12-20] MEDS ORDERED: NITROGLYCERIN 0.4 MG SUBL TABLET SL PRN (17:45)
--- NOTE | 2016-12-20 20:00 | HPE ---
DATE OF ADMISSION: 12/20/2016 PRIMARY CARE PROVIDER: AVTAR Christensen of the [facility] DATA SPECIALIST: Dr. Mcgvoern FUR DRESSING SUPERVISOR: Dr. Muñoz BACTERIOLOGY TECHNICIAN: Dr. Velázquez DETENTION WORKER: Dr. Diez CHIEF COMPLAINT: "They made me come in." SUMMARY OF PRESENTATION: This is a 66-year-old who was feeling well until yesterday. [place] a little short of breath on the day prior to presentation and threw out her cigarettes, she decided to quit smoking. She went to bed and she woke up three to four times overnight, which is the normal amount to go to the bathroom. She developed cough productive of dark sputum and experienced sharp pain that went to the back and to the arms. She does experience this type of chest pain and pain in her arms on nearly a daily basis. She says that in order to make it go away she just rests, although is not particularly brought on by any specific activity. She has chills and night sweats. Sitting up does make it easier to breathe, but also does ease her chronic back pain. Her diet at home is less than 2 liters of fluid a day, low sodium. She has lost 40 pounds in four months. She is not complaining of any swelling in her legs. She has been feeling quite sleepy. PAST MEDICAL HISTORY: Notable for: 1. Coronary artery disease with coronary artery bypass graft (CABG) in 2011. 2. Chronic obstructive pulmonary disease (COPD). 3. Diabetes on insulin. 4. Dyslipidemia. 5. Chronic kidney disease stage III. 6. Hypertension. 7. Obstructive sleep apnea, for which she uses bilevel positive airway pressure (BIPAP). 8. Cirrhosis related to her diabetes, as well as splenomegaly. 9. CHF with diastolic dysfunction PAST SURGICAL HISTORY: Notable for: 1. section times three. 2. Appendectomy. 3. Tonsillectomy. 4. Three-vessel CABG. 5. Hysterectomy done with her last section. 6. Some sort of back fusion surgery. 7. Bilateral carpal tunnel surgery. 8. Left ankle surgery, which has left her with an uneven gait and has limited her ability to ambulate. 9. Left hip surgery. 10. Right shoulder surgery. 11. Bilateral cataract extraction and laser treatment thereafter. FAMILY HISTORY: Unremarkable due to comorbid illness. SOCIAL HISTORY: The patient continues to smoke on and off, but quit yesterday. Does not use any alcohol. She lives in [place] in the [facility] [address]. She mainly uses a wheelchair. Cannot walk any distance. REVIEW OF SYSTEMS: Notable for no headache. No visual changes. No neck pain. No sick contacts. She has cough productive of sputum. No current chest pain, although she did have chest pain this morning. No abdominal pain. She did feel like she was going to have a bowel movement last night but was unable to. She has noticed no difference in her bowel or bladder patterns. No focal weakness. Otherwise, unremarkable. ALLERGIES: She has listed allergies to AMILORIDE, NEURONTIN, GUAIFENESIN, SHELLFISH, SPIRONOLACTONE, STREPTOKINASE, VANCOMYCIN. HOME MEDICATIONS: Listed as: - albuterol - Norvasc 10 mg two tablets by mouth at night - aspirin 325 mg daily - atorvastatin 40 mg by mouth at night - Coreg 25 mg by mouth twice a day - vitamin D supplement monthly - folic acid 1 mg daily - NovoLog before meals - Keppra 1000 mg by mouth twice a day - sublingual nitroglycerin as needed - omeprazole 40 mg daily - oxybutynin 5 mg by mouth daily - potassium chloride 10 mEq twice a day - Lyrica 50 mg by mouth twice a day - Advair 250/50 inhaled twice a day - Topamax 50 mg by mouth twice a day - torsemide 100 mg by mouth daily - trazodone 100 mg by mouth at night - ammonium lactate topically - Toujeo ASSESSMENT: This is a 66-year-old who presented with increasing shortness of breath with possible chronic obstructive pulmonary disease (COPD) exacerbation or perhaps concomitant or more likely decompensated heart failure. The patient will require at least a two midnight hospital stay in telemetry monitoring. PLAN: 1. The patient has shortness of breath and sputum production and history of recent positive methicillin resistant Staphylococcus aureus (MRSA) screen. The patient is started on steroids and Teflaro empirically for bronchitis and/or COPD exacerbation. We will continue with aggressive pulmonary toilet. We will give an Acapella device. The patient can use her home BiPAP, which is at bedside, for her obstructive sleep apnea. We will also treat for decompensated congestive heart failure (CHF) with Lasix, which I believe will be useful in her recovery. The patient will be fluid restricted. 2. The patient has dehydration on chronic kidney disease and is being followed by nephrology. Continue with diuresis. May benefit from nephrology consultation as clinically warranted. 3. The patient has known coronary artery disease. We will continue her home medications and aspirin. Patient has chronic diastolic dysfunction. 4. The patient has type 2 diabetes and will be placed on a sliding scale. May require basal coverage, depending on how fast steroids can be weaned. We do not have Toujeo in the hospital, would need to use Levemir. 5. The patient has a history of seizure. Continue on home antiepileptic drugs. 6. The patient has appropriate deep vein thrombosis (DVT) prophylaxis. MTDD
[2016-12-20 20:26] VITALS: BP 168/82
[2016-12-20] MEDS ORDERED: GLUCAGON FOR INJ 1 MG VIAL (J1610) SC PRN (20:45)
[2016-12-20] MEDS ORDERED: GLUCOSE 4 GM CHEW TABLET PO PRN (20:45)
[2016-12-20] MEDS ORDERED: CEFTAROLINE FOSAMIL 600 MG in D5W MINI-BAG PLUS 50 ML IV ONE (21:00)
[2016-12-20] MEDS: IPRATROPIUM 0.5MG/ALBUTEROL 2.5MG INH SOL UD 3ML (DUONEB)(J7620) NEB SCH (21:14)
[2016-12-20] MEDS: ASPIRIN ENTERIC 325 MG TAB PO SCH (21:18)
[2016-12-20] MEDS: oxyBUTYnin 5 MG TAB PO SCH (21:18)
[2016-12-20] MEDS: FUROSEMIDE 40 MG/4 ML VIAL (J1940) IV SCH (21:19)
[2016-12-20] MEDS: OMEPRAZOLE 20 MG CAP PO SCH (21:19)
[2016-12-20] MEDS: FOLIC ACID 1 MG TAB PO SCH (21:19)
[2016-12-20] MEDS: methylPREDNISolone INJ 125 MG/2 ML VIAL (J2930) IV SCH (21:36)
[2016-12-20] MEDS: CARVedilol 12.5 MG TAB PO SCH (21:36)
[2016-12-20] MEDS: ATORVASTATIN 20 MG TAB PO SCH (21:36)
[2016-12-20] MEDS: levETIRAcetam 250MG TABLET (KEPPRA) PO SCH (21:37)
[2016-12-20] MEDS: TOPIRAMATE (TopAMAX) 25 MG TAB PO SCH (21:37)
[2016-12-20] MEDS: amLODIPine 10 MG TAB PO SCH (21:37)
[2016-12-20] MEDS: PREGABALIN 50 MG CAP (LYRICA) PO SCH (21:37)
[2016-12-20] MEDS: HumaLOG INSULIN (NovoLOG) PER UNIT SC SCH (21:38)
[2016-12-20] MEDS: HEPARIN SOD (PORCINE) 5000 UNITS/ML VIAL SC SCH (21:51)
[2016-12-21] VITALS (7 sets, daily range): BP systolic 142–162; BP diastolic 70–86
[2016-12-21] MEDS ORDERED: FUROSEMIDE 40 MG/4 ML VIAL (J1940) IV SCH
[2016-12-21] MEDS: FUROSEMIDE 40 MG/4 ML VIAL (J1940) IV SCH ×4 (00:38→17:29)
[2016-12-21 01:27] LABS: ABG BASE EXCESS -3.2 (-2.0-2.0); ABG HCO3 22.6 MEQ/L (22.0-26.0); ABG PARTIAL PRESSURE CO2 43.6 mmHg (35.0-45.0); ABG PARTIAL PRESSURE O2 66.4 mmHg (75.0-100.0); ABG STANDARD HCO3 21.7 MEQ/L (22.0-26.0); ABG TOTAL CO2 23.9 MEQ/L (23.0-31.0); ABG pH (ARTERIAL) 7.332 UNITS (7.350-7.450)
[2016-12-21] MEDS ORDERED: SLF 3 ML SYR IV PRN (03:30)
[2016-12-21] MEDS: methylPREDNISolone INJ 125 MG/2 ML VIAL (J2930) IV SCH ×3 (05:12→21:46)
[2016-12-21] MEDS: SLF 3 ML SYR IV SCH ×3 (05:12→21:46)
[2016-12-21 05:52] LABS: MEAN CORPUSCULAR HEMOGLOBIN 25.8 pg (27.0-33.0); MEAN CORPUSCULAR HGB CONC 30.5 g/dl (32.0-36.5); MEAN CORPUSCULAR VOLUME 84.9 fl (80.0-96.0); RED CELL DISTRIBUTION WIDTH 15.5 % (11.5-14.5)
[2016-12-21 06:10] LABS: ANION GAP 11 MEQ/L (8-16); BLOOD UREA NITROGEN 44 MG/DL (7-18); CALCIUM LEVEL 8.6 MG/DL (8.8-10.2); CARBON DIOXIDE LEVEL 24 MEQ/L (21-32); CHLORIDE LEVEL 105 MEQ/L (98-107); GLOMERULAR FILTRATION RATE 20.6 (>45); GLUCOSE, FASTING 290 MG/DL (80-110); MAGNESIUM LEVEL 2.1 MG/DL (1.8-2.4); POTASSIUM SERUM 4.3 MEQ/L (3.5-5.1); SODIUM LEVEL 140 MEQ/L (136-145)
[2016-12-21] MEDS: IPRATROPIUM 0.5MG/ALBUTEROL 2.5MG INH SOL UD 3ML (DUONEB)(J7620) NEB SCH ×4 (08:26→20:45)
[2016-12-21] MEDS: HEPARIN SOD (PORCINE) 5000 UNITS/ML VIAL SC SCH (09:00)
[2016-12-21] MEDS: HumaLOG INSULIN (NovoLOG) PER UNIT SC SCH ×4 (09:01→21:45)
[2016-12-21] MEDS: CARVedilol 12.5 MG TAB PO SCH ×2 (09:02→21:43)
[2016-12-21] MEDS: levETIRAcetam 250MG TABLET (KEPPRA) PO SCH ×2 (09:02→21:44)
[2016-12-21] MEDS: OMEPRAZOLE 20 MG CAP PO SCH (09:02)
[2016-12-21] MEDS: PREGABALIN 50 MG CAP (LYRICA) PO SCH ×2 (09:03→21:43)
[2016-12-21] MEDS: TOPIRAMATE (TopAMAX) 25 MG TAB PO SCH ×2 (09:03→21:44)
[2016-12-21] MEDS: oxyBUTYnin 5 MG TAB PO SCH (09:03)
[2016-12-21] MEDS: FOLIC ACID 1 MG TAB PO SCH (09:03)
[2016-12-21] MEDS: ASPIRIN ENTERIC 325 MG TAB PO SCH (09:04)
[2016-12-21] MEDS: CEFTAROLINE FOSAMIL 300 MG in D5W 50 ML IV SCH ×2 (09:18→21:46)
--- NOTE | 2016-12-21 10:38 | ECGEPIP ---
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
--- NOTE | 2016-12-21 14:52 | IPNPDOC ---
Text Note Date of Service The patient was seen on 12/21/16. NOTE Subjective: Patient is a 66 year old female with a PMHx CAD s/p CABG, COPD, IDDM2 , DLP, CKD3, HTN, BRANDON on BIPAP, Cirrhosis (2/2 DM2) who presented to the ER because of productive cough, chest pain and dyspnea. Patient was admitted for COPD exacerbation. Patient was seen and examined at the bedside. She was very upset with her experience at the hospital. Clinically she is doing well without any complaints. Objective: Vitals (See below) General: Lying in bed, no acute distress, comfortable, AAOx3 HEENT: NC, AT CVS: RRR, +S1S2 Lungs: Fair air entry b/l, -w/r/r Abdomen: Soft, ND, NT, +BSx4 Extremities: +PPx4, - Edema, - Calf tenderness Assessment and plan: 1. Dyspnea - likely 2/2 acute COPD exacerbation, less likely 2/2 decompensated diastolic CHF exacerbation - Presented with productive cough, chest pain and SOB - Presented with wheezing - which revealed improvement today - CXR no acute cardiopulmonary process - c/w BIPAP from Home and Acapella - c/w Ceftaroline, Solumedrol, Duoneb 2. Normocytic anemia - HG at baseline 3. CKD3 - Cr at baseline - Will follow for now 4. CAD - c/w ASA and Atorvastatin 5. IDDM2 - c/w ISS and Levemir 6. Seizure disorder - c/w topiramate 7. DLP - c/w atorvastatin 8. HTN - BP well controlled - c/w home medications 9. BRANDON on BIPAP 10. Cirrhosis (2/2 DM2) 11. GERD - c/w omeprazole 12. DVT prophylaxis - c/w Heparin VS,Fishbone, I+O VS, Fishbone, I+O Laboratory Tests 12/20/16 14:55 Calcium Level 8.5 L, Total Creatine Kinase 63 12/21/16 05:30 Calcium Level 8.6 L, Total Creatine Kinase 38, Red Blood Count 3.96 L, Mean Corpuscular Volume 84.9, Mean Corpuscular Hemoglobin 25.8 L, Mean Corpuscular Hemoglobin Concent 30.5 L, Red Cell Distribution Width 15.5 H Vital Signs Date Time Temp Pulse Resp B/P Pulse Ox O2 Delivery O2 Flow Rate FiO2 12/21/16 12:00 96.7 75 22 142/70 97 Room Air 12/21/16 07:53 4.0 I&O- Last 24 Hours up to 6 AM 12/21/16 06:00 Output Total 300 ml Balance -300 ml BILL SPEARS MD Dec 21, 2016 14:52
[2016-12-21] MEDS: amLODIPine 10 MG TAB PO SCH (21:42)
[2016-12-21] MEDS: ATORVASTATIN 20 MG TAB PO SCH (21:43)
[2016-12-22] MEDS: FUROSEMIDE 40 MG/4 ML VIAL (J1940) IV SCH ×2 (00:58→05:46)
[2016-12-22 04:00] VITALS: BP 162/74
[2016-12-22] MEDS: SLF 3 ML SYR IV SCH (05:47)
[2016-12-22] MEDS: methylPREDNISolone INJ 125 MG/2 ML VIAL (J2930) IV SCH (05:47)
[2016-12-22 05:55] LABS: MEAN CORPUSCULAR HEMOGLOBIN 27.1 pg (27.0-33.0); MEAN CORPUSCULAR HGB CONC 32.5 g/dl (32.0-36.5); MEAN CORPUSCULAR VOLUME 83.4 fl (80.0-96.0); RED CELL DISTRIBUTION WIDTH 15.8 % (11.5-14.5); WHITE BLOOD COUNT 4.1 K/mm3 (4.0-10.0)
[2016-12-22 06:09] LABS: CALCIUM LEVEL 8.2 MG/DL (8.8-10.2); CREATININE FOR GFR 2.63 MG/DL (0.55-1.02); GLOMERULAR FILTRATION RATE 19.4 (>45); POTASSIUM SERUM 3.7 MEQ/L (3.5-5.1)
[2016-12-22] MEDS: IPRATROPIUM 0.5MG/ALBUTEROL 2.5MG INH SOL UD 3ML (DUONEB)(J7620) NEB SCH ×2 (07:22→11:25)
[2016-12-22 07:30] VITALS: BP 166/90
[2016-12-22] MEDS: FOLIC ACID 1 MG TAB PO SCH (08:20)
[2016-12-22] MEDS: oxyBUTYnin 5 MG TAB PO SCH (08:20)
[2016-12-22] MEDS: ASPIRIN ENTERIC 325 MG TAB PO SCH (08:20)
[2016-12-22] MEDS: TOPIRAMATE (TopAMAX) 25 MG TAB PO SCH (08:20)
[2016-12-22] MEDS: PREGABALIN 50 MG CAP (LYRICA) PO SCH (08:20)
[2016-12-22] MEDS: HumaLOG INSULIN (NovoLOG) PER UNIT SC SCH (08:20)
[2016-12-22] MEDS: OMEPRAZOLE 20 MG CAP PO SCH (08:20)
[2016-12-22] MEDS: levETIRAcetam 250MG TABLET (KEPPRA) PO SCH (08:20)
[2016-12-22] MEDS: CEFTAROLINE FOSAMIL 300 MG in D5W 50 ML IV SCH (08:21)
[2016-12-22 08:23] VITALS: BP 166/90
[2016-12-22] MEDS: CARVedilol 12.5 MG TAB PO SCH (08:23)
[2016-12-22] MEDS ORDERED: AUGM875T27 PO (10:04)
[2016-12-22] MEDS ORDERED: PRED10TA FT (10:04)
[2016-12-22] MEDS ORDERED: DOXY-278 PO (10:04)
--- NOTE | 2016-12-22 14:42 | DSES ---
DATE OF ADMISSION: 12/20/2016 DATE OF DISCHARGE: 12/22/2016 ATTENDING PHYSICIAN: Liliana Mensah MD PRIMARY CARE PHYSICIAN: Lakeisha Pinto PA-C REFERRING PHYSICIAN: None. CONSULTING PHYSICIANS: None. CONDITION ON DISCHARGE: Stable. FINAL DIAGNOSIS: Community acquired pneumonia and chronic obstructive pulmonary disease (COPD) exacerbation. PROCEDURES: None. HISTORY OF PRESENT ILLNESS: Patient is a 66-year-old female with a past medical history of coronary artery disease status post coronary artery bypass grafting (CABG), chronic obstructive pulmonary disease (COPD), insulin dependent diabetes mellitus type 2, dyslipidemia, chronic kidney disease III, hypertension, obstructive sleep apnea (BRANDON) on BiPAP, cirrhosis secondary to diabetes mellitus type 2, who presented to the emergency room because of productive, chest pain and dyspnea. The patient was admitted for COPD exacerbation and possible community acquired pneumonia. The patient was seen and examined at the bedside. HOSPITAL COURSE: 1. Acute COPD exacerbation less likely decompensated diastolic CHF. Presented with productive cough, chest pain and shortness of breath. Presented with wheezing, which has improved. Chest x-ray revealed no acute cardiopulmonary process. Continued with BiPAP from home and Acapella. Continue with ceftaroline, Solu-Medrol and DuoNeb upon discharge. She is being discharged home with doxycycline and Augmentin as well as a tapering dose of prednisone. 2. Normocytic anemia. Hemoglobin is at baseline. 3. Chronic kidney disease III. Currently at baseline. 4. Coronary artery disease. Continue with aspirin and atorvastatin. 5. Insulin dependent diabetes mellitus type 2. Continue with insulin sliding scale and Levemir. 6. Seizure disorder. Continue with topiramate. 7. Dyslipidemia. Continue with atorvastatin. 8. Hypertension. Blood pressure well controlled. Continue with home medications. 9. Obstructive sleep apnea (BRANDON). Continue with BiPAP. 10. Cirrhosis secondary to diabetes mellitus type 2. 11. Gastroesophageal reflux disease (GERD). Continue with omeprazole. 12. Deep vein thrombosis (DVT) prophylaxis. Continue with heparin. DISCHARGE MEDICATIONS: The patient is being discharged home with the following medication list: - albuterol inhaled two puffs inhaled every 4 hours as needed shortness of breath - amlodipine 20 mg by mouth at bedtime - aspirin 325 mg by mouth daily - atorvastatin 40 mg by mouth at bedtime - carvedilol 25 mg by mouth twice a day - vitamin D 50,000 units by mouth monthly - folic acid 1 mg by mouth daily - insulin aspart to be taken as directed - Keppra 1000 mg by mouth twice a day - nitroglycerin 0.4 mg sublingual as needed angina - omeprazole 40 mg by mouth daily - oxybutynin 5 mg by mouth daily - potassium chloride 10 mEq by mouth twice a day - Lyrica 50 mg by mouth twice a day - Advair Diskus 250/50 one puff inhaled twice a day - topiramate 50 mg by mouth twice a day - torsemide 100 mg by mouth daily - Toujeo 18 units subcutaneous twice a day - trazodone 100 mg by mouth at bedtime New medications prescribed include: - Augmentin 875/125 by mouth twice a day for 10 tablets - doxycycline 100 mg by mouth twice a day for 10 tablets - prednisone to be taken as directed on tapering basis DISCHARGE INSTRUCTIONS: The patient will be discharged with instructions to followup with her primary care provider and family consultant within the next seven days. She has been advised to remain compliant with her treatment plan and medications and return to the emergency room if she experiences any problems. Time spent on discharge is 35 minutes.
== END 2016-12-22 11:55 | disposition home health service (06) | DRG 140 ==
LOC: EDBD 12:59 → M ED 13:51 → M ED INP 17:12 → M PCU 20:08
PROVIDERS: ADMIT Internal Medicine; ATTEND Internal Medicine
DX: J44.1 Chronic obstructive pulmonary disease with (acute) exacerbation (principal); N17.9 Acute kidney failure, unspecified; J18.9 Pneumonia, unspecified organism; I50.32 Chronic diastolic (congestive) heart failure; E11.9 Type 2 diabetes mellitus without complications; I12.9 Hypertensive chronic kidney disease with stage 1 through stage 4 chronic kidney disease, or unspecified chronic kidney disease; D64.9 Anemia, unspecified; K74.60 Unspecified cirrhosis of liver; N18.3 Chronic kidney disease, stage 3 (moderate); R16.1 Splenomegaly, not elsewhere classified; I25.10 Atherosclerotic heart disease of native coronary artery without angina pectoris; F17.210 Nicotine dependence, cigarettes, uncomplicated; E78.5 Hyperlipidemia, unspecified; G47.33 Obstructive sleep apnea (adult) (pediatric); G40.909 Epilepsy, unspecified, not intractable, without status epilepticus; K21.9 Gastro-esophageal reflux disease without esophagitis; Z79.899 Other long term (current) drug therapy; Z79.4 Long term (current) use of insulin; Z99.89 Dependence on other enabling machines and devices; Z98.61 Coronary angioplasty status; Z90.710 Acquired absence of both cervix and uterus; Z91.013 Allergy to seafood; Z88.1 Allergy status to other antibiotic agents; Z88.8 Allergy status to other drugs, medicaments and biological substances

== ENCOUNTER → 2017-01-16 | Outpatient (CLI) | payer MEDICARE ==
[~2017-01-16] MED LIST changes: +AMMO12CR4 TOP; +AUGM875T27 PO; +DOXY-278 PO; +POTA10CA PO; +PRED10TA FT; +TORS100T PO
--- NOTE | 2017-01-16 14:29 | REP ---
Clinical: Bilateral lower extremity pain and swelling. Technique: Raines scale and color Doppler evaluation using linear high frequency transducer. Findings: Ultrasound examination of the right and left lower extremity deep venous structures from the common femoral vein to the popliteal vein demonstrates normal compressibility flow and wave patterns in response to respiration and augmentation. There is no evidence for deep venous thrombosis. Right popliteal fossa demonstrates 3.4 x 0.6 x 2.2 cm Ramirez's cyst. Impression: No evidence for deep venous thrombosis. Right Ramirez's cyst. Signed by Clyde Moore MD 01/16/2017 02:20 P
== END ==
LOC: M RAD 12:42
PROVIDERS: ATTEND Internal Medicine Cardiovascular Disease
DX: R60.0 Localized edema (principal); M71.21 Synovial cyst of popliteal space [Baker], right knee

== ENCOUNTER 2017-01-18 01:51 | Emergency (ER) | payer MEDICARE, MEDICAID ==
[~2017-01-18] VITALS: Ht 154.9 cm; Wt 63.5 kg
[~2017-01-18 01:51] MED LIST changes: -COLA100C PO; +COLA100C3 PO
[2017-01-18 04:12] VITALS: BP 141/65
== END 2017-01-18 04:44 | disposition left against medical advice (07) ==
LOC: EDBD 01:51 → M ED 02:47
DX: R06.02 Shortness of breath (principal); Z53.29 Procedure and treatment not carried out because of patient's decision for other reasons

== ENCOUNTER 2017-01-24 05:03 | Observation (INO) | payer MEDICAID, MEDICARE ==
[~2017-01-24] VITALS: Ht 154.9 cm; Wt 79.9 kg
[2017-01-24] MEDS ORDERED: dexameTHASONE 20 MG/5 ML VIAL (J1100) IV ONE (05:30)
[2017-01-24 05:34] LABS: ABG BASE EXCESS -1.2 (-2.0-2.0); ABG HCO3 25.6 MEQ/L (22.0-26.0); ABG PARTIAL PRESSURE CO2 53.2 mmHg (35.0-45.0); ABG PARTIAL PRESSURE O2 190.1 mmHg (75.0-100.0); ABG STANDARD HCO3 23.5 MEQ/L (22.0-26.0); ABG TOTAL CO2 27.3 MEQ/L (23.0-31.0); ABG pH (ARTERIAL) 7.301 UNITS (7.350-7.450)
[2017-01-24 05:35] LABS: BASO % 0.3 % (0.0-1.0); EOS # 0.1 K/mm3 (0.0-0.50); EOS % 2.4 % (0.0-3.0); LARGE UNSTAINED CELL # 0.1 K/mm3 (0.0-0.4); LARGE UNSTAINED CELL % 2.6 % (0.0-4.0); LYMPH # 0.7 K/mm3 (1.5-4.5); MEAN CORPUSCULAR HEMOGLOBIN 25.3 pg (27.0-33.0); MEAN CORPUSCULAR HGB CONC 29.7 g/dl (32.0-36.5); MEAN CORPUSCULAR VOLUME 85.1 fl (80.0-96.0); MONO # 0.5 K/mm3 (0.0-0.8); MONO % 10.2 % (0.0-5.0); NEUTROPHILS # 3.4 K/mm3 (1.8-7.7); NEUTROPHILS % 71.5 % (36.0-66.0); RED CELL DISTRIBUTION WIDTH 16.7 % (11.5-14.5); WHITE BLOOD COUNT 4.7 K/mm3 (4.0-10.0)
[2017-01-24 05:36] LABS: PLATELET COUNT, AUTOMATED 97 k/mm3 (150-450)
[2017-01-24 05:38] LABS: CREATININE FOR GFR 2.03 MG/DL (0.55-1.02); GLOMERULAR FILTRATION RATE 26.2 (>45); POTASSIUM SERUM 4.5 MEQ/L (3.5-5.1)
[2017-01-24] MEDS ORDERED: CALC1TAB30 PO (06:25)
[2017-01-24] MEDS ORDERED: CRAN400T3 PO (06:25)
[2017-01-24] MEDS ORDERED: BACITAB3 PO (06:25)
[2017-01-24] MEDS ORDERED: HEPARIN SOD (PORCINE) 5000 UNITS/ML VIAL SC SCH (06:30)
[2017-01-24] MEDS ORDERED: ACETAMINOPHEN TAB 650MG DOSE (2X325MG) PO PRN (06:30)
[2017-01-24] MEDS ORDERED: NITROGLYCERIN 0.4 MG SUBL TABLET SL PRN (06:45)
[2017-01-24] MEDS ORDERED: ALBUTEROL SULFATE 2.5 MG/0.5 ML INH NEB SOLN NEB PRN (06:45)
[2017-01-24] MEDS ORDERED: GLUCAGON FOR INJ 1 MG VIAL (J1610) SC PRN (07:00)
[2017-01-24] MEDS ORDERED: DEXTROSE 50% 50 ML SYRINGE IV PRN (07:00)
[2017-01-24] MEDS: FUROSEMIDE 100 MG/10 ML VIAL (J1940) IV SCH ×4 (07:23→23:58)
[2017-01-24] MEDS: HumaLOG INSULIN (NovoLOG) PER UNIT SC SCH ×4 (07:32→21:55)
--- NOTE | 2017-01-24 08:05 | REP ---
Portable chest, single AP view, patient sitting: Comparison is 12/20/2016. There is focal slightly increased radiodensity inferiorly in the right lung as an interval change. This could be artifact from portable positioning and superimposed right breast or could represent a right lower lobe infiltrate. There are no effusions. Sternotomy wires and cardiomegaly are again noted, unchanged. The komal, mediastinum, and bony thorax are normal. Signed by Javed Galvez MD 01/24/2017 07:56 A
[2017-01-24 08:15] VITALS: BP 147/70
[2017-01-24] MEDS: LACTOBACILLUS ACIDOPHILUS CAP (BACID) PO SCH ×3 (08:52→21:54)
[2017-01-24] MEDS: OMEPRAZOLE 20 MG CAP PO SCH (08:52)
[2017-01-24] MEDS: PREGABALIN 50 MG CAP (LYRICA) PO SCH ×2 (08:53→21:53)
[2017-01-24] MEDS: CARVedilol 12.5 MG TAB PO SCH ×2 (08:53→21:53)
[2017-01-24] MEDS: ASPIRIN ENTERIC 325 MG TAB PO SCH (08:53)
[2017-01-24] MEDS: FOLIC ACID 1 MG TAB PO SCH (08:53)
[2017-01-24] MEDS: amLODIPine 10 MG TAB PO SCH (08:54)
[2017-01-24] MEDS: POTASSIUM CHLORIDE 10 MEQ SR TABLET PO SCH ×2 (08:55→21:54)
[2017-01-24] MEDS: levETIRAcetam 250MG TABLET (KEPPRA) PO SCH ×2 (08:55→21:54)
[2017-01-24] MEDS: LEVEMIR (INSULIN DETEMIR) 1 UNITS/0.01ML SC SCH ×2 (08:56→21:55)
[2017-01-24] MEDS ORDERED: amLODIPine 10 MG TAB PO SCH (09:00)
[2017-01-24] MEDS: ADVAIR DISKUS 250/50 INH PWD INH SCH ×2 (10:05→20:15)
--- NOTE | 2017-01-24 10:18 | REP ---
CT of the chest without IV contrast to evaluate for infiltrate. Comparison is the portable plain film study performed earlier today. There is also a comparison CT dated 10/22/2015. There are no infiltrates. However, there are moderate bilateral pleural effusions. There is ascites in the visualized upper abdomen. The margin of the liver is nodular compatible with cirrhosis. The spleen appears enlarged. There is minor atelectasis in the lower lung lobes adjacent to the effusions. A small volume of effusion has insinuated into the minor fissure on the right. A small volume of opaque ingested material is noted in the distal esophagus and the gastric fundus. There is an enlarged paratracheal node measuring 9 mm in diameter. This is unchanged. The azygos node is upper normal size, unchanged. There is no other mediastinal lymph node enlargement. In the absence of IV contrast the study is insensitive for hilar lymph node enlargement. There is no axillary lymph node enlargement. The thoracic aorta is unremarkable. Cardiac size is upper normal. There is no pericardial effusion. Impression: Moderate bilateral pleural effusions as described. Atelectasis in the lower lobes adjacent to the effusions. A small volume of effusion has insinuated into the minor fissure. Abdominal ascites, cirrhosis, splenomegaly. Enlarged paratracheal node, unchanged. Borderline enlarged azygos node, unchanged. Cardiac size is borderline. Signed by Javed Galvez MD 01/24/2017 10:10 A
--- NOTE | 2017-01-24 10:39 | HPE ---
DATE OF ADMISSION: 01/24/2017 PRIMARY CARE PROVIDER: Latasha Fitzpatrick in [place], [place] PROCESS ENG: Dr. Muñoz SPECIAL SYSTEMS TECHNICIAN: Dr. Mcgovern CHIEF COMPLAINT: Worsening shortness of breath. HISTORY OF PRESENT ILLNESS: This patient is a 66-year-old female with significant history for coronary artery disease, status post coronary artery bypass graft (CABG), chronic obstructive pulmonary disease (COPD), type 2 diabetes, dyslipidemia, chronic kidney disease stage III, hypertension, obstructive sleep apnea on bilevel positive airway pressure (BIPAP), congestive heart failure (CHF), who presented to [facility] on 01/24/2017 for worsening shortness of breath. The patient stated that for the past few days she has experienced worsening of breathing and it has become very severe in the last 24 hours, therefore, the patient had to come to the hospital for further treatment. The patient has a history of frequent hospital visits. The patient's last admissions were in August 2016, November 2016 and December 2016. Mostly, the patient came here for COPD exacerbation or CHF exacerbations. Per the patient, the patient denies any worsening cough. Denies any sputum production; however, the patient cannot lie flat at all because of the shortness of breath. ALLERGIES: GABAPENTIN, AMILORIDE, SPIRONOLACTONE, VANCOMYCIN, STREPTOKINASE. PAST MEDICAL HISTORY: 1. Coronary artery disease, status post coronary artery bypass graft (CABG). 2. Myocardial infarction in 2011. 3. COPD exacerbation. 4. Type 2 diabetes. 5. Dyslipidemia. 6. Chronic kidney disease stage III. 7. Hypertension. 8. Obstructive sleep apnea on BiPAP. 9. Diastolic congestive heart failure. 10. Cirrhosis. PAST SURGICAL HISTORY: 1. section times three. 2. Appendectomy. 3. Tonsillectomy. 4. Three vessel CABG 5. Hysterectomy. 6. Back fusion surgery. 7. Bilateral carpal tunnel surgery. 8. Left ankle surgery. 9. Left hip surgery. 10. Right shoulder surgery. 11. Bilateral cataract extractions. SOCIAL HISTORY: Patient has been smoking one pack daily since 17 years old. The patient quit intermittently. She states that her last cigarette was 2 weeks ago. Denies alcohol use. Denies any recreational drug use. The patient is FULL CODE. The patient is wheelchair bound. REVIEW OF SYSTEMS: GENERAL: No fever. No chills. HEENT: No vision changes, no auditory changes. CARDIOVASCULAR: No chest pain. No palpitations. The patient does have a history of coronary artery disease, status post CABG The patient also has diastolic congestive heart failure. RESPIRATORY: Frequent COPD exacerbations. Currently, the patient has increased shortness of breath. Denies any increased cough. Denies any increased sputum production. Denies any significant wheezes. GASTROINTESTINAL: Diarrhea for the past month. No abdominal pain. No nausea, no vomiting. MUSCULOSKELETAL: Multiple surgeries in the past that resulted in decreased motor function. Chronic joint pain. NEUROLOGICAL: Decreased sensation in the left lower extremity that results from the previous surgery. OBJECTIVE: VITAL SIGNS: Temperature is 96.2, pulse is 69, blood pressure is 153/70, pulse oximetry is 94% on room air. GENERAL: Mild to moderate distress secondary to difficulty breathing. The patient is alert and oriented times three. HEENT: Positive jugular venous distention (JVD). Normocephalic, atraumatic. Extraocular motors are grossly intact. CARDIOVASCULAR: Positive S1, S2. Regular rate. Distant heart sounds. LUNGS: Poor respiratory effort. I cannot appreciate any significant wheezes; however, there are some mild crackles. ABDOMEN: Soft, nontender, nondistended. Bowel sounds are present. No rebound or guarding. MUSCULOSKELETAL: Positive bilateral pitting edema. No sign of cyanosis. NEUROLOGIC: Sensation to fine touch is decreased of the left distal lower extremity. Muscle strength is difficult to be assessed due to right shoulder pain and lower extremity joint pain, but in general, the patient's muscle strength is approximately 4/5 throughout. LABORATORY DATA: WBC 4.7, hemoglobin 9.6, hematocrit 32.4, platelet count is 97. Sodium is 143, potassium 4.5, chloride is 109, carbon dioxide 29, BUN 27, creatinine 2.03, GFR is 26.2, fasting glucose 143, calcium is 8, BNP is 2220. ABG showed pH of 7.3, PCO2 is 53.2, PO2 is 190, HDL3 is 25.6. Microbiology: Blood cultures are pending times two. IMAGING STUDIES: Chest x-ray: Official report pending; however, I cannot appreciate any consolidation. There could be vascular congestion. ASSESSMENT AND PLAN: 1. Acute on chronic respiratory failure. The patient will be admitted to the progressive care unit (PCU) under observation status. The patient has a history of frequent COPD and CHF exacerbations. Physical examination and the patient's history, it seems that the patient currently has a CHF exacerbation. We will give the patient IV Lasix. The patient will be on 2 liters of fluid restriction. We will try to achieve negative output. We will monitor daily weights. The patient still requires an elevated amount of oxygen support. When the patient first arrived in the emergency room, the patient was on aerosol mask and now the patient's oxygen saturation is being maintained with nasal cannula. We will try to maintain oxygen saturations between 88 and 92%. The patient's ABG showed that there is CO2 retention. When the patient is at rest, the patient has to use her BiPAP and the patient is on obstructive sleep apnea protocol. 2. Diastolic congestive heart failure (CHF). The patient is on IV Lasix. At baseline, the patient is using torsemide. 3. COPD. Currently, I do not feel that the patient has an exacerbation. The patient already received one dose of dexamethasone in the emergency room. 4. Obstructive sleep apnea, on BiPAP. BRANDON protocol. 5. Type 2 diabetes. Continue Levemir 80 units twice a day. The patient will be on sliding scale. The patient is on consistent carbohydrate diet. We will check A1/c. 6. Dyslipidemia. Continue home medications. 7. Questionable seizure history. Continue home medications. 8. Acute on chronic kidney failure. The patient has baseline stage III. Currently, the patient has prerenal azotemia, possibly due to fluid overload. The patient is on Lasix. We will follow renal functions. 9. Hypertension. Continue home medications. 10. Gastroesophageal reflux disease (GERD). Continue Protonix. 11. Deep vein thrombosis (DVT) prophylaxis. THe patient is on heparin.
[2017-01-24 12:00] VITALS: BP 162/80
[2017-01-24] MEDS: TOPIRAMATE (TopAMAX) 25 MG TAB PO SCH ×2 (12:31→21:54)
[2017-01-24] MEDS ORDERED: SLF 3 ML SYR IV PRN (15:45)
[2017-01-24 16:00] VITALS: BP 139/66
[2017-01-24 20:00] VITALS: BP 136/61
[2017-01-24] MEDS: ATORVASTATIN 20 MG TAB PO SCH (21:52)
[2017-01-24] MEDS: traZODone 100 MG TAB PO SCH (21:53)
[2017-01-24] MEDS: SLF 3 ML SYR IV SCH (21:56)
[2017-01-25] VITALS: BP 156/74
[2017-01-25 04:00] VITALS: BP 151/69
[2017-01-25 05:08] LABS: MEAN CORPUSCULAR HEMOGLOBIN 25.8 pg (27.0-33.0); MEAN CORPUSCULAR HGB CONC 30.8 g/dl (32.0-36.5); MEAN CORPUSCULAR VOLUME 83.7 fl (80.0-96.0); RED CELL DISTRIBUTION WIDTH 16.9 % (11.5-14.5); WHITE BLOOD COUNT 4.1 K/mm3 (4.0-10.0)
[2017-01-25 05:16] LABS: CALCIUM LEVEL 7.8 MG/DL (8.8-10.2); CREATININE FOR GFR 2.06 MG/DL (0.55-1.02); GLOMERULAR FILTRATION RATE 25.7 (>45); POTASSIUM SERUM 3.7 MEQ/L (3.5-5.1)
[2017-01-25] MEDS: FUROSEMIDE 100 MG/10 ML VIAL (J1940) IV SCH (06:05)
[2017-01-25] MEDS: SLF 3 ML SYR IV SCH ×3 (06:05→21:17)
[2017-01-25] MEDS: ADVAIR DISKUS 250/50 INH PWD INH SCH ×2 (07:33→20:01)
[2017-01-25] MEDS: HumaLOG INSULIN (NovoLOG) PER UNIT SC SCH ×4 (08:32→21:16)
[2017-01-25] MEDS: LEVEMIR (INSULIN DETEMIR) 1 UNITS/0.01ML SC SCH ×2 (09:00→21:15)
[2017-01-25] MEDS: OMEPRAZOLE 20 MG CAP PO SCH (09:39)
[2017-01-25] MEDS: TORSEMIDE 100 MG TAB PO SCH (09:40)
[2017-01-25] MEDS: CARVedilol 12.5 MG TAB PO SCH ×2 (09:41→21:13)
[2017-01-25] MEDS: LACTOBACILLUS ACIDOPHILUS CAP (BACID) PO SCH ×3 (09:42→21:14)
[2017-01-25] MEDS: levETIRAcetam 250MG TABLET (KEPPRA) PO SCH ×2 (09:42→21:15)
[2017-01-25] MEDS: POTASSIUM CHLORIDE 10 MEQ SR TABLET PO SCH ×2 (09:42→21:13)
[2017-01-25] MEDS: ASPIRIN ENTERIC 325 MG TAB PO SCH (09:43)
[2017-01-25] MEDS: TOPIRAMATE (TopAMAX) 25 MG TAB PO SCH ×2 (09:43→21:14)
[2017-01-25] MEDS: PREGABALIN 50 MG CAP (LYRICA) PO SCH ×2 (09:43→21:13)
[2017-01-25] MEDS: FOLIC ACID 1 MG TAB PO SCH (09:43)
[2017-01-25] MEDS: amLODIPine 10 MG TAB PO SCH (09:44)
[2017-01-25 10:25] VITALS: BP 149/72
[2017-01-25 12:00] VITALS: BP 139/67
--- NOTE | 2017-01-25 14:56 | IPNPDOC ---
Text Note Date of Service The patient was seen on 01/25/17. NOTE Subjective: Pt states she feels much better. Denies shortness of breath/chest pain/palpitations. Objective: Vitals: (see below) General: No acute distress, laying comfortably in bed. HEENT: Moist mucous membranes. Neck: No JVD or lymphadenopathy Cardiac: RRR, No murmurs Pulm: Coarse crackles bilateral bases b/l. No wheezing, rhonchi Abd: NT/ND + BS Ext: Trace edema bilateral lower extremities. No cyanosis. Labs (see below) Images: CT Chest 01/24/17 Impression: Moderate bilateral pleural effusions as described. Atelectasis in the lower lobes adjacent to the effusions. A small volume of effusion has insinuated into the minor fissure. Abdominal ascites, cirrhosis, splenomegaly. Enlarged paratracheal node, unchanged. Borderline enlarged azygos node, unchanged. Cardiac size is borderline. Assessment/Plan 1. Acute decompensated diastolic heart failure- diuresed well. Now off of oxygen. Will change Lasix to torsemide. Monitor daily weights. Fluid resection. Patient does have obstructive sleep apnea continues to use her CPAP at night. Echocardiogram pending. 2. COPD-stable. Continue nebs 3. Diabetes mellitus- Levemir and sliding scale insulin 4. Hyperlipidemia- continue meds 5. History of seizures- continue home meds 6. Chronic kidney disease stage 3-4. Appears to be patient's baseline. Avoid nephrotoxins. 7. Hypertension- continue home meds 8. GERD- continue PPI DVT prophy: Heparin subcutaneous Plan to discharge in the next 24-48 hours. VS,Fishbone, I+O VS, Fishbone, I+O Laboratory Tests 01/25/17 04:48 Calcium Level 7.8 L, Red Blood Count 3.54 L, Mean Corpuscular Volume 83.7, Mean Corpuscular Hemoglobin 25.8 L, Mean Corpuscular Hemoglobin Concent 30.8 L, Red Cell Distribution Width 16.9 H Vital Signs Date Time Temp Pulse Resp B/P Pulse Ox O2 Delivery O2 Flow Rate FiO2 01/25/17 12:00 98.7 66 22 139/67 92 Room Air 01/25/17 04:00 3.0 I&O- Last 24 Hours up to 6 AM 4/5/17 06:00 Intake Total 905 ml Output Total 2800 ml Balance -1895 ml MARQUEZ BURNHAM MD Jan 25, 2017 14:56
[2017-01-25 15:28] VITALS: BP 143/97
[2017-01-25 20:00] VITALS: BP 135/61
[2017-01-25] MEDS: traZODone 100 MG TAB PO SCH (21:13)
[2017-01-25] MEDS: ATORVASTATIN 20 MG TAB PO SCH (21:14)
--- NOTE | 2017-01-25 21:26 | ECGEPIP ---
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
--- NOTE | 2017-01-25 21:34 | ECHO ---
DATE OF PROCEDURE: 01/25/2017 REFERRING PHYSICIAN: Jeancarlos Jones MD PATIENT LOCATION: Room 3208 REASON FOR ECHOCARDIOGRAM: Heart failure, unspecified. 2D MEASUREMENTS: IVS: 1.3 cm LV: 5.5 cm LVPW: 1.2 cm LA: 4.9 cm Aorta: 3.5 cm IVC: 1.6 cm DOPPLER MEASUREMENTS: Peak velocity across the aortic valve: 1.3 m/s Peak velocity across the LVOT: 1.2 m/s Mitral E: 1.1, Mitral A: 0.96, with a ratio of 1.2 Maximum tricuspid valve velocity: 3.2 m/s 2D COMMENTS: 1. Normal left ventricular size with mildly increased left ventricular wall thickness. Left ventricular systolic function is normal estimated at 60 to 65%. 2. Mildly enlarged left atrium. Normal right atrium and right ventricle. 3. The atrial septum appeared to be normal without evidence of defect or shunt. 4. Normal aortic root. 5. No pericardial effusion seen, but bilateral pleural effusion was noted. 6. Mildly calcified aortic valve with normal leaflet excursion. Mildly calcified mitral annulus with normal anterior mitral valve leaflet motion. Normal tricuspid valve. The pulmonic valve and proximal pulmonary artery branches were not well visualized. 7. The inferior vena cava was normal in size, central venous pressure is most likely normal. DOPPLER: It detects moderately severe mitral regurgitation and mild tricuspid regurgitation. The calculated pulmonary artery systolic pressure varies between 40 to 50 mmHg. Assessment of the left ventricular diastolic function appeared to be normal. Trace to mild pulmonic regurgitation also detected. IMPRESSION: 1. Normal global left ventricular systolic function with mild concentric left ventricular hypertrophy. Left ventricular systolic function appeared to be normal. 2. Aortic valve sclerosis without stenosis or significant aortic regurgitation. 3. Mitral annulus calcification with mildly enlarged left atrium and moderately severe mitral regurgitation. 4. Mild tricuspid regurgitation with probably moderate pulmonary hypertension. 5. Bilateral pleural effusion was noted. No pericardial effusion seen.
[2017-01-26] VITALS: BP 151/72
[2017-01-26 04:00] VITALS: BP 159/69
[2017-01-26 05:19] LABS: MEAN CORPUSCULAR HEMOGLOBIN 25.8 pg (27.0-33.0); MEAN CORPUSCULAR HGB CONC 30.9 g/dl (32.0-36.5); MEAN CORPUSCULAR VOLUME 83.3 fl (80.0-96.0); RED CELL DISTRIBUTION WIDTH 17.1 % (11.5-14.5)
[2017-01-26 05:30] LABS: CALCIUM LEVEL 7.7 MG/DL (8.8-10.2); CREATININE FOR GFR 2.12 MG/DL (0.55-1.02); GLOMERULAR FILTRATION RATE 24.9 (>45); POTASSIUM SERUM 3.4 MEQ/L (3.5-5.1)
[2017-01-26] MEDS: SLF 3 ML SYR IV SCH (05:53)
[2017-01-26] MEDS: HumaLOG INSULIN (NovoLOG) PER UNIT SC SCH ×2 (07:30→12:04)
[2017-01-26 08:00] VITALS: BP 149/70
[2017-01-26] MEDS: GLUCOSE 4 GM CHEW TABLET PO PRN ×2 (08:38→09:04)
[2017-01-26] MEDS: ADVAIR DISKUS 250/50 INH PWD INH SCH (08:57)
[2017-01-26] MEDS: LEVEMIR (INSULIN DETEMIR) 1 UNITS/0.01ML SC SCH (09:00)
[2017-01-26] MEDS: CARVedilol 12.5 MG TAB PO SCH (09:00)
[2017-01-26] MEDS ORDERED: POTASSIUM CHLORIDE 10 MEQ SR TABLET PO SCH (09:00)
[2017-01-26] MEDS: LACTOBACILLUS ACIDOPHILUS CAP (BACID) PO SCH (09:51)
[2017-01-26] MEDS: PREGABALIN 50 MG CAP (LYRICA) PO SCH (09:52)
[2017-01-26] MEDS: TOPIRAMATE (TopAMAX) 25 MG TAB PO SCH (09:52)
[2017-01-26 09:53] VITALS: BP 130/58
[2017-01-26] MEDS: ASPIRIN ENTERIC 325 MG TAB PO SCH (09:53)
[2017-01-26] MEDS: amLODIPine 10 MG TAB PO SCH (09:53)
[2017-01-26] MEDS: levETIRAcetam 250MG TABLET (KEPPRA) PO SCH (09:54)
[2017-01-26] MEDS: TORSEMIDE 100 MG TAB PO SCH (09:55)
[2017-01-26] MEDS: FOLIC ACID 1 MG TAB PO SCH (09:55)
[2017-01-26] MEDS: OMEPRAZOLE 20 MG CAP PO SCH (10:01)
[2017-01-26] MEDS ORDERED: AMLO10TA2 PO (11:34)
[2017-01-26 12:00] VITALS: BP 130/63
--- NOTE | 2017-01-26 15:38 | DS.PDOC ---
Discharge Summary General Date of Admission Jan 24, 2017 at 06:17 Date of Discharge Jan 26, 2017 at 13:01 Primary Care Physician: Lakeisha Pinto PA-C, LAC Attending Physician: MARQUEZ BURNHAM MD Discharge Summary PROCEDURES PERFORMED DURING STAY: None. ADMITTING/DISCHARGE DIAGNOSES: 1. Acute decompensated diastolic heart failure 2. Severe mitral regurg/moderate pulmonary hypertension 3. Obstructive sleep apnea 4. COPD 5. Diabetes mellitus 6. History of seizures 7. CKD stage III- 4 8. Hypertension 9. GERD 10. Cirrhosis COMPLICATIONS/CHIEF COMPLAINT: Acute Respiratory Failure With Hypoxia. HISTORY OF PRESENT ILLNESS/HOSPITAL COURSE: . This is a CT 6-year-old female past medical history of cirrhosis, diastolic heart failure, obstructive sleep apnea, diabetes presents complaining of dyspnea on exertion. Patient was found to be volume overloaded and was initially started on [id number] Lasix IV. Patient was transitioned to her torsemide by mouth. Patient was diuresed well and tolerated therapy well. Patient is wheelchair/walker bound and did have physical therapy evaluate her with good results for home safety. Abdomen patient did have an episode of hypoglycemia, however did receive juice and her blood sugars now back to her baseline. Patient was educated on checking her blood sugars at home however she does state that she almost never has hypoglycemic episodes. The patient will be following up with Dr. Velázquez and her primary care physician on discharge. DISCHARGE MEDICATIONS: Please see below. ALLERGIES: Please see below. PHYSICAL EXAMINATION ON DISCHARGE: VITAL SIGNS: Please see below. General: No acute distress, laying comfortably in bed. HEENT: Moist mucous membranes. Neck: No JVD or lymphadenopathy Cardiac: RRR, No murmurs Pulm: Coarse crackles bilateral bases b/l. No wheezing, rhonchi Abd: NT/ND + BS Ext: Trace edema bilateral lower extremities. No cyanosis. LABORATORY DATA: Please see below. IMAGING: CT Chest 01/24/17 Impression: Moderate bilateral pleural effusions as described. Atelectasis in the lower lobes adjacent to the effusions. A small volume of effusion has insinuated into the minor fissure. Abdominal ascites, cirrhosis, splenomegaly. Enlarged paratracheal node, unchanged. Borderline enlarged azygos node, unchanged. Cardiac size is borderline. PROGNOSIS: Fair ACTIVITY: As tolerated. DIET: Low-sodium DISCHARGE PLAN: Home with home services DISPOSITION: Home Health Service. DISCHARGE INSTRUCTIONS: 1. Follow-up with PCP and Dr. Farrell in 1-2 weeks DISCHARGE CONDITION: Stable. TIME SPENT ON DISCHARGE: Greater than 30 minutes. Vital Signs/I&Os Vital Signs Date Time Temp Pulse Resp B/P Pulse Ox O2 Delivery O2 Flow Rate FiO2 01/26/17 12:00 97.8 64 18 130/63 90 Room Air 01/26/17 08:00 2.0 I&O- Last 24 Hours up to 6 AM 01/26/17 06:00 Intake Total 1265 ml Output Total 2301 ml Balance -1036 ml Laboratory Data Labs 24H Laboratory Tests 2 01/25/17 17:16: Bedside Glucose (Misc Panel) 228H 01/25/17 21:04: Bedside Glucose (Misc Panel) 181H 01/26/17 04:57: Anion Gap 5L, Blood Urea Nitrogen 36H, Creatinine 2.12H, Sodium Level 146H, Potassium Level 3.4L, Chloride Level 109H, Carbon Dioxide Level 32, Calcium Level 7.7L, Glomerular Filtration Rate 24.9L 01/26/17 08:38: Bedside Glucose (Misc Panel) 38*L 01/26/17 09:04: Bedside Glucose (Misc Panel) 47L CBC/BMP Laboratory Tests 01/26/17 04:57 Calcium Level 7.7 L, Red Blood Count 3.59 L, Mean Corpuscular Volume 83.3, Mean Corpuscular Hemoglobin 25.8 L, Mean Corpuscular Hemoglobin Concent 30.9 L, Red Cell Distribution Width 17.1 H FSBS Laboratory Tests Test 01/25/17 17:16 01/25/17 21:04 01/26/17 08:38 01/26/17 09:04 Range/Units Bedside Glucose (Misc Panel) 228 181 38 47 80-115 MG/DL Microbiology Microbiology 01/25/17 Blood Culture - Preliminary, Resulted No growth after 24 hours . All specim... 01/25/17 Blood Culture, Received Pending 01/24/17 Blood Culture - Preliminary, Resulted No Growth after 48 hours. All Specime... 01/24/17 Blood Culture - Preliminary, Resulted No Growth after 48 hours. All Specime... Discharge Medications Scheduled (Touroverto Solostar) 300 Unit/Ml Inj 18 UNIT SC BID (Reported) (Calcium 500+D 500-200 mg-Unit) 1 Tab Tab 1 TAB PO BID (Reported) Amlodipine Besylate (Amlodipine Besylate) 10 Mg Tab 10 MG PO DAILY Aspirin (Aspirin EC) 325 Mg Tabec 325 MG PO DAILY (Reported) Atorvastatin Calcium (Atorvastatin Calcium) 40 Mg Tab 40 MG PO QHS (Reported) Carvedilol (Carvedilol) 25 Mg Tab 25 MG PO BID (Reported) Ergocalciferol (Vitamin D) 50,000 Unit Cap 50,000 UNIT PO MTHLY (Reported) takes in the beginning of each month Folic Acid (Folic Acid) 1 Mg Tab 1 MG PO DAILY (Reported) Insulin Aspart (Novolog) 100 U/Ml Inj 1 DOSE SC AC (Reported) PER HOME SLIDING SCALE Lactobacillus Acidophilus (Bacid) 1 Tab Tab 1 TAB PO BID (Reported) Levetiracetam (Keppra) 1,000 Mg Tab 1,000 MG PO BID (Reported) Omeprazole (Omeprazole) 40 Mg Cap 40 MG PO DAILY (Reported) Potassium Chloride (Klor-Con M10) 10 Meq Tabcr 20 MEQ PO BID (Reported) Pregabalin (Lyrica) 50 Mg Cap 50 MG PO BID (Reported) Salmeterol/Fluticasone (Advair Diskus 250-50 Mcg/Dose) 14 Puff/Inhaler Aerp 1 PUFF INH BID (Reported) Topiramate (Topiramate) 50 Mg Tab 50 MG PO BID (Reported) Torsemide (Torsemide) 100 Mg Tab 100 MG PO DAILY (Reported) Trazodone HCl (Trazodone HCl) 100 Mg Tab 100 MG PO QHS (Reported) Scheduled PRN (Ammonium Lactate) 12 % Cre 1 DOSE TOP BID PRN PRN DRY FEET (Reported) Albuterol Sulfate (Ventolin Hfa) 200 Puff/8 Gm Aers 2 PUFF INH Q4H PRN PRN SHORTNESS OF BREATH (Reported) Albuterol Sulfate (Albuterol Sulfate) 2.5 Mg/3 Ml Nebu 2.5 MG INH QID PRN PRN SOB/WHEEZING (Reported) Nitroglycerin (Nitrostat) 0.4 Mg Subl 0.4 MG SL NITRO PRN PRN ANGINA (Reported) Allergies Coded Allergies: Streptokinase (Unverified Allergy, Severe, BLOOD CLOTS, 01/20/16) Amiloride (Verified Allergy, Intermediate, RASH/GENERAL ITCHING, 01/28/13) RASH/GENERAL ITCHING Guaifenesin & Derivatives (Unverified Allergy, Intermediate, FACE SWELLING , 01/20/16) Shellfish Allergy (Verified Allergy, Intermediate, RASH, 01/28/13) Spironolactone (Unverified Allergy, Intermediate, RASH, 01/28/13) Vancomycin (Unverified Allergy, Intermediate, HIVES,SWELLING,RASH, 01/28/13) Gabapentin (Verified Adverse Reaction, Severe, SUICIDAL IDEATIONS, 01/28/13) MARQUEZ BURNHAM MD Jan 26, 2017 15:38
== END 2017-01-26 13:01 | disposition home health service (06) ==
LOC: EDBD 05:03 → M ED 06:04 → M ED INP 06:17 → M ICU 08:14
PROVIDERS: ADMIT Internal Medicine; ATTEND Internal Medicine
DX: J96.01 Acute respiratory failure with hypoxia (principal); I50.31 Acute diastolic (congestive) heart failure; I34.0 Nonrheumatic mitral (valve) insufficiency; I27.89 Other specified pulmonary heart diseases; G47.33 Obstructive sleep apnea (adult) (pediatric); J44.9 Chronic obstructive pulmonary disease, unspecified; E11.9 Type 2 diabetes mellitus without complications; N18.4 Chronic kidney disease, stage 4 (severe); K21.9 Gastro-esophageal reflux disease without esophagitis; K74.69 Other cirrhosis of liver; I25.10 Atherosclerotic heart disease of native coronary artery without angina pectoris; I10 Essential (primary) hypertension; Z79.82 Long term (current) use of aspirin; Z79.4 Long term (current) use of insulin; Z79.899 Other long term (current) drug therapy; Z95.1 Presence of aortocoronary bypass graft; E78.5 Hyperlipidemia, unspecified; I25.2 Old myocardial infarction; F17.210 Nicotine dependence, cigarettes, uncomplicated
CPT/HCPCS: 36415; 36600; 71010; 71250; 80048; 82803; 83036; 83735; 83880; 85025; 85027; 87040; 93005; 93041; 93306; 94760; 96376; 97161; 99285; G0378; J1100; J1940

== ENCOUNTER → 2017-02-03 | Outpatient (CLI) | payer MEDICARE, MEDICAID ==
[~2017-02-03] MED LIST changes: +BACITAB3 PO; +CRAN400T3 PO
--- NOTE | 2017-02-03 16:33 | REP ---
RIGHT LOWER EXTREMITY DOPPLER VENOUS ULTRASOUND: 02/03/2017. Clinical history: Right lower extremity swelling. Evaluate for DVT. No Ramirez's cyst. Comparison: 01/16/2017, 02/08/2012. Technique: The deep venous system of the right lower extremity is evaluated with mccord scale imaging, compression ultrasound, color imaging and duplex Doppler interrogation. Examination from the groin through the popliteal fossa into the proximal calf. Findings: There is full compressibility from the common femoral vein in the inguinal region through the popliteal vein. Color imaging confirms patency throughout the course of the deep venous system. There is respiratory variation and augmented flow at all levels. Incidentally noted is a popliteal fossa cyst 3.7 x 2.2 x 0.5 cm. Impression: 1. No Doppler venous ultrasound evidence of DVT in the right lower extremity. 2. Popliteal fossa cyst, unchanged. Signed by Dewayne Allison MD 02/03/2017 04:25 P
== END ==
LOC: M RAD 15:49
PROVIDERS: ATTEND Internal Medicine Nephrology
DX: I82.401 Acute embolism and thrombosis of unspecified deep veins of right lower extremity (principal)

== ENCOUNTER 2017-02-15 08:02 | Emergency (ER) | payer MEDICARE, MEDICAID ==
[~2017-02-15] VITALS: Ht 154.9 cm; Wt 62.6 kg
[2017-02-15] MEDS ORDERED: TORS100T PO (08:18)
[2017-02-15] MEDS ORDERED: ONDANSETRON 4MG/2ML VIAL (J2405) IV ONE ×2 (08:45→17:00)
[2017-02-15] MEDS: MORPHINE 2 MG/ML 1ML SYRINGE IV PRN ×3 (09:10→14:13)
--- NOTE | 2017-02-15 09:22 | REP ---
Acute abdominal series three views including PA chest and supine upright abdomen: PA chest: Comparison is 01/24/2017. Lung pryor are clear. Cardiac size is borderline enlarged. There are sternotomy wires, unchanged. The komal, mediastinum, and bony thorax are unremarkable. There is no free subdiaphragmatic air. Impression: Borderline cardiac size. Sternotomy wires. Lung pryor are clear. Abdomen, supine upright views: The bowel gas pattern is normal. There is degenerative disc disease in the lumbar spine. There is a left hip arthroplasty partially excluded at the inferior film margin. No unusual calcifications. Impression: Normal bowel gas pattern. Signed by Javed Galvez MD 02/15/2017 09:13 A
[2017-02-15 09:34] LABS: BASO % 0.5 % (0.0-1.0); EOS # 0.2 K/mm3 (0.0-0.50); LARGE UNSTAINED CELL # 0.1 K/mm3 (0.0-0.4); LARGE UNSTAINED CELL % 3.3 % (0.0-4.0); LYMPH # 0.7 K/mm3 (1.5-4.5); LYMPH % 19.1 % (24.0-44.0); MEAN CORPUSCULAR HEMOGLOBIN 27.1 pg (27.0-33.0); MEAN CORPUSCULAR HGB CONC 32.2 g/dl (32.0-36.5); MONO # 0.3 K/mm3 (0.0-0.8); MONO % 7.4 % (0.0-5.0); NEUTROPHILS # 2.5 K/mm3 (1.8-7.7); NEUTROPHILS % 65.7 % (36.0-66.0); RED CELL DISTRIBUTION WIDTH 17.4 % (11.5-14.5); WHITE BLOOD COUNT 3.8 K/mm3 (4.0-10.0)
[2017-02-15 09:35] LABS: PLATELET COUNT, AUTOMATED 81 k/mm3 (150-450)
[2017-02-15 09:48] LABS: ALBUMIN 2.9 GM/DL (3.2-5.2); ALBUMIN/GLOBULIN RATIO 0.78 (1.00-1.93); BILIRUBIN,DIRECT 0.1 MG/DL (0.0-0.2); BILIRUBIN,TOTAL 0.3 MG/DL (0.2-1.0); CALCIUM LEVEL 8.4 MG/DL (8.8-10.2); CREATININE FOR GFR 2.05 MG/DL (0.55-1.02); GLOMERULAR FILTRATION RATE 25.9 (>45); POTASSIUM SERUM 3.1 MEQ/L (3.5-5.1); TOTAL PROTEIN 6.6 GM/DL (6.4-8.2)
[2017-02-15] MEDS ORDERED: DEXTROSE 50% 50 ML SYRINGE IV STA (10:29)
[2017-02-15] MEDS ORDERED: POTASSIUM CHLORIDE 10 MEQ SR TABLET PO ONE (10:30)
[2017-02-15] MEDS ORDERED: GASTROGRAFIN SOLUTION 30ML (Q9963) PO SCH (10:45)
[2017-02-15] MEDS ORDERED: GASTROGRAFIN SOLUTION 30ML PO ONE (11:00)
[2017-02-15] MEDS ORDERED: GASTROGRAFIN SOLUTION 30ML (Q9963) PO ONE (11:30)
--- NOTE | 2017-02-15 13:07 | REP ---
CT abdomen and pelvis without IV or bowel contrast: Comparison is 2016. The visualized lung pryor are unremarkable. The hepatic margin has a nodular appearance, unchanged, compatible with cirrhosis. There is ascites surrounding the liver and spleen extending in the colic gutters and in the pelvis, as previously. The pancreas is unremarkable. There is splenomegaly as previously. There is a small right adrenal adenoma, unchanged. Left adrenal is unremarkable. There is vascular atheroma in the kidneys. The kidneys are mildly atrophic, unchanged. Otherwise unremarkable. The abdominal aorta is unremarkable except for calcified atheroma. The abdominal aorta is unremarkable except for calcified atheroma. There is no bowel distension. Pelvis: There is a left hip arthroplasty with beam-hardening artifact obscuring visualization of the pelvis. Unable to visualize the uterus or adnexa. The bladder is grossly unremarkable. There is any circumferential edema in the subcutaneous fat compatible with anasarca. Impression: Abdominal ascites. Nodular hepatic surface compatible with cirrhosis. Splenomegaly. Right adrenal adenoma, unchanged. Edema in the subcutaneous fat compatible with anasarca. No bowel distension or obstruction. Vascular atheroma. Signed by Javed Galvez MD 02/15/2017 01:00 P
[2017-02-15 15:04] LABS: INR 1.24
--- NOTE | 2017-02-15 17:18 | REP ---
ULTRASOUND-GUIDED PARACENTESIS: The procedure was performed under the direct supervision of Dr. Raines. The risks and benefits of the procedure were explained to the patient and informed consent was obtained. The largest pocket of fluid was localized in the right flank using ultrasound guidance. The skin was prepped and draped in a sterile fashion. 1% Lidocaine was used as a local anesthetic. Using ultrasound guidance, an #8-Malaysian [id number] catheter was inserted using trocar technique. 3400 mL of red-colored fluid was withdrawn and discarded. The patient tolerated the procedure well and there were no immediate complications. Reviewed by SAM Kwok 02/16/2017 04:42 PEdited and Signed by Javed Raines MD 02/16/2017 04:59 P
[2017-02-15 18:13] VITALS: BP 135/63
== END 2017-02-15 18:23 | disposition home or self-care (01) ==
LOC: M ED 10:20
DX: R18.8 Other ascites (principal); K74.60 Unspecified cirrhosis of liver; E87.6 Hypokalemia; N18.4 Chronic kidney disease, stage 4 (severe); D63.1 Anemia in chronic kidney disease; E11.22 Type 2 diabetes mellitus with diabetic chronic kidney disease; I10 Essential (primary) hypertension; J44.9 Chronic obstructive pulmonary disease, unspecified; E78.5 Hyperlipidemia, unspecified; I25.10 Atherosclerotic heart disease of native coronary artery without angina pectoris; Z79.899 Other long term (current) drug therapy; Z79.82 Long term (current) use of aspirin; Z88.8 Allergy status to other drugs, medicaments and biological substances; Z87.891 Personal history of nicotine dependence

== ENCOUNTER 2017-02-18 18:29 | Inpatient (IN) | payer MEDICARE, MEDICAID ==
[~2017-02-18] VITALS: Ht 154.9 cm; Wt 85.1 kg
[2017-02-18] MEDS: ADVAIR DISKUS 250/50 INH PWD INH SCH (07:58)
[2017-02-18] MEDS ORDERED: MORPHINE 4 MG/ML 1ML SYRINGE IV ONE ×2 (19:15→22:45)
[2017-02-18 19:30] LABS: BASO % 0.7 % (0.0-1.0); EOS # 0.2 K/mm3 (0.0-0.50); EOS % 3.9 % (0.0-3.0); LARGE UNSTAINED CELL # 0.1 K/mm3 (0.0-0.4); LARGE UNSTAINED CELL % 3.1 % (0.0-4.0); LYMPH # 0.7 K/mm3 (1.5-4.5); LYMPH % 15.9 % (24.0-44.0); MEAN CORPUSCULAR HEMOGLOBIN 25.7 pg (27.0-33.0); MEAN CORPUSCULAR HGB CONC 30.2 g/dl (32.0-36.5); MEAN CORPUSCULAR VOLUME 85.2 fl (80.0-96.0); MONO # 0.3 K/mm3 (0.0-0.8); MONO % 8.1 % (0.0-5.0); NEUTROPHILS # 2.9 K/mm3 (1.8-7.7); NEUTROPHILS % 68.2 % (36.0-66.0); PLATELET COUNT, AUTOMATED 105 k/mm3 (150-450); RED CELL DISTRIBUTION WIDTH 17.4 % (11.5-14.5); WHITE BLOOD COUNT 4.2 K/mm3 (4.0-10.0)
[2017-02-18 19:39] LABS: ALBUMIN 2.8 GM/DL (3.2-5.2); ALBUMIN/GLOBULIN RATIO 0.74 (1.00-1.93); BILIRUBIN,DIRECT 0.1 MG/DL (0.0-0.2); BILIRUBIN,TOTAL 0.2 MG/DL (0.2-1.0); CALCIUM LEVEL 7.8 MG/DL (8.8-10.2); CREATININE FOR GFR 2.7 MG/DL (0.55-1.02); GLOMERULAR FILTRATION RATE 18.8 (>45); POTASSIUM SERUM 3.8 MEQ/L (3.5-5.1); TOTAL PROTEIN 6.6 GM/DL (6.4-8.2)
[2017-02-18] MEDS ORDERED: GASTROGRAFIN SOLUTION 30ML PO ONE (20:00)
[2017-02-18] MEDS ORDERED: cefTRIAXone SOD 1 GM in D5W MINI-BAG PLUS 50 ML IV ONE (20:15)
[2017-02-18] MEDS ORDERED: GASTROGRAFIN SOLUTION 30ML (Q9963) PO ONE (20:30)
[2017-02-18] MEDS: SENOKOT S TAB PO SCH (21:00)
[2017-02-18] MEDS ORDERED: POTA20TA PO (21:37)
[2017-02-18] MEDS ORDERED: TORS100T PO (21:37)
[2017-02-18] MEDS ORDERED: NYST10OI TOP (21:40)
--- NOTE | 2017-02-18 22:50 | REPUSA ---
CLINICAL HISTORY: Low abdominal pain, rectal pain. TECHNIQUE: Multiple axial CT images were obtained through the abdomen and pelvis after administratio n of oral contrast material only. COMMENTS: Comparison is made with the prior study dated 02/15/2017. Overall, no significant interval change. The liver is enlarged, markedly lobulated compatible with cirrhosis. There is diffuse anasarca prese nt. There is no intra or extrahepatic biliary ductal dilatation. The spleen is normal. The gallbla dder is not identified. Correlate with surgical status. The pancreas is of normal contour and atten uation characteristics. There is no evidence of adrenal mass. Both kidneys are markedly lobulated and atrophic. No evidence of renal mass. There is no hydrourete r or hydronephrosis. There are bilateral renal vascular calcifications noted. There is no evidence for appendicitis. There is evidence of severe circumference wall thickening inv olving small bowel loops compatible with panenteritis. This may be related to hypoalbuminemia rather than intrinsic small bowel pathology. Clinical correlation is recommended. No evidence for small o r large bowel obstruction. There is no evidence of abdominal lymphadenopathy. There is no evidence of intrinsic or extrinsic bladder mass. The uterus and ovaries are not well seen. Correlate with surgical status. Images of the lung bases show no evidence of pleural or parenchymal mass. There are no pleural effus ions. The bony structures are free of lytic or blastic lesions. Multilevel degenerative changes are seen i nvolving the thoracolumbar spine. Status post total left hip replacement. Scattered calcifications are seen involving the aorta and major branches compatible with atherosclero sis. Small hiatal hernia is seen. The heart is enlarged. Large amount of abdominal and pelvis ascites is noted. Edgar catheter is in place. Air is present in the urinary bladder. Small fat containing umbilical hernia is present. IMPRESSION: 1. Evidence of cirrhosis and portal hypertension. 2. Massive amount of abdominal and pelvis ascites. 3. Small bowel wall thickening as discussed above. 4. Additional findings as above. Thank you for your kind referral of this patient. We appreciate the opportunity to participate in thi s patient's care.
[2017-02-18 23:09] LABS: INR 1.15
[2017-02-19] VITALS (7 sets, daily range): BP systolic 142–169; BP diastolic 70–78
[2017-02-19] MEDS ORDERED: ALBUTEROL 90 MCG/ACT 8GM HFA INHALER INH PRN (00:15)
[2017-02-19] MEDS ORDERED: NITROGLYCERIN 0.4 MG SUBL TABLET SL PRN (00:15)
[2017-02-19] MEDS ORDERED: EUCERIN 120GM CREAM TOP PRN (00:15)
[2017-02-19] MEDS ORDERED: cefTRIAXone SOD 1 GM in D5W MINI-BAG PLUS 50 ML IV ONE (00:15)
[2017-02-19] MEDS ORDERED: ALBUTEROL SULFATE 2.5 MG/0.5 ML INH NEB SOLN INH PRN (00:15)
[2017-02-19] MEDS ORDERED: MIRALAX *UNIT DOSE* 17GM PACKET PO ONE (00:15)
[2017-02-19] MEDS ORDERED: MIRALAX *UNIT DOSE* 17GM PACKET PO PRN (00:15)
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
[2017-02-19] MEDS: LACTOBACILLUS ACIDOPHILUS CAP (BACID) PO SCH ×3 (01:00→20:11)
[2017-02-19] MEDS: ATORVASTATIN 20 MG TAB PO SCH ×2 (01:00→20:11)
[2017-02-19] MEDS: SENOKOT S TAB PO SCH ×3 (01:00→20:12)
[2017-02-19] MEDS: CARVedilol 12.5 MG TAB PO SCH ×3 (01:01→20:34)
[2017-02-19] MEDS: levETIRAcetam 250MG TABLET (KEPPRA) PO SCH ×3 (01:01→20:12)
[2017-02-19] MEDS: NYSTATIN OINTMENT 15 GM TOP SCH ×3 (01:28→20:14)
[2017-02-19] MEDS: CALCIUM/VITAMIN D 500 MG TAB PO SCH ×3 (01:28→20:10)
[2017-02-19] MEDS: POTASSIUM CHLORIDE 10 MEQ SR TABLET PO SCH ×4 (01:28→20:11)
[2017-02-19] MEDS: traZODone 100 MG TAB PO SCH ×2 (01:28→20:12)
[2017-02-19] MEDS: TOPIRAMATE (TopAMAX) 25 MG TAB PO SCH ×3 (01:28→20:11)
[2017-02-19] MEDS: LEVEMIR (INSULIN DETEMIR) 1 UNITS/0.01ML SC SCH ×3 (01:29→20:13)
[2017-02-19] MEDS: cefTRIAXone SOD 2 GM in D5W MINI-BAG PLUS 50 ML IV SCH (02:55)
[2017-02-19 06:34] LABS: CALCIUM LEVEL 7.9 MG/DL (8.8-10.2); CREATININE FOR GFR 2.34 MG/DL (0.55-1.02); GLOMERULAR FILTRATION RATE 22.2 (>45); POTASSIUM SERUM 3.4 MEQ/L (3.5-5.1)
[2017-02-19 07:30] LABS: MEAN CORPUSCULAR HEMOGLOBIN 26.8 pg (27.0-33.0); MEAN CORPUSCULAR HGB CONC 31.6 g/dl (32.0-36.5); MEAN CORPUSCULAR VOLUME 84.9 fl (80.0-96.0); RED CELL DISTRIBUTION WIDTH 17.5 % (11.5-14.5); WHITE BLOOD COUNT 3.2 K/mm3 (4.0-10.0)
[2017-02-19] MEDS: ADVAIR DISKUS 250/50 INH PWD INH SCH ×2 (09:10→19:41)
[2017-02-19] MEDS: ASPIRIN ENTERIC 325 MG TAB PO SCH (09:23)
[2017-02-19] MEDS: FOLIC ACID 1 MG TAB PO SCH (09:23)
[2017-02-19] MEDS: OMEPRAZOLE 20 MG CAP PO SCH (09:24)
--- NOTE | 2017-02-19 12:52 | IPNPDOC ---
Subjective Date Seen The patient was seen on 02/19/17. Subjective Chief Complaint/HPI The patient is a 66-year-old female admitted with a reason for visit of Cirrhosis Of Liver. Events since last encounter pt seen and examined, she still complaining of abd pain, unchanged, she denies any nausea or vomiting, states she has no constipation Constitutional: Denies: Chills, Fever, Night Sweats Gastrointestinal: Reports: Abdominal Pain, Denies: Nausea, Vomiting, Diarrhea, Constipation, Melena, Hematochezia, Other Symptoms Objective Physical Examination General Exam: Positive: Alert, Cooperative, No Acute Distress Eye Exam: Positive: Conjunctiva & lids normal, EOMI, Negative: Sclera icteric ENT Exam: Positive: Atraumatic, Mucous membr. moist/pink, Pharynx Normal Chest Exam: Positive: Clear to auscultation, Normal air movement Heart Exam: Positive: Rate Normal, Regular Rhythm, Murmurs (2/6 systolic murmur ), Negative: Rubs Telemetry: Positive: No significant arrhythmia Abdomen Exam: Positive: Normal bowel sounds, Tenderness, Other (tense abdomen with diffuse tenderness throughout.), Negative: Soft Extremity Exam: Positive: Edema (bilateral lower extremity edema, 1+, right worse than left), Normal pulses, Tenderness, Negative: Clubbing, Cyanosis Skin Exam: Positive: Nl turgor and temperature, Negative: Breakdown, Lesion, Pruritus Neuro Exam: Positive: Normal Speech, Cranial Nerves 3-12 NL Psych Exam: Positive: Mental status NL, Mood NL, Oriented x 3 Assessment /Plan Problems (1) Abdominal pain Status: Acute Problem Text: * unknown etiology * pt has been recently diagnosed with cirrhosis, she is to see dr Cali but hasn't seen him yet * she denies any history of etoh use * had a recent paracentesis done 10 days ago * will repeat paracentesis and send for culture and sensitivity * pt is currently on rocephin (2) Ascites Status: Acute Problem Text: * s/p post paracentesis 10 days ago * will repeat today (3) Urinary retention Status: Acute Problem Text: * per pt this has been on/off * will discontinue robles after paracentesis and if she continues to have urinary retention, she will likely need urology f/u outpt (4) Acute on chronic kidney failure Status: Acute Response to Treatment: Improving Problem Text: * likely secondary to urine retention * pt normally f/u with dr conner (5) Cirrhosis of liver Status: Chronic (6) Dyslipidemia Status: Chronic (7) Coronary artery disease Status: Chronic (8) Insulin dependent diabetes mellitus Status: Chronic (9) History of seizures Status: Chronic (10) Obstructive sleep apnea Status: Chronic (11) Gastroesophageal reflux disease Status: Chronic (12) History of [place] (myocardial infarction) Status: Resolved (13) Secondary hyperparathyroidism (of renal origin) Status: Chronic Plan/VTE VTE Prophylaxis Ordered?: Yes (teds and sequentials) Plan/Urinary Catheter Reason for insertion/continuin: Acute obstruct/retention VS, I&O, 24H, Fishbone Vital Signs/I&O Vital Signs Date Time Temp Pulse Resp B/P (MAP) Pulse Ox O2 Delivery O2 Flow Rate FiO2 02/19/17 09:24 74 142/72 02/19/17 06:00 98.8 16 93 Nasal Cannula 2.0 I&O- Last 24 Hours up to 6 AM 02/19/17 06:00 Intake Total 240 ml Output Total 1600 ml Balance -1360 ml Laboratory Data 24H LABS Laboratory Tests 2 02/18/17 18:41: White Blood Count 4.2, Red Blood Count 3.80L, Hemoglobin 9.7L, Hematocrit 32.3L , Mean Corpuscular Volume 85.2, Mean Corpuscular Hemoglobin 25.7L, Mean Corpuscular Hemoglobin Concent 30.2L, Red Cell Distribution Width 17.4H, Platelet Count 105L, Neutrophils (%) (Auto) 68.2H, Lymphocytes (%) (Auto) 15.9L , Monocytes (%) (Auto) 8.1H, Eosinophils (%) (Auto) 3.9H, Basophils (%) (Auto) 0.7, Neutrophils # (Auto) 2.9, Lymphocytes # (Auto) 0.7L, Monocytes # (Auto) 0.3 , Eosinophils # (Auto) 0.2, Basophils # (Auto) 0.0, Large Unclassified Cells % 3.1, Large Unclassified Cells # 0.1, Prothrombin Time 14.8H, Prothromb Time International Ratio 1.15, Activated Partial Thromboplast Time 35.7, Anion Gap 6L , Glomerular Filtration Rate 18.8L, Calcium Level 7.8L, Aspartate Amino Transf ( AST/SGOT) 28, Alanine Aminotransferase (ALT/SGPT) 20, Alkaline Phosphatase 128H , Total Bilirubin 0.2, Direct Bilirubin 0.1, Total Protein 6.6, Albumin 2.8L, Albumin/Globulin Ratio 0.74L, Lipase 168 02/18/17 19:59: Urine Appearance CLEAR, Urine Color YELLOW, Urine pH 6.0, Urine Specific [place] 1.009, Urine Protein NEGATIVE, Urine Glucose (UA) NEGATIVE, Urine Ketones NEGATIVE, Urine Urobilinogen 0.2, Urine Bilirubin NEGATIVE, Urine Leukocyte Esterase NEGATIVE, Urine Blood NEGATIVE, Urine Nitrite NEGATIVE, Urine WBC (Auto) 1, Urine RBC (Auto) 1, Urine Hyaline Casts (Auto) 0, Urine Bacteria (Auto) NEGATIVE, Urine Squamous Epithelial Cells 0, Urine Sperm (Auto) 02/19/17 01:05: Bedside Glucose (Misc Panel) 200H 02/19/17 05:27: Anion Gap 7L, Glomerular Filtration Rate 22.2L, Calcium Level 7.9L, Blood Urea Nitrogen 44H, Creatinine 2.34H, Sodium Level 144, Potassium Level 3.4L, Chloride Level 107, Carbon Dioxide Level 30 CBC/BMP Laboratory Tests 02/18/17 18:41 Red Blood Count 3.80 L, Mean Corpuscular Volume 85.2, Mean Corpuscular Hemoglobin 25.7 L, Mean Corpuscular Hemoglobin Concent 30.2 L, Red Cell Distribution Width 17.4 H, Neutrophils (%) (Auto) 68.2 H, Lymphocytes (%) (Auto ) 15.9 L, Monocytes (%) (Auto) 8.1 H, Eosinophils (%) (Auto) 3.9 H, Basophils (% ) (Auto) 0.7, Neutrophils # (Auto) 2.9, Lymphocytes # (Auto) 0.7 L, Monocytes # (Auto) 0.3, Eosinophils # (Auto) 0.2, Basophils # (Auto) 0.0 02/19/17 05:27 Red Blood Count 3.14 L, Mean Corpuscular Volume 84.9, Mean Corpuscular Hemoglobin 26.8 L, Mean Corpuscular Hemoglobin Concent 31.6 L, Red Cell Distribution Width 17.5 H, Calcium Level 7.9 L Microbiology Microbiology 02/18/17 Blood Culture, Received Pending 4/29/17 Blood Culture, Received Pending 02/18/17 Urine Culture - Final, Complete CHRISTOPH KAMARA DO Feb 19, 2017 12:52
--- NOTE | 2017-02-19 13:22 | SMCUROLCON ---
Urology Consultation General Date of Consultation 02/19/17 Reason For Consultation This 66yo female patient is seen for Cirrhosis Of Liver; AUR; ARF on CRF. Edgar inserted 750cc clear urine. Plan: Edgar to [place]. f/u Urology 1 week after dc home. Paracentesis per Hospitalist. Full consultation dictated. History of Present Illness The patient is a -year-old with a past medical history for . Medications Current Medications Current Medications Albuterol Sulfate (Proventil Neb) 2.5 mg QID PRN INH SOB/WHEEZING; Start at 00:15; Stop 03/21/17 at 00:14 Albuterol Sulfate (Proventil, Ventolin Hfa) 2 puff Q4H PRN INH SHORTNESS OF BREATH; Start 02/19/17 at 00:15; Stop 03/21/17 at 00:14 Aspirin (Ecotrin) 325 mg DAILY PO Last administered on 02/19/17 09:23; Start 02/19/17 at 09:00; Stop 03/21/17 at 08:59 Atorvastatin Calcium (Lipitor) 40 mg QHS PO Last administered on 02/19/17 01: 00; Start 02/18/17 at 21:00; Stop 03/20/17 at 20:59 Calcium/Vitamin D (Oscal D) 500 mg BID PO Last administered on 02/19/17 09:23 ; Start 02/18/17 at 21:00; Stop 03/20/17 at 20:59 Carvedilol (COReg) 25 mg BID PO Last administered on 02/19/17 09:24; Start at 21:00; Stop 03/20/17 at 20:59 Ceftriaxone Sodium 2 gm/ Dextrose 50 ml @ 100 mls/hr Q24H IV Last administered on 02/19/17 02:55; Start 02/19/17 at 03:00; Stop 02/26/17 at 02:59 Folic Acid (Folic Acid) 1 mg DAILY PO Last administered on 02/19/17 09:23; Start 02/19/17 at 09:00; Stop 03/21/17 at 08:59 Home Med (Med Rec Complete!) ASDIRECTED XX ; Start 02/18/17 at 21:45; Stop at 21:45; Status DC Insulin Detemir (Levemir Insulin) 18 units BID SC Last administered on 09:24; Start 02/18/17 at 21:00; Stop 03/20/17 at 20:59 Lactobacillus Acidophilus (Bacid) 1 ea BID PO Last administered on 02/19/17 09 :22; Start 02/18/17 at 21:00; Stop 03/20/17 at 20:59 Levetiracetam (Keppra) 1,000 mg BID PO Last administered on 02/19/17 09:24; Start 02/18/17 at 21:00; Stop 03/20/17 at 20:59 Mineral Oil/White Petrolatum (Eucerin) to feet bilaterally TIDP PRN TOP DRY SKIN; Start 02/19/17 at 00:15; Stop 03/21/17 at 00:14 Nitroglycerin (Nitrostat (1/ 150)) 0.4 mg Q5MP PRN SL ANGINA; Start 02/19/17 at 00:15; Stop 03/21/17 at 00:14 Nystatin (Mycostatin) To lower abdomen BID TOP Last administered on 02/19/17 09:26; Start 02/18/17 at 21:00; Stop 03/20/17 at 20:59 Omeprazole (PriLOSEC) 40 mg DAILY PO Last administered on 02/19/17 09:24; Start 02/19/17 at 09:00; Stop 03/21/17 at 08:59 Polyethylene Glycol (Miralax) 1 pkt DAILYPRN PRN PO CONSTIPATION; Start at 00:15; Stop 03/21/17 at 00:14 Potassium Chloride (Micro-K Extencaps) 20 meq TID PO Last administered on 09:22; Start 02/18/17 at 21:00; Stop 03/20/17 at 20:59 Salmeterol Xinafoate/ Fluticasone (Advair Diskus 250/50) 1 puff BID INH Last administered on 02/19/17 09:10; Start 02/18/17 at 21:00; Stop 03/20/17 at 20:59 Senna/Docusate Sodium (Senokot S) 2 tab BID PO Last administered on 02/19/17 09:23; Start 02/18/17 at 21:00; Stop 03/20/17 at 20:59 Topiramate (TopAMAX) 50 mg BID PO Last administered on 02/19/17 09:23; Start 02/18/17 at 21:00; Stop 03/20/17 at 20:59 Trazodone HCl (Desyrel) 100 mg QHS PO Last administered on 02/19/17 01:28; Start 02/18/17 at 21:00; Stop 03/20/17 at 20:59 Allergies Allergies: Coded Allergies: Streptokinase (Unverified Allergy, Severe, BLOOD CLOTS, 01/20/16) Amiloride (Verified Allergy, Intermediate, RASH/GENERAL ITCHING, 01/28/13) RASH/GENERAL ITCHING Guaifenesin & Derivatives (Unverified Allergy, Intermediate, FACE SWELLING , 01/20/16) Shellfish Allergy (Verified Allergy, Intermediate, RASH, 01/28/13) Spironolactone (Unverified Allergy, Intermediate, RASH, 01/28/13) Vancomycin (Unverified Allergy, Intermediate, HIVES,SWELLING,RASH, 01/28/13) Gabapentin (Verified Adverse Reaction, Severe, SUICIDAL IDEATIONS, 01/28/13) Vital Signs/I&O Vital Signs Date Time Temp Pulse Resp B/P (MAP) Pulse Ox O2 Delivery O2 Flow Rate FiO2 02/19/17 09:24 74 142/72 02/19/17 06:00 98.8 16 93 Nasal Cannula 2.0 I&O- Last 24 Hours up to 6 AM 02/19/17 06:00 Intake Total 240 ml Output Total 1600 ml Balance -1360 ml Laboratory Data 24H Labs Laboratory Tests 2 02/18/17 18:41: White Blood Count 4.2, Red Blood Count 3.80L, Hemoglobin 9.7L, Hematocrit 32.3L , Mean Corpuscular Volume 85.2, Mean Corpuscular Hemoglobin 25.7L, Mean Corpuscular Hemoglobin Concent 30.2L, Red Cell Distribution Width 17.4H, Platelet Count 105L, Neutrophils (%) (Auto) 68.2H, Lymphocytes (%) (Auto) 15.9L , Monocytes (%) (Auto) 8.1H, Eosinophils (%) (Auto) 3.9H, Basophils (%) (Auto) 0.7, Neutrophils # (Auto) 2.9, Lymphocytes # (Auto) 0.7L, Monocytes # (Auto) 0.3 , Eosinophils # (Auto) 0.2, Basophils # (Auto) 0.0, Large Unclassified Cells % 3.1, Large Unclassified Cells # 0.1, Prothrombin Time 14.8H, Prothromb Time International Ratio 1.15, Activated Partial Thromboplast Time 35.7, Anion Gap 6L , Glomerular Filtration Rate 18.8L, Calcium Level 7.8L, Aspartate Amino Transf ( AST/SGOT) 28, Alanine Aminotransferase (ALT/SGPT) 20, Alkaline Phosphatase 128H , Total Bilirubin 0.2, Direct Bilirubin 0.1, Total Protein 6.6, Albumin 2.8L, Albumin/Globulin Ratio 0.74L, Lipase 168 02/18/17 19:59: Urine Appearance CLEAR, Urine Color YELLOW, Urine pH 6.0, Urine Specific [place] 1.009, Urine Protein NEGATIVE, Urine Glucose (UA) NEGATIVE, Urine Ketones NEGATIVE, Urine Urobilinogen 0.2, Urine Bilirubin NEGATIVE, Urine Leukocyte Esterase NEGATIVE, Urine Blood NEGATIVE, Urine Nitrite NEGATIVE, Urine WBC (Auto) 1, Urine RBC (Auto) 1, Urine Hyaline Casts (Auto) 0, Urine Bacteria (Auto) NEGATIVE, Urine Squamous Epithelial Cells 0, Urine Sperm (Auto) 02/19/17 01:05: Bedside Glucose (Misc Panel) 200H 02/19/17 05:27: Anion Gap 7L, Glomerular Filtration Rate 22.2L, Calcium Level 7.9L, Blood Urea Nitrogen 44H, Creatinine 2.34H, Sodium Level 144, Potassium Level 3.4L, Chloride Level 107, Carbon Dioxide Level 30 CBC/BMP Laboratory Tests 02/18/17 18:41 Red Blood Count 3.80 L, Mean Corpuscular Volume 85.2, Mean Corpuscular Hemoglobin 25.7 L, Mean Corpuscular Hemoglobin Concent 30.2 L, Red Cell Distribution Width 17.4 H, Neutrophils (%) (Auto) 68.2 H, Lymphocytes (%) (Auto ) 15.9 L, Monocytes (%) (Auto) 8.1 H, Eosinophils (%) (Auto) 3.9 H, Basophils (% ) (Auto) 0.7, Neutrophils # (Auto) 2.9, Lymphocytes # (Auto) 0.7 L, Monocytes # (Auto) 0.3, Eosinophils # (Auto) 0.2, Basophils # (Auto) 0.0 02/19/17 05:27 Red Blood Count 3.14 L, Mean Corpuscular Volume 84.9, Mean Corpuscular Hemoglobin 26.8 L, Mean Corpuscular Hemoglobin Concent 31.6 L, Red Cell Distribution Width 17.5 H, Calcium Level 7.9 L Microbiology Microbiology 02/18/17 Blood Culture, Received Pending 02/18/17 Blood Culture, Received Pending 02/18/17 Urine Culture - Final, Complete MATILDA GARCIA MD Feb 19, 2017 13:22
--- NOTE | 2017-02-19 15:22 | CR ---
DATE OF CONSULTATION: 02/19/2017 REASON FOR CONSULTATION: This 66-year-old female was evaluated in consultation as requested by Dr. Valero on 02/19/2017, for acute urinary retention. She was admitted to the hospital (02/18/2017) following a two-week history of abdominal discomfort, constipation and decreased urine output. Evaluation for chronic ascites and liver cirrhosis is in progress. Prior to the most recent onset of decreased urine output, there is no history of voiding symptoms, gross hematuria, urinary tract infection, urolithiasis, flank pain or constitutional symptoms. Edgar catheter insertion in the emergency department (02/18/2017) per urology resulted in drainage of 750 mL of clear yellow urine. Edgar catheter remains clear at present. As well, the patient has had a 30-pound weight gain over the past two months. She has baseline chronic renal failure (creatinine 2.0). PAST MEDICAL HISTORY: Is significant for diabetes mellitus with subsequent liver cirrhosis, coronary artery disease, myocardial infarction times three status post coronary artery bypass graft, seizure disorder, left total hip arthroplasty, cataracts, secondary hyperparathyroidism, tonsillectomy, total abdominal hysterectomy and left tibial-fibular repair. REVIEW OF SYSTEMS: Negative for hypertension, pulmonary pathology, headaches, cerebrovascular accident (CVA), glaucoma, peptic ulcer disease, urolithiasis, cholelithiasis, or blood borne diseases. CURRENT MEDICATIONS: Aspirin, omeprazole, ceftriaxone, albuterol, nitroglycerin, Lipitor, carvedilol, trazodone, and insulin. ALLERGIES: She is allergic to AMILORIDE, SHELLFISH, SPIRONOLACTONE and VANCOMYCIN. SOCIAL HISTORY: She is and has three children. She is a [id number] smoker who quit seven weeks previously. She does not consume alcohol. FAMILY HISTORY: Significant for diabetes mellitus and chronic renal failure on the paternal side. PHYSICAL EXAMINATION: General examination revealed a comfortable and obese individual. Her heart rate was 74, respiratory rate was 16, blood pressure was 142/72, and temperature was 98.8 degrees Fahrenheit. Palpation of the head and neck failed to reveal the presence of lymphadenopathy. Auscultation of chest was clear with normal heart sounds and a systolic murmur. Examination of the back and abdomen demonstrated ascites and obese individual. Bowel sounds were present. The abdomen was otherwise benign. A Edgar catheter demonstrated clear urine. LABORATORY DATA: Urinalysis (02/18/2017) demonstrated at pH of 6.0, with no evidence of leukocytes, nitrites or microhematuria. A urine culture (02/18/2017) was negative for bacterial growth. Serum hematologic and biochemical indices determination (02/19/2017) demonstrated a hemoglobin of 8.4, leukocyte count 3.2, and a creatinine of 2.3 (improved post Edgar catheter insertion). IMAGING: Computed tomography of the abdomen and pelvis without intravenous contrast (02/18/2017) demonstrated bilateral atrophic kidneys, ascites, well-positioned Edgar catheter, and liver cirrhosis. There was no evidence of nephrolithiasis or hydro-ureteral nephrosis. ASSESSMENT: 1. Acute urinary retention. 2. Acute on chronic renal failure. 3. Liver cirrhosis with ascites. 4. Diabetes mellitus. 5. Coronary artery disease, status post myocardial infarction times three. 6. Status post coronary artery bypass graft. 7. Secondary hyperparathyroidism. 8. Left hip total arthroplasty. PLAN: The above findings were discussed with the patient and hospitalist. Edgar catheter is straight draining which will be maintained. Following paracentesis, she may be discharged home and will followup with urology in one week for a voiding trial. Possible urodynamic studies evaluation may be required. Clean intermittent catheterization was deferred secondary to patient body habitus. Should you require additional information, please do not hesitate to contact me. Thanking you for the confidence of your referral.
[2017-02-19 15:45] LABS: SPEC. GRAVITY BODY FLUIDS 1.017 (NOT ESTABLISHED)
[2017-02-19 15:49] LABS: RBC ASCITES FLUID < 10 (<10mm3 cells/uL); TNC ASCITES FLUID 329 cells/uL (0-20)
[2017-02-19 15:51] LABS: BF DIFF IF INDICATED? YES (NO)
[2017-02-19 16:04] LABS: TOTAL PROTEIN, BODY FLUID 2.1 G/DL (NOT ESTABLISHED)
[2017-02-19 16:19] LABS: MEAN CORPUSCULAR HGB CONC 29.8 g/dl (32.0-36.5); MEAN CORPUSCULAR VOLUME 83.7 fl (80.0-96.0); RED CELL DISTRIBUTION WIDTH 17.3 % (11.5-14.5); WHITE BLOOD COUNT 3.6 K/mm3 (4.0-10.0)
[2017-02-19 16:28] LABS: INR 1.34
[2017-02-19 16:40] LABS: CC BF DIFF EXAM CYTOCENTRIFUGE
[2017-02-19 16:42] LABS: ALBUMIN 2.4 GM/DL (3.2-5.2); ALBUMIN/GLOBULIN RATIO 0.77 (1.00-1.93); BILIRUBIN,TOTAL 0.2 MG/DL (0.2-1.0); CALCIUM LEVEL 7.9 MG/DL (8.8-10.2); CREATININE FOR GFR 2.26 MG/DL (0.55-1.02); GLOMERULAR FILTRATION RATE 23.1 (>45); POTASSIUM SERUM 3.6 MEQ/L (3.5-5.1); TOTAL PROTEIN 5.5 GM/DL (6.4-8.2)
[2017-02-19] MEDS ORDERED: MORPHINE 4 MG/ML 1ML SYRINGE IV ONE (19:30)
[2017-02-19] MEDS: HumaLOG INSULIN (NovoLOG) PER UNIT SC SCH (21:00)
[2017-02-19] MEDS ORDERED: DEXTROSE 50% 50 ML SYRINGE IV PRN (21:30)
[2017-02-19] MEDS ORDERED: GLUCAGON FOR INJ 1 MG VIAL (J1610) SC PRN (21:30)
[2017-02-19] MEDS ORDERED: GLUCOSE 4 GM CHEW TABLET PO PRN (21:30)
[2017-02-20] MEDS: cefTRIAXone SOD 2 GM in D5W MINI-BAG PLUS 50 ML IV SCH (04:07)
[2017-02-20 06:00] VITALS: BP 160/74
[2017-02-20 06:09] LABS: MEAN CORPUSCULAR HEMOGLOBIN 25.2 pg (27.0-33.0); MEAN CORPUSCULAR HGB CONC 30.1 g/dl (32.0-36.5); MEAN CORPUSCULAR VOLUME 83.5 fl (80.0-96.0); RED CELL DISTRIBUTION WIDTH 17.5 % (11.5-14.5); WHITE BLOOD COUNT 2.8 K/mm3 (4.0-10.0)
[2017-02-20 06:24] LABS: CALCIUM LEVEL 7.6 MG/DL (8.8-10.2); CREATININE FOR GFR 2.2 MG/DL (0.55-1.02); GLOMERULAR FILTRATION RATE 23.8 (>45); POTASSIUM SERUM 3.7 MEQ/L (3.5-5.1)
--- NOTE | 2017-02-20 06:32 | REP ---
BILATERAL LOWER EXTREMITY DUPLEX VEINS: HISTORY: Swelling. RIGHT LOWER EXTREMITY: There are no filling defects in the deep venous system. The deep venous system is patent. A Ramirez cyst is present. The cyst measures 4.1 x 0.8 x 2.1 cm. IMPRESSION: There is no deep venous thrombosis. LEFT LOWER EXTREMITY: There are no filling defects in the deep venous system. The deep venous system is patent. A Ramirez cyst is present. The cyst measures 2.9 x 0.9 x 1.6 cm. IMPRESSION: There is no deep venous thrombosis. Signed by Aly Aragon MD 02/20/2017 08:21 A
--- NOTE | 2017-02-20 07:06 | REP ---
LIVER ULTRASOUND: HISTORY: Cirrhosis. There are no filling defects in the gallbladder. The gallbladder wall is thickened measuring 6.3 mm. The common bile duct measures 3.1 mm. The liver is coarse in echogenicity. The pancreas is not seen. The kidneys are normal in echogenicity. The right kidney measures 5.1 cm in transverse by 4.5 cm in AP by 9.4 cm in cephalocaudal dimensions. The left kidney measures 3.8 cm in transverse by 3.9 cm in AP by 10.3 cm in cephalocaudal dimensions. There is no hydronephrosis or mass. The spleen is enlarged measuring 18 cm. The portal vein is enlarged measuring 3.1 cm. Normal hepatopetal flow is present. The hepatic veins show biphasic wave form. Ascites is present. IMPRESSION: 1. Thickened gallbladder wall. 2. Ascites is present. 3. Findings consistent with cirrhosis. Signed by Aly Aragon MD 02/20/2017 08:26 A
[2017-02-20] MEDS: ADVAIR DISKUS 250/50 INH PWD INH SCH ×2 (07:17→19:19)
--- NOTE | 2017-02-20 07:32 | REP ---
Clinical: Abdominal pain. Comparison: 02/18/2017. Findings: Lung bases demonstrate stable cardiomegaly as well as mild chronic scattered fibroatelectatic changes. Continued evidence for cirrhosis with portal venous hypertension. A mild to moderate amount of ascites and subcutaneous edema is appreciated which is considerably decreased when compared to 02/18/2017. Spleen, pancreas, gallbladder, bilateral adrenal glands and kidneys are relatively normal / stable. Diffuse vascular calcifications noted throughout the abdomen and pelvis. Small nonobstructing intrarenal calculi are suggested without hydroureteronephrosis. The enteric system is without obstruction or acute inflammatory process. Edgar catheter in collapsed bladder. Musculoskeletal structures demonstrate age-related degenerative changes without focal osseous abnormality along with evidence for left hip replacement. Impression: 1. Continued evidence for cirrhosis and portal venous hypertension with mild to moderate ascites and subcutaneous edema decreased compared to 02/18/2017. 2. No new acute intra-abdominal or pelvic pathology appreciated Signed by Clyde Moore MD 02/20/2017 07:24 A
[2017-02-20] MEDS: HumaLOG INSULIN (NovoLOG) PER UNIT SC SCH ×4 (07:59→20:45)
--- NOTE | 2017-02-20 08:09 | RO ---
DATE OF PROCEDURE: 02/19/2017 PREPROCEDURE DIAGNOSIS: Ascites. POSTPROCEDURE DIAGNOSIS: Ascites. PROCEDURE PERFORMED: Ultrasound guided paracentesis. PHYSICIAN PERFORMING PROCEDURE: Dr. Galina Lewis COATING ENGINEER: Registered Nurse Tona SEDATION: None. VENTILATION: Nasal cannula 2 liters. ANESTHETIC: 1% local lidocaine. ESTIMATED BLOOD LOSS: Minimal. The patient was placed in supine position with pillows under the left side of the patient's back. Ultrasound was used to locate pockets of ascites fluid. It was determined that the right lower quadrant had the best window. Subsequently the site is marked. The patient was cleaned with ChloraPrep, prepped and draped in a sterile manner. 1% local lidocaine was first given superficially and then deep. The skin was nicked with a blade. Traction was pulled on the skin and the catheter was inserted with a needle. After ascites fluid was expressed, plastic catheter is slided through over the needle and the needle was removed. Subsequently ascites fluid was obtained for diagnosis and further fluid was removed for therapeutic. Vital signs were taken after every liter of fluid that was taken. A total of 2.5 liters of fluid was taken out. The procedure was terminated when fluid flow had stopped and could not be reestablished with repositioning. The patient's vital signs remained stable during the procedure. Subsequently the catheter was removed. Tape was placed. The patient tolerated the procedure with no complications. WARNER
[2017-02-20] MEDS: LACTOBACILLUS ACIDOPHILUS CAP (BACID) PO SCH ×2 (09:42→21:06)
[2017-02-20] MEDS: levETIRAcetam 250MG TABLET (KEPPRA) PO SCH ×2 (09:42→21:06)
[2017-02-20] MEDS: SENOKOT S TAB PO SCH ×2 (09:42→21:08)
[2017-02-20] MEDS: CARVedilol 12.5 MG TAB PO SCH ×2 (09:42→21:08)
[2017-02-20] MEDS: CALCIUM/VITAMIN D 500 MG TAB PO SCH ×2 (09:43→21:08)
[2017-02-20] MEDS: OMEPRAZOLE 20 MG CAP PO SCH (09:43)
[2017-02-20] MEDS: TOPIRAMATE (TopAMAX) 25 MG TAB PO SCH ×2 (09:43→21:07)
[2017-02-20] MEDS: LEVEMIR (INSULIN DETEMIR) 1 UNITS/0.01ML SC SCH ×2 (09:43→21:09)
[2017-02-20] MEDS: FOLIC ACID 1 MG TAB PO SCH (09:43)
[2017-02-20] MEDS: ASPIRIN ENTERIC 325 MG TAB PO SCH (09:43)
[2017-02-20] MEDS: NYSTATIN OINTMENT 15 GM TOP SCH ×2 (09:44→21:09)
[2017-02-20] MEDS: POTASSIUM CHLORIDE 10 MEQ SR TABLET PO SCH ×3 (09:44→21:07)
[2017-02-20 14:00] VITALS: BP 170/72
[2017-02-20] MEDS ORDERED: **hydrALAZINE HCL** 25 MG TAB PO ONE (14:00)
[2017-02-20] MEDS ORDERED: traMADol 50 MG TAB PO PRN (17:15)
[2017-02-20] MEDS: **hydrALAZINE** 50 MG TAB PO SCH ×2 (17:21→21:10)
[2017-02-20 18:56] VITALS: BP 140/80
--- NOTE | 2017-02-20 20:16 | IPNPDOC ---
Subjective Date Seen The patient was seen on 02/20/17. Subjective Chief Complaint/HPI The patient is a 66-year-old female admitted with a reason for visit of Cirrhosis Of Liver. Constitutional: Denies: Chills, Fever, Night Sweats Musculoskeletal: Reports: Back Pain, Joint Pain Objective Physical Examination General Exam: Positive: Alert, Cooperative, No Acute Distress Eye Exam: Positive: Conjunctiva & lids normal, EOMI ENT Exam: Positive: Atraumatic, Mucous membr. moist/pink, Pharynx Normal Chest Exam: Positive: Clear to auscultation, Normal air movement Heart Exam: Positive: Rate Normal, Regular Rhythm, Murmurs Telemetry: Positive: No significant arrhythmia Abdomen Exam: Positive: Normal bowel sounds, Tenderness, Other Extremity Exam: Positive: Edema, Normal pulses, Tenderness Skin Exam: Positive: Nl turgor and temperature Neuro Exam: Positive: Normal Speech, Cranial Nerves 3-12 NL Psych Exam: Positive: Mental status NL, Mood NL, Oriented x 3 Assessment /Plan Problems (1) Abdominal pain Status: Acute Problem Text: * pt has been recently diagnosed with cirrhosis, she is to see dr Cali but hasn't seen him yet * she denies any history of etoh use * had a recent paracentesis done 10 days ago * s/p paracentesis on 02/19 PMNs elevated * pt is currently on rocephin (2) Ascites Status: Acute Problem Text: * s/p post paracentesis 10 days ago * repeated yesterday (3) Urinary retention Status: Acute Problem Text: * per pt this has been on/off * she was seen by urology yesterday, recommended to leave robles in and follow up with urology outpt (4) Acute on chronic kidney failure Status: Acute Response to Treatment: Improving Problem Text: * likely secondary to urine retention * pt normally f/u with dr conner (5) Cirrhosis of liver Status: Chronic (6) Dyslipidemia Status: Chronic (7) Coronary artery disease Status: Chronic (8) Insulin dependent diabetes mellitus Status: Chronic (9) History of seizures Status: Chronic (10) Obstructive sleep apnea Status: Chronic (11) Gastroesophageal reflux disease Status: Chronic (12) History of IL (myocardial infarction) Status: Resolved (13) Secondary hyperparathyroidism (of renal origin) Status: Chronic (14) Anemia in chronic kidney disease Status: Acute Problem Text: * will transfuse 2 units of prbc * pt follows up with dr guajardo (15) Pancytopenia Plan/VTE VTE Prophylaxis Ordered?: Yes (teds and sequentials) Plan/Urinary Catheter Reason for insertion/continuin: Acute obstruct/retention VS, I&O, 24H, Fishbone Vital Signs/I&O Vital Signs Date Time Temp Pulse Resp B/P (MAP) Pulse Ox O2 Delivery O2 Flow Rate FiO2 02/20/17 18:56 99.1 69 18 140/80 (100) 98 Room Air 02/19/17 16:00 2.0 I&O- Last 24 Hours up to 6 AM 02/20/17 06:00 Intake Total 830 ml Output Total 2450 ml Balance -1620 ml Laboratory Data 24H LABS Laboratory Tests 2 02/19/17 20:32: Bedside Glucose (Misc Panel) 112 02/20/17 05:18: Anion Gap 4L, Glomerular Filtration Rate 23.8L, Blood Urea Nitrogen 45H, Creatinine 2.20H, Sodium Level 146H, Potassium Level 3.7, Chloride Level 110H, Carbon Dioxide Level 32, Calcium Level 7.6L 02/20/17 11:35: Bedside Glucose (Misc Panel) 123H 02/20/17 16:55: Bedside Glucose (Misc Panel) 191H CBC/BMP Laboratory Tests 02/20/17 05:18 Red Blood Count 3.06 L, Mean Corpuscular Volume 83.5, Mean Corpuscular Hemoglobin 25.2 L, Mean Corpuscular Hemoglobin Concent 30.1 L, Red Cell Distribution Width 17.5 H, Calcium Level 7.6 L Microbiology Microbiology 02/18/17 Blood Culture - Preliminary, Resulted No growth after 24 hours . All specim... 02/18/17 Blood Culture - Preliminary, Resulted No growth after 24 hours . All specim... 02/19/17 Acid Fast Stain, Received Pending 02/19/17 Mycobacterial Culture, Received Pending 02/19/17 Fungal Smear, Received Pending 02/19/17 Fungal Culture, Received Pending 02/19/17 Gram Stain - Final, Resulted 02/19/17 Body Fluid Culture, Resulted Pending 02/18/17 Urine Culture - Final, Complete CHRISTOPH KAMARA DO February 20, 2017 20:16
[2017-02-20] MEDS: ATORVASTATIN 20 MG TAB PO SCH (21:07)
[2017-02-20] MEDS: traZODone 100 MG TAB PO SCH (21:08)
[2017-02-20 22:00] VITALS: BP 137/76
[2017-02-21] MEDS: cefTRIAXone SOD 2 GM in D5W MINI-BAG PLUS 50 ML IV SCH (03:01)
[2017-02-21 05:52] VITALS: BP 156/77
[2017-02-21] MEDS: **hydrALAZINE** 50 MG TAB PO SCH (05:52)
[2017-02-21 06:00] VITALS: BP 156/77
[2017-02-21 06:49] LABS: MEAN CORPUSCULAR HEMOGLOBIN 27.5 pg (27.0-33.0); MEAN CORPUSCULAR HGB CONC 32.8 g/dl (32.0-36.5); MEAN CORPUSCULAR VOLUME 84.1 fl (80.0-96.0); RED CELL DISTRIBUTION WIDTH 17.3 % (11.5-14.5); WHITE BLOOD COUNT 3.8 K/mm3 (4.0-10.0)
[2017-02-21 07:08] LABS: CALCIUM LEVEL 8.1 MG/DL (8.8-10.2); CREATININE FOR GFR 2.06 MG/DL (0.55-1.02); GLOMERULAR FILTRATION RATE 25.7 (>45); POTASSIUM SERUM 3.7 MEQ/L (3.5-5.1)
[2017-02-21] MEDS: ADVAIR DISKUS 250/50 INH PWD INH SCH (07:19)
[2017-02-21] MEDS: HumaLOG INSULIN (NovoLOG) PER UNIT SC SCH ×2 (07:30→12:00)
[2017-02-21] MEDS: LACTOBACILLUS ACIDOPHILUS CAP (BACID) PO SCH (08:57)
[2017-02-21] MEDS: LEVEMIR (INSULIN DETEMIR) 1 UNITS/0.01ML SC SCH (08:57)
[2017-02-21] MEDS: SENOKOT S TAB PO SCH (08:58)
[2017-02-21] MEDS: POTASSIUM CHLORIDE 10 MEQ SR TABLET PO SCH (08:58)
[2017-02-21] MEDS: TOPIRAMATE (TopAMAX) 25 MG TAB PO SCH (08:58)
[2017-02-21] MEDS: levETIRAcetam 250MG TABLET (KEPPRA) PO SCH (08:59)
[2017-02-21] MEDS: FOLIC ACID 1 MG TAB PO SCH (08:59)
[2017-02-21] MEDS: CARVedilol 12.5 MG TAB PO SCH (08:59)
[2017-02-21] MEDS: CALCIUM/VITAMIN D 500 MG TAB PO SCH (08:59)
[2017-02-21] MEDS: OMEPRAZOLE 20 MG CAP PO SCH (09:00)
[2017-02-21] MEDS: ASPIRIN ENTERIC 325 MG TAB PO SCH (09:00)
[2017-02-21] MEDS: NYSTATIN OINTMENT 15 GM TOP SCH (09:00)
[2017-02-21] MEDS ORDERED: FLAG500T PO (10:05)
[2017-02-21] MEDS ORDERED: XIFA550T PO (10:05)
[2017-02-21] MEDS ORDERED: CIPR500T3 PO (10:05)
--- NOTE | 2017-02-21 15:19 | DSES ---
DATE OF ADMISSION: 02/18/2017 DATE OF DISCHARGE: 02/21/2017 ATTENDING PHYSICIAN: Dr. Myranda Rajput CONSULTANTS: Dr. Hair Lira, Urology DISCHARGE DIAGNOSES: 1. Cirrhosis of the liver. 2. Ascites. 3. Acute kidney injury, resolved. 4. Urinary retention, acute. 5. Coronary artery disease. 6. Insulin-dependent diabetes. 7. Dyslipidemia. 8. Obstructive sleep apnea, compliant with continuous positive airway pressure (CPAP). 9. History of seizures. 10. Gastroesophageal reflux disease (GERD). 11. History of myocardial infarction. 12. Anemia of chronic disease. 13. Secondary hyperparathyroidism. 14. Thrombocytopenia. DISCHARGE MEDICATIONS: - ciprofloxacin 500 mg every 12 hours for 4 days - Flagyl 500 mg every 8 hours for 4 days - Xifaxan 550 mg by mouth twice daily - albuterol sulfate two puffs inhaled every 4 hours as needed - albuterol sulfate nebulizer inhaled four times daily as needed - ammonium lactate one dose topically for dry feet - aspirin 325 mg daily - atorvastatin 40 mg at night - calcium 500 plus vitamin D one tablet by mouth twice daily - carvedilol 25 mg by mouth twice daily - vitamin D 50,000 units monthly - folic acid 1 mg by mouth daily - insulin sliding scale before meals - Bacid one tablet by mouth twice daily - Keppra 5000 mg by mouth twice a day - nitroglycerin 0.4 mg sublingually as needed - omeprazole 40 mg by mouth daily - potassium chloride 20 mEq three times daily - Advair Diskus one puff inhaled twice a day - topiramate 50 mg by mouth twice a day - torsemide 100 mg by mouth daily - Toujeo 80 units subcutaneous twice daily - trazodone 100 mg by mouth at night BRIEF HOSPITAL COURSE: The patient presented with abdominal pain and difficulty with bowel movement. She was recently diagnosed with cirrhosis. She had a paracentesis almost 2 weeks ago. During hospitalization she had another paracentesis with elevated PMNs and was initiated on Rocephin. Paracentesis was done on 02/19/2017. She also was found to have acute urinary retention for which a Edgar was placed. She was seen by urology and recommendations were to keep Edgar in she would follow up as outpatient for voiding trial. Her acute kidney injury did improve back to baseline after Edgar placement. She does have history of anemia of chronic disease; however, her hemoglobin did drop to 7.7, requiring 2 units of packed red blood cells with appropriate response. She was placed on a bowel regimen and was able to move her bowels and rectal pain resolved. On day of discharge, the patient reported feeling well and was adamant about going home. She denied any chest pain, chest pressure, shortness of breath, lightheadedness, dizziness, nausea, vomiting, diarrhea. Abdominal pain had significantly improved. She continues to have a Edgar in place, which she reports is uncomfortable but no dysuria or hematuria. She is afebrile and vitals were stable. Laboratory data on discharge: WBC 3.8, hemoglobin 10.1, hematocrit 30.8, platelet count 81, sodium 143, potassium 3.7, chloride 109, carbon dioxide 26, anion gap 8, BUN 46, creatinine 2.1, GFR 25.7, fasting glucose 84, calcium 8.1. Microbiology: Blood culture showed no growth after 48 hours. Urine culture was negative. Ascites fluid cultures are still pending. IMAGING STUDIES: The patient had an abdominal/pelvis CT on , which revealed evidence of cirrhosis and portal hypertension, massive amount of abdominal and pelvis ascites, small bowel wall thickening. She had a vascular ultrasound on 02/19/2017, which showed no evidence of deep vein thrombosis (DVT) bilaterally. She had a liver ultrasound on 02/19/2017, which showed ascites and findings consistent with cirrhosis and gallbladder wall was thickened. Repeat abdominal/pelvis CT on 02/20/2917 revealed continued evidence for cirrhosis and portal venous hypertension with mild to moderate ascites and subcutaneous edema. Compared to previous imaging, no new acute pathology. PHYSICAL EXAMINATION Discharge vital signs: Temperature 98.7, pulse 75, respiratory rate 22, blood pressure 156/77, pulse oximetry 92%. GENERAL: The patient is alert and oriented times three. No acute distress. HEENT: Normocephalic, atraumatic. Extraocular muscles are intact. Pupils are equally round and reactive to light. No scleral icterus. Moist mucosa. NECK: Supple. No cervical lymphadenopathy or thyromegaly. HEART: Normal S1, S2, regular rate and rhythm. LUNGS: Clear to auscultation bilaterally. No rales, rhonchi or wheezing. ABDOMEN: Obese. Soft. Nontender. Bowel sounds are present. No rebound, guarding or rigidity. EXTREMITIES: No cyanosis or edema. Positive pedal pulses bilaterally. SKIN: Warm and dry. No rashes noted. NEUROLOGIC: No focal deficits. Cranial nerves II-XII are grossly intact. Motor and sensation intact. DISCHARGE INSTRUCTIONS: The patient is discharged in stable condition. She is to follow up with primary care physician in 3-5 days. The office is not open today and the patient will have to call tomorrow to set up that appointment. She should followup with Dr. Cali in 5 days. Followup with urology in 7 days. Those offices will call her with an appointment. She will be sent home with [facility]. Followup with urology for voiding trial. She gets nursing assistance three times a week and PT twice a week and home health care has been reinstated. Activity as tolerated. Low-sodium diet. She should return to the emergency department with any worsening or recurring symptoms. Things to followup on: Patient's ascites fluid cultures are still pending. Blood cultures are now finalized, they showed no growth after 48 hours. Time spent on discharge was greater than 40 minutes. My preceptor for this patient encounter was Dr. Rajput. The preceptor was physically present in the building during the encounter and was fully available. As needed, all aspects of the patient interview, examination, medical decision making process, and medical care plan development were reviewed and approved by the preceptor. The preceptor is aware and concurs with the plan as stated in the body of this note and will attest to such by his/her cosignature.
[2017-02-23] MEDS ORDERED: CEFD1CAP8 PO (11:45)
== END 2017-02-21 11:59 | disposition home health service (06) | DRG 638 ==
LOC: M ED 19:33 → M ED INP 23:48 → M MSPAV 02-19 00:44
PROVIDERS: ADMIT Internal Medicine; ATTEND General Practice
PROC: 0W9G3ZX Drainage of Peritoneal Cavity, Percutaneous Approach, Diagnostic (ICD-10-PCS; principal; 2017-02-19)
PROC: 30233N1 Transfusion of Nonautologous Red Blood Cells into Peripheral Vein, Percutaneous Approach (ICD-10-PCS; 2017-02-20)
DX: E11.69 Type 2 diabetes mellitus with other specified complication (principal); R18.8 Other ascites; N25.81 Secondary hyperparathyroidism of renal origin; K21.9 Gastro-esophageal reflux disease without esophagitis; D63.1 Anemia in chronic kidney disease; D69.6 Thrombocytopenia, unspecified; N17.9 Acute kidney failure, unspecified; G47.33 Obstructive sleep apnea (adult) (pediatric); E11.36 Type 2 diabetes mellitus with diabetic cataract; I25.2 Old myocardial infarction; K74.60 Unspecified cirrhosis of liver; I25.10 Atherosclerotic heart disease of native coronary artery without angina pectoris; R33.9 Retention of urine, unspecified; Z79.4 Long term (current) use of insulin; Z91.013 Allergy to seafood; Z88.1 Allergy status to other antibiotic agents; Z88.8 Allergy status to other drugs, medicaments and biological substances; Z90.710 Acquired absence of both cervix and uterus; Z98.62 Peripheral vascular angioplasty status; Z96.642 Presence of left artificial hip joint; Z99.89 Dependence on other enabling machines and devices; Z79.899 Other long term (current) drug therapy; Z83.3 Family history of diabetes mellitus; Z84.1 Family history of disorders of kidney and ureter; Z82.3 Family history of stroke; Z87.891 Personal history of nicotine dependence; Z98.61 Coronary angioplasty status

== ENCOUNTER → 2017-03-14 | Outpatient (CLI) | payer MEDICARE, MEDICAID ==
[~2017-03-14] MED LIST changes: +CIPR500T3 PO; +FLAG500T PO; +NYST10OI TOP; +POTA20TA PO; +XIFA550T PO
[2017-03-14 10:22] LABS: MEAN CORPUSCULAR HEMOGLOBIN 27.2 pg (27.0-33.0); MEAN CORPUSCULAR HGB CONC 31.3 g/dl (32.0-36.5); MEAN CORPUSCULAR VOLUME 87.1 fl (80.0-96.0); RED CELL DISTRIBUTION WIDTH 17.3 % (11.5-14.5); WHITE BLOOD COUNT 4.6 K/mm3 (4.0-10.0)
[2017-03-14 10:24] LABS: LYMPH % 20.3 % (24.0-44.0); MONO % 6.4 % (0.0-5.0); NEUTROPHILS % 68.1 % (36.0-66.0)
[2017-03-14 10:25] LABS: BASO % 0.4 % (0.0-1.0); EOS % 3.7 % (0.0-3.0); LYMPH # 0.9 K/mm3 (1.5-4.5); MONO # 0.3 K/mm3 (0.0-0.8); NEUTROPHILS # 3.2 K/mm3 (1.8-7.7)
[2017-03-14 10:27] LABS: ALBUMIN 3.1 GM/DL (3.2-5.2); ALBUMIN/GLOBULIN RATIO 0.79 (1.00-1.93); BILIRUBIN,DIRECT 0.1 MG/DL (0.0-0.2); BILIRUBIN,TOTAL 0.3 MG/DL (0.2-1.0); CALCIUM LEVEL 8.8 MG/DL (8.8-10.2); CREATININE FOR GFR 2.18 MG/DL (0.55-1.02); EOS # 0.2 K/mm3 (0.0-0.50); GLOMERULAR FILTRATION RATE 24.1 (>45); POTASSIUM SERUM 4.2 MEQ/L (3.5-5.1)
[2017-03-14 11:01] LABS: INR 1.22
== END ==
LOC: M LAB 09:25
PROVIDERS: ATTEND Internal Medicine Gastroenterology
DX: K74.60 Unspecified cirrhosis of liver (principal); R16.2 Hepatomegaly with splenomegaly, not elsewhere classified

== ENCOUNTER → 2017-04-14 | Outpatient (REF) | payer MEDICARE, MEDICAID ==
[~2017-04-14] MED LIST changes: +AMILORIDE PO; +ASPI325T24 PO; -ASPI32ECTA PO; -ATOR40TA PO; +ATOR40TA75 PO; -AUGM875T27 PO; +AUGM875T28 PO; +AZO95TAB PO; +BACITAB PO; -BACITAB3 PO; -CALC600T21 PO; +CALC600T60 PO; +CIPR-249 PO; -COLA100C3 PO; +COLA100C5 PO; +DOXY100T2 PO; -DOXY10CA PO; +EPLE25TA PO; +FERR1TAB8 PO; -FOLI1TAB2 PO; +FOLI1TAB4 PO; +IPRASOL4 INH; -KEPP1000 PO; +KEPP10002 PO; +KEPP1TAB PO; -KEPP500T6 PO; +LEVA1TAB2 PO; -LEVA500T PO; +METO1TAB32 PO; -METO25TA74 PO; -NAPR500T2 PO; +NAPR500T3 PO; -OXYB5TA PO; +OXYB5TAB10; +OXYB5TAB10 PO; +OXYBUTYNIN PO; -PRED10TA FT; +PRED10TA2 FT; +SPIR1CAP INH; +TOPI100T9 PO; -TOPI1TAB31 PO; -TOPI50TA4 PO; +TOPI50TA9 PO; +TRAZ-136 PO; -TRAZ100T4 PO; +TRAZ50TA11 PO; -TRAZ50TA4 PO; +VARE1TA PO; +VITA-171 PO; +VITA1CAP40 PO; -VITA50003 PO; +duo neb
[2017-04-14 12:30] LABS: ALBUMIN 3.4 GM/DL (3.2-5.2); ALBUMIN/GLOBULIN RATIO 0.92 (1.00-1.93); BILIRUBIN,TOTAL 0.3 MG/DL (0.2-1.0); CALCIUM LEVEL 8.5 MG/DL (8.8-10.2); CREATININE FOR GFR 2.28 MG/DL (0.55-1.02); GLOMERULAR FILTRATION RATE 22.9 (>45); POTASSIUM SERUM 3.8 MEQ/L (3.5-5.1); TOTAL PROTEIN 7.1 GM/DL (6.4-8.2)
== END ==
LOC: M SFHCPLAZ 08:25
PROVIDERS: ATTEND Family Medicine
DX: R61 Generalized hyperhidrosis (principal); I12.9 Hypertensive chronic kidney disease with stage 1 through stage 4 chronic kidney disease, or unspecified chronic kidney disease; N18.4 Chronic kidney disease, stage 4 (severe); K74.60 Unspecified cirrhosis of liver; E11.8 Type 2 diabetes mellitus with unspecified complications; I50.30 Unspecified diastolic (congestive) heart failure; J44.9 Chronic obstructive pulmonary disease, unspecified; Z79.4 Long term (current) use of insulin; Z91.89 Other specified personal risk factors, not elsewhere classified
CPT/HCPCS: 36415; 80053; 83036; 87205; 87206; G0463

== ENCOUNTER → 2017-05-22 | Outpatient (REF) | payer MEDICARE, MEDICAID ==
[2017-05-22 13:24] LABS: BACTERIA, URINE SMALL AMOUNT; HYALINE CAST, URINE NONE SEEN /lpf (0-1); RBC, URINE NONE SEEN /hpf (0-3); SQUAMOUS EPITHELIAL CELL URINE SMALL AMOUNT /hpf (SMALL AMT); WBC, URINE 0-1 /hpf (0-3)
[2017-05-22 13:25] LABS: MICROSCOPIC EXAM PERFORMED
== END ==
LOC: M SMT 11:44
PROVIDERS: ATTEND Specialist
DX: N39.41 Urge incontinence (principal); R33.8 Other retention of urine

== ENCOUNTER → 2017-06-14 | Outpatient (REF) | payer OTHER, MEDICAID ==
[2017-06-14 14:51] LABS: FERRITIN 11 NG/ML (8-252); TOTAL IRON BINDING CAPACITY 333 UG/DL (250-450); TOTAL PROTEIN 6.7 GM/DL (6.4-8.2)
[2017-06-15 12:16] LABS: ALBUMIN 3.44 GM/DL (3.29-5.55); ALBUMIN % 51.4 % (55.8-66.1); GAMMA GLOBULIN % 20.2 % (11.1-18.8)
== END ==
LOC: M LAB REF 13:45
PROVIDERS: ATTEND Internal Medicine Medical Oncology
DX: D69.6 Thrombocytopenia, unspecified (principal)

== ENCOUNTER → 2017-06-19 | Outpatient (CLI) | payer OTHER, MEDICAID ==
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
== END ==
LOC: M PAIN 09:30
PROVIDERS: ATTEND Nurse Practitioner Family
DX: M12.88 Other specific arthropathies, not elsewhere classified, other specified site (principal); M46.1 Sacroiliitis, not elsewhere classified; G89.29 Other chronic pain; I50.9 Heart failure, unspecified; N18.4 Chronic kidney disease, stage 4 (severe); N25.81 Secondary hyperparathyroidism of renal origin; E11.9 Type 2 diabetes mellitus without complications; F32.9 Major depressive disorder, single episode, unspecified; F41.9 Anxiety disorder, unspecified; J44.9 Chronic obstructive pulmonary disease, unspecified; G43.909 Migraine, unspecified, not intractable, without status migrainosus; D69.49 Other primary thrombocytopenia; M06.9 Rheumatoid arthritis, unspecified; F17.210 Nicotine dependence, cigarettes, uncomplicated; Z79.82 Long term (current) use of aspirin; Z79.4 Long term (current) use of insulin; Z79.899 Other long term (current) drug therapy; Z88.1 Allergy status to other antibiotic agents; Z88.8 Allergy status to other drugs, medicaments and biological substances

== ENCOUNTER → 2017-07-10 | Outpatient (REF) | payer OTHER, MEDICAID | LOC: M LAB REF 16:28 | PROVIDERS: ATTEND Internal Medicine Medical Oncology | DX: D64.9 Anemia, unspecified (principal); D47.2 Monoclonal gammopathy ==

== ENCOUNTER 2017-07-24 20:18 | Inpatient (IN) | payer OTHER, MEDICAID, MEDICARE ==
[~2017-07-24] VITALS: Ht 154.9 cm; Wt 82.8 kg
[~2017-07-24 20:18] MED LIST changes: -AMILORIDE PO; -AZO95TAB PO; -CIPR-249 PO; -EPLE25TA PO; -FERR1TAB8 PO; -IPRASOL4 INH; -OXYB5TAB10; -OXYBUTYNIN PO; -SPIR1CAP INH; -VARE1TA PO; -VITA-171 PO; -duo neb
[2017-07-24] MEDS ORDERED: AMLO10TA2 PO (20:34)
[2017-07-24 21:27] LABS: BASO % 0.3 % (0.0-1.0); EOS # 0.1 10^3/uL (0.0-0.50); EOS % 1.8 % (0.0-3.0); IMMATURE GRANULOCYTE % 0.6 % (0-0); LYMPH # 0.4 10^3/uL (1.5-4.5); LYMPH % 5.9 % (24.0-44.0); MEAN CORPUSCULAR HEMOGLOBIN 25.8 pg (27.0-33.0); MEAN CORPUSCULAR HGB CONC 30.7 g/dl (32.0-36.5); MONO # 0.6 10^3/uL (0.0-0.8); NEUTROPHILS # 5.9 10^3/uL (1.8-7.7); NEUTROPHILS % 83.4 % (36.0-66.0); RED CELL DISTRIBUTION WIDTH 17.6 % (11.5-14.5); WHITE BLOOD COUNT 7.1 10^3/uL (4.0-10.0)
[2017-07-24 21:30] LABS: PLATELET COUNT, AUTOMATED 99 10^3/uL (150-450)
[2017-07-24 21:44] LABS: INR 1.14
[2017-07-24] MEDS ORDERED: NS 500 ML IV ONE (21:45)
[2017-07-24 21:46] LABS: ALBUMIN 3.1 GM/DL (3.2-5.2); ALBUMIN/GLOBULIN RATIO 0.79 (1.00-1.93); BILIRUBIN,DIRECT 0.1 MG/DL (0.0-0.2); BILIRUBIN,TOTAL 0.4 MG/DL (0.2-1.0); CALCIUM LEVEL 8.5 MG/DL (8.8-10.2); CREATININE FOR GFR 2.33 MG/DL (0.55-1.02); GLOMERULAR FILTRATION RATE 22.3 (>45); POTASSIUM SERUM 3.9 MEQ/L (3.5-5.1)
[2017-07-24] MEDS ORDERED: CALC600T60 PO (22:36)
[2017-07-24] MEDS ORDERED: EPLE25TA PO (22:36)
[2017-07-24] MEDS ORDERED: SPIR1CAP INH (22:36)
[2017-07-24] MEDS ORDERED: VARE1TA PO (22:36)
[2017-07-24] MEDS ORDERED: FERR1TAB8 PO (22:36)
[2017-07-24] MEDS ORDERED: IPRASOL4 INH (22:36)
--- NOTE | 2017-07-24 22:40 | REPUSA ---
CT of the abdomen and pelvis without contrast Clinical statement: rectal bleeding. Technique: Multiple axial CT images were obtained from the base of the lungs to the floor of the pelv is utilizing 5 mm axial slices without administration of contrast. Coronal and sagittal reconstructio ns were also obtained. Comparison: 02/19/2017. Findings: Chest: The visualized lung bases are clear. Abdomen: The kidneys are normal in size bilaterally. There is no evidence of hydronephrosis or nephro lithiasis. The liver is nodular and enlarged, measuring at least 28 cm in longest diameter. The splee n is enlarged as well, measuring 18.9 cm in diameter. The pancreas, gallbladder and adrenal glands ar e unremarkable. The aorta demonstrates normal caliber and contour. Diffuse extensive atherosclerotic changes are appreciated. There is no abdominal lymphadenopathy. There is a large amount of upper abdo shay ascites. Pelvis: The bowel is unremarkable, with no obstructive or inflammatory changes. The urinary bladder i s within normal limits. There is no pelvic lymphadenopathy. There is a large amount of pelvic ascites . The other pelvic structures appear unremarkable. Bones: There are no suspicious osseous abnormalities seen. A left hip arthroplasty is intact. There i s moderately severe degenerative disc disease at L2/L3. Impression: 1. Severe stable hepatosplenomegaly. Nodularity in the liver suggests severe stable sclerosis. 2. Large amount of abdominal and pelvic ascites. 3. Diffuse atherosclerosis. No evidence of aortic aneurysm. 4. No evidence of hydronephrosis or nephrolithiasis. 5. No obstructive or inflammatory bowel changes. 6. Stable moderately severe degenerative disc disease at L2/L3.
[2017-07-25] VITALS (8 sets, daily range): BP systolic 129–174; BP diastolic 54–82
[2017-07-25] MEDS ORDERED: IPRATROPIUM 0.5MG/ALBUTEROL 2.5MG INH SOL UD 3ML (DUONEB)(J7620) NEB PRN (01:15)
[2017-07-25] MEDS ORDERED: LACTIC ACID 12% LOTION 225 GM BTL TOP PRN (01:15)
[2017-07-25] MEDS ORDERED: DEXTROSE 50% 50 ML SYRINGE IV PRN (01:15)
[2017-07-25] MEDS ORDERED: ALBUTEROL 90 MCG/ACT 8GM HFA INHALER INH PRN (01:15)
[2017-07-25] MEDS ORDERED: GLUCOSE 4 GM CHEW TABLET PO PRN (01:15)
[2017-07-25] MEDS ORDERED: GLUCAGON FOR INJ 1 MG VIAL (J1610) SC PRN (01:15)
[2017-07-25] MEDS: IPRATROPIUM 0.5MG/ALBUTEROL 2.5MG INH SOL UD 3ML (DUONEB)(J7620) NEB SCH ×4 (02:00→18:11)
[2017-07-25] MEDS: HumaLOG INSULIN (NovoLOG) PER UNIT SC SCH ×5 (02:25→23:57)
[2017-07-25] MEDS: NS 1,000 ML IV SCH ×2 (02:52→16:02)
[2017-07-25] MEDS: cefTRIAXone SOD 1 GM in D5W 50 ML IV SCH ×2 (02:52→23:54)
[2017-07-25] MEDS: ONDANSETRON 4MG/2ML VIAL (J2405) IV PRN ×3 (03:04→21:58)
[2017-07-25] MEDS ORDERED: amLODIPine 10 MG TAB PO ONE ×3 (03:30→09:00)
--- NOTE | 2017-07-25 03:31 | HPEPDOC ---
General Date of Admission Jul 25, 2017 at 00:56 Primary Care Physician: KAITLYNN BRUNER MD Chief Complaint The patient is a 66-year-old female admitted with a reason for visit of Gi Bleed. Source: Patient Exam Limitations: No limitations Timing/Duration: 4-6 hours Severity: Moderate Associated Symptoms: Loss of appetite, Malaise, Weakness History of Present Illness 66 y/o female with past medical history of liver cirrhosis secondary to DM2 ( although pt states more causes are actively being investigated), DM2, COPD, CHF , CKD, chronic thrombocytopenia, HTN who presents today with complaint of bright red blood "Dripping out of rectum" as per pt. that occurred this morning when pt awoke and went to have a BM, pt states that there was no pain with her BM, no blood mixed in the stool. Pt has also noted abdomen distension and discomfort/pain for the past 3-5 days, she states she has had to have "fluid drawn off of abdomen" before on past presentation to the hospital. Denies recent fever, muscle aches or chills, denies change in weight aside from feeling as though she has gained some from the fluid in her abdomen, admits to decreased appetite, denies SOB but admits to chronic cough that is non- productive that has been bothering her more for the past few days. Denies headache, change in vision, cp or palpations. She takes aspirin daily but denies other OTC medicine that could thin her blood. She states her BM have been normal and denied change in caliber of stool nor loose stool. States this is the first time shes had blood from her stool. States her last colonoscopy was about 5 years ago. Denies any pain w/ urination nor blood in urine although she was recently treated for a UTI with abx two weeks ago. Home Medications Scheduled (Evelyn Zhang) 300 Unit/Ml Inj, 18 UNIT SC BID, (Reported) (Eplerenone) 25 Mg Tab, 25 MG PO DAILY, (Reported) Amlodipine Besylate (Amlodipine Besylate) 10 Mg Tab, 10 MG PO DAILY, (Reported) Atorvastatin Calcium (Atorvastatin Calcium) 40 Mg Tab, 40 MG PO QPM, (Reported) Calcium Carbonate (Calcium) 600 Mg Tab, 600 MG PO BID, (Reported) Carvedilol (Carvedilol) 25 Mg Tab, 25 MG PO BID, (Reported) Ciprofloxacin HCl (Cipro) 500 Mg Tab, 500 MG PO BID Ergocalciferol (Vitamin D) 50,000 Unit Cap, 50,000 UNIT PO MTHLY, (Reported) TAKES AT BEGINNING OF EACH MONTH Ferrous Sulfate (Ferrous Sulfate) 325 Mg Tab, 325 MG PO BID, (Reported) Folic Acid (Folic Acid) 1 Mg Tab, 1 MG PO DAILY, (Reported) Insulin Aspart (Novolog) 100 U/Ml Inj, 1 DOSE SC AC, (Reported) PER SLIDING SCALE Levetiracetam (Keppra) 1,000 Mg Tab, 1,000 MG PO BID, (Reported) Nystatin (Nystatin) 100,000 Unit/Gm Oin, 1 UNIT TOP BID, (Reported) APPLIES TO LOWER ABDOMEN Omeprazole (Omeprazole) 40 Mg Cap, 40 MG PO DAILY, (Reported) Potassium Chloride (Klor-Con M20) 20 Meq Tabcr, 20 MEQ PO TID, (Reported) Salmeterol/Fluticasone (Advair Diskus 250-50 Mcg/Dose) 14 Puff/Inhaler Aerp, 1 PUFF INH BID, (Reported) Tiotropium Mangham Monohydrate (Spiriva Handihaler) 18 Mcg Cap, 1 INHALATION INH DAILY, (Reported) Topiramate (Topiramate) 50 Mg Tab, 50 MG PO BID, (Reported) Torsemide (Torsemide) 100 Mg Tab, 100 MG PO DAILY, (Reported) Torsemide (Torsemide) 100 Mg Tab, 150 MG PO QPM, (Reported) TAKES AT 1500 Varenicline (Chantix) 1 Mg Tab, 1 MG PO BID, (Reported) Scheduled PRN Albuterol Sulfate (Ventolin Hfa) 200 Puff/8 Gm Aers, 2 PUFF INH Q4H PRN for SHORTNESS OF BREATH, (Reported) Albuterol/Ipratropium (Ipratropium Mangham/Albut 0.5-2.5 (3) mg/3Ml) 1 Sushma Sushma, 1 SUSHMA INH Q6H PRN for SHORTNESS OF BREATH, (Reported) Ammonium Lactate (Ammonium Lactate) 12 % Cre, 1 DOSE TOP BID PRN for DRY FEET, ( Reported) Nitroglycerin (Nitrostat) 0.4 Mg Subl, 0.4 MG SL NITRO PRN for CHEST PAIN, ( Reported) Allergies Coded Allergies: Streptokinase (Unverified Allergy, Severe, BLOOD CLOTS, 01/20/16) Amiloride (Verified Allergy, Intermediate, RASH/GENERAL ITCHING, 01/28/13) RASH/GENERAL ITCHING Guaifenesin & Derivatives (Unverified Allergy, Intermediate, FACE SWELLING , 01/20/16) Shellfish Allergy (Verified Allergy, Intermediate, RASH, 01/28/13) Spironolactone (Unverified Allergy, Intermediate, RASH, 01/28/13) Vancomycin (Unverified Allergy, Intermediate, HIVES,SWELLING,RASH, 01/28/13) Gabapentin (Verified Adverse Reaction, Severe, SUICIDAL IDEATIONS, 01/28/13) Past Medical History Medical History CKD CHF DM2 chronic thrombocytopenia liver cirrhosis HTN COPD Surgical History 2x hysterectomy right rotator cuff sx 2011 CABG left tib/fib surgery Family History Significant Family History: No pertinent family hx Social History * Smoker: former Smoker (quit one month ago, used to be 1ppd for >20 yrs) Alcohol: Denies Drugs: denies lives by herself Review of Symptoms Constitutional: Reports: Malaise, Weakness, Fatigue, Denies: Chills, Fever, Night Sweats, Weight Loss Eyes: Denies: Pain, Vision change ENT: Denies: Head Aches Pulmonary: Reports: Cough, Denies: Dyspnea, Pleuritic Chest Pain Cardiovascular: Denies: Chest Pain, Palpitations, Orthopnea, Paroxysmal Noc. Dyspnea, Edema, Lt Headedness Gastrointestinal: Reports: Abdominal Pain, Hematochezia, Denies: Nausea, Vomiting, Diarrhea, Constipation, Melena Genitourinary: Denies: Dysuria, Frequency, Incontinence Hematologic: Reports: Bruising Musculoskeletal: Denies: Neck Pain Neurological: Reports: Weakness, Denies: Numbness Psych: Reports: Mood Normal Physical Examination General Exam: Positive: Alert, Cooperative, Mild Distress Eye Exam: Positive: Conjunctiva & lids normal, EOMI, Negative: Sclera icteric, Ptosis ENT Exam: Positive: Mucous membr. moist/pink, Tongue Midline, Nares Patent, Negative: Pharyngeal Edema Neck Exam: Positive: Supple Chest Exam: Positive: Wheezing (end exp wheeze RLL), Diminished, Negative: Normal air movement, Rales, Rhonchi Heart Exam: Positive: Rate Normal, Normal S1, Normal S2, Negative: Gallops, Murmurs, Rubs Telemetry: Positive: No significant arrhythmia Abdomen Exam: Positive: Normal bowel sounds, Soft, Tenderness, Other (+ fluid wave, + rebound ridgity, distended abdomen with diffuse tenderness througout ), Negative: Hepatospenomegaly Extremity Exam: Negative: Clubbing, Cyanosis, Tenderness, Swelling Skin Exam: Positive: Other skin issue (bruising b/l UE, pt states she "easily bruises") Neuro Exam: Positive: Normal Speech Psych Exam: Positive: Mental status NL, Oriented x 3 Vital Signs Vital Signs Date Time Temp Pulse Resp B/P (MAP) Pulse Ox O2 Delivery O2 Flow Rate FiO2 07/25/17 01:49 98.1 20 07/25/17 01:33 90 100 07/24/17 20:19 Room Air Laboratory Data Labs 24H Laboratory Tests 2 07/24/17 20:32: Immature Granulocyte % (Auto) 0.6H, White Blood Count 7.1, Red Blood Count 3.57L , Hemoglobin 9.2L, Hematocrit 30.0L, Mean Corpuscular Volume 84.0, Mean Corpuscular Hemoglobin 25.8L, Mean Corpuscular Hemoglobin Concent 30.7L, Red Cell Distribution Width 17.6H, Platelet Count 99L, Neutrophils (%) (Auto) 83.4H , Lymphocytes (%) (Auto) 5.9L, Monocytes (%) (Auto) 8.0H, Eosinophils (%) (Auto ) 1.8, Basophils (%) (Auto) 0.3, Neutrophils # (Auto) 5.9, Lymphocytes # (Auto) 0.4L, Monocytes # (Auto) 0.6, Eosinophils # (Auto) 0.1, Basophils # (Auto) 0.0, Immature Granulocyte # (Auto) 0.0, Nucleated Red Blood Cells % (auto) 0.0, Prothrombin Time 14.8H, Prothromb Time International Ratio 1.14, Activated Partial Thromboplast Time 36.4, Anion Gap 6L, Glomerular Filtration Rate 22.3L, Calcium Level 8.5L, Aspartate Amino Transf (AST/SGOT) 30, Alanine Aminotransferase (ALT/SGPT) 25, Alkaline Phosphatase 151H, Total Bilirubin 0.4, Direct Bilirubin 0.1, Total Protein 7.0, Albumin 3.1L, Albumin/Globulin Ratio 0.79L, Lipase 102 07/25/17 02:21: Bedside Glucose (Misc Panel) 211H CBC/BMP Laboratory Tests 07/24/17 20:32 Red Blood Count 3.57 L, Mean Corpuscular Volume 84.0, Mean Corpuscular Hemoglobin 25.8 L, Mean Corpuscular Hemoglobin Concent 30.7 L, Red Cell Distribution Width 17.6 H, Neutrophils (%) (Auto) 83.4 H, Lymphocytes (%) (Auto ) 5.9 L, Monocytes (%) (Auto) 8.0 H, Eosinophils (%) (Auto) 1.8, Basophils (%) ( Auto) 0.3, Neutrophils # (Auto) 5.9, Lymphocytes # (Auto) 0.4 L, Monocytes # ( Auto) 0.6, Eosinophils # (Auto) 0.1, Basophils # (Auto) 0.0 07/25/17 01:44 Problems (1) Bloody stool Status: Acute Response to Treatment: Stable Problem Text: h/h stable now 9. , will continue to trend pt is consented for blood GI consulted-greatly appreciate their recommendations, will see pt in AM Do not suspect currently bleeding, will begin protonix CT ab/pelvis showed: 1. Severe stable hepatosplenomegaly. Nodularity in the liver suggests severe stable sclerosis. 2. Large amount of abdominal and pelvic ascites. 3. Diffuse atherosclerosis. No evidence of aortic aneurysm. 4. No evidence of hydronephrosis or nephrolithiasis. 5. No obstructive or inflammatory bowel changes. 6. Stable moderately severe degenerative disc disease at L2/L3. (2) HTN (hypertension) Status: Chronic Response to Treatment: Stable Problem Text: 174/82 will c/w home amlodipine, atorvastatin and carvedilol (3) COPD (chronic obstructive pulmonary disease) Status: Chronic Response to Treatment: Stable Problem Text: c/w home inhalers and duo-neb therapy pt is not on home O2 uses own Bipap at night (4) CKD (chronic kidney disease) Status: Chronic Response to Treatment: Stable Problem Text: stable creatine 2.3, baseline around 2 have begun gentle fluid hydration, pt is NPO (5) Congestive heart failure (CHF) Status: Chronic Response to Treatment: Stable Problem Text: Stable, pt appears euvolemic. Will begin tc hydration, pt is NPO will hold home furosemide for now 01/2017 Echo showed: 1. Normal left ventricular size with mildly increased left ventricular wall thickness. Left ventricular systolic function is normal estimated at 60 to 65%. 2. Mildly enlarged left atrium. Normal right atrium and right ventricle. 3. The atrial septum appeared to be normal without evidence of defect or shunt. 4. Normal aortic root. 5. No pericardial effusion seen, but bilateral pleural effusion was noted. 6. Mildly calcified aortic valve with normal leaflet excursion. Mildly calcified mitral annulus with normal anterior mitral valve leaflet motion. Normal tricuspid valve. The pulmonic valve and proximal pulmonary artery branches were not well visualized. 7. The inferior vena cava was normal in size, central venous pressure is most likely normal. (6) Obstructive sleep apnea Status: Chronic Response to Treatment: Stable Problem Text: pt may use own BIPAP (7) Cirrhosis of liver Status: Chronic Response to Treatment: Stable Problem Text: Seems as though etiology is still being investigated, as per pt. she states it is from her DM2 lab work was done recently that showed + anti-mitochondrial antibody, +DsDNA. Hep B and C lab negative. would require further investigation outpt f/u with GI (8) Thrombocytopenia Status: Chronic Response to Treatment: Stable Problem Text: currently 99 seems baseline is 80-90's will continue to monitor have held pts home asa of note, seems pt is being worked up for multiple myeloma-will require further eval outpt. (9) Ascites Status: Acute Response to Treatment: Stable Problem Text: pt will need dx and therapeutic peritoneal tap in AM, have put in orders all ready for cytology and cell count, protein, glucose and albumin of fluid pt is NPO GI consulted-greatly appreciate their recommendations Rocephin abx for SBP px. (10) DM2 (diabetes mellitus, type 2) Status: Chronic Response to Treatment: Stable Problem Text: pt takes Toujeao 18 BID at home, will schedule 8 BID as pt is BPO Sliding scale coverage (11) DVT prophylaxis Status: Acute Response to Treatment: Stable Problem Text: scd teds Plan / VTE VTE Prophylaxis Ordered?: Yes GME ATTESTATION GME ATTESTATION My preceptor for this patient encounter was physically present in the building during the encounter and was fully available. As needed, all aspects of the patient interview, examination, medical decision making process, and medical care plan development were reviewed and approved by the preceptor. Preceptor is aware and concurs with the plan as stated in the body of this note and will attest to such by his/her cosignature. ATTENDING NOTE Patient seen and examined. Plan discussed with the Resident. Agree with the plan discussed above. SHANNAN Ramirez MD, DO Jul 25, 2017 03:30 SLIME SANDOVAL MD Jul 29, 2017 11:34
[2017-07-25 05:00] LABS: MEAN CORPUSCULAR HEMOGLOBIN 26.2 pg (27.0-33.0); MEAN CORPUSCULAR HGB CONC 31.1 g/dl (32.0-36.5); MEAN CORPUSCULAR VOLUME 84.1 fl (80.0-96.0); RED CELL DISTRIBUTION WIDTH 17.6 % (11.5-14.5); WHITE BLOOD COUNT 4.5 10^3/uL (4.0-10.0)
[2017-07-25 05:20] LABS: ALBUMIN 2.8 GM/DL (3.2-5.2); ALBUMIN/GLOBULIN RATIO 0.74 (1.00-1.93); BILIRUBIN,TOTAL 0.3 MG/DL (0.2-1.0); CALCIUM LEVEL 8.3 MG/DL (8.8-10.2); CREATININE FOR GFR 2.23 MG/DL (0.55-1.02); GLOMERULAR FILTRATION RATE 23.5 (>45); MAGNESIUM LEVEL 1.9 MG/DL (1.8-2.4); POTASSIUM SERUM 3.6 MEQ/L (3.5-5.1); TOTAL PROTEIN 6.6 GM/DL (6.4-8.2)
--- NOTE | 2017-07-25 08:26 | IPNPDOC ---
Subjective Date Seen The patient was seen on 07/25/17. Subjective Chief Complaint/HPI The patient is a 66-year-old female admitted with a reason for visit of Gi Bleed. Events since last encounter Pt denies any more bleeding. Notes some abd discomfort and distention. Denies SOB, CP. Constitutional: Denies: Chills, Fever Pulmonary: Denies: Dyspnea Cardiovascular: Denies: Chest Pain Gastrointestinal: Reports: Abdominal Pain Objective Physical Examination General Exam: Positive: Alert, Cooperative, Mild Distress Eye Exam: Positive: Conjunctiva & lids normal, EOMI, Negative: Sclera icteric, Ptosis ENT Exam: Positive: Mucous membr. moist/pink, Tongue Midline, Nares Patent, Negative: Pharyngeal Edema Neck Exam: Positive: Supple Chest Exam: Positive: Diminished, Negative: Normal air movement, Rales, Rhonchi Heart Exam: Positive: Rate Normal, Normal S1, Normal S2, Negative: Gallops, Murmurs, Rubs Telemetry: Positive: No significant arrhythmia Abdomen Exam: Positive: Normal bowel sounds, Soft, Tenderness, Other (+ fluid wave, + rebound ridgity, distended abdomen with diffuse tenderness througout ), Negative: Hepatospenomegaly Extremity Exam: Negative: Clubbing, Cyanosis, Tenderness, Swelling Neuro Exam: Positive: Normal Speech Psych Exam: Positive: Mental status NL, Oriented x 3 Assessment /Plan Problems (1) Bloody stool Status: Acute Response to Treatment: Stable Problem Text: 07/25 - GI has been consulted. Pt denies any more bleeding. Hgb is down to 8.4. Consider transfusion if drops further. Serial CBCs ordered. h/h stable now 9. , will continue to trend pt is consented for blood GI consulted-greatly appreciate their recommendations, will see pt in AM Do not suspect currently bleeding, will begin protonix CT ab/pelvis showed: 1. Severe stable hepatosplenomegaly. Nodularity in the liver suggests severe stable sclerosis. 2. Large amount of abdominal and pelvic ascites. 3. Diffuse atherosclerosis. No evidence of aortic aneurysm. 4. No evidence of hydronephrosis or nephrolithiasis. 5. No obstructive or inflammatory bowel changes. 6. Stable moderately severe degenerative disc disease at L2/L3. (2) HTN (hypertension) Status: Chronic Response to Treatment: Stable Problem Text: 07/25- On Norvasc 10 mg daily and Coreg 25 mg daily. 174/ will c/w home amlodipine, atorvastatin and carvedilol (3) COPD (chronic obstructive pulmonary disease) Status: Chronic Response to Treatment: Stable Problem Text: 07/25 - On Advair and Spiriva and albuterol. c/w home inhalers and duo-neb therapy pt is not on home O2 uses own Bipap at night (4) CKD (chronic kidney disease) Status: Chronic Response to Treatment: Stable Problem Text: 07/25 - Creat 2.23. Getting gentle IV hydration at 70 cc/hr. stable creatine 2.3, baseline around 2 have begun gentle fluid hydration, pt is NPO (5) Congestive heart failure (CHF) Status: Chronic Response to Treatment: Stable Problem Text: Stable, pt appears euvolemic. Will begin tc hydration, pt is NPO will hold home furosemide for now 01/2017 Echo showed: 1. Normal left ventricular size with mildly increased left ventricular wall thickness. Left ventricular systolic function is normal estimated at 60 to 65%. 2. Mildly enlarged left atrium. Normal right atrium and right ventricle. 3. The atrial septum appeared to be normal without evidence of defect or shunt. 4. Normal aortic root. 5. No pericardial effusion seen, but bilateral pleural effusion was noted. 6. Mildly calcified aortic valve with normal leaflet excursion. Mildly calcified mitral annulus with normal anterior mitral valve leaflet motion. Normal tricuspid valve. The pulmonic valve and proximal pulmonary artery branches were not well visualized. 7. The inferior vena cava was normal in size, central venous pressure is most likely normal. (6) Obstructive sleep apnea Status: Chronic Response to Treatment: Stable Problem Text: pt may use own BIPAP (7) Cirrhosis of liver Status: Chronic Response to Treatment: Stable Problem Text: 07/25 - GI has been consulted Seems as though etiology is still being investigated, as per pt. she states it is from her DM2 lab work was done recently that showed + anti-mitochondrial antibody, +DsDNA. Hep B and C lab negative. would require further investigation outpt f/u with GI (8) Thrombocytopenia Status: Chronic Response to Treatment: Stable Problem Text: 07/25 - Plts 76 currently 99 seems baseline is 80-90's will continue to monitor have held pts home asa of note, seems pt is being worked up for multiple myeloma-will require further eval outpt. (9) Ascites Status: Acute Response to Treatment: Stable Problem Text: 07/25 - GI has been consulted. pt will need dx and therapeutic peritoneal tap in AM, have put in orders all ready for cytology and cell count, protein, glucose and albumin of fluid pt is NPO GI consulted-greatly appreciate their recommendations Rocephin abx for SBP px. (10) DM2 (diabetes mellitus, type 2) Status: Chronic Response to Treatment: Stable Problem Text: 07/25 On SSI. Pt started on Levemir 8 units BID (on Toujeo 18 units BID at home). pt takes Toujeao 18 BID at home, will schedule 8 BID as pt is BPO Sliding scale coverage (11) DVT prophylaxis Status: Acute Response to Treatment: Stable Problem Text: scd teds Plan/VTE VTE Prophylaxis Ordered?: Yes VS, I&O, 24H, Fishbone Vital Signs/I&O Vital Signs Date Time Temp Pulse Resp B/P (MAP) Pulse Ox O2 Delivery O2 Flow Rate FiO2 07/25/17 04:00 98.7 83 18 159/72 (101) 92 NIPPV (BIPAP/CPAP) 07/25/17 04:00 2.0 I&O- Last 24 Hours up to 6 AM 07/26/17 06:00 Intake Total 0 ml Output Total 300 ml Balance -300 ml Laboratory Data 24H LABS Laboratory Tests 2 07/24/17 20:32: Immature Granulocyte % (Auto) 0.6H, White Blood Count 7.1, Red Blood Count 3.57L , Hemoglobin 9.2L, Hematocrit 30.0L, Mean Corpuscular Volume 84.0, Mean Corpuscular Hemoglobin 25.8L, Mean Corpuscular Hemoglobin Concent 30.7L, Red Cell Distribution Width 17.6H, Platelet Count 99L, Neutrophils (%) (Auto) 83.4H , Lymphocytes (%) (Auto) 5.9L, Monocytes (%) (Auto) 8.0H, Eosinophils (%) (Auto ) 1.8, Basophils (%) (Auto) 0.3, Neutrophils # (Auto) 5.9, Lymphocytes # (Auto) 0.4L, Monocytes # (Auto) 0.6, Eosinophils # (Auto) 0.1, Basophils # (Auto) 0.0, Immature Granulocyte # (Auto) 0.0, Nucleated Red Blood Cells % (auto) 0.0, Prothrombin Time 14.8H, Prothromb Time International Ratio 1.14, Activated Partial Thromboplast Time 36.4, Anion Gap 6L, Glomerular Filtration Rate 22.3L, Calcium Level 8.5L, Aspartate Amino Transf (AST/SGOT) 30, Alanine Aminotransferase (ALT/SGPT) 25, Alkaline Phosphatase 151H, Total Bilirubin 0.4, Direct Bilirubin 0.1, Total Protein 7.0, Albumin 3.1L, Albumin/Globulin Ratio 0.79L, Lipase 102 07/25/17 02:21: Bedside Glucose (Misc Panel) 211H 07/25/17 04:45: Anion Gap 6L, Glomerular Filtration Rate 23.5L, Calcium Level 8.3L, Aspartate Amino Transf (AST/SGOT) 23, Alanine Aminotransferase (ALT/SGPT) 21, Alkaline Phosphatase 131H, Total Bilirubin 0.3, Total Protein 6.6, Albumin 2.8L, Albumin/ Globulin Ratio 0.74L, Estimated Mean Plasma Glucose 148H, Hemoglobin A1c 6.8H, Blood Urea Nitrogen 42H, Creatinine 2.23H, Sodium Level 140, Potassium Level 3.6 , Chloride Level 107, Carbon Dioxide Level 27, Magnesium Level 1.9 CBC/BMP Laboratory Tests 07/24/17 20:32 Red Blood Count 3.57 L, Mean Corpuscular Volume 84.0, Mean Corpuscular Hemoglobin 25.8 L, Mean Corpuscular Hemoglobin Concent 30.7 L, Red Cell Distribution Width 17.6 H, Neutrophils (%) (Auto) 83.4 H, Lymphocytes (%) (Auto ) 5.9 L, Monocytes (%) (Auto) 8.0 H, Eosinophils (%) (Auto) 1.8, Basophils (%) ( Auto) 0.3, Neutrophils # (Auto) 5.9, Lymphocytes # (Auto) 0.4 L, Monocytes # ( Auto) 0.6, Eosinophils # (Auto) 0.1, Basophils # (Auto) 0.0 07/25/17 01:44 07/25/17 04:45 Red Blood Count 3.21 L, Mean Corpuscular Volume 84.1, Mean Corpuscular Hemoglobin 26.2 L, Mean Corpuscular Hemoglobin Concent 31.1 L, Red Cell Distribution Width 17.6 H, Calcium Level 8.3 L, Aspartate Amino Transf (AST/SGOT ) 23, Alanine Aminotransferase (ALT/SGPT) 21, Alkaline Phosphatase 131 H, Total Bilirubin 0.3, Total Protein 6.6, Albumin 2.8 L Lacho Uribe Jul 25, 2017 08:26
[2017-07-25] MEDS: TIOTROPIUM INHALER/CAPSULE (SPIRIVA) INH SCH (08:37)
[2017-07-25] MEDS: ADVAIR HFA 115/21MCG INHALER INH SCH ×2 (08:37→18:12)
[2017-07-25] MEDS: VARENICLINE 1 MG TABLET PO SCH ×2 (08:48→21:18)
[2017-07-25] MEDS: FOLIC ACID 1 MG TAB PO SCH (08:49)
[2017-07-25] MEDS: CARVedilol 12.5 MG TAB PO SCH ×2 (08:49→21:26)
[2017-07-25] MEDS: FERROUS SULFATE 325MG TAB PO SCH ×2 (08:49→21:18)
[2017-07-25] MEDS: levETIRAcetam 250MG TABLET (KEPPRA) PO SCH ×2 (08:49→21:18)
[2017-07-25] MEDS: TOPIRAMATE (TopAMAX) 25 MG TAB PO SCH ×2 (08:50→21:18)
[2017-07-25] MEDS: SENOKOT S TAB PO SCH ×2 (08:50→21:18)
[2017-07-25] MEDS: PANTOPRAZOLE 40MG INJ (PROTONIX) (C9113) IV SCH ×2 (08:50→21:17)
[2017-07-25] MEDS: NYSTATIN OINTMENT 15 GM TOP SCH ×2 (08:51→21:26)
[2017-07-25] MEDS ORDERED: amLODIPine 10 MG TAB PO SCH (09:00)
[2017-07-25] MEDS ORDERED: LEVEMIR (INSULIN DETEMIR) 1 UNITS/0.01ML SC SCH (09:00)
[2017-07-25 11:49] LABS: BF MONONUCLEAR CELL % 64.7 % (0-0); BF POLYMORPHONUCLEAR CELL % 35.3 CELLS/uL (0-0)
[2017-07-25 11:53] LABS: BF DIFF IF INDICATED? YES (NO)
[2017-07-25 12:02] LABS: SPEC. GRAVITY BODY FLUIDS 1.019 (NOT ESTABLISHED)
[2017-07-25 12:09] LABS: TOTAL PROTEIN, BODY FLUID 2.8 G/DL (NOT ESTABLISHED)
--- NOTE | 2017-07-25 15:44 | REP ---
Ultrasound-guided paracentesis The procedure was performed under the direct supervision of Dr. Doherty. The risks and benefits of the procedure were explained to the patient and informed consent was obtained. The largest pocket of fluid was localized in the left flank using ultrasound guidance. The skin was prepped and draped in a sterile fashion. 1% lidocaine was used as a local anesthetic. Using ultrasound guidance an 8-Thai multi side-hole catheter was inserted using trocar technique. 2,150 ml of clear juan fluid was withdrawn and sent to the lab. The the patient tolerated the procedure well and there were no immediate complications. After the appropriate amount of monitored convalescence the patient was discharged from the department. Reviewed by SAM Kwok 07/25/2017 03:14 PSigned by David Doherty MD 07/25/2017 03:35 P
[2017-07-25] MEDS ORDERED: GOLYTELY SOLN 4000 ML BTL PO SCH (19:00)
[2017-07-25] MEDS ORDERED: BISACODYL 5 MG TAB PO ONE (20:00)
[2017-07-25] MEDS ORDERED: ATORVASTATIN 20 MG TAB PO SCH (21:00)
--- NOTE | 2017-07-26 01:18 | CR.PDOC ---
[facility] Consultation Consultation DATE OF CONSULTATION: Jul 25, 2017 at 12:18 Primary physician/ hospitalist: Dr. Uribe Reason for consult: Liver cirrhosis and rectal bleeding. HPI: 66 year old female patient with liver cirrhosis ( unclear etiology, patient denies alcohol use) CTP B, MELD 12), DM, COPD, CHF, CKD ( Cr- 2- 3), HTN , CABG ( on high dose ASA), presented to ER for complaints of multiple episodes of blood in stool painless, bright red blood, not associated with stools. Patient was admitted for the same and GI consulted. Patient reports that since she is in ER, she did not have any further episodes of rectal bleeding. She also reports that her abdomen is distended for last few months and was taking high dose Lasix at home. Patient underwent diagnostic paracentesis in this admission. Pertinent negative GI symptoms: Patient denies nausea, vomiting, diarrhea, abdominal pain, loss of appetite, early satiety or unintentional weight loss. No history of hematemesis, melena. Patient reports regular bowel movements. Review of Systems: GI: as stated above CVS: No chest pain, No palpitations, No leg swelling. RS: No Shortness of breath, No Wheezing, no cough ENDOSCOPY RN: No dizziness, No motor weakness, No sensory problems Hematology: No bruising, No gum bleeding, Musculoskeletal: No joint pain, ambulating well. Skin: No rash : No hematuria, No burning sensation of the urine ENT: No ear discharge/ pain, No dysphagia. Eyes: No photophobia. Home medications: reviewed. Antithrombotic agents ASA 325 mg on hold. Medical h/o: As above. Surgical h/o: C- sections, Hysterectomy in past. Social h/o: Alcohol denies , smoking quit few months ago , IVDA/ drugs Denies. . Family h/o of GI cancers - None Prior Endoscopies: --- EGD None --- Colonoscopy More than [address] Cali as per patient. No available results. Prior GI evaluation: None. Exam: Vitals: reviewed General: Alert and oriented x 3, not in distress HEENT: NO pallor, no icterus. Normal oropharynx, NO cervical lymph nodes. Chest: symmetric with bilateral clear air entry, CVS: S1, S2 heard, normal, no murmurs . Abdomen: Distended, shifting dullness, no surgical scars, soft, non-tender, Palpable liver and splenomegaly,, normal bowel sounds heard. Rectal exam: Patient refused / Deferred at this time in view of scheduled colonoscopy. Extremities: no pedal edema, pulses palpable. ENDOSCOPY RN: no focal motor or sensory deficits. Moves all extremities Skin: no rash. Labs: reviewed. Ascitic fluid analysis- SAAG > 1.1 and total protein >2.5. Total WBC > 500. HAV and HBV and HCV negative. Imaging: reviewed Impression: - Acute lower GI bleeding painless likely diverticular bleeding. Stopped since hospitalization and slight drop in Hb.HCT from baseline. Less likely upper GI bleeding. - Liver cirrhosis ( unclear etiology DDx NAFLD vs Autoimmune vs metabolic) CTP B , MELD 12. With ascites. No prior EGD to r/o varices. - SBP cannot be rule out based on the ascitic fluid analysis. Recommendations: - Patient educated about the test results, possible differential diagnoses and All questions answered. - Cotniue Antibiotics for atleast 5 days. ( ceftriaxone while in-patient and can be switch to oral Ciprofloxacin if being discharged). - Give albumin 1gm/ kg in divided doses on Day 3 of antibiotics use. ( on 2016). - Obtain Autoimmune and metabolic hepatitis work up (ordered). - Patient educated about strict abstinence from alcohol / smoking. - Monitor Hb.HCT and transfuse if needed to keep Hemoglobin around 8. ( do not over transfuse). - Continue PPI for now. - Patient will be scheduled for EGD and Colonoscopy on 07/26/2017 for further evaluation . - The procedures, indications, risks (bleeding, perforation, infection, hypotension, respiratory depression, allergy, need for endotracheal intubation, surgery, colostomy, cardiac arrest, even ), benefits, limitations (e.g., missing a lesion), and all other alternatives (including no intervention) were explained to the patient who understood and agreed for the procedures. - Please obtain one bag of cross matched platelets ready in blood bank. - Golytely 4 litres to be completed by 8 AM ( ordered). - Dulcolax 20 mg at 8 PM today. - NPO after 8 AM. Plan of care discussed with patient and primary team and patient verbalized understanding. Laboratory Data Microbiology Microbiology 07/25/17 Acid Fast Stain, Received Pending 07/25/17 Mycobacterial Culture, Received Pending 07/25/17 Fungal Smear, Received Pending 07/25/17 Fungal Culture, Received Pending 07/25/17 Gram Stain - Final, Resulted 07/25/17 Body Fluid Culture, Resulted Pending Allergies Coded Allergies: Streptokinase (Unverified Allergy, Severe, BLOOD CLOTS, 01/20/16) Amiloride (Verified Allergy, Intermediate, RASH/GENERAL ITCHING, 01/28/13) RASH/GENERAL ITCHING Guaifenesin & Derivatives (Unverified Allergy, Intermediate, FACE SWELLING , 01/20/16) Shellfish Allergy (Verified Allergy, Intermediate, RASH, 01/28/13) Spironolactone (Unverified Allergy, Intermediate, RASH, 01/28/13) Vancomycin (Unverified Allergy, Intermediate, HIVES,SWELLING,RASH, 01/28/13) Gabapentin (Verified Adverse Reaction, Severe, SUICIDAL IDEATIONS, 01/28/13) Home Medications Scheduled (Evelyn Zhang) 300 Unit/Ml Inj, 18 UNIT SC BID, (Reported) (Eplerenone) 25 Mg Tab, 25 MG PO DAILY, (Reported) Amlodipine Besylate (Amlodipine Besylate) 10 Mg Tab, 10 MG PO DAILY, (Reported) Aspirin (Aspirin EC) 325 Mg Tabec, 325 MG PO DAILY, (Reported) Atorvastatin Calcium (Atorvastatin Calcium) 40 Mg Tab, 40 MG PO QPM, (Reported) Calcium Carbonate (Calcium) 600 Mg Tab, 600 MG PO BID, (Reported) Carvedilol (Carvedilol) 25 Mg Tab, 25 MG PO BID, (Reported) Ergocalciferol (Vitamin D) 50,000 Unit Cap, 50,000 UNIT PO MTHLY, (Reported) TAKES AT BEGINNING OF EACH MONTH Ferrous Sulfate (Ferrous Sulfate) 325 Mg Tab, 325 MG PO BID, (Reported) Folic Acid (Folic Acid) 1 Mg Tab, 1 MG PO DAILY, (Reported) Insulin Aspart (Novolog) 100 U/Ml Inj, 1 DOSE SC AC, (Reported) PER SLIDING SCALE Levetiracetam (Keppra) 1,000 Mg Tab, 1,000 MG PO BID, (Reported) Nystatin (Nystatin) 100,000 Unit/Gm Oin, 1 UNIT TOP BID, (Reported) APPLIES TO LOWER ABDOMEN Omeprazole (Omeprazole) 40 Mg Cap, 40 MG PO DAILY, (Reported) Potassium Chloride (Klor-Con M20) 20 Meq Tabcr, 20 MEQ PO TID, (Reported) Salmeterol/Fluticasone (Advair Diskus 250-50 Mcg/Dose) 14 Puff/Inhaler Aerp, 1 PUFF INH BID, (Reported) Tiotropium [place] Monohydrate (Spiriva Handihaler) 18 Mcg Cap, 1 INHALATION INH DAILY, (Reported) Topiramate (Topiramate) 50 Mg Tab, 50 MG PO BID, (Reported) Torsemide (Torsemide) 100 Mg Tab, 100 MG PO DAILY, (Reported) Torsemide (Torsemide) 100 Mg Tab, 150 MG PO QPM, (Reported) TAKES AT 1500 Varenicline (Chantix) 1 Mg Tab, 1 MG PO BID, (Reported) Scheduled PRN Albuterol Sulfate (Ventolin Hfa) 200 Puff/8 Gm Aers, 2 PUFF INH Q4H PRN for SHORTNESS OF BREATH, (Reported) Albuterol/Ipratropium (Ipratropium [place]/Albut 0.5-2.5 (3) mg/3Ml) 1 Sushma Sushma, 1 SUSHMA INH Q6H PRN for SHORTNESS OF BREATH, (Reported) Ammonium Lactate (Ammonium Lactate) 12 % Cre, 1 DOSE TOP BID PRN for DRY FEET, ( Reported) Nitroglycerin (Nitrostat) 0.4 Mg Subl, 0.4 MG SL NITRO PRN for CHEST PAIN, ( Reported) EVELINA WALKER MD Jul 26, 2017 01:18
[2017-07-26] MEDS: IPRATROPIUM 0.5MG/ALBUTEROL 2.5MG INH SOL UD 3ML (DUONEB)(J7620) NEB SCH ×4 (01:39→20:00)
[2017-07-26] MEDS: HumaLOG INSULIN (NovoLOG) PER UNIT SC SCH ×3 (05:50→18:00)
[2017-07-26] MEDS: NS 1,000 ML IV SCH (05:51)
[2017-07-26 06:00] VITALS: BP 145/69
[2017-07-26 07:04] LABS: MEAN CORPUSCULAR HEMOGLOBIN 26.1 pg (27.0-33.0); MEAN CORPUSCULAR VOLUME 84.1 fl (80.0-96.0); RED CELL DISTRIBUTION WIDTH 17.6 % (11.5-14.5); WHITE BLOOD COUNT 3.5 10^3/uL (4.0-10.0)
[2017-07-26 07:13] LABS: PLATELET COUNT, AUTOMATED 77 10^3/uL (150-450)
[2017-07-26 07:21] LABS: INR 1.37
[2017-07-26 07:36] LABS: ALBUMIN 2.5 GM/DL (3.2-5.2); ALBUMIN/GLOBULIN RATIO 0.78 (1.00-1.93); BILIRUBIN,TOTAL 0.3 MG/DL (0.2-1.0); CALCIUM LEVEL 7.7 MG/DL (8.8-10.2); CREATININE FOR GFR 2.06 MG/DL (0.55-1.02); GLOMERULAR FILTRATION RATE 25.7 (>45); MAGNESIUM LEVEL 1.9 MG/DL (1.8-2.4); POTASSIUM SERUM 3.1 MEQ/L (3.5-5.1); TOTAL PROTEIN 5.7 GM/DL (6.4-8.2)
[2017-07-26] MEDS: ADVAIR HFA 115/21MCG INHALER INH SCH ×2 (07:57→20:34)
[2017-07-26] MEDS: TIOTROPIUM INHALER/CAPSULE (SPIRIVA) INH SCH (07:59)
[2017-07-26] MEDS: VARENICLINE 1 MG TABLET PO SCH ×2 (08:13→22:28)
[2017-07-26] MEDS: CARVedilol 12.5 MG TAB PO SCH ×2 (08:14→22:28)
[2017-07-26] MEDS: amLODIPine 10 MG TAB PO SCH (08:14)
[2017-07-26] MEDS: TOPIRAMATE (TopAMAX) 25 MG TAB PO SCH ×2 (08:14→22:27)
[2017-07-26] MEDS: FOLIC ACID 1 MG TAB PO SCH (08:14)
[2017-07-26] MEDS: SENOKOT S TAB PO SCH ×2 (08:14→22:27)
[2017-07-26] MEDS: levETIRAcetam 250MG TABLET (KEPPRA) PO SCH ×2 (08:14→22:26)
[2017-07-26] MEDS: FERROUS SULFATE 325MG TAB PO SCH ×2 (08:14→22:28)
[2017-07-26] MEDS: PANTOPRAZOLE 40MG INJ (PROTONIX) (C9113) IV SCH ×2 (08:18→22:26)
[2017-07-26] MEDS: NYSTATIN OINTMENT 15 GM TOP SCH ×2 (08:19→22:26)
[2017-07-26] MEDS ORDERED: FLEET ENEMA PR ONE ×2 (12:00→14:30)
--- NOTE | 2017-07-26 12:37 | IPN ---
DATE: 07/26/2017 Tess seen today prior to going for an esophagogastroduodenoscopy (EGD) and colonoscopy. She is getting some blood product beforehand. No active bleeding. She is alert and conversant, apprehensive about the procedure. PHYSICAL EXAMINATION: 145/69. Vital signs stable. Lungs clear. Heart regular rate and rhythm. Abdomen soft. She has ascites, trace peripheral edema. LABORATORIES: Hemoglobin is down to 7.7 and platelets are 77. Sodium 141, potassium is down 3.1, BUN 37, creatinine 2.0, glucose 96, albumin is 2.5. Yesterday's serum ascites albumin gradient was calculated at 1.4, suggesting portal hypertension. IMPRESSION: 1. Gastrointestinal (GI) bleed. Being transfused again, no sign of active bleeding, upper and lower endoscopy planned for today by Dr. Li. 2. Cirrhosis. Appreciate Dr. Li's input. I reviewed his consultation. EGD to evaluate for varices, as well as colonoscopy planned. Advised him 5 day antibiotic. Discharge home on Cipro to prevent spontaneous bacterial peritonitis after GI bleed. He will be given her some albumin. I will ask for him to order that as contained in his recommendations. 3. Chronic kidney disease with mild acute kidney injury. Creatinine is back to her baseline of around 2.0. 4. Hypertensive heart disease. Blood pressure is under good control. 5. Chronic obstructive pulmonary disease (COPD), stable, asymptomatic. 6. Hyperlipidemia. I stopped her statin. She was on atorvastatin. I stopped this in the face of her cirrhosis. She would like to go home today. I think it is more likely that she will be ready for discharge tomorrow. I will put in for a home safety evaluation tomorrow.
[2017-07-26 14:00] VITALS: BP 158/61
[2017-07-26] MEDS ORDERED: EPINEPHrine 1MG/10ML SYRINGE 1.5IN As Ordered ONE (18:38)
[2017-07-26] MEDS ORDERED: PROPOFOL 200 MG/20 ML VIAL As Ordered ONE (19:14)
[2017-07-26] MEDS ORDERED: LIDOCAINE 2% INJ 100 MG/5 ML SDV (FOR ANES.) As Ordered ONE (19:14)
--- NOTE | 2017-07-26 19:56 | ROOR ---
Patient Name: Tess Booker Procedure Date: 07/26/2017 6:09 PM Date of : 1950 Age: 66 Room: Main OR Gender: Female Note Status: Finalized Procedure: Upper GI endoscopy Indications: Hematochezia, Gastrointestinal bleeding of unknown origin Providers: Liu Li MD Referring MD: Radha Villalobos MD Requesting Provider: Medicines: Monitored Anesthesia Care Complications: No immediate complications. Procedure: Pre-Anesthesia Assessment: - Prior to the procedure, a History and Physical was performed, and patient medications and allergies were reviewed. The patient is competent. The risks and benefits of the procedure and the sedation options and risks were discussed with the patient. All questions were answered and informed consent was obtained. Patient identification and proposed procedure were verified by the physician, the nurse and the bulb weeder in the procedure room. Mental Status Examination: alert and oriented. Airway Examination: normal oropharyngeal airway and neck mobility. Respiratory Examination: clear to auscultation. CV Examination: normal. Prophylactic Antibiotics: The patient does not require prophylactic antibiotics. Prior Anticoagulants: The patient has taken no previous anticoagulant or antiplatelet agents. ASA Grade Assessment: III - A patient with severe systemic disease. After reviewing the risks and benefits, the patient was deemed in satisfactory condition to undergo the procedure. The anesthesia plan was to use monitored anesthesia care (MAC). Immediately prior to administration of medications, the patient was re-assessed for adequacy to receive sedatives. The heart rate, respiratory rate, oxygen saturations, blood pressure, adequacy of pulmonary ventilation, and response to care were monitored throughout the procedure. The physical status of the patient was re-assessed after the procedure. The Endoscope was introduced through the mouth, and advanced to the second part of duodenum. The upper GI endoscopy was accomplished without difficulty. The patient tolerated the procedure well. Findings: LA Grade C (one or more mucosal breaks continuous between tops of 2 or more mucosal folds, less than 75% circumference) esophagitis with no bleeding was found in the lower third of the esophagus. There is no endoscopic evidence of varices in the entire esophagus. No gross lesions were noted in the entire examined stomach. The duodenal bulb and second portion of the duodenum were normal. Impression: - LA Grade C reflux esophagitis. - No gross lesions in the stomach. - Normal duodenal bulb and second portion of the duodenum. - No specimens collected. Recommendation: - [facility]. - Written discharge instructions were provided to the patient. - Low sodium diet. - Continue present medications. - Use Protonix (pantoprazole) 40 mg PO daily for 12 weeks. - Follow an antireflux regimen. - Repeat upper endoscopy in 3 months to check healing. - Return to GI office at appointment to be scheduled. - Return to primary care physician. Liu Li MD Liu Li MD 07/26/2017 7:55:53 PM This report has been signed electronically. Number of Addenda: 0 Note Initiated On: 07/26/2017 6:09 PM Estimated Blood Loss: Estimated blood loss: none.
--- NOTE | 2017-07-26 20:06 | ROOR ---
Patient Name: Tess Booker Procedure Date: 07/26/2017 6:34 PM Date of : 1950 Age: 66 Gender: Female Note Status: Finalized Procedure: Colonoscopy Indications: Rectal bleeding Providers: Liu Li MD Referring MD: Radha Villalobos MD Requesting Provider: Medicines: Monitored Anesthesia Care Complications: No immediate complications. Procedure: Pre-Anesthesia Assessment: - Prior to the procedure, a History and Physical was performed, and patient medications and allergies were reviewed. The patient is competent. The risks and benefits of the procedure and the sedation options and risks were discussed with the patient. All questions were answered and informed consent was obtained. Patient identification and proposed procedure were verified by the physician, the nurse and the sawing and assembly supervisor in the procedure room. Mental Status Examination: alert and oriented. Airway Examination: normal oropharyngeal airway and neck mobility. Respiratory Examination: clear to auscultation. CV Examination: normal. Prophylactic Antibiotics: The patient does not require prophylactic antibiotics. Prior Anticoagulants: The patient has taken no previous anticoagulant or antiplatelet agents. ASA Grade Assessment: III - A patient with severe systemic disease. After reviewing the risks and benefits, the patient was deemed in satisfactory condition to undergo the procedure. The anesthesia plan was to use monitored anesthesia care (MAC). Immediately prior to administration of medications, the patient was re-assessed for adequacy to receive sedatives. The heart rate, respiratory rate, oxygen saturations, blood pressure, adequacy of pulmonary ventilation, and response to care were monitored throughout the procedure. The physical status of the patient was re-assessed after the procedure. The Colonoscope was introduced through the anus and advanced to the terminal ileum, with identification of the appendiceal orifice and IC valve. The colonoscopy was performed without difficulty. The patient tolerated the procedure well. The quality of the bowel preparation was good. The terminal ileum, ileocecal valve, appendiceal orifice, and rectum were photographed. Scope insertion time was 3 minutes. Scope withdrawal time was 12 minutes. The total duration of the procedure was 19 minutes. Findings: The perianal and digital rectal examinations were normal. The terminal ileum appeared normal. A 4 mm polyp was found in the ascending colon. The polyp was sessile. The polyp was removed with a cold biopsy forceps. Resection and retrieval were complete. Verification of patient identification for the specimen was done by the physician and nurse using the patient's name, date and medical record number. Estimated blood loss was minimal. One medium-sized localized angioectasia with bleeding was found in the transverse colon. Area was successfully injected with 8 mL of a 1:10,000 solution of epinephrine for drug delivery. Coagulation for hemostasis using argon plasma at 0.8 liters/minute and 20 ahmadi was successful. For hemostasis, two hemostatic clips were successfully placed. There was no bleeding at the end of the procedure. External and internal hemorrhoids were found during retroflexion. The hemorrhoids were medium-sized. Impression: - The examined portion of the ileum was normal. - One 4 mm polyp in the ascending colon, removed with a cold biopsy forceps. Resected and retrieved. - One bleeding colonic angioectasia. Injected. Treated with argon plasma coagulation (APC). Clips were placed. - External and internal hemorrhoids. Recommendation: - Return patient to [facility] for [facility] care. - Written discharge instructions were provided to the patient. - Low sodium diet today. - Continue present medications. - Await pathology results. - Preparation H ointment: Apply externally daily for 7 days. - Repeat colonoscopy in 1 year for surveillance based on pathology results. - Return to GI clinic. Please call [phone] to make follow up appointment in 2 months. - Return to primary care physician. Liu Li MD Liu Li MD 07/26/2017 8:05:35 PM This report has been signed electronically. Number of Addenda: 0 Note Initiated On: 07/26/2017 6:34 PM Estimated Blood Loss: Estimated blood loss was minimal.
[2017-07-26] MEDS ORDERED: LR 1,000 ML IV SCH (20:15)
[2017-07-26] MEDS ORDERED: ONDANSETRON 4MG/2ML VIAL (J2405) IV PRN (20:15)
[2017-07-26 21:00] VITALS: BP 162/73
[2017-07-26] MEDS ORDERED: HumaLOG INSULIN (NovoLOG) PER UNIT SC SCH (21:00)
[2017-07-26] MEDS ORDERED: GLUCOSE 4 GM CHEW TABLET PO PRN (21:45)
[2017-07-26] MEDS ORDERED: GLUCAGON FOR INJ 1 MG VIAL (J1610) SC PRN (21:45)
[2017-07-26] MEDS ORDERED: DEXTROSE 50% 50 ML SYRINGE IV PRN (21:45)
[2017-07-26 22:00] VITALS: BP 138/66
[2017-07-26 23:00] VITALS: BP 126/71
[2017-07-27] VITALS: BP 110/63
[2017-07-27] MEDS: cefTRIAXone SOD 1 GM in D5W 50 ML IV SCH (00:53)
[2017-07-27] MEDS: IPRATROPIUM 0.5MG/ALBUTEROL 2.5MG INH SOL UD 3ML (DUONEB)(J7620) NEB SCH ×2 (01:29→07:12)
[2017-07-27 06:56] LABS: MEAN CORPUSCULAR HEMOGLOBIN 26.3 pg (27.0-33.0); MEAN CORPUSCULAR HGB CONC 31.4 g/dl (32.0-36.5); MEAN CORPUSCULAR VOLUME 83.8 fl (80.0-96.0); RED CELL DISTRIBUTION WIDTH 17.2 % (11.5-14.5); WHITE BLOOD COUNT 3.6 10^3/uL (4.0-10.0)
[2017-07-27 06:59] LABS: PLATELET COUNT, AUTOMATED 84 10^3/uL (150-450)
[2017-07-27 07:11] LABS: INR 1.24
[2017-07-27] MEDS: TIOTROPIUM INHALER/CAPSULE (SPIRIVA) INH SCH (07:12)
[2017-07-27] MEDS: ADVAIR HFA 115/21MCG INHALER INH SCH (07:12)
[2017-07-27 07:19] LABS: ALBUMIN 2.5 GM/DL (3.2-5.2); ALBUMIN/GLOBULIN RATIO 0.74 (1.00-1.93); BILIRUBIN,TOTAL 0.3 MG/DL (0.2-1.0); CALCIUM LEVEL 7.6 MG/DL (8.8-10.2); CREATININE FOR GFR 2.05 MG/DL (0.55-1.02); GLOMERULAR FILTRATION RATE 25.9 (>45); MAGNESIUM LEVEL 1.9 MG/DL (1.8-2.4); POTASSIUM SERUM 2.9 MEQ/L (3.5-5.1); TOTAL PROTEIN 5.9 GM/DL (6.4-8.2)
[2017-07-27] MEDS ORDERED: POTASSIUM CHLORIDE 10 MEQ SR TABLET PO ONE (08:15)
[2017-07-27] MEDS: HumaLOG INSULIN (NovoLOG) PER UNIT SC SCH ×2 (08:51→12:35)
[2017-07-27] MEDS: TOPIRAMATE (TopAMAX) 25 MG TAB PO SCH (08:52)
[2017-07-27] MEDS: PANTOPRAZOLE 40MG INJ (PROTONIX) (C9113) IV SCH (08:52)
[2017-07-27] MEDS: VARENICLINE 1 MG TABLET PO SCH (08:52)
[2017-07-27] MEDS: levETIRAcetam 250MG TABLET (KEPPRA) PO SCH (08:52)
[2017-07-27] MEDS: NYSTATIN OINTMENT 15 GM TOP SCH (08:52)
[2017-07-27 08:53] VITALS: BP 116/70
[2017-07-27] MEDS: amLODIPine 10 MG TAB PO SCH (08:53)
[2017-07-27] MEDS: FOLIC ACID 1 MG TAB PO SCH (08:53)
[2017-07-27] MEDS: SENOKOT S TAB PO SCH (08:53)
[2017-07-27] MEDS: CARVedilol 12.5 MG TAB PO SCH (08:53)
[2017-07-27] MEDS: FERROUS SULFATE 325MG TAB PO SCH (08:53)
[2017-07-27] MEDS ORDERED: CIPR-249 PO (11:46)
[2017-07-28 00:06] LABS: ALPHA 1 ANTITRYPSIN 178 mg/dL (90-200)
--- NOTE | 2017-07-28 08:16 | DSES ---
DATE OF ADMISSION: 07/25/2017 DATE OF DISCHARGE: 07/27/2017 PRIMARY CARE PHYSICIAN: Dr. Radha Villalobos ATTENDING PHYSICIAN: Dr. Scot Callejas CONSULTANTS: Dr. Li HISTORY OF PRESENT ILLNESS: Tess Booker is a 66-year-old female patient with a history of liver cirrhosis that presented to the emergency room (ER) with complaint of rectal bleeding. In the ER, patient had a CT of the abdomen and pelvis that showed severe stable hepatosplenomegaly. Nodularity in the liver suggests severe stable sclerosis. Large amount of abdominal and pelvic ascites. Diffuse atherosclerosis. No evidence of aortic aneurysm. No evidence of hydronephrosis or nephrolithiasis. No obstructive or inflammatory bowel changes. Stable moderately severe degenerative disc disease at L2-3. Patient was admitted, and gastroenterology was consulted. Patient did require 1 unit transfusion during the course of her admission. She did go for paracentesis, and 2150 mL of clear juan fluid was withdrawn. Patient was seen by gastroenterology. It was arranged to have upper and lower endoscopy done. She was placed on ceftriaxone during the course of hospitalization. Dr. Li, the link knitting machine operator, advised that she is discharged home on oral Cipro for an additional 5 days to prevent spontaneous bacterial peritonitis. Patient had upper and lower endoscopy done. Colonoscopy showed a 4 mm polyp in the ascending colon. Pathology is pending. Also, Dr. Li noted one bleeding colonic angioectasia that was injected and treated with argon plasma coagulation and clips were placed. Dr. Li recommends followup with him. Patient also had upper endoscopy with Dr. Li, who noted esophagitis with no bleeding in the lower third of the esophagus. He recommends followup with him for repeat endoscopy. Patient will also need to followup with Dr. Li for her cirrhosis and ascites. By day of discharge, patient was doing better and reported no further bleeding. Her aspirin was held during hospitalization and will continue to be held. She is started back up on her home medications. Her creatinine is back to baseline around 2. Patient does have a history of chronic kidney disease. She will need to followup with her primary care provider (PCP), Dr. Radha Villalobos, next week and should followup with Dr. Li in a couple weeks as well. PHYSICAL EXAM: Vitals: Temperature 94.0, pulse 95, respiratory rate 18, blood pressure is 116/70, pulse oximetry 97% on room air. General: Patient is alert and oriented times three. No acute distress. No respiratory distress. Chest: Clear to auscultation bilaterally. Heart: Regular rate and rhythm. Abdomen: Obese, soft, nontender. No rebound or guarding. Extremities: No edema. LABS: WBC 3.6, hemoglobin 8.8, hematocrit 28.0, platelets 84. Sodium 142. Potassium was 2.9, but patient did get a dose of potassium 40 mEq this morning and will get another dose of potassium 40 mEq before she leaves. She is on home potassium that will be restarted. Chloride 106, carbon dioxide 24, BUN 35, creatinine 2.05, glucose 192, calcium 7.6, magnesium 1.9, total bilirubin 0.3, AST 24, ALT 22, alkaline phosphatase 118, total protein 5.9, albumin 2.5. PT 15.9, INR 1.24. MEDICATIONS: - Cipro 500 mg by mouth twice a day times 5 days - albuterol puffer two puffs as needed shortness of breath - DuoNebs as needed for shortness of breath - amlodipine 10 mg daily - atorvastatin 40 mg by mouth daily - calcium carbonate 600 mg by mouth twice a day - carvedilol 25 mg by mouth twice a day - eplerenone 25 mg by mouth daily - vitamin D 50,000 units monthly - ferrous sulfate 325 mg by mouth twice a day - folic acid 1 mg daily - NovoLog per sliding scale - Keppra 1000 mg by mouth twice a day - nitroglycerin sublingual as needed for chest pain - nystatin topically twice a day to affected area - omeprazole 40 mg by mouth twice a day - potassium chloride 20 mEq by mouth three times a day - Advair 250/50 one puff twice a day - Spiriva one daily - topiramate 50 mg by mouth twice a day - torsemide 100 mg by mouth daily and 150 mg by mouth at nighttime - Toujeo 18 units subcutaneously twice a day - Chantix as directed DISCHARGE INSTRUCTIONS: Followup with Dr. Villalobos next week. Followup with Dr. Li in 1-2 weeks. Diet is carbohydrate-consistent, low sodium. Activity as tolerated. DISCHARGE DIAGNOSES: Gastrointestinal (GI) bleed. Cirrhosis. Chronic kidney disease with acute kidney injury. Hypertensive heart disease. Chronic obstructive pulmonary disease (COPD). Hyperlipidemia. Esophagitis. Hypertension. Congestive heart failure. Sleep apnea. Thrombocytopenia. Diabetes mellitus type 2. Edited: leeanne 07/28/2017 [id number]
[2017-08-02 10:11] LABS: IMMATURE PLATELET FRACTION % 2.8 % (0.0-9.6)
[2017-08-02 12:44] LABS: IMMATURE PLATELET FRACTION % 4.3 % (0.0-9.6)
[2017-08-18] MEDS ORDERED: VITA-171 PO (15:26)
[2017-08-18] MEDS ORDERED: duo neb (15:26)
[2017-08-18] MEDS ORDERED: OXYB5TAB10 (15:26)
[2017-08-18] MEDS ORDERED: AMILORIDE PO (18:55)
[2017-08-18] MEDS ORDERED: IPRASOL4 INH (18:55)
[2017-08-18] MEDS ORDERED: PREG50CA PO (18:55)
[2017-08-18] MEDS ORDERED: AZO95TAB PO (18:55)
[2017-08-18] MEDS ORDERED: OXYBUTYNIN PO (18:55)
== END 2017-07-27 14:35 | disposition home or self-care (01) | DRG 378 ==
LOC: M ED 20:18 → EDBD 20:18 → M ED INP 07-25 00:56 → M ICU 07-25 02:04 → M MS5PR 07-25 16:23 → M ICU 07-25 16:29 → M MS5PR 07-25 16:43
PROVIDERS: ADMIT Hospitalist; ATTEND Family Medicine
PROC: 0W9G3ZZ Drainage of Peritoneal Cavity, Percutaneous Approach (ICD-10-PCS; 2017-07-25)
PROC: 30233N1 Transfusion of Nonautologous Red Blood Cells into Peripheral Vein, Percutaneous Approach (ICD-10-PCS; 2017-07-26)
PROC: 0DJ08ZZ Inspection of Upper Intestinal Tract, Via Natural or Artificial Opening Endoscopic (ICD-10-PCS; 2017-07-26)
PROC: 0DBK8ZX Excision of Ascending Colon, Via Natural or Artificial Opening Endoscopic, Diagnostic (ICD-10-PCS; 2017-07-26)
PROC: 0W3P8ZZ Control Bleeding in Gastrointestinal Tract, Via Natural or Artificial Opening Endoscopic (ICD-10-PCS; principal; 2017-07-26 16:00)
DX: K55.21 Angiodysplasia of colon with hemorrhage (principal); N17.9 Acute kidney failure, unspecified; I13.0 Hypertensive heart and chronic kidney disease with heart failure and stage 1 through stage 4 chronic kidney disease, or unspecified chronic kidney disease; R18.8 Other ascites; M51.36 Other intervertebral disc degeneration, lumbar region; D12.2 Benign neoplasm of ascending colon; K20.9 Esophagitis, unspecified; Z79.899 Other long term (current) drug therapy; E78.5 Hyperlipidemia, unspecified; D69.6 Thrombocytopenia, unspecified; J44.9 Chronic obstructive pulmonary disease, unspecified; I50.9 Heart failure, unspecified; G47.33 Obstructive sleep apnea (adult) (pediatric); E11.9 Type 2 diabetes mellitus without complications; Z88.8 Allergy status to other drugs, medicaments and biological substances; Z88.1 Allergy status to other antibiotic agents; Z91.013 Allergy to seafood; N18.3 Chronic kidney disease, stage 3 (moderate); K74.60 Unspecified cirrhosis of liver; Z87.891 Personal history of nicotine dependence

== ENCOUNTER → 2017-08-02 | Outpatient (CLI) | payer OTHER, MEDICAID ==
[~2017-08-02] MED LIST changes: +AMILORIDE PO; +AZO95TAB PO; +CIPR-249 PO; +EPLE25TA PO; +FERR1TAB8 PO; +IPRASOL4 INH; +OXYB5TAB10; +OXYBUTYNIN PO; +SPIR1CAP INH; +VARE1TA PO; +VITA-171 PO; +duo neb
--- NOTE | 2017-08-02 15:50 | REP ---
Duplex extremity venous ultrasound: Bilateral lower extremities per History: Right bilateral swelling and leg pain. Question DVT. Findings: The deep veins are anechoic and fully compressible from the groin to the popliteal fossa in the left and right lower extremity. Color flow imaging is homogeneous. Spectral Doppler interrogation demonstrates intact respiratory variation in flow and normal manual augmentation of flow. There is no evidence of deep vein thrombosis. There is a 3.6 x 1.3 x 1.5 cm Ramirez's cyst in the right popliteal soft tissues. Impression: Negative bilateral lower extremity duplex venous ultrasound. No evidence of deep vein thrombosis. Small Ramirez's cyst in the right popliteal soft tissues. Signed by David Doherty MD 08/02/2017 03:42 P
[2017-08-02 16:01] LABS: MEAN CORPUSCULAR HEMOGLOBIN 26.4 pg (27.0-33.0); MEAN CORPUSCULAR VOLUME 87.9 fl (80.0-96.0); RED CELL DISTRIBUTION WIDTH 18.5 % (11.5-14.5); WHITE BLOOD COUNT 4.9 10^3/uL (4.0-10.0)
== END ==
LOC: M LAB 14:39
PROVIDERS: ATTEND Family Medicine
DX: K62.5 Hemorrhage of anus and rectum (principal); M79.662 Pain in left lower leg; M79.661 Pain in right lower leg; M71.21 Synovial cyst of popliteal space [Baker], right knee
CPT/HCPCS: 36415; 85027; 93970; G0463

== ENCOUNTER 2017-08-07 18:29 | Emergency (ER) | payer OTHER, MEDICAID ==
[~2017-08-07] VITALS: Ht 154.9 cm; Wt 72.7 kg
[~2017-08-07 18:29] MED LIST changes: -AMILORIDE PO; -AZO95TAB PO; -OXYB5TAB10; -OXYBUTYNIN PO; -VITA-171 PO; -duo neb
[2017-08-07 20:11] LABS: BASO % 0.6 % (0.0-1.0); EOS # 0.2 10^3/uL (0.0-0.50); EOS % 3.6 % (0.0-3.0); IMMATURE GRANULOCYTE % 0.4 % (0-0); LYMPH # 0.9 10^3/uL (1.5-4.5); LYMPH % 17.1 % (24.0-44.0); MEAN CORPUSCULAR HGB CONC 31.5 g/dl (32.0-36.5); MEAN CORPUSCULAR VOLUME 85.7 fl (80.0-96.0); MONO # 0.4 10^3/uL (0.0-0.8); MONO % 8.5 % (0.0-5.0); NEUTROPHILS # 3.5 10^3/uL (1.8-7.7); NEUTROPHILS % 69.8 % (36.0-66.0); PLATELET COUNT, AUTOMATED 109 10^3/uL (150-450)
[2017-08-07] MEDS: GASTROGRAFIN SOLUTION 30ML (Q9963) PO ONE (20:15)
[2017-08-07] MEDS: MORPHINE 4 MG/ML 1ML SYRINGE IV ONE (20:15)
[2017-08-07 20:30] LABS: INR 1.11
[2017-08-07 20:37] LABS: ALBUMIN 3.4 GM/DL (3.2-5.2); ALBUMIN/GLOBULIN RATIO 0.81 (1.00-1.93); BILIRUBIN,DIRECT 0.1 MG/DL (0.0-0.2); BILIRUBIN,TOTAL 0.3 MG/DL (0.2-1.0); CALCIUM LEVEL 8.1 MG/DL (8.8-10.2); CREATININE FOR GFR 2.23 MG/DL (0.55-1.02); GLOMERULAR FILTRATION RATE 23.5 (>45); POTASSIUM SERUM 3.5 MEQ/L (3.5-5.1); TOTAL PROTEIN 7.6 GM/DL (6.4-8.2)
--- NOTE | 2017-08-07 22:30 | REPUSA ---
CT of the abdomen and pelvis without contrast Clinical statement: Pain. Status post colonoscopy. Technique: Multiple axial CT images were obtained from the base of the lungs to the floor of the pelv is utilizing 5 mm axial slices after administration of oral contrast. Coronal and sagittal reconstruc tions were also obtained. Comparison: 07/24/2017.. Findings: Chest: The visualized lung bases are clear. Abdomen: The kidneys are normal in size bilaterally. There is no evidence of hydronephrosis or nephro lithiasis. The liver is enlarged, with nodularity suggesting cirrhosis. The spleen, pancreas, gallbla dder and adrenal glands are unremarkable. The aorta demonstrates normal caliber and contour. There is no abdominal lymphadenopathy. Moderate amount of abdominal ascites is stable. Pelvis: Moderate amount of stool fills the colon. The bowel is otherwise unremarkable, with no obstru ctive or inflammatory changes. The urinary bladder is within normal limits. There is no pelvic lympha denopathy or ascites. The other pelvic structures appear unremarkable. Bones: There are no suspicious osseous abnormalities seen. Left hip arthroplasty is in place. Multile adriano degenerative disc disease is stable. Impression: 1. Stable sclerotic liver, with hepatomegaly. 2. Moderate amount of abdominal ascites. 3. Moderate constipation. No obstructive or inflammatory bowel changes. 4. Spondylosis of the spine is stable. 5. Overall, no significant interval change.
[2017-08-07 23:24] VITALS: BP 161/78
--- NOTE | 2017-08-08 07:08 | ED PDOC ---
Post-Departure Follow-Up radiology rpeort faxed to Isa Dunlap MD Aug 08, 2017 07:08
[2017-08-18] MEDS ORDERED: duo neb (15:26)
[2017-08-18] MEDS ORDERED: OXYB5TAB10 (15:26)
[2017-08-18] MEDS ORDERED: VITA-171 PO (15:26)
[2017-08-18] MEDS ORDERED: PREG50CA PO (18:55)
[2017-08-18] MEDS ORDERED: IPRASOL4 INH (18:55)
[2017-08-18] MEDS ORDERED: AZO95TAB PO (18:55)
[2017-08-18] MEDS ORDERED: OXYBUTYNIN PO (18:55)
[2017-08-18] MEDS ORDERED: AMILORIDE PO (18:55)
== END 2017-08-07 23:25 | disposition home or self-care (01) ==
LOC: M ED 18:29 → EDBD 18:29 → M ED 23:25
DX: K62.89 Other specified diseases of anus and rectum (principal); E11.9 Type 2 diabetes mellitus without complications; I50.9 Heart failure, unspecified; J44.9 Chronic obstructive pulmonary disease, unspecified; N18.9 Chronic kidney disease, unspecified; G43.909 Migraine, unspecified, not intractable, without status migrainosus; M06.9 Rheumatoid arthritis, unspecified; D69.6 Thrombocytopenia, unspecified; I25.2 Old myocardial infarction; Z79.899 Other long term (current) drug therapy; Z79.51 Long term (current) use of inhaled steroids; Z79.4 Long term (current) use of insulin; Z88.1 Allergy status to other antibiotic agents; Z88.8 Allergy status to other drugs, medicaments and biological substances; Z91.013 Allergy to seafood; Z87.891 Personal history of nicotine dependence
CPT/HCPCS: 74176; 80048; 80076; 83690; 85025; 85610; 85730; 86850; 86900; 86901; 96374; 99284; Q9963

== ENCOUNTER → 2017-08-09 | Outpatient (REF) | payer OTHER ==
[~2017-08-09] MED LIST changes: +AMILORIDE PO; +AZO95TAB PO; +OXYB5TAB10; +OXYBUTYNIN PO; +VITA-171 PO; +duo neb
[2017-08-09 13:50] LABS: SQUAMOUS EPITHELIAL CELL URINE SMALL AMOUNT /hpf (SMALL AMT); WBC, URINE 30-40 /hpf (0-3)
[2017-08-09 13:51] LABS: BACTERIA, URINE SMALL AMOUNT; HYALINE CAST, URINE NONE SEEN /lpf (0-1); MICROSCOPIC EXAM PERFORMED
== END ==
LOC: M SMT 12:56
PROVIDERS: ATTEND Specialist
DX: N39.41 Urge incontinence (principal)

== ENCOUNTER → 2017-08-29 | Outpatient (REF) | payer OTHER | LOC: M SMT 13:00 | PROVIDERS: ATTEND Nurse Practitioner Women's Health | DX: N39.0 Urinary tract infection, site not specified (principal) | CPT/HCPCS: 51701; 51798; 87086; G0463 ==

== ENCOUNTER → 2017-09-08 | Outpatient (CLI) | payer OTHER, MEDICAID ==
[2017-09-08 12:48] LABS: MEAN CORPUSCULAR HGB CONC 31.7 g/dl (32.0-36.5); MEAN CORPUSCULAR VOLUME 88.2 fl (80.0-96.0); RED CELL DISTRIBUTION WIDTH 16.4 % (11.5-14.5); WHITE BLOOD COUNT 3.9 10^3/uL (4.0-10.0)
[2017-09-08 13:08] LABS: CALCIUM LEVEL 8.2 MG/DL (8.8-10.2); CREATININE FOR GFR 2.02 MG/DL (0.55-1.02); GLOMERULAR FILTRATION RATE 26.3 (>45); POTASSIUM SERUM 3.8 MEQ/L (3.5-5.1)
[2017-09-08 13:25] LABS: PLATELET COUNT, AUTOMATED 74 10^3/uL (150-450)
[2017-09-08 13:26] LABS: IMMATURE PLATELET FRACTION % 5.6 % (0.0-9.6)
== END ==
LOC: M LAB 11:54
PROVIDERS: ATTEND Family Medicine
DX: D64.9 Anemia, unspecified (principal); K74.60 Unspecified cirrhosis of liver
CPT/HCPCS: 36415; 80048; 85027; 85049; 85055; 85610; 85730; G0463

== ENCOUNTER → 2017-09-08 | Outpatient (CLI) | payer OTHER, MEDICAID ==
[2017-09-08 12:57] LABS: INR 1.22
== END ==
LOC: M LAB 11:50
PROVIDERS: ATTEND Internal Medicine Gastroenterology
DX: R16.2 Hepatomegaly with splenomegaly, not elsewhere classified (principal); K74.60 Unspecified cirrhosis of liver; R18.8 Other ascites

== ENCOUNTER → 2017-09-11 | Outpatient (CLI) | payer OTHER, MEDICAID ==
--- NOTE | 2017-09-11 16:40 | REP ---
PARACENTESIS: The procedure was performed by SAM Tripp under the direct supervision of Dr. Raines. The procedure along with its benefits and complications were discussed with the patient prior to the examination. Informed consent was obtained both verbally and written. The patient was identified in the ultrasound suite and placed in a supine position. The bilateral lower quadrants were interrogated with ultrasound. The right lower quadrant demonstrated a moderate sized fluid collection. An appropriate site was chosen for needle entry and this area was marked prepped and draped in the usual sterile fashion. A procedural time out was performed to ensure that the correct patient site and procedure were being performed. Local infiltrative anesthesia was achieved using 1% Xylocaine. An 8-[place] centesis catheter was advanced through the abdominal wall and under continuous negative pressure until serous fluid was aspirated. The needle was removed and the catheter was advanced. Approximately 4100 mm of dark red fluid was removed. The catheter was then removed and hemostasis was achieved and a soft dressing was applied to the entry site. The patient tolerated the procedure well and had no immediate complications. IMPRESSION: Uncomplicated right paracentesis yielding 4,100 mL of dark red fluid. Reviewed by SAM Owens 09/12/2017 05:27 PEdited and Signed by Javed Raines MD 09/13/2017 01:49 P
== END ==
LOC: M RADPRO 12:25
PROVIDERS: ATTEND Internal Medicine Gastroenterology
DX: R18.8 Other ascites (principal); Z95.1 Presence of aortocoronary bypass graft; Z96.642 Presence of left artificial hip joint; Z87.891 Personal history of nicotine dependence; Z88.8 Allergy status to other drugs, medicaments and biological substances; Z88.1 Allergy status to other antibiotic agents; Z91.013 Allergy to seafood; Z79.899 Other long term (current) drug therapy

== ENCOUNTER → 2017-09-27 | Outpatient (CLI) | payer OTHER, MEDICAID ==
[2017-09-27 12:30] LABS: INR 1.16
--- NOTE | 2017-09-27 19:35 | REP ---
Ultrasound-guided paracentesis The procedure was performed under the direct supervision of Dr. Allison. The risks and benefits of the procedure were explained to the patient and informed consent was obtained. The largest pocket of fluid was localized in the left flank using ultrasound guidance. The skin was prepped and draped in a sterile fashion. 1% lidocaine was used as a local anesthetic. An 8-Azeri multi side-hole catheter was inserted using trocar technique. 4500 ml of low viscosity red colored fluid was withdrawn and discarded. The the patient tolerated the procedure well and there were no immediate complications. After the appropriate amount of monitored convalescence the patient was discharged from the department. Reviewed by SAM Kwok 09/27/2017 03:57 PSigned by Dewayne Allison MD 09/27/2017 07:26 P
== END ==
LOC: M RADPRO 11:42
PROVIDERS: ATTEND Internal Medicine Gastroenterology
DX: R18.8 Other ascites (principal); R16.2 Hepatomegaly with splenomegaly, not elsewhere classified; K74.60 Unspecified cirrhosis of liver

== ENCOUNTER → 2017-11-03 | Outpatient (CLI) | payer MEDICARE, MEDICAID, OTHER | LOC: M RADPRO 13:12 | DX: R18.8 Other ascites (principal); I11.0 Hypertensive heart disease with heart failure; N18.4 Chronic kidney disease, stage 4 (severe); E78.00 Pure hypercholesterolemia, unspecified; D64.9 Anemia, unspecified; M19.90 Unspecified osteoarthritis, unspecified site; E11.9 Type 2 diabetes mellitus without complications; I50.9 Heart failure, unspecified; R56.9 Unspecified convulsions; F41.9 Anxiety disorder, unspecified; Z79.4 Long term (current) use of insulin; Z79.899 Other long term (current) drug therapy; Z80.1 Family history of malignant neoplasm of trachea, bronchus and lung; Z88.8 Allergy status to other drugs, medicaments and biological substances; Z91.013 Allergy to seafood; I25.709 Atherosclerosis of coronary artery bypass graft(s), unspecified, with unspecified angina pectoris | CPT/HCPCS: 49083 ==

== ENCOUNTER 2017-11-26 05:07 | Inpatient (IN) | payer MEDICARE, MEDICAID ==
[2017-11-26 07:00] LABS: BASO % 0.5 % (0.0-1.0); EOS # 0.1 10^3/uL (0.0-0.50); EOS % 2.5 % (0.0-3.0); HEMATOCRIT 38.2 % (36.0-47.0); HEMOGLOBIN 12.6 g/dl (12.0-16.0); IMMATURE GRANULOCYTE % 0.5 % (0-0); LYMPH % 23.7 % (24.0-44.0); MEAN CORPUSCULAR HEMOGLOBIN 29.3 pg (27.0-33.0); MEAN CORPUSCULAR VOLUME 88.8 fl (80.0-96.0); MONO # 0.5 10^3/uL (0.0-0.8); MONO % 11.1 % (0.0-5.0); NEUTROPHILS # 2.5 10^3/uL (1.8-7.7); NEUTROPHILS % 61.7 % (36.0-66.0); RED CELL DISTRIBUTION WIDTH 14.8 % (11.5-14.5); WHITE BLOOD COUNT 4.1 10^3/uL (4.0-10.0)
[2017-11-26 07:10] LABS: ABG pH (ARTERIAL) 7.367 UNITS (7.350-7.450)
[2017-11-26 07:11] LABS: ABG BASE EXCESS -1.9 (-2.0-2.0); ABG HCO3 23.4 MEQ/L (22.0-26.0); ABG O2 SATURATION 97.6 % (95.0-99.0); ABG PARTIAL PRESSURE CO2 41.7 mmHg (35.0-45.0); ABG PARTIAL PRESSURE O2 99.7 mmHg (75.0-100.0); ABG STANDARD HCO3 22.9 MEQ/L (22.0-26.0); ABG TOTAL CO2 24.7 MEQ/L (23.0-31.0)
[2017-11-26 07:13] LABS: ALBUMIN 3.3 GM/DL (3.2-5.2); ALKALINE PHOSPHATASE 166 U/L (45-117); ALT/SGPT 24 U/L (12-78); ANION GAP 7 MEQ/L (8-16); AST/SGOT 29 U/L (7-37); BILIRUBIN,DIRECT 0.2 MG/DL (0.0-0.2); BILIRUBIN,TOTAL 0.4 MG/DL (0.2-1.0); BLOOD UREA NITROGEN 41 MG/DL (7-18); CALCIUM LEVEL 8.2 MG/DL (8.8-10.2); CARBON DIOXIDE LEVEL 27 MEQ/L (21-32); CHLORIDE LEVEL 109 MEQ/L (98-107); CK-MB VALUE MASS 1.5 NG/ML (0.0-3.6); CPK CREATINE PHOSPHOKINASE 74 U/L (26-192); CREATININE FOR GFR 2.26 MG/DL (0.55-1.30); GLUCOSE, FASTING 138 MG/DL (70-100); MB/CK RELATIVE INDEX 2.02 (< OR =4); NT-PRO BNP 11010 PG/ML (<125); POTASSIUM SERUM 3.7 MEQ/L (3.5-5.1); SODIUM LEVEL 143 MEQ/L (136-145); TROPONIN I 0.02 NG/ML (< 0.10)
[2017-11-26 07:19] LABS: LACTIC ACID SEPSIS PROTOCOL 0.8 MMOL/L (0.4-2.0)
[2017-11-26 07:19] LABS: PLATELET COUNT, AUTOMATED 69 10^3/uL (150-450); POS COUNT POS FLAG
[2017-11-26] MEDS: IPRATROPIUM 0.5MG/ALBUTEROL 2.5MG INH SOL UD 3ML (DUONEB)(J7620) NEB ×3 (07:31)
[2017-11-26 08:08] LABS: INFLUENZA A AMPLIFICATION NEGATIVE (NEGATIVE); INFLUENZA B AMPLIFICATION NEGATIVE (NEGATIVE)
[2017-11-26] MEDS ORDERED: GLUCAGON FOR INJ 1 MG VIAL (J1610) SC (10:45)
[2017-11-26] MEDS ORDERED: GLUCOSE 4 GM CHEW TABLET PO (10:45)
[2017-11-26] MEDS ORDERED: DEXTROSE 50% 50 ML SYRINGE IV (10:45)
[2017-11-26] MEDS: TOPIRAMATE (TopAMAX) 25 MG TAB PO ×2 (11:49→20:30)
[2017-11-26] MEDS: OMEPRAZOLE 20 MG CAP PO (11:50)
[2017-11-26] MEDS: CARVedilol 12.5 MG TAB PO ×2 (11:51→20:30)
[2017-11-26] MEDS: PREGABALIN 50 MG CAP (LYRICA) PO ×2 (11:51→20:30)
[2017-11-26] MEDS: TIOTROPIUM INHALER/CAPSULE (SPIRIVA) INH (11:55)
[2017-11-26 11:58] LABS: BEDSIDE GLUCOSE 288 MG/DL (80-115)
[2017-11-26] MEDS: HumaLOG INSULIN (NovoLOG) PER UNIT SC ×3 (12:09→21:02)
[2017-11-26] MEDS: FUROSEMIDE 40 MG/4 ML VIAL (J1940) IV ×2 (12:59→18:12)
[2017-11-26] MEDS: POTASSIUM CHLORIDE 10 MEQ SR TABLET PO (14:30)
[2017-11-26 17:32] LABS: BEDSIDE GLUCOSE 217 MG/DL (80-115)
[2017-11-26 20:30] LABS: BEDSIDE GLUCOSE 171 MG/DL (80-115)
[2017-11-26] MEDS: LEVEMIR (INSULIN DETEMIR) 1 UNITS/0.01ML SC (20:31)
[2017-11-26] MEDS: ATORVASTATIN 20 MG TAB PO (20:31)
[2017-11-27] MEDS: FUROSEMIDE 40 MG/4 ML VIAL (J1940) IV ×4 (00:01→17:35)
[2017-11-27 07:03] LABS: BASO % 0.3 % (0.0-1.0); EOS # 0.1 10^3/uL (0.0-0.50); EOS % 2.6 % (0.0-3.0); HEMATOCRIT 34.8 % (36.0-47.0); HEMOGLOBIN 11.5 g/dl (12.0-16.0); LYMPH # 0.9 10^3/uL (1.5-4.5); LYMPH % 28.1 % (24.0-44.0); MEAN CORPUSCULAR HEMOGLOBIN 28.9 pg (27.0-33.0); MEAN CORPUSCULAR VOLUME 87.4 fl (80.0-96.0); MONO # 0.3 10^3/uL (0.0-0.8); MONO % 10.5 % (0.0-5.0); NEUTROPHILS # 1.8 10^3/uL (1.8-7.7); NEUTROPHILS % 57.5 % (36.0-66.0); RED BLOOD COUNT 3.98 10^6/uL (4.00-5.40); RED CELL DISTRIBUTION WIDTH 14.7 % (11.5-14.5); WHITE BLOOD COUNT 3.1 10^3/uL (4.0-10.0)
[2017-11-27 07:07] LABS: PLATELET COUNT, AUTOMATED 78 10^3/uL (150-450)
[2017-11-27 07:09] LABS: IMMATURE PLATELET FRACTION % 3.3 % (0.0-9.6)
[2017-11-27 07:27] LABS: ANION GAP 6 MEQ/L (8-16); BLOOD UREA NITROGEN 53 MG/DL (7-18); CARBON DIOXIDE LEVEL 28 MEQ/L (21-32); CHLORIDE LEVEL 110 MEQ/L (98-107); CREATININE FOR GFR 2.48 MG/DL (0.55-1.30); GLOMERULAR FILTRATION RATE 20.7 (>45); GLUCOSE, FASTING 130 MG/DL (70-100); POTASSIUM SERUM 3.5 MEQ/L (3.5-5.1); SODIUM LEVEL 144 MEQ/L (136-145)
[2017-11-27] MEDS: TOPIRAMATE (TopAMAX) 25 MG TAB PO ×2 (07:58→21:53)
[2017-11-27] MEDS: amLODIPine 10 MG TAB PO (07:58)
[2017-11-27] MEDS: CARVedilol 12.5 MG TAB PO ×2 (07:59→21:54)
[2017-11-27] MEDS: PREGABALIN 50 MG CAP (LYRICA) PO ×2 (07:59→21:54)
[2017-11-27] MEDS: HumaLOG INSULIN (NovoLOG) PER UNIT SC ×4 (08:00→21:00)
[2017-11-27] MEDS: OMEPRAZOLE 20 MG CAP PO (08:00)
[2017-11-27] MEDS ORDERED: EPLERENONE 25 MG PO (09:00)
[2017-11-27] MEDS ORDERED: ENOXAPARIN 30 MG/0.3 ML SYR (J1650) SC (09:00)
[2017-11-27] MEDS: TIOTROPIUM INHALER/CAPSULE (SPIRIVA) INH (11:56)
[2017-11-27 12:28] LABS: BEDSIDE GLUCOSE 101 MG/DL (80-115)
[2017-11-27 17:36] LABS: BEDSIDE GLUCOSE 161 MG/DL (80-115)
[2017-11-27] MEDS ORDERED: IPRATROPIUM 0.5MG/ALBUTEROL 2.5MG INH SOL UD 3ML (DUONEB)(J7620) NEB (20:45)
[2017-11-27] MEDS: ATORVASTATIN 20 MG TAB PO (21:53)
[2017-11-27 21:54] LABS: BEDSIDE GLUCOSE 204 MG/DL (80-115)
[2017-11-27] MEDS: LEVEMIR (INSULIN DETEMIR) 1 UNITS/0.01ML SC (21:55)
[2017-11-28] MEDS: IPRATROPIUM 0.5MG/ALBUTEROL 2.5MG INH SOL UD 3ML (DUONEB)(J7620) NEB ×4 (02:04→11:03)
[2017-11-28 05:37] LABS: BASO % 0.6 % (0.0-1.0); EOS # 0.1 10^3/uL (0.0-0.50); EOS % 2.9 % (0.0-3.0); HEMATOCRIT 35.4 % (36.0-47.0); HEMOGLOBIN 11.4 g/dl (12.0-16.0); IMMATURE GRANULOCYTE % 0.6 % (0-0); LYMPH # 0.8 10^3/uL (1.5-4.5); LYMPH % 26.1 % (24.0-44.0); MEAN CORPUSCULAR HEMOGLOBIN 28.5 pg (27.0-33.0); MEAN CORPUSCULAR HGB CONC 32.2 g/dl (32.0-36.5); MEAN CORPUSCULAR VOLUME 88.5 fl (80.0-96.0); MONO # 0.3 10^3/uL (0.0-0.8); NEUTROPHILS # 1.9 10^3/uL (1.8-7.7); NEUTROPHILS % 59.8 % (36.0-66.0); RED CELL DISTRIBUTION WIDTH 14.6 % (11.5-14.5); WHITE BLOOD COUNT 3.1 10^3/uL (4.0-10.0)
[2017-11-28 05:43] LABS: ANION GAP 8 MEQ/L (8-16); BLOOD UREA NITROGEN 59 MG/DL (7-18); CALCIUM LEVEL 7.5 MG/DL (8.8-10.2); CARBON DIOXIDE LEVEL 29 MEQ/L (21-32); CHLORIDE LEVEL 109 MEQ/L (98-107); GLOMERULAR FILTRATION RATE 20.5 (>45); GLUCOSE, FASTING 145 MG/DL (70-100); POTASSIUM SERUM 3.2 MEQ/L (3.5-5.1); SODIUM LEVEL 146 MEQ/L (136-145)
[2017-11-28 06:00] LABS: PLATELET COUNT, AUTOMATED 74 10^3/uL (150-450)
[2017-11-28] MEDS: TIOTROPIUM INHALER/CAPSULE (SPIRIVA) INH (08:00)
[2017-11-28] MEDS: CARVedilol 12.5 MG TAB PO (08:11)
[2017-11-28] MEDS: HumaLOG INSULIN (NovoLOG) PER UNIT SC ×2 (08:11→11:35)
[2017-11-28] MEDS: predniSONE 20 MG TAB PO (08:12)
[2017-11-28] MEDS: TOPIRAMATE (TopAMAX) 25 MG TAB PO (08:12)
[2017-11-28] MEDS: TORSEMIDE 100 MG TAB PO (08:13)
[2017-11-28] MEDS: PREGABALIN 50 MG CAP (LYRICA) PO (08:13)
[2017-11-28] MEDS: amLODIPine 10 MG TAB PO (08:13)
[2017-11-28] MEDS: OMEPRAZOLE 20 MG CAP PO (08:14)
[2017-11-28 11:36] LABS: BEDSIDE GLUCOSE 117 MG/DL (80-115)
[2017-11-28] MEDS: POTASSIUM CHLORIDE 10 MEQ SR TABLET PO (13:24)
== END 2017-11-28 14:10 | disposition home health service (06) | DRG 292 ==
LOC: M PCU 11-27 15:53 → M ED 05:07 → M ED INP 08:29
PROC: 0W9G3ZZ Drainage of Peritoneal Cavity, Percutaneous Approach (ICD-10-PCS; principal; 2017-11-27)
DX: I11.0 Hypertensive heart disease with heart failure (principal); R18.8 Other ascites; J44.1 Chronic obstructive pulmonary disease with (acute) exacerbation; I50.33 Acute on chronic diastolic (congestive) heart failure; K72.90 Hepatic failure, unspecified without coma; E78.5 Hyperlipidemia, unspecified; E87.6 Hypokalemia; E11.9 Type 2 diabetes mellitus without complications; D69.6 Thrombocytopenia, unspecified; G40.909 Epilepsy, unspecified, not intractable, without status epilepticus; K74.60 Unspecified cirrhosis of liver; Z79.899 Other long term (current) drug therapy; Z79.4 Long term (current) use of insulin

== ENCOUNTER → 2017-12-22 | Outpatient (REF) | payer MEDICARE, MEDICAID ==
[2017-12-22 19:08] LABS: TOTAL VOLUME, URINE 825 ML
[2017-12-22 19:11] LABS: SODIUM 24 HOUR URINE 41 MEQ/24HR (40-220); SODIUM, URINE 50 MEQ/L
== END ==
LOC: M LAB REF 17:37
DX: K75.81 Nonalcoholic steatohepatitis (NASH) (principal)
CPT/HCPCS: 81050